=== PATIENT | male | born 1955 | race African-American/Black ===

== ENCOUNTER → 2016-11-02 | Outpatient (CLI) | payer OTHER ==
[~2016-11-02] MED LIST: CALCIUM/VITAMIN D PO; CALTTAB10 PO; CLAR5CHW; FIBERCON PO; FLON0.05; HYDR7.5T38 PO; MULTIVIT PO; PRIL20CA PO; ULTR200T OR; ULTR50TA PO; VICODINES TAB PO; VITA400C PO; ZANA4CAP OR; ZOCO40TA PO; ZYRT10TA6 OR
--- NOTE | 2016-11-20 01:09 | ECWPNPC ---
PATIENT NAME: FABIOLA MORENO : 1955 GENDER: MALE VISIT DATE: 11/02/2016 DISCHARGE DATE: 11/02/16 1014 VISIT LOCKED DATE TIME: PHYSICIAN: VAIBHAV YANEZ RESOURCE: VAIBHAV YANEZ REASON FOR APPOINTMENT 1. POST TPI BACK HISTORY OF PRESENT ILLNESS HISTORY OF PRESENT ILLNESS: HERE [facility] POST PROCEDURE F/U.HAD TPI ON 10-11-16.REPORTS ONLY 2 DAYS IMPROVEMENT THEN PAIN RETURNED TO [facility].CHIEF AREA OF PAIN IS RIGHT LOW BACK.PAIN IS AGGREVATED IN THIS REGION BY GETTING IN AND OUT OF VEHICLE.RATING PAIN VAS 6/10. PAIN THE PATIENT DESCRIBES THE PAIN... FALL RISK SCREENING: SCREENING :NO FALLS IN THE PAST YEAR CURRENT MEDICATIONS TAKING DRISDOL 89196 UNIT CAPSULE 1 CAPSULE ORALLY ONCE A WEEK WITH A MEAL TAKING ATORVASTATIN CALCIUM 10 MG TABLET 1 TABLET ORALLY ONCE A DAY TAKING PRILOSEC 40 MG CAPSULE DELAYED RELEASE 1 CAPSULE ORALLY DAILY BEFORE MEAL TAKING COLACE 100 MG CAPSULE 1 CAPSULE NEEDED ORALLY ONCE A DAY TAKING FIBERCON 625 MG TABLET 1 TABLET WITH WATER ORALLY DAILY TAKING VITAMIN E 400 UNIT CAPSULE 1 CAPSULE ORALLY ONCE A DAY TAKING CALCIUM + D 600-400 MG-UNIT TABLET 1 TABLET WITH FOOD ORALLY ONCE A DAY TAKING VITAMIN B-12 500 MCG TABLET 1 TABLET ORALLY ONCE A DAY TAKING HYDROCORTISONE VALERATE 0.2 % CREAM 1 APPLICATION TO AFFECTED AREA ON ARMS AND CHEST EXTERNALLY ONCE A DAY TAKING VENTOLIN HFA 108 (90 BASE) MCG/ACT AEROSOL SOLUTION INHALE TWO PUFFS BY MOUTH EVERY 4 TO 6 HOURS NEEDED FOR COUGH AND DYSPNEA INHALATION TAKING EPIPEN 2-ARMAAN 0.3 MG/0.3ML SOLUTION AUTO-INJECTOR INJECT 0.3ML BY INTRAMUSCULARLY ROUTE ONCE NEEDED FOR ANAPHYLAXIS INJECTION TAKING LIDOCAINE 4 % CREAM 1 APPLICATION TO AFFECTED AREA NEEDED EXTERNALLY THREE TIMES A DAY TO LOW BACK TAKING BENADRYL 25 MG CAPSULE 1 CAPSULE NEEDED FOR ITCHING ORALLY EVERY 8 HRS TAKING ZYRTEC ALLERGY 10 MG TABLET 1 TABLET ORALLY ONCE A DAY TAKING SALINE 0.65 % AEROSOL SOLUTION 1 APPLICATION IN EACH NOSTRIL TO TREAT DRY NASAL PASSAGES NASALLY 4 TIMES A DAY NEEDED, NOTES: 10/08 10AM TAKING FLONASE 50 MCG/ACT SUSPENSION 1 SPRAY IN EACH NOSTRIL NASALLY TWICE A DAY, NOTES: 10/08 10AM TAKING SUDAFED 30 MG TABLET 1 TABLET NEEDED ORALLY EVERY 6 HRS, NOTES: 2 WEEKS AGO TAKING AZELASTINE HCL 0.1 % SOLUTION SPRAY 2 SPRAYS IN EACH NOSTRIL ONCE DAILY IN THE MORNING NASAL , NOTES: 10/08 10AM TAKING TESSALON PERLES 100 MG CAPSULE 1 CAPSULE NEEDED ORALLY THREE TIMES A DAY, NOTES: 10/09 8AM TAKING GABAPENTIN 300 MG CAPSULE 1 CAPSULE ORALLY BEFORE BEDTIME, NOTES: 10/06 10PM TAKING OXYBUTYNIN CHLORIDE ER 10 MG TABLET EXTENDED RELEASE 24 HOUR 1 TABLET ORALLY ONCE A DAY, NOTES: 10/09 8AM TAKING FOLIC ACID 400 MCG TABLET 1 TABLET ORALLY ONCE A DAY MEDICATION LIST REVIEWED AND RECONCILED WITH THE PATIENT PAST MEDICAL HISTORY LOW BACK PAIN TENDINITIS SHOULDER ALLERGIES/ ECZEMA PEPTIC ULCER DISEASE HYPERLIPIDEMIA, MIXED UVEITIS ESOPHAGEAL REFLUX HIATAL HERNIA OSTEOARTHRITIS CARCINOID RECTAL TUMOR MIGRAINE HEADACHES PANCREATITIS 03/03 URINARY FREQUENCY ALLERGIES CELEBREX: HYPER: SIDE EFFECTS SULFA: HIVES: ALLERGY CYMBALTA: NAUSEA/VOMITING: SIDE EFFECTS TRAMADOL: GI UPSET: SIDE EFFECTS SHELL FISH: HIVES: ALLERGY PRAVASTATIN SODIUM: ELEVATED LFT: SIDE EFFECTS SOCIAL HISTORY GENERAL: TOBACCO USE ARE YOU A:NONSMOKER LEARNING BARRIERS / SPECIAL NEEDS ORIENTED TO PLAN OF CARE: PATIENT, PAIN MANAGEMENT PATIENT, ORIENTED TO PLAN OF CARE: PATIENT, PAIN MANAGEMENT PATIENT. NEW PATIENT PAIN DIARY TODAY'S VISITNOTES FROM 0-10, WHAT LEVEL IS YOUR PAIN TODAY?0 PAIN CLINIC PFS, CLERGY, PUBLIC HEALTH REFERRALS PFS REFERRAL NEEDED?NO CLERGY REFERRAL NEEDED?NO PUBLIC HEALTH REFERRAL NEEDED?NO WAS THE PROVIDER NOTIFIED OF ANY PERTINENT INFO?NO PFS REFERRAL NEEDED?NO CLERGY REFERRAL NEEDED?NO PUBLIC HEALTH REFERRAL NEEDED?NO WAS THE PROVIDER NOTIFIED OF ANY PERTINENT INFO?NO REVIEW OF SYSTEMS CONSTITUTIONAL: ANY CHANGE IN YOUR MEDICAL CONDITION? NO . RECENT ILLNESS DENIES . CHILLS NO . FEVER NO . WEIGHT LOSS DENIES . INFECTION: DO YOU HAVE NEW INFECTIONS? NO . DO YOU HAVE HISTORY OF MRSA? NO . MUSCULOSKELETAL: ANY NEW PATTERNS OF PAIN OR NUMBNESS? NO . GASTROENTEROLOGY: ANY NEW CHANGE IN BOWEL CONTROL? NO . GENITOURINARY: ANY NEW CHANGE IN BLADDER CONTROL? NO . IS THERE A CHANCE YOU COULD BE ? NO . HEMATOLOGY/LYMPH: DO YOU TAKE ANY BLOOD THINNERS? (FOR EXAMPLE- COUMADIN, PLAVIX, AGGRENOX, PLATEL, PRADAXA, OR XARELTO) NO . WHEN WAS YOUR LAST DOSE? DATE: TIME: . NEUROLOGY: HAVE YOU FALLEN IN THE PAST 6 MONTHS? NO . ANY NEW EXTREMITY NUMBNESS OR WEAKNESS? NO . CARDIOLOGY: DO YOU HAVE A PACEMAKER OR DEFIBRILLATOR? NO . CHEST PAIN DENIES . SHORTNESS OF BREATH DENIES . RESPIRATORY: HAVE YOU BEEN SICK IN THE PAST WEEK? NO . FEVER NO . FLU LIKE SYMPTOMS? NO . COUGH NO, DENIES . SHORTNESS OF BREATH DENIES . INTEGUMENTARY: DO YOU HAVE ANY RASHES OR OPEN SORES? NO . ALLERGIC/IMMUNO: ARE YOU ALLERGIC TO SHELLFISH OR IV DYE? NO . ANY NEW ALLERGIES? NO . PSYCHIATRIC: DO YOU HAVE THOUGHTS OF HURTING YOURSELF OR SOMEONE ELSE? NO . ARE YOU ABUSED, NEGLECTED, OR IN AN UNSAFE ENVIRONMENT? NO . ENDOCRINOLOGY: ARE YOU DIABETIC? NO . OTHER: DO YOU NEED ANY PRESCRIPTIONS? NO . IF YES, PLEASE LIST: ____ . ANY NEW PROBLEMS WITH YOUR MEDICATIONS? NO . WHEN DID YOU LAST EAT? ____ . WHEN DID YOU LAST DRINK? ____ . WHAT DID YOU LAST DRINK? ____ . NAME OF PERSON DRIVING YOU HOME? ____ . DO YOU HAVE ANY OTHER QUESTIONS OR CONCERNS NO . REVIEWED BY: PROVIDER: VAIBHAV CAMPOS . VITAL SIGNS WT 172 LBS, HT 70.75 IN, BMI 24.16 INDEX, BP 146/100 R ARM, REPEAT BP 149/98 L ARM, HR 88 /MIN, RR 16 /MIN, TEMP 97.4 F, OXYGEN SAT % 98, NA INITIALS TL 0935ELEVATED BP, PT STATES HE IS NORMALLY HIGH AT DRS OFFICES- TL. EXAMINATION GENERAL EXAMINATION: LUNGS:LUNG SOUNDS ARE CLEAR. HEART:HEART RATE REGULAR. MUSCULOSKELETAL:*, MUSCLE STRENGTH TESTING 5/5 BILATERAL LOWER EXTREMITIES. PALPATION: POSITIVE FOR PAIN OVER L/S SPINE.SPECIFIC POINT TENDERNESS OVER RSIJ.. DIAGNOSTIC: . 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 IT IS NOT A COPY OF THE [employer] PROGRESS NOTE. CELESTE
== END ==
LOC: M PAIN 09:40
PROVIDERS: ATTEND Nurse Practitioner Family
DX: Z09 Encounter for follow-up examination after completed treatment for conditions other than malignant neoplasm (principal); M53.3 Sacrococcygeal disorders, not elsewhere classified; M79.1 Myalgia; L30.8 Other specified dermatitis; E78.5 Hyperlipidemia, unspecified; K21.9 Gastro-esophageal reflux disease without esophagitis; K44.9 Diaphragmatic hernia without obstruction or gangrene; M19.90 Unspecified osteoarthritis, unspecified site; G43.909 Migraine, unspecified, not intractable, without status migrainosus; Z88.2 Allergy status to sulfonamides; Z88.5 Allergy status to narcotic agent; Z91.013 Allergy to seafood; Z88.8 Allergy status to other drugs, medicaments and biological substances; Z79.899 Other long term (current) drug therapy; Z85.048 Personal history of other malignant neoplasm of rectum, rectosigmoid junction, and anus; Z87.11 Personal history of peptic ulcer disease

== ENCOUNTER → 2016-11-08 | Outpatient (REF) | payer OTHER | LOC: M SFHCPLAZ 08:03 | PROVIDERS: ATTEND Nurse Practitioner Family | DX: M25.512 Pain in left shoulder (principal); R20.2 Paresthesia of skin; Z53.8 Procedure and treatment not carried out for other reasons ==

== ENCOUNTER → 2016-12-05 | Outpatient (REF) | payer OTHER ==
[2016-12-05 12:00] LABS: ALBUMIN 3.8 GM/DL (3.2-5.2); ALBUMIN/GLOBULIN RATIO 1.09 (1.00-1.93); ALKALINE PHOSPHATASE 110 U/L (45-117); ALT/SGPT 56 U/L (12-78); ANION GAP 7 MEQ/L (8-16); AST/SGOT 42 U/L (15-37); BILIRUBIN,TOTAL 0.4 MG/DL (0.2-1.0); BLOOD UREA NITROGEN 11 MG/DL (7-18); CALCIUM LEVEL 9.4 MG/DL (8.8-10.2); CARBON DIOXIDE LEVEL 28 MEQ/L (21-32); CHLORIDE LEVEL 106 MEQ/L (98-107); CHOLESTEROL LEVEL 199 MG/DL (<200); CREATININE FOR GFR 0.75 MG/DL (0.70-1.30); GLOMERULAR FILTRATION RATE > 60.0 (>49); GLUCOSE, FASTING 99 MG/DL (80-110); POTASSIUM SERUM 4.4 MEQ/L (3.5-5.1); SODIUM LEVEL 141 MEQ/L (136-145); TOTAL PROTEIN 7.3 GM/DL (6.4-8.2); TRIGLYCERIDES LEVEL 283 MG/DL (<150)
== END ==
LOC: M SFHCPLAZ 08:38
PROVIDERS: ATTEND Nurse Practitioner Family
DX: E78.2 Mixed hyperlipidemia (principal); R73.01 Impaired fasting glucose

== ENCOUNTER → 2017-01-17 | Outpatient (CLI) | payer OTHER ==
--- NOTE | 2017-01-18 00:29 | ECWPNPC ---
PATIENT NAME: FABIOLA MORENO : 1955 GENDER: MALE VISIT DATE: 01/17/2017 DISCHARGE DATE: 01/17/17 1130 VISIT LOCKED DATE TIME: PHYSICIAN: VAIBHAV YANEZ RESOURCE: VAIBHAV YANEZ REASON FOR APPOINTMENT 1. BACK HISTORY OF PRESENT ILLNESS HISTORY OF PRESENT ILLNESS: HERE FOR POST PROCEDURE F/U.HAD RIGHT SIJ ON 12-20-16.REPORTS NO IMPROVEMENT IN PAIN POST PROCEDURE.TRIGGER POINT INJECTIONS IN SEPTEMBER ALSO WERE INEFFECTIVE.RATING PAIN VAS 8/10.DESCRIBES PAIN CONSTANT AND BURNING CENTRAL /AXIAL LOW BACK.C/O BILAT. LEG PAIN THAT IS CONSTANT IN THIGHS WITH INTERMITTENT SHOOTING PAIN DOWN ENTIRE LEGS. PAIN THE PATIENT DESCRIBES THE PAIN... FALL RISK SCREENING: SCREENING :NO FALLS IN THE PAST YEAR CURRENT MEDICATIONS TAKING VITAMIN E 400 UNIT CAPSULE 1 CAPSULE ORALLY ONCE A DAY, NOTES: 12-19-16 TAKING HYDROCORTISONE VALERATE 0.2 % CREAM 1 APPLICATION TO AFFECTED AREA ON ARMS AND CHEST EXTERNALLY ONCE A DAY NEEDED, NOTES: 12-19-16 TAKING VENTOLIN HFA 108 (90 BASE) MCG/ACT AEROSOL SOLUTION INHALE TWO PUFFS BY MOUTH EVERY 4 TO 6 HOURS NEEDED FOR COUGH AND DYSPNEA INHALATION , NOTES: 2 WEEKS TAKING EPIPEN 2-ARMAAN 0.3 MG/0.3ML SOLUTION AUTO-INJECTOR INJECT 0.3ML BY INTRAMUSCULARLY ROUTE ONCE NEEDED FOR ANAPHYLAXIS INJECTION TAKING OXYBUTYNIN CHLORIDE ER 10 MG TABLET EXTENDED RELEASE 24 HOUR 1 TABLET ORALLY ONCE A DAY, NOTES: 12-19-16 0800 TAKING FOLIC ACID 400 MCG TABLET 1 TABLET ORALLY ONCE A DAY, NOTES: 12-19-16 0800 TAKING PRILOSEC 40 MG CAPSULE DELAYED RELEASE 1 CAPSULE ORALLY DAILY BEFORE MEAL, NOTES: 12-19-16 0800 TAKING BENADRYL 25 MG CAPSULE 1 CAPSULE NEEDED FOR ITCHING ORALLY EVERY 8 HRS, NOTES: 12-19-16 2100 TAKING ZYRTEC ALLERGY 10 MG TABLET 1 TABLET ORALLY ONCE A DAY, NOTES: 12-19-16 0800 TAKING SALINE 0.65 % AEROSOL SOLUTION 1 APPLICATION IN EACH NOSTRIL TO TREAT DRY NASAL PASSAGES NASALLY 4 TIMES A DAY NEEDED, NOTES: NONE TAKING FLONASE 50 MCG/ACT SUSPENSION 1 SPRAY IN EACH NOSTRIL NASALLY TWICE A DAY, NOTES: 12-19-16 TAKING SUDAFED 30 MG TABLET 1 TABLET NEEDED ORALLY EVERY 6 HRS, NOTES: WEEK TAKING AZELASTINE HCL 0.1 % SOLUTION SPRAY 2 SPRAYS IN EACH NOSTRIL ONCE DAILY IN THE MORNING NASAL DAILY, NOTES: 12-19-16 TAKING TESSALON PERLES 100 MG CAPSULE 1 CAPSULE NEEDED ORALLY THREE TIMES A DAY, NOTES: 12-19-16 TAKING COLACE 100 MG CAPSULE 1 CAPSULE NEEDED ORALLY ONCE A DAY, NOTES: MONTH TAKING FIBERCON 625 MG TABLET 1 TABLET WITH WATER ORALLY DAILY, NOTES: 12-19-16 TAKING DRISDOL 40996 UNIT CAPSULE 1 CAPSULE ORALLY ONCE A WEEK WITH A MEAL, NOTES: 12-17-16 TAKING VITAMIN B-12 500 MCG TABLET 1 TABLET ORALLY ONCE A DAY, NOTES: 12-19-16 TAKING CALCIUM + D 600-400 MG-UNIT TABLET 1 TABLET WITH FOOD ORALLY ONCE A DAY, NOTES: 12-19-16 TAKING LIDOCAINE 4 % CREAM 1 APPLICATION TO AFFECTED AREA NEEDED EXTERNALLY THREE TIMES A DAY TO LOW BACK, NOTES: 12-19-16 PM TAKING GABAPENTIN 300 MG CAPSULE 1 CAPSULE ORALLY BEFORE BEDTIME TAKING NICOTINE 21 MG/24HR PATCH 24 HOUR 1 PATCH TO SKIN TRANSDERMAL ONCE A DAY TAKING ATORVASTATIN CALCIUM 10 MG TABLET 1 TABLET ORALLY ONCE A DAY TAKING TIZANIDINE HCL 4 MG TABLET 1 TABLET NEEDED ORALLY THREE TIMES A DAY MEDICATION LIST REVIEWED AND RECONCILED WITH THE PATIENT PAST MEDICAL HISTORY LOW BACK PAIN TENDINITIS SHOULDER ALLERGIES/ ECZEMA PEPTIC ULCER DISEASE HYPERLIPIDEMIA, MIXED UVEITIS ESOPHAGEAL REFLUX HIATAL HERNIA OSTEOARTHRITIS CARCINOID RECTAL TUMOR MIGRAINE HEADACHES PANCREATITIS 03/03 URINARY FREQUENCY ALLERGIES CELEBREX: HYPER: SIDE EFFECTS SULFA: HIVES: ALLERGY CYMBALTA: NAUSEA/VOMITING: SIDE EFFECTS TRAMADOL: GI UPSET: SIDE EFFECTS SHELL FISH: HIVES: ALLERGY PRAVASTATIN SODIUM: ELEVATED LFT: SIDE EFFECTS IV DYE: UNSURE REVIEW OF SYSTEMS CONSTITUTIONAL: ANY CHANGE IN YOUR MEDICAL CONDITION? NO . CHILLS NO . FEVER NO . INFECTION: DO YOU HAVE NEW INFECTIONS? NO . DO YOU HAVE HISTORY OF MRSA? NO . MUSCULOSKELETAL: ANY NEW PATTERNS OF PAIN OR NUMBNESS? YES PT REPORTS THAT OVER THE PAST SEVERAL MONTHS, PAIN HAS EXTENDED TO BOTH LEGS . GASTROENTEROLOGY: ANY NEW CHANGE IN BOWEL CONTROL? NO . GENITOURINARY: ANY NEW CHANGE IN BLADDER CONTROL? NO . IS THERE A CHANCE YOU COULD BE ? NO . HEMATOLOGY/LYMPH: DO YOU TAKE ANY BLOOD THINNERS? (FOR EXAMPLE- COUMADIN, PLAVIX, AGGRENOX, PLATEL, PRADAXA, OR XARELTO) NO . WHEN WAS YOUR LAST DOSE? DATE: TIME: . NEUROLOGY: HAVE YOU FALLEN IN THE PAST 6 MONTHS? NO . ANY NEW EXTREMITY NUMBNESS OR WEAKNESS? NO . CARDIOLOGY: DO YOU HAVE A PACEMAKER OR DEFIBRILLATOR? NO . RESPIRATORY: HAVE YOU BEEN SICK IN THE PAST WEEK? NO . FEVER NO . FLU LIKE SYMPTOMS? NO . COUGH NO . INTEGUMENTARY: DO YOU HAVE ANY RASHES OR OPEN SORES? NO . ALLERGIC/IMMUNO: ARE YOU ALLERGIC TO SHELLFISH OR IV DYE? YES . ANY NEW ALLERGIES? NO . PSYCHIATRIC: DO YOU HAVE THOUGHTS OF HURTING YOURSELF OR SOMEONE ELSE? NO . ARE YOU ABUSED, NEGLECTED, OR IN AN UNSAFE ENVIRONMENT? NO . ENDOCRINOLOGY: ARE YOU DIABETIC? NO . OTHER: DO YOU NEED ANY PRESCRIPTIONS? NO . IF YES, PLEASE LIST: ____ . ANY NEW PROBLEMS WITH YOUR MEDICATIONS? NO . WHEN DID YOU LAST EAT? ____ . WHEN DID YOU LAST DRINK? ____ . WHAT DID YOU LAST DRINK? ____ . NAME OF PERSON DRIVING YOU HOME? ____ . DO YOU HAVE ANY OTHER QUESTIONS OR CONCERNS NO . REVIEWED BY: PROVIDER: VAIBHAV CAMPOS . VITAL SIGNS WT 177.0 LBS, HT 70.75 IN, BMI 24.86 INDEX, BP 145/91 MM HG, HR 90 /MIN, RR 16 /MIN, TEMP 98.6 F, OXYGEN SAT % 96%, NA INITIALS TL 1052. EXAMINATION GENERAL EXAMINATION: LUNGS:LUNG SOUNDS ARE CLEAR. HEART:HEART RATE REGULAR. MUSCULOSKELETAL:*, MUSCLE STRENGTH TESTING 5/5 BILATERAL LOWER EXTREMITIES. PALPATION: POSITIVE FOR PAIN OVER L/S SPINE.SPECIFIC POINT TENDERNESS OVER RSIJ.. 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 PROCEDURE CODES FA211 ESTABILISHED PATIENT [facility] CHARGE DISPOSITION & COMMUNICATION FOLLOW UP DISCHARGE TO PRIMARY CARE ELECTRONICALLY SIGNED BY ANDRES MAY ON 01/17/2017 AT 11:55 AM EDT DISCLAIMER : THIS IS A VISIT SUMMARY EXTRACTED FROM THE [employer] CHART. IT IS NOT A COPY OF THE [employer] PROGRESS NOTE. MTDD
== END ==
LOC: M PAIN 10:20
PROVIDERS: ATTEND Nurse Practitioner Family
DX: M53.3 Sacrococcygeal disorders, not elsewhere classified (principal); M79.1 Myalgia; G89.29 Other chronic pain; Z79.899 Other long term (current) drug therapy; E78.2 Mixed hyperlipidemia; Z88.6 Allergy status to analgesic agent; Z88.2 Allergy status to sulfonamides; Z88.8 Allergy status to other drugs, medicaments and biological substances; Z91.013 Allergy to seafood; Z91.041 Radiographic dye allergy status

== ENCOUNTER → 2017-03-13 | Outpatient (REF) | payer OTHER ==
[2017-03-13 11:38] LABS: MEAN CORPUSCULAR HEMOGLOBIN 34.5 pg (27.0-33.0); MEAN CORPUSCULAR HGB CONC 34.4 g/dl (32.0-36.5); MEAN CORPUSCULAR VOLUME 100.1 fl (80.0-96.0); RED CELL DISTRIBUTION WIDTH 12.7 % (11.5-14.5); WHITE BLOOD COUNT 11.8 K/mm3 (4.0-10.0)
[2017-03-13 12:05] LABS: VITAMIN B12 LEVEL 855 PG/ML
[2017-03-13 12:22] LABS: ALBUMIN 3.4 GM/DL (3.2-5.2); ALBUMIN/GLOBULIN RATIO 0.97 (1.00-1.93); ALKALINE PHOSPHATASE 112 U/L (45-117); ALT/SGPT 38 U/L (12-78); ANION GAP 9 MEQ/L (8-16); AST/SGOT 30 U/L (15-37); BILIRUBIN,TOTAL 0.4 MG/DL (0.2-1.0); BLOOD UREA NITROGEN 5 MG/DL (7-18); CARBON DIOXIDE LEVEL 26 MEQ/L (21-32); CHLORIDE LEVEL 106 MEQ/L (98-107); CREATININE FOR GFR 0.69 MG/DL (0.70-1.30); FREE T4 1.02 NG/DL (0.76-1.46); GLOMERULAR FILTRATION RATE > 60.0 (>49); GLUCOSE, FASTING 79 MG/DL (80-110); POTASSIUM SERUM 4.5 MEQ/L (3.5-5.1); SODIUM LEVEL 141 MEQ/L (136-145); TOTAL PROTEIN 6.9 GM/DL (6.4-8.2)
== END ==
LOC: M SFHCPLAZ 08:28
PROVIDERS: ATTEND Nurse Practitioner Family
DX: R20.2 Paresthesia of skin (principal); E78.2 Mixed hyperlipidemia; R73.01 Impaired fasting glucose; E55.9 Vitamin D deficiency, unspecified

== ENCOUNTER → 2017-04-18 | Outpatient (CLI) | payer OTHER | LOC: M SMT 10:48 | PROVIDERS: ATTEND Urology | DX: Z12.5 Encounter for screening for malignant neoplasm of prostate (principal) ==

== ENCOUNTER → 2017-05-13 | Outpatient (CLI) | payer OTHER ==
--- NOTE | 2017-05-13 19:09 | REP ---
REASON FOR EXAM: Back pain. COMPARISON: 07/18/2012. Once again, there is loss of disc space height posteriorly and disc hydration signal at ever level status quo. Vertebral height and alignment is again seen to be within normal limits. No abnormal signal has developed in the imaged portion of the spinal cord. The marrow signal is within normal limits and unchanged. At the L1-2 level there is no significant change. There is no disc herniation, foraminal narrowing or central canal stenosis. Mild degenerative facet joint changes are present bilaterally, status quo. At the L2-3 level there is a minimal broad based annular bulge. Degenerative facet joint changes were again seen bilaterally with thickening of the ligamentum flava status quo. There is no change from the prior exam. There was no disc herniation or foraminal narrowing, or mariaelena central canal stenosis. At the L3-4 level there is a broad based annular bulge. Degenerative facet joint changes are again seen bilaterally with thickening of the ligamentum flava. These factors in concert flatten and straighten the anterior thecal sac status quo. There is no acute disc extrusion or foraminal narrowing. At the L4-5 level there is a large broad based annular bulge seen in conjunction with degenerative facet joint changes bilaterally and thickening of the ligamentum flava. The facet joint degenerative change has increased from the prior exam and there is fluid in the facet joints stable on the left, new and prominent on the right. Discogenic change and degenerative facet joint change seen with thickening of the ligamentum flava causes moderate central canal stenosis which has increased since the prior exam. No acute disc extrusion is noted. There is no mariaelena foraminal narrowing. At the L5-S1 level there is broad based annular bulge which is again seen to flatten and straighten the anterior thecal sac. Degenerative facet joint changes are again seen bilaterally with mild thickening of the ligamentum flava. There was no acute disc herniation, foraminal narrowing, or mariaelena central canal stenosis. IMPRESSION: Multilevel discogenic change with degenerative facet joint changes as described above. Particular attention is drawn to the L4-5 level. Signed by Arnoldo Phillip DO 05/13/2017 07:11 P
== END ==
LOC: M RAD 16:43
PROVIDERS: ATTEND Physician Assistant
DX: M54.5 Low back pain (principal); M51.36 Other intervertebral disc degeneration, lumbar region; M12.88 Other specific arthropathies, not elsewhere classified, other specified site

== ENCOUNTER → 2017-06-28 | Outpatient (REF) | payer OTHER ==
[2017-06-28 17:29] LABS: ALBUMIN 3.8 GM/DL (3.2-5.2); ALBUMIN/GLOBULIN RATIO 1.03 (1.00-1.93); ALKALINE PHOSPHATASE 108 U/L (45-117); ALT/SGPT 63 U/L (12-78); ANION GAP 9 MEQ/L (8-16); AST/SGOT 55 U/L (15-37); BILIRUBIN,TOTAL 0.3 MG/DL (0.2-1.0); BLOOD UREA NITROGEN 11 MG/DL (7-18); CALCIUM LEVEL 9.3 MG/DL (8.8-10.2); CARBON DIOXIDE LEVEL 26 MEQ/L (21-32); CHLORIDE LEVEL 107 MEQ/L (98-107); CHOLESTEROL LEVEL 190 MG/DL (<200); CREATININE FOR GFR 0.83 MG/DL (0.70-1.30); GLOMERULAR FILTRATION RATE > 60.0 (>49); GLUCOSE, FASTING 78 MG/DL (80-110); POTASSIUM SERUM 4.6 MEQ/L (3.5-5.1); SODIUM LEVEL 142 MEQ/L (136-145); TOTAL PROTEIN 7.5 GM/DL (6.4-8.2); TRIGLYCERIDES LEVEL 310 MG/DL (<150)
== END ==
LOC: M SFHCPLAZ 10:26
PROVIDERS: ATTEND Nurse Practitioner Family
DX: E78.2 Mixed hyperlipidemia (principal); E55.9 Vitamin D deficiency, unspecified

== ENCOUNTER → 2017-08-28 | Outpatient (CLI) | payer OTHER ==
[2017-08-28 14:14] LABS: BASO # 0.1 10^3/uL (0.0-0.2); BASO % 0.4 % (0.0-1.0); EOS # 0.1 10^3/uL (0.0-0.50); EOS % 0.7 % (0.0-3.0); IMMATURE GRANULOCYTE % 0.4 % (0-0); LYMPH # 1.7 10^3/uL (1.5-4.5); LYMPH % 15.1 % (24.0-44.0); MEAN CORPUSCULAR HEMOGLOBIN 31.9 pg (27.0-33.0); MEAN CORPUSCULAR HGB CONC 33.7 g/dl (32.0-36.5); MEAN CORPUSCULAR VOLUME 94.7 fl (80.0-96.0); MONO % 9.2 % (0.0-5.0); NEUTROPHILS # 8.4 10^3/uL (1.8-7.7); NEUTROPHILS % 74.2 % (36.0-66.0); PLATELET COUNT, AUTOMATED 277 10^3/uL (150-450); RED CELL DISTRIBUTION WIDTH 14.1 % (11.5-14.5); WHITE BLOOD COUNT 11.3 10^3/uL (4.0-10.0)
[2017-08-28 14:33] LABS: VITAMIN B12 LEVEL 713 PG/ML
[2017-08-28 14:34] LABS: FOLATE 22.5 NG/ML
[2017-08-28 14:36] LABS: ALBUMIN 4.2 GM/DL (3.2-5.2); ALBUMIN/GLOBULIN RATIO 1.02 (1.00-1.93); ALKALINE PHOSPHATASE 125 U/L (45-117); ALT/SGPT 77 U/L (12-78); ANION GAP 9 MEQ/L (8-16); AST/SGOT 77 U/L (7-37); BILIRUBIN,TOTAL 0.5 MG/DL (0.2-1.0); BLOOD UREA NITROGEN 11 MG/DL (7-18); CALCIUM LEVEL 9.4 MG/DL (8.8-10.2); CARBON DIOXIDE LEVEL 26 MEQ/L (21-32); CHLORIDE LEVEL 103 MEQ/L (98-107); CREATININE FOR GFR 0.85 MG/DL (0.70-1.30); GLOMERULAR FILTRATION RATE > 60.0 (>49); GLUCOSE, FASTING 103 MG/DL (80-110); POTASSIUM SERUM 4.4 MEQ/L (3.5-5.1); SODIUM LEVEL 138 MEQ/L (136-145); TOTAL PROTEIN 8.3 GM/DL (6.4-8.2)
[2017-08-28 14:43] LABS: ERYTHROCYTE SEDIMENTATION RATE 10 mm/hr (0-20)
[2017-08-29 12:46] LABS: ALBUMIN 4.61 GM/DL (3.29-5.55); ALBUMIN % 55.6 % (55.8-66.1); GAMMA GLOBULIN % 17.1 % (11.1-18.8)
[2017-09-01 00:06] LABS: Lyme Disease IgG/IgM Antibodie <0.91 ISR (0.00-0.90); Lyme Disease IgM Ab Quantitati <0.80 index (0.00-0.79); SJOGREN'S ANTI SS-A <0.2 AI (0.0-0.9); SJOGREN'S ANTI SS-B <0.2 AI (0.0-0.9); VITAMIN E LEVEL 11.1 mg/L (5.3-17.5)
== END ==
LOC: M SMT 08:36
PROVIDERS: ATTEND Psychiatry & Neurology Neurology
DX: G62.9 Polyneuropathy, unspecified (principal)

== ENCOUNTER 2017-09-04 06:36 | Emergency (ER) | payer OTHER ==
[~2017-09-04] VITALS: Ht 177.8 cm; Wt 79.5 kg
[2017-09-04] MEDS ORDERED: GABA600T PO (06:49)
--- NOTE | 2017-09-04 07:42 | REP ---
Clinical: Trauma. Technique: AP, lateral, bilateral oblique views right foot . Findings: The osseous structures and joint spaces are intact and normal for age. Mild osteopenia and degenerative changes are appreciated. There is no evidence for acute fracture or dislocation. Surrounding soft tissues are unremarkable. No subcutaneous emphysema or radiodense foreign body. Impression: Age-related degenerative changes. . No acute fracture or dislocation. Signed by Stephon Kennedy MD 09/04/2017 07:33 A
[2017-09-04] MEDS ORDERED: NORCO, ANEXSIA 5/325MG TABLET (HYDROcodone/ACETAMINOPHEN) PO ONE (07:45)
[2017-09-04] MEDS ORDERED: NORC1TAB4 PO (07:47)
[2017-09-04] MEDS ORDERED: TYLE325T5 PO (07:47)
[2017-09-04 07:58] VITALS: BP 144/96
== END 2017-09-04 08:18 | disposition home or self-care (01) ==
LOC: M ED 06:36
DX: S90.31XA Contusion of right foot, initial encounter (principal); W22.8XXA Striking against or struck by other objects, initial encounter; Y92.018 Other place in single-family (private) house as the place of occurrence of the external cause; Y93.89 Activity, other specified; Y99.8 Other external cause status; J45.909 Unspecified asthma, uncomplicated; K21.9 Gastro-esophageal reflux disease without esophagitis; M19.90 Unspecified osteoarthritis, unspecified site; E78.00 Pure hypercholesterolemia, unspecified; Z79.899 Other long term (current) drug therapy; Z88.2 Allergy status to sulfonamides; Z88.8 Allergy status to other drugs, medicaments and biological substances; Z91.013 Allergy to seafood; F17.210 Nicotine dependence, cigarettes, uncomplicated

== ENCOUNTER → 2017-11-29 | Outpatient (CLI) | payer OTHER ==
[2017-11-29 09:39] LABS: BASO % 0.3 % (0.0-1.0); EOS # 0.1 10^3/uL (0.0-0.50); EOS % 0.4 % (0.0-3.0); HEMATOCRIT 42.6 % (42.0-52.0); HEMOGLOBIN 14.5 g/dl (14.0-18.0); IMMATURE GRANULOCYTE % 0.4 % (0-3.0); LYMPH # 1.8 10^3/uL (1.5-4.5); LYMPH % 12.8 % (24.0-44.0); MEAN CORPUSCULAR HEMOGLOBIN 31.5 pg (27.0-33.0); MEAN CORPUSCULAR VOLUME 92.6 fl (80.0-96.0); MONO # 1.3 10^3/uL (0.0-0.8); NEUTROPHILS # 10.8 10^3/uL (1.8-7.7); NEUTROPHILS % 77.1 % (36.0-66.0); PLATELET COUNT, AUTOMATED 270 10^3/uL (150-450); RED CELL DISTRIBUTION WIDTH 13.6 % (11.5-14.5)
[2017-11-29 09:56] LABS: INR 0.98; PROTHROMBIN TIME 13.1 SECONDS (12.4-14.5)
[2017-11-29 09:57] LABS: PARTIAL THROMBOPLASTIN TIME 28.7 SECONDS (26.8-37.9)
[2017-11-29 10:02] LABS: ALBUMIN 3.9 GM/DL (3.2-5.2); ALKALINE PHOSPHATASE 112 U/L (45-117); ALT/SGPT 85 U/L (12-78); ANION GAP 5 MEQ/L (8-16); AST/SGOT 78 U/L (7-37); BILIRUBIN,TOTAL 0.5 MG/DL (0.2-1.0); BLOOD UREA NITROGEN 11 MG/DL (7-18); CALCIUM LEVEL 8.9 MG/DL (8.8-10.2); CARBON DIOXIDE LEVEL 28 MEQ/L (21-32); CHLORIDE LEVEL 105 MEQ/L (98-107); GLOMERULAR FILTRATION RATE > 60.0 (>49); GLUCOSE, FASTING 101 MG/DL (70-100); SODIUM LEVEL 138 MEQ/L (136-145); TOTAL PROTEIN 7.8 GM/DL (6.4-8.2)
[2017-11-29 10:20] LABS: COLLAGEN EPINEPHRINE 146 SECONDS (74-162)
== END ==
LOC: M LAB 08:36
DX: Z01.818 Encounter for other preprocedural examination (principal); M47.892 Other spondylosis, cervical region
CPT/HCPCS: 71046

== ENCOUNTER → 2017-12-13 | Day surgery (SDC) | payer OTHER ==
[~2017-12-13] MED LIST changes: -CALCIUM/VITAMIN D PO; -CALTTAB10 PO; -CLAR5CHW; -FIBERCON PO; -FLON0.05; -HYDR7.5T38 PO; +KETOROLAC 60 MG/2 ML VIAL (J1885) As Ordered; +LIDOCAINE 1% MDV 20ML VIAL SQ; +LIDOCAINE 2% INJ 100 MG/5 ML SDV (FOR ANES.) As Ordered; +LR 1,000 ML IV; +MIDAZOLAM INJ 2 MG/2 ML VIAL (J2250) As Ordered; -MULTIVIT PO; +ONDANSETRON 4MG/2ML VIAL (J2405) As Ordered; -PRIL20CA PO; +PROPOFOL 200 MG/20 ML VIAL As Ordered; -ULTR200T OR; -ULTR50TA PO; -VICODINES TAB PO; -VITA400C PO; -ZANA4CAP OR; -ZOCO40TA PO; -ZYRT10TA6 OR; +ceFAZolin 2 GM/D5W 50 ML IV BAG (J0690 PER 500MG) As Ordered; +dexameTHASONE 4 MG/ML 1ML VIAL (J1100) As Ordered; +fentaNYL 100 MCG/2 ML INJECTION (J3010) As Ordered
== END | disposition home or self-care (01) ==
LOC: M SDC 08:30
DX: Z53.09 Procedure and treatment not carried out because of other contraindication (principal); R69 Illness, unspecified
CPT/HCPCS: J2250

== ENCOUNTER → 2017-12-26 | Outpatient (REF) | payer OTHER ==
[2017-12-26 13:07] LABS: TOTAL 25(OH) VITAMIN D 44.1 NG/ML (30.0-100.0)
[2017-12-26 13:39] LABS: ALKALINE PHOSPHATASE 117 U/L (45-117); ALT/SGPT 51 U/L (12-78); BILIRUBIN,TOTAL 0.4 MG/DL (0.2-1.0); CHLORIDE LEVEL 105 MEQ/L (98-107); HDL CHOLESTEROL 70 MG/DL (>40); POTASSIUM SERUM 4.5 MEQ/L (3.5-5.1); SODIUM LEVEL 141 MEQ/L (136-145); TOTAL PROTEIN 7.9 GM/DL (6.4-8.2)
[2017-12-26 14:08] LABS: ALBUMIN/GLOBULIN RATIO 1.03 (1.00-1.93); ANION GAP 9 MEQ/L (8-16); AST/SGOT 55 U/L (7-37); BLOOD UREA NITROGEN 10 MG/DL (7-18); CARBON DIOXIDE LEVEL 27 MEQ/L (21-32); CHOLESTEROL LEVEL 242 MG/DL (<200); CHOLESTEROL RISK RATIO 3.457 (<5); CREATININE FOR GFR 0.75 MG/DL (0.70-1.30); GLOMERULAR FILTRATION RATE > 60.0 (>49); GLUCOSE, FASTING 97 MG/DL (70-100); LDL CHOLESTEROL 135.6 MG/DL (<100); NON-HDL-C 172 MG/DL; TRIGLYCERIDES LEVEL 182 MG/DL (<150)
== END ==
LOC: M SFHCPLAZ 09:09
DX: E78.2 Mixed hyperlipidemia (principal); E55.9 Vitamin D deficiency, unspecified
CPT/HCPCS: 82306

== ENCOUNTER → 2018-01-25 | Outpatient (CLI) | payer OTHER ==
[2018-01-25 12:16] LABS: BASO % 0.4 % (0.0-1.0); EOS # 0.1 10^3/uL (0.0-0.50); EOS % 0.6 % (0.0-3.0); HEMATOCRIT 41.4 % (42.0-52.0); IMMATURE GRANULOCYTE % 0.5 % (0-3.0); LYMPH # 1.5 10^3/uL (1.5-4.5); LYMPH % 14.1 % (24.0-44.0); MEAN CORPUSCULAR HEMOGLOBIN 31.7 pg (27.0-33.0); MEAN CORPUSCULAR HGB CONC 33.8 g/dl (32.0-36.5); MEAN CORPUSCULAR VOLUME 93.9 fl (80.0-96.0); MONO # 1.1 10^3/uL (0.0-0.8); MONO % 9.9 % (0.0-5.0); NEUTROPHILS # 8.1 10^3/uL (1.8-7.7); NEUTROPHILS % 74.5 % (36.0-66.0); PLATELET COUNT, AUTOMATED 283 10^3/uL (150-450); RED BLOOD COUNT 4.41 10^6/uL (4.30-6.10); RED CELL DISTRIBUTION WIDTH 15.3 % (11.5-14.5); WHITE BLOOD COUNT 10.9 10^3/uL (4.0-10.0)
[2018-01-25 12:30] LABS: INR 1.02; PARTIAL THROMBOPLASTIN TIME 27.7 SECONDS (26.8-37.9); PROTHROMBIN TIME 13.5 SECONDS (12.4-14.5)
[2018-01-25 12:46] LABS: ALBUMIN 3.9 GM/DL (3.2-5.2); ALKALINE PHOSPHATASE 112 U/L (45-117); ALT/SGPT 86 U/L (12-78); ANION GAP 7 MEQ/L (8-16); AST/SGOT 105 U/L (7-37); BILIRUBIN,TOTAL 0.4 MG/DL (0.2-1.0); BLOOD UREA NITROGEN 10 MG/DL (7-18); CARBON DIOXIDE LEVEL 27 MEQ/L (21-32); CHLORIDE LEVEL 105 MEQ/L (98-107); CREATININE FOR GFR 0.73 MG/DL (0.70-1.30); GLOMERULAR FILTRATION RATE > 60.0 (>49); GLUCOSE, FASTING 95 MG/DL (70-100); POTASSIUM SERUM 4.6 MEQ/L (3.5-5.1); SODIUM LEVEL 139 MEQ/L (136-145); TOTAL PROTEIN 7.8 GM/DL (6.4-8.2)
[2018-01-25 13:07] LABS: COLLAGEN ADP 103 SECONDS (56-103); COLLAGEN EPINEPHRINE 168 SECONDS (74-162)
== END ==
LOC: M LAB 11:25
DX: Z01.818 Encounter for other preprocedural examination (principal)
CPT/HCPCS: 71046

== ENCOUNTER → 2018-04-02 | Outpatient (CLI) | payer OTHER | LOC: M PAIN 09:15 | DX: G89.29 Other chronic pain (principal); M47.27 Other spondylosis with radiculopathy, lumbosacral region; J30.9 Allergic rhinitis, unspecified; K25.9 Gastric ulcer, unspecified as acute or chronic, without hemorrhage or perforation; E78.5 Hyperlipidemia, unspecified; K21.9 Gastro-esophageal reflux disease without esophagitis; K44.9 Diaphragmatic hernia without obstruction or gangrene; R35.0 Frequency of micturition; M19.90 Unspecified osteoarthritis, unspecified site; M54.2 Cervicalgia; F17.210 Nicotine dependence, cigarettes, uncomplicated; G43.909 Migraine, unspecified, not intractable, without status migrainosus; L30.9 Dermatitis, unspecified; Z85.040 Personal history of malignant carcinoid tumor of rectum; Z79.899 Other long term (current) drug therapy; Z88.2 Allergy status to sulfonamides; Z88.5 Allergy status to narcotic agent; Z88.8 Allergy status to other drugs, medicaments and biological substances; Z91.013 Allergy to seafood; Z91.041 Radiographic dye allergy status | CPT/HCPCS: G0463 ==

== ENCOUNTER → 2018-04-11 | Outpatient (REF) | payer OTHER ==
[2018-04-11 12:54] LABS: BLOOD UREA NITROGEN 6 MG/DL (7-18)
[2018-04-11 12:54] LABS: CREATININE FOR GFR 0.74 MG/DL (0.70-1.30); GLOMERULAR FILTRATION RATE > 60.0 (>49)
== END ==
LOC: M LABDRAW1 11:49
DX: M19.012 Primary osteoarthritis, left shoulder (principal)
CPT/HCPCS: 82565

== ENCOUNTER → 2018-04-14 | Outpatient (CLI) | payer OTHER | LOC: M PAIN 08:30 | DX: Z53.29 Procedure and treatment not carried out because of patient's decision for other reasons (principal) ==

== ENCOUNTER → 2018-04-21 | Outpatient (CLI) | payer OTHER | LOC: M RAD 10:16 | DX: M79.605 Pain in left leg (principal); M79.604 Pain in right leg | CPT/HCPCS: 93925 ==

== ENCOUNTER → 2018-05-01 | Outpatient (CLI) | payer OTHER | LOC: M PAIN 08:45 | DX: M47.816 Spondylosis without myelopathy or radiculopathy, lumbar region (principal); M46.96 Unspecified inflammatory spondylopathy, lumbar region; L30.9 Dermatitis, unspecified; K25.9 Gastric ulcer, unspecified as acute or chronic, without hemorrhage or perforation; E78.2 Mixed hyperlipidemia; K21.9 Gastro-esophageal reflux disease without esophagitis; K44.9 Diaphragmatic hernia without obstruction or gangrene; G43.909 Migraine, unspecified, not intractable, without status migrainosus; R35.0 Frequency of micturition; Z85.040 Personal history of malignant carcinoid tumor of rectum; Z88.2 Allergy status to sulfonamides; Z88.8 Allergy status to other drugs, medicaments and biological substances; Z91.013 Allergy to seafood; Z91.041 Radiographic dye allergy status | CPT/HCPCS: G0463 ==

== ENCOUNTER → 2018-05-05 | Outpatient (CLI) | payer OTHER ==
[~2018-05-05] MED LIST changes: +CONRAY-43 43% 50ML VIAL (Q9960) As Ordered; -KETOROLAC 60 MG/2 ML VIAL (J1885) As Ordered; -LIDOCAINE 1% MDV 20ML VIAL SQ; -LIDOCAINE 2% INJ 100 MG/5 ML SDV (FOR ANES.) As Ordered; -LR 1,000 ML IV; -MIDAZOLAM INJ 2 MG/2 ML VIAL (J2250) As Ordered; -ONDANSETRON 4MG/2ML VIAL (J2405) As Ordered; +PROHANCE 279.3MG/ML 5ML VIAL (A9576) As Ordered; -PROPOFOL 200 MG/20 ML VIAL As Ordered; -ceFAZolin 2 GM/D5W 50 ML IV BAG (J0690 PER 500MG) As Ordered; -dexameTHASONE 4 MG/ML 1ML VIAL (J1100) As Ordered; -fentaNYL 100 MCG/2 ML INJECTION (J3010) As Ordered
== END ==
LOC: M RADPRO 06:33
DX: M19.012 Primary osteoarthritis, left shoulder (principal); R93.7 Abnormal findings on diagnostic imaging of other parts of musculoskeletal system; M65.812 Other synovitis and tenosynovitis, left shoulder
CPT/HCPCS: 23350

== ENCOUNTER → 2018-05-28 | Outpatient (CLI) | payer OTHER | LOC: M PAIN 11:00 | DX: M47.27 Other spondylosis with radiculopathy, lumbosacral region (principal); F17.210 Nicotine dependence, cigarettes, uncomplicated; E55.9 Vitamin D deficiency, unspecified; Z79.899 Other long term (current) drug therapy; Z88.2 Allergy status to sulfonamides; Z88.8 Allergy status to other drugs, medicaments and biological substances; Z91.013 Allergy to seafood; Z91.041 Radiographic dye allergy status; Z96.89 Presence of other specified functional implants; Z87.19 Personal history of other diseases of the digestive system; Z85.048 Personal history of other malignant neoplasm of rectum, rectosigmoid junction, and anus | CPT/HCPCS: G0463 ==

== ENCOUNTER → 2018-06-06 | Outpatient (REF) | LOC: M SMT 13:32 | DX: Z00.00 Encounter for general adult medical examination without abnormal findings (principal) ==

== ENCOUNTER 2018-06-24 11:15 | Emergency (ER) | payer OTHER | END 2018-06-24 12:31 | disposition home or self-care (01) | LOC: M ED 11:15 | DX: L02.214 Cutaneous abscess of groin (principal); K21.9 Gastro-esophageal reflux disease without esophagitis; N40.0 Benign prostatic hyperplasia without lower urinary tract symptoms; Z79.899 Other long term (current) drug therapy; Z91.013 Allergy to seafood; Z88.2 Allergy status to sulfonamides; Z88.8 Allergy status to other drugs, medicaments and biological substances; F17.210 Nicotine dependence, cigarettes, uncomplicated | CPT/HCPCS: 99284 ==

== ENCOUNTER → 2018-07-10 | Outpatient (CLI) | payer OTHER ==
[2018-07-10 11:01] LABS: BASO % 0.5 % (0.0-1.0); EOS # 0.1 10^3/uL (0.0-0.50); EOS % 1.2 % (0.0-3.0); HEMOGLOBIN 15.2 g/dl (13.5-17.5); IMMATURE GRANULOCYTE % 0.2 % (0-3.0); LYMPH # 1.3 10^3/uL (1.5-4.5); LYMPH % 14.8 % (24.0-44.0); MEAN CORPUSCULAR HEMOGLOBIN 31.6 pg (27.0-33.0); MEAN CORPUSCULAR VOLUME 95.6 fl (80.0-96.0); NEUTROPHILS # 6.3 10^3/uL (1.8-7.7); NEUTROPHILS % 72.3 % (36.0-66.0); RED BLOOD COUNT 4.81 10^6/uL (4.30-6.10); RED CELL DISTRIBUTION WIDTH 14.9 % (11.5-14.5); WHITE BLOOD COUNT 8.7 10^3/uL (4.0-10.0)
[2018-07-10 11:23] LABS: COLLAGEN EPINEPHRINE 103 SECONDS (74-162)
[2018-07-10 11:25] LABS: PARTIAL THROMBOPLASTIN TIME 27.4 SECONDS (25.4-37.6)
[2018-07-10 11:38] LABS: POS COUNT POS FLAG
[2018-07-10 11:54] LABS: PROTHROMBIN TIME 13.3 SECONDS (12.1-14.4)
[2018-07-10 13:15] LABS: ALBUMIN/GLOBULIN RATIO 0.98 (1.00-1.93); ALKALINE PHOSPHATASE 115 U/L (45-117); ALT/SGPT 61 U/L (12-78); ANION GAP 7 MEQ/L (8-16); AST/SGOT 49 U/L (7-37); BILIRUBIN,TOTAL 0.4 MG/DL (0.2-1.0); BLOOD UREA NITROGEN 7 MG/DL (7-18); CALCIUM LEVEL 9.3 MG/DL (8.8-10.2); CARBON DIOXIDE LEVEL 28 MEQ/L (21-32); CHLORIDE LEVEL 103 MEQ/L (98-107); CREATININE FOR GFR 0.76 MG/DL (0.70-1.30); GLOMERULAR FILTRATION RATE > 60.0 (>49); GLUCOSE, FASTING 97 MG/DL (70-100); POTASSIUM SERUM 4.3 MEQ/L (3.5-5.1); SODIUM LEVEL 138 MEQ/L (136-145); TOTAL PROTEIN 8.1 GM/DL (6.4-8.2)
== END ==
LOC: M LAB 08:46
DX: Z01.818 Encounter for other preprocedural examination (principal)
CPT/HCPCS: 71046

== ENCOUNTER → 2018-07-10 | Outpatient (CLI) | payer OTHER ==
[2018-07-10 10:02] LABS: HEMATOCRIT 45.5 % (42.0-52.0); HEMOGLOBIN 15.1 g/dl (13.5-17.5); MEAN CORPUSCULAR HEMOGLOBIN 31.6 pg (27.0-33.0); MEAN CORPUSCULAR HGB CONC 33.2 g/dl (32.0-36.5); MEAN CORPUSCULAR VOLUME 95.2 fl (80.0-96.0); PLATELET COUNT, AUTOMATED 259 10^3/uL (150-450); RED BLOOD COUNT 4.78 10^6/uL (4.30-6.10); RED CELL DISTRIBUTION WIDTH 14.7 % (11.5-14.5); WHITE BLOOD COUNT 8.5 10^3/uL (4.0-10.0)
[2018-07-10 14:41] LABS: ALBUMIN 3.9 GM/DL (3.2-5.2); ALBUMIN/GLOBULIN RATIO 1.03 (1.00-1.93); ALKALINE PHOSPHATASE 116 U/L (45-117); ALT/SGPT 59 U/L (12-78); ANION GAP 7 MEQ/L (8-16); AST/SGOT 47 U/L (7-37); BILIRUBIN,TOTAL 0.3 MG/DL (0.2-1.0); BLOOD UREA NITROGEN 7 MG/DL (7-18); CALCIUM LEVEL 9.2 MG/DL (8.8-10.2); CARBON DIOXIDE LEVEL 27 MEQ/L (21-32); CHLORIDE LEVEL 104 MEQ/L (98-107); CHOLESTEROL LEVEL 251 MG/DL (<200); CHOLESTEROL RISK RATIO 3.535 (<5); CREATININE FOR GFR 0.76 MG/DL (0.70-1.30); FERRITIN 54 NG/ML (26-388); FREE T4 0.86 NG/DL (0.76-1.46); GLOMERULAR FILTRATION RATE > 60.0 (>49); GLUCOSE, FASTING 98 MG/DL (70-100); HDL CHOLESTEROL 71 MG/DL (>40); LDL CHOLESTEROL 137 MG/DL (<100); NON-HDL-C 180 MG/DL; POTASSIUM SERUM 4.3 MEQ/L (3.5-5.1); SODIUM LEVEL 138 MEQ/L (136-145); THYROID STIMULATING HORMONE 0.471 uIU/ML (0.358-3.740); TOTAL 25(OH) VITAMIN D 20.4 NG/ML (30.0-100.0); TOTAL PROTEIN 7.7 GM/DL (6.4-8.2); TRIGLYCERIDES LEVEL 215 MG/DL (<150)
== END ==
LOC: M LAB 08:29
DX: D50.9 Iron deficiency anemia, unspecified (principal); R74.8 Abnormal levels of other serum enzymes; E78.2 Mixed hyperlipidemia; E55.9 Vitamin D deficiency, unspecified
CPT/HCPCS: 84443

== ENCOUNTER 2018-07-23 10:46 | Inpatient (IN) | payer OTHER ==
[2018-07-23] MEDS: LR 1,000 ML IV (12:11)
[2018-07-23] MEDS ORDERED: KETAMINE HCL 200 MG/20 ML VIAL As Ordered (13:50)
[2018-07-23] MEDS ORDERED: HYDROmorphone HCL 2 MG/ML 1ML VIAL (J1170) As Ordered (13:50)
[2018-07-23] MEDS ORDERED: fentaNYL 100 MCG/2 ML INJECTION (J3010) As Ordered ×2 (13:51→19:10)
[2018-07-23] MEDS ORDERED: MIDAZOLAM INJ 2 MG/2 ML VIAL (J2250) As Ordered (13:51)
[2018-07-23] MEDS ORDERED: BACITRACIN PWD 50,000 UNITS VIAL As Ordered (14:46)
[2018-07-23] MEDS ORDERED: ONDANSETRON 4MG/2ML VIAL (J2405) As Ordered (15:46)
[2018-07-23] MEDS ORDERED: ROCURONIUM BROMIDE 50 MG/5 ML VIAL As Ordered ×2 (15:46→18:14)
[2018-07-23] MEDS ORDERED: PROPOFOL 200 MG/20 ML VIAL As Ordered ×2 (15:46→15:50)
[2018-07-23] MEDS ORDERED: dexameTHASONE 4 MG/ML 1ML VIAL (J1100) As Ordered (15:46)
[2018-07-23] MEDS ORDERED: LIDOCAINE 2% INJ 100 MG/5 ML SDV (FOR ANES.) As Ordered (15:46)
[2018-07-23] MEDS: THROMBIN SOLN 20,000 UNITS KIT As Ordered (16:20)
[2018-07-23] MEDS ORDERED: ePHEDrine SULFATE 25 MG/5 ML(5MG/ML) SYRINGE As Ordered (16:21)
[2018-07-23] MEDS: BACITRACIN PWD 50,000 UNITS VIAL As Ordered (16:30)
[2018-07-23] MEDS ORDERED: PHENYLephrine HCL 500 MCG/5 ML (100MCG/ML) SYRINGE (J2370) As Ordered (16:48)
[2018-07-23] MEDS ORDERED: SUGAMMADEX SODIUM 500 MG/5 ML VIAL (BRIDION) As Ordered (18:15)
[2018-07-23] MEDS: methylPREDNISolone SUSP 40 MG/ML (DEPO-medrol) VIAL (J1030) As Ordered (18:30)
[2018-07-23] MEDS ORDERED: ESMOLOL INJ 100MG/10ML VIAL As Ordered (18:58)
[2018-07-23] MEDS: fentaNYL 100 MCG/2 ML INJECTION (J3010) IV ×4 (19:08→19:23)
[2018-07-23] MEDS ORDERED: HYDROMORPHONE HCL 0.5 MG/ 0.5 ML SYRINGE (J1170 PER 1) As Ordered (19:22)
[2018-07-23] MEDS: HYDROMORPHONE HCL 0.5 MG/ 0.5 ML SYRINGE (J1170 PER 1) IV ×5 (19:25→19:45)
[2018-07-23] MEDS ORDERED: ONDANSETRON 4MG/2ML VIAL (J2405) IV ×2 (19:30→20:45)
[2018-07-23] MEDS ORDERED: METOPROLOL 5 MG/5 ML VIAL As Ordered (19:41)
[2018-07-23] MEDS: METOPROLOL 5 MG/5 ML VIAL IV ×3 (19:43→19:53)
[2018-07-23] MEDS ORDERED: ALBUTEROL 90 MCG/ACT 8GM HFA INHALER INH (20:45)
[2018-07-23] MEDS ORDERED: DOCUSATE SODIUM 100 MG CAP PO (20:45)
[2018-07-23] MEDS ORDERED: ACETAMINOPHEN TAB 650MG DOSE (2X325MG) PO (20:45)
[2018-07-23] MEDS: GABAPENTIN 300 MG CAP PO (22:13)
[2018-07-23] MEDS: KCL 20MEQ IN D5/0.45NS 1000ML 1,000 ML IV (22:13)
[2018-07-24] MEDS: NORCO, ANEXSIA 5/325MG TABLET (HYDROcodone/ACETAMINOPHEN) PO ×2 (01:34→10:05)
[2018-07-24] MEDS: TOLTERODINE (DETROL) 2 MG TAB PO ×2 (01:44→10:05)
[2018-07-24] MEDS: MORPHINE 4 MG/ML 1ML VIAL/SYRINGE (J2270) IV (03:52)
[2018-07-24] MEDS: KCL 20MEQ IN D5/0.45NS 1000ML 1,000 ML IV (06:36)
[2018-07-24] MEDS: CYANOCOBALAMIN 500 MCG TAB PO (10:05)
[2018-07-24] MEDS: OMEPRAZOLE 20 MG CAP PO (10:05)
[2018-07-24] MEDS: GABAPENTIN 300 MG CAP PO (10:05)
[2018-07-24] MEDS: LR 1,000 ML IV (10:07)
[2018-07-24] MEDS: METOPROLOL 5 MG/5 ML VIAL IV (10:07)
[2018-07-24] MEDS ORDERED: SIMVASTATIN 40 MG TAB PO (21:00)
== END 2018-07-24 11:45 | disposition home or self-care (01) | DRG 304 ==
LOC: M OR 10:46 → M MS5PR 20:50
PROC: 0SG10J1 Fusion of 2 or more Lumbar Vertebral Joints with Synthetic Substitute, Posterior Approach, Posterior Column, Open Approach (ICD-10-PCS; principal; 2018-07-23 13:05)
PROC: 00NY0ZZ Release Lumbar Spinal Cord, Open Approach (ICD-10-PCS; 2018-07-23 13:05)
PROC: 0SG30J1 Fusion of Lumbosacral Joint with Synthetic Substitute, Posterior Approach, Posterior Column, Open Approach (ICD-10-PCS; 2018-07-23 13:05)
DX: M47.27 Other spondylosis with radiculopathy, lumbosacral region (principal); M47.16 Other spondylosis with myelopathy, lumbar region

== ENCOUNTER → 2018-07-23 | Outpatient (CLI) | payer OTHER | LOC: M RAD 10:23 | DX: Z12.2 Encounter for screening for malignant neoplasm of respiratory organs (principal); F17.210 Nicotine dependence, cigarettes, uncomplicated; R91.8 Other nonspecific abnormal finding of lung field; J43.9 Emphysema, unspecified | CPT/HCPCS: G0297 ==

== ENCOUNTER → 2018-11-12 | Outpatient (CLI) | payer OTHER ==
[~2018-11-12] MED LIST changes: +AZEL1SPR3; +BENZ-18 PO; +CALCIUM/VITAMIN D PO; +CALTTAB10 PO; +CLAR5CHW; -CONRAY-43 43% 50ML VIAL (Q9960) As Ordered; +DETR1TAB5 PO; +DOCU100T8 PO; +DOXY100C37 PO; +FIBERCON PO; +FLON0.05; +FOLI1TAB11 PO; +GABA600T4 PO; +HYDR7.5T38 PO; +MULTIVIT PO; +NORC1TAB4 PO; +OXYB15TA PO; +PRIL20CA PO; -PROHANCE 279.3MG/ML 5ML VIAL (A9576) As Ordered; +TYLE325T5 PO; +ULTR200T OR; +ULTR50TA PO; +VENTAER IN; +VICODINES TAB PO; +VITA400C PO; +VITA50005 PO; +VITA500C24 PO; +VITA500T53 PO; +ZANA4CAP OR; +ZOCO40TA PO; +ZYRT10TA6 OR
--- NOTE | 2018-11-25 01:49 | ECWPNPC ---
PATIENT NAME: FABIOLA MORENO : 1955 GENDER: MALE VISIT DATE: 11/12/2018 DISCHARGE DATE: 11/12/18 1240 VISIT LOCKED DATE TIME: PHYSICIAN: VAIBHAV YANEZ RESOURCE: VAIBHAV YANEZ REASON FOR APPOINTMENT 1. BACK PAIN HISTORY OF PRESENT ILLNESS HISTORY OF PRESENT ILLNESS: HERE FOR F/U OF CHRONIC LOW BACK PAIN AND BILATERAL LEG PAIN.HAD LUMBAR SURGERY IN JULY [address] MATHEW HERE AT [facility] IN [place], [place].STATES THAT HE DID NOT GET IMPROVEMENT AND NOW IS HAVING RIGHT LEG PAIN.RATING PAIN VAS 7-9/10.PAIN IS DESCRIBED CONSTANT ,SHARP AND ACHING. PAIN THE PATIENT DESCRIBES THE PAIN... FALL RISK SCREENING: SCREENING :NO FALLS IN THE PAST YEAR CURRENT MEDICATIONS TAKING BENADRYL 25 MG CAPSULE 1 CAPSULE NEEDED FOR ITCHING ORALLY EVERY 8 HRS TAKING EPIPEN 2-ARMAAN 0.3 MG/0.3ML SOLUTION AUTO-INJECTOR INJECT 0.3ML BY INTRAMUSCULARLY ROUTE ONCE NEEDED FOR ANAPHYLAXIS INJECTION TAKING VIAGRA 25 MG TABLET 1 TABLET NEEDED ORALLY ONCE A DAY, NOTES: UROLOGY TAKING SUDAFED 30 MG TABLET 1 TABLET NEEDED ORALLY EVERY 6 HRS TAKING MULTI MAX _ 1 TAB ORALLY DAILY TAKING GABAPENTIN 600 MG TABLET 1 CAPSULE ORALLY THREE TIMES DAILY TAKING HYDROCODONE-ACETAMINOPHEN 5-325 MG TABLET (SCHEDULE II DRUG) TAKE ONE TABLET BY MOUTH FOUR TIMES A DAY NEEDED MAXIMUM DAILY DOSE 4 ORAL TAKING FLONASE 50 MCG/ACT SUSPENSION 1 SPRAY IN EACH NOSTRIL NASALLY TWICE A DAY TAKING AZELASTINE HCL 0.1 % SOLUTION SPRAY 2 SPRAYS IN EACH NOSTRIL ONCE DAILY IN THE MORNING NASAL DAILY TAKING ATORVASTATIN CALCIUM 10 MG TABLET 1 TABLET ORALLY ONCE A DAY TAKING VITAMIN B-12 500 MCG TABLET 1 TABLET ORALLY ONCE A DAY TAKING FOLIC ACID 400 MCG TABLET 1 TABLET ORALLY ONCE A DAY TAKING FLUTICASONE PROPIONATE 50 MCG/DOSE SUSPENSION 1 SPRAY IN EACH NOSTRIL NASALLY ONCE A DAY NEEDED TAKING SONNY _ 1 CAP ORALLY NEEDED TAKING COLACE 100 MG CAPSULE 1 CAPSULE NEEDED ORALLY ONCE A DAY NEEDED TAKING FIBERCON 625 MG TABLET 1 TABLET WITH WATER ORALLY DAILY TAKING HYDROCORTISONE VALERATE 0.2 % CREAM 1 APPLICATION TO AFFECTED AREA ON ARMS AND CHEST EXTERNALLY ONCE OR TWICE A DAY NEEDED TAKING CALCIUM + D 600-400 MG-UNIT TABLET 1 TABLET WITH FOOD ORALLY TWICE A DAY TAKING ERGOCALCIFEROL 96513 UNIT CAPSULE 1 CAPSULE ORALLY ONCE A WEEK WITH MEAL TAKING OMEPRAZOLE 40 MG CAPSULE DELAYED RELEASE 1 CAPSULE ORALLY ONCE A DAY BEFORE MEAL TAKING NICOTINE 21 MG/24HR PATCH 24 HOUR 1 PATCH TO SKIN TRANSDERMAL ONCE A DAY IN AM, OFF AT HS TAKING VENTOLIN HFA 108 (90 BASE) MCG/ACT AEROSOL SOLUTION INHALE TWO PUFFS BY MOUTH EVERY 4 TO 6 HOURS NEEDED FOR COUGH AND DYSPNEA INHALATION TAKING BUDESONIDE 90 MCG/ACT AEROSOL POWDER BREATH ACTIVATED 2 PUFFS INHALATION TWICE A DAY NOT-TAKING DETROL LA 4 MG CAPSULE EXTENDED RELEASE 24 HOUR 1 CAPSULE ORALLY ONCE A DAY NOT-TAKING NICOTINE 14 MG/24HR PATCH 24 HOUR 1 PATCH TO SKIN STARTING 2ND MONTH TRANSDERMAL ONCE A DAY NOT-TAKING TIZANIDINE HCL 4 MG TABLET 1 TABLET NEEDED ORALLY TWO TIMES A DAY NOT-TAKING BENZONATATE 100 MG CAPSULE 1 CAPSULE NEEDED ORALLY THREE TIMES A DAY MEDICATION LIST REVIEWED AND RECONCILED WITH THE PATIENT PAST MEDICAL HISTORY LOW BACK PAIN TENDINITIS SHOULDER ALLERGIES/ ECZEMA PEPTIC ULCER DISEASE HYPERLIPIDEMIA, MIXED UVEITIS ESOPHAGEAL REFLUX HIATAL HERNIA OSTEOARTHRITIS CARCINOID RECTAL TUMOR MIGRAINE HEADACHES PANCREATITIS 03/03 URINARY FREQUENCY ALLERGIES CELEBREX: HYPER: SIDE EFFECTS SULFA: HIVES: ALLERGY CYMBALTA: NAUSEA/VOMITING: SIDE EFFECTS TRAMADOL: GI UPSET: SIDE EFFECTS SHELL FISH: HIVES: ALLERGY PRAVASTATIN SODIUM: ELEVATED LFT: SIDE EFFECTS IV DYE: UNSURE LYRICA: HEART PALPITATIONS: SIDE EFFECTS SURGICAL HISTORY ULCER 81 HAND SURGERY R 91,09 RECTAL CANCER 05 COLONOSCOPY WITH HX BENIGN POLYP, DIVERTICULOSIS, INTERNAL HEMORRHOIDS - HEATHER, F/UP 10YRS 2024 04,09, 10/31,10/04 EGD -HEATHER , 10/31 LEFT THUMB 09 TESTICLE REMOVAL 81,86 ERCP WITH STENT - [facility] GI DR KOHLER 04-05-14 CYSTOSCOPY 07-02-17 LEFT ELBOW SURGERY 02/04 LEFT ELBOW 12/2017 L4-L5, L5-S1 DECOMPRESSION FUSION-DR. MATHEW FAMILY HISTORY FATHER: UNKNOWN 2 BROTHER(S) - HEALTHY. NO KNOWN FAMILY HISTORY OF ANY UROLOGICALLY RELATED DISEASES/CANCERS. SOCIAL HISTORY GENERAL: TOBACCO USE ARE YOU A:CURRENT SMOKER HOW OFTEN DO YOU SMOKE CIGARETTES?EVERY DAY HOW SOON AFTER YOU WAKE UP DO YOU SMOKE YOUR FIRST CIGARETTE?6-30 MIN HOW MANY CIGARETTES A DAY DO YOU SMOKE?11-20 ARE YOU INTERESTED IN QUITTING?NOT READY TO QUIT PATIENT COUNSELED ON THE DANGERS OF TOBACCO USE AND URGED TO QUIT:11/04/2018 COUNSELED THE PATIENT ON SMOKING EFFECTS, EDUCATION [id number]/15/2019 SMOKING CESSATION INFORMATION GIVEN11/04/2018 LUNG CANCER SCREENING SMOKING STATUS:CURRENT SMOKER IS THE PATIENT BETWEEN THE AGE OF 55 AND 77?YES HAS THE PATIENT EVER BEEN DIAGNOSED WITH LUNG CANCER?NO PACK YEARS = NUMBER OF PACKS PER DAY SMOKED X NUMBER OF YEARS SMOKED:35 CREATE REFERRAL:GENERATE AND CREATE REFERRAL TO THE ONCOLOGY NURSE NAVIGATOR (SMP) LISTING USING THE LDCT SCAN PROCEDURE ALCOHOL SCREENING DID YOU HAVE A DRINK CONTAINING ALCOHOL IN THE PAST YEAR?YES HOW OFTEN DID YOU HAVE SIX OR MORE DRINKS ON ONE OCCASION IN THE PAST YEAR?NEVER (0 POINTS) HOW MANY DRINKS DID YOU HAVE ON A TYPICAL DAY WHEN YOU WERE DRINKING IN THE PAST YEAR?1 OR 2 (0 POINTS) HOW OFTEN DID YOU HAVE A DRINK CONTAINING ALCOHOL IN THE PAST YEAR?TWO TO THREE TIMES PER WEEK (3 POINTS) POINTS3 INTERPRETATIONNEGATIVE RECREATIONAL DRUG USE DRUG USE?NO CAFFEINE CAFFEINE USE?NO SEXUAL HX HAD SEX IN THE LAST 12 MONTHS (VAGINAL, ORAL, OR ANAL)?YES WITHWOMEN ONLY USE PROTECTION?YES HOW OFTEN?ALL OF THE TIME HAVE YOU EVER HAD AN STD?NO HIV / HEP-C SCREENING HIV TEST OFFERED TO PATIENT:YES DATE OFFERED:11/08/2016 TEST ACCEPTED:NO HEP-C TEST OFFERED TO PATIENT:YES DATE OFFERED:11/08/2016 REASON:PATIENT DECLINED TEST ACCEPTED:NO REASON:PATIENT DECLINED SIKHISM [id number] OTHER LANGUAGE LANGUAGES SPOKEN:[place] EDUCATION LEVEL OF EDUCATION:HIGH SCHOOL LEARNING BARRIERS / SPECIAL NEEDS CHANGE FROM LAST VISIT?NO BARRIERS TO LEARNING?NO HEARING IMPAIRED?NO VISION IMPAIRED?YES COGNITIVELY IMPAIRED?NO :CORRECTIVE LENSES READINESS TO LEARN?YES LEARNING PREFERENCES?YES :TAPES/VIDEOS, BOOKLETS, HANDOUTS LEARNING CAPABILITIES PRESENT?YES EMOTIONAL BARRIERS?NO SPECIAL DEVICES?NO BULK SAUSAGE CASING TIER OFF NEEDED?NO OCCUPATION: UNEMPLOYED. DIET: REGULAR. EXERCISE: WALKS. MARITAL STATUS: .. NEW PATIENT PAIN DIARY TODAY'S VISITNOTES FROM 0-10, WHAT LEVEL IS YOUR PAIN TODAY?8 PAIN CLINIC PFS, CLERGY, PUBLIC HEALTH REFERRALS HAS THE PATIENT BEEN EDUCATED REGARDING HIS/HER PLAN OF CARE?YES HAS THE PATIENT BEEN EDUCATED REGARDING PAIN, THE RISK FOR PAIN, THE IMPORTANCE OF EFFECTIVE PAIN MANAGEMENT, AND THE PAIN ASSESSMENT PROCESS?YES ADVANCE DIRECTIVE ADVANCE DIRECTIVE DISCUSSED WITH PATIENT:YES PT DOES NOT WANT INFO AT THIS TIME AND DECLINES ASSISTANCE WITH FORM. 11/12/18 REVIEWED WITH PT. 04/02/18 0922 BVREVIEWED WITH PT 11/12/18 1208 BV. HOSPITALIZATION/MAJOR DIAGNOSTIC PROCEDURE PANCREATITIS- TIMMY 03/05/14 REVIEW OF SYSTEMS REVIEWED BY: PROVIDER: VAIBHAV CAMPOS . CONSTITUTIONAL: ANY CHANGE IN YOUR MEDICAL CONDITION? NO . CHILLS NO . FEVER NO . INFECTION: DO YOU HAVE NEW INFECTIONS? NO . DO YOU HAVE HISTORY OF MRSA? NO . MUSCULOSKELETAL: ANY NEW PATTERNS OF PAIN OR NUMBNESS? NO . GASTROENTEROLOGY: ANY NEW CHANGE IN BOWEL CONTROL? NO . GENITOURINARY: ANY NEW CHANGE IN BLADDER CONTROL? NO . IS THERE A CHANCE YOU COULD BE ? NO . HEMATOLOGY/LYMPH: DO YOU TAKE ANY BLOOD THINNERS? (FOR EXAMPLE- COUMADIN, PLAVIX, AGGRENOX, PLATEL, PRADAXA, OR XARELTO) NO . WHEN WAS YOUR LAST DOSE? DATE: TIME: . NEUROLOGY: HAVE YOU FALLEN IN THE PAST 12 MONTHS? NO . ANY NEW EXTREMITY NUMBNESS OR WEAKNESS? YES, PT COMPLAINS OF CONSTANT NUMBNESS/TINGLING IN ENTIRE RIGHT LEG SINCE BACK SURGERY IN July,. DENIES ANY NUMBESS OR TINGLING IN FEET. . CARDIOLOGY: DO YOU HAVE A PACEMAKER OR DEFIBRILLATOR? NO . RESPIRATORY: HAVE YOU BEEN SICK IN THE PAST WEEK? NO . FEVER NO . FLU LIKE SYMPTOMS? NO . COUGH NO . INTEGUMENTARY: DO YOU HAVE ANY RASHES OR OPEN SORES? NO . ALLERGIC/IMMUNO: ARE YOU ALLERGIC TO IV DYE? YES . ANY NEW ALLERGIES? NO . PSYCHIATRIC: DO YOU HAVE THOUGHTS OF HURTING YOURSELF OR SOMEONE ELSE? NO . ARE YOU ABUSED, NEGLECTED, OR IN AN UNSAFE ENVIRONMENT? NO . ENDOCRINOLOGY: ARE YOU DIABETIC? NO . OTHER: DO YOU NEED ANY PRESCRIPTIONS? NO . IF YES, PLEASE LIST: ____ . ANY NEW PROBLEMS WITH YOUR MEDICATIONS? NO . WHEN DID YOU LAST EAT? ____ . WHEN DID YOU LAST DRINK? ____ . WHAT DID YOU LAST DRINK? ____ . NAME OF PERSON DRIVING YOU HOME? ____ . DO YOU HAVE ANY OTHER QUESTIONS OR CONCERNS NO . VITAL SIGNS WT 168.8 LBS, HT 70.75 IN, BMI 23.71 INDEX, BP 153/85 MM HG, HR 92 /MIN, RR 16 /MIN, TEMP 98.6 F, OXYGEN SAT % 97%, NA INITIALS SC 11:54, REVIEWED BY: BV. EXAMINATION GENERAL EXAMINATION: LUNGS:LUNG SOUNDS ARE CLEAR . HEART:HEART RATE REGULAR . MUSCULOSKELETAL:*, MUSCLE STRENGTH TESTING 5/5 BILATERAL LOWER EXTREMITIES. . LUMBAR SACRAL SPINESPECIFIC POINT TENDERNESS OVER BILAT. SIJ.POSITIVE PATRICKS/PEGGY TEST BILAT. LOWER EXT. ASSESSMENTS BILATERAL SACROILIITIS - M46.1 (PRIMARY) TREATMENT OTHERS NOTES: BILAT SIJ. CLINICAL NOTES: BILAT. SIJ. PREVENTIVE MEDICINE PAIN CLINIC TEACHING: PROCEDURE TEACHING PT DECLINED INFORMATION ON SACROILIAC JOINT BLOCK STATING HE HAS HAD THEM BEFORE AND IS FAMILIAR WITH THE PROCEDURE. PRE-PROCEDURE INSTRUCTIONS REVIEWED WITH PT AND HE VERBALIZED UNDERSTANDING. AD. PROCEDURE CODES FA211 ESTABILISHED PATIENT [facility] FACILITY CHARGE DISPOSITION & COMMUNICATION FOLLOW UP POST (REASON: BILAT. SIJ) ELECTRONICALLY SIGNED BY ANDRES GARCIA ON 11/24/2018 AT 08:44 AM EST DISCLAIMER : THIS IS A VISIT SUMMARY EXTRACTED FROM THE [employer] CHART. IT IS NOT A COPY OF THE [employer] PROGRESS NOTE. CELESTE
== END ==
LOC: M PAIN 11:45
PROVIDERS: ATTEND Nurse Practitioner Family
DX: M46.1 Sacroiliitis, not elsewhere classified (principal); G89.29 Other chronic pain; Z87.11 Personal history of peptic ulcer disease; E78.2 Mixed hyperlipidemia; K21.9 Gastro-esophageal reflux disease without esophagitis; M15.9 Polyosteoarthritis, unspecified; G43.909 Migraine, unspecified, not intractable, without status migrainosus; F17.210 Nicotine dependence, cigarettes, uncomplicated; Z85.048 Personal history of other malignant neoplasm of rectum, rectosigmoid junction, and anus; Z88.2 Allergy status to sulfonamides; Z88.5 Allergy status to narcotic agent; Z88.8 Allergy status to other drugs, medicaments and biological substances; Z91.013 Allergy to seafood; Z91.041 Radiographic dye allergy status; Z79.899 Other long term (current) drug therapy

== ENCOUNTER 2018-12-27 06:22 | Emergency (ER) | payer OTHER ==
[~2018-12-27] VITALS: Ht 177.8 cm; Wt 80.0 kg
[2018-12-27] MEDS ORDERED: diphenhydrAMINE INJ 50MG/ML VIAL (J1200) IV ONE (07:15)
[2018-12-27] MEDS ORDERED: methylPREDNISolone INJ 125 MG/2 ML VIAL (J2930) IV ONE (07:15)
[2018-12-27] MEDS ORDERED: FAMOTIDINE IV BAG 20 MG in APPROPRIATE DILUENT 1 EA IV ONE (07:45)
[2018-12-27] MEDS ORDERED: MONT10TA2 PO (08:48)
[2018-12-27] MEDS ORDERED: HYDR-643 PO (08:48)
[2018-12-27] MEDS ORDERED: MONTELUKAST 10 MG TAB PO SCH (09:00)
[2018-12-27] MEDS ORDERED: MONTELUKAST 10 MG TAB PO ONE (09:00)
[2018-12-27 09:05] VITALS: BP 168/87
== END 2018-12-27 09:08 | disposition home or self-care (01) ==
LOC: M ED 06:22
DX: L50.1 Idiopathic urticaria (principal); R03.0 Elevated blood-pressure reading, without diagnosis of hypertension; E78.5 Hyperlipidemia, unspecified; J45.909 Unspecified asthma, uncomplicated; K21.9 Gastro-esophageal reflux disease without esophagitis; F17.200 Nicotine dependence, unspecified, uncomplicated; Z87.2 Personal history of diseases of the skin and subcutaneous tissue; Z88.8 Allergy status to other drugs, medicaments and biological substances; Z91.013 Allergy to seafood; Z88.2 Allergy status to sulfonamides; Z79.899 Other long term (current) drug therapy
CPT/HCPCS: 96365; 96375; 99284; J1200; J2930

== ENCOUNTER → 2019-01-01 | Outpatient (CLI) | payer OTHER ==
[~2019-01-01] MED LIST changes: +HYDR-643 PO; +MONT10TA2 PO
--- NOTE | 2019-01-17 00:54 | ECWPNPC ---
PATIENT NAME: FABIOLA MORENO : 1955 GENDER: MALE VISIT DATE: 01/01/2019 DISCHARGE DATE: 01/01/19 1201 VISIT LOCKED DATE TIME: PHYSICIAN: VAIBHAV YANEZ RESOURCE: VAIBHAV YANEZ REASON FOR APPOINTMENT 1. MEDICATION HISTORY OF PRESENT ILLNESS HISTORY OF PRESENT ILLNESS: HERE FOR F/U OF CHRONIC LOW BACK PAIN AND RIGHT LEG PAIN.WILL BE STARTING PT IN THE NEXT WEEK.NOT FOLLOWING WITH DR MATHEW ANYMORE (SURGEON THAT DID BACK AND ELBOW SURGERY)RATING PAIN VAS 8/10.DISCUSSED MEDICATION AND TREATMENT OPTIONS. PAIN THE PATIENT DESCRIBES THE PAIN... FALL RISK SCREENING: SCREENING : NO FALLS IN THE PAST YEAR. CURRENT MEDICATIONS TAKING BENADRYL 25 MG CAPSULE 1 CAPSULE NEEDED FOR ITCHING ORALLY EVERY 8 HRS TAKING EPIPEN 2-ARMAAN 0.3 MG/0.3ML SOLUTION AUTO-INJECTOR INJECT 0.3ML BY INTRAMUSCULARLY ROUTE ONCE NEEDED FOR ANAPHYLAXIS INJECTION TAKING VIAGRA 25 MG TABLET 1 TABLET NEEDED ORALLY ONCE A DAY, NOTES: UROLOGY TAKING SUDAFED 30 MG TABLET 1 TABLET NEEDED ORALLY EVERY 6 HRS TAKING MULTI MAX _ 1 TAB ORALLY DAILY TAKING GABAPENTIN 600 MG TABLET 1 CAPSULE ORALLY THREE TIMES DAILY TAKING FLONASE 50 MCG/ACT SUSPENSION 1 SPRAY IN EACH NOSTRIL NASALLY TWICE A DAY TAKING AZELASTINE HCL 0.1 % SOLUTION SPRAY 2 SPRAYS IN EACH NOSTRIL ONCE DAILY IN THE MORNING NASAL DAILY TAKING ATORVASTATIN CALCIUM 10 MG TABLET 1 TABLET ORALLY ONCE A DAY TAKING VITAMIN B-12 500 MCG TABLET 1 TABLET ORALLY ONCE A DAY TAKING FOLIC ACID _ TABLET 400 MGS 1 TABLET ORALLY ONCE A DAY TAKING SONNY _ 1 CAP ORALLY NEEDED TAKING COLACE 100 MG CAPSULE 1 CAPSULE NEEDED ORALLY ONCE A DAY NEEDED TAKING FIBERCON 625 MG TABLET 1 TABLET WITH WATER ORALLY DAILY TAKING HYDROCORTISONE VALERATE 0.2 % CREAM 1 APPLICATION TO AFFECTED AREA ON ARMS AND CHEST EXTERNALLY ONCE OR TWICE A DAY NEEDED TAKING CALCIUM + D 600-400 MG-UNIT TABLET 1 TABLET WITH FOOD ORALLY TWICE A DAY TAKING ERGOCALCIFEROL 95487 UNIT CAPSULE 1 CAPSULE ORALLY ONCE A WEEK WITH MEAL TAKING OMEPRAZOLE 40 MG CAPSULE DELAYED RELEASE 1 CAPSULE ORALLY ONCE A DAY BEFORE MEAL TAKING VENTOLIN HFA 108 (90 BASE) MCG/ACT AEROSOL SOLUTION INHALE TWO PUFFS BY MOUTH EVERY 4 TO 6 HOURS NEEDED FOR COUGH AND DYSPNEA INHALATION TAKING BUDESONIDE 90 MCG/ACT AEROSOL POWDER BREATH ACTIVATED 2 PUFFS INHALATION TWICE A DAY TAKING NICOTINE 21 MG/24HR PATCH 24 HOUR 1 PATCH TO SKIN TRANSDERMAL ONCE A DAY IN AM, OFF AT HS NOT-TAKING HYDROCODONE-ACETAMINOPHEN 5-325 MG TABLET (SCHEDULE II DRUG) TAKE ONE TABLET BY MOUTH FOUR TIMES A DAY NEEDED MAXIMUM DAILY DOSE 4 ORAL NOT-TAKING NICOTINE 14 MG/24HR PATCH 24 HOUR 1 PATCH TO SKIN STARTING 2ND MONTH TRANSDERMAL ONCE A DAY DISCONTINUED FLUTICASONE PROPIONATE 50 MCG/DOSE SUSPENSION 1 SPRAY IN EACH NOSTRIL NASALLY ONCE A DAY NEEDED DISCONTINUED DETROL LA 4 MG CAPSULE EXTENDED RELEASE 24 HOUR 1 CAPSULE ORALLY ONCE A DAY DISCONTINUED TIZANIDINE HCL 4 MG TABLET 1 TABLET NEEDED ORALLY TWO TIMES A DAY DISCONTINUED BENZONATATE 100 MG CAPSULE 1 CAPSULE NEEDED ORALLY THREE TIMES A DAY MEDICATION LIST REVIEWED AND RECONCILED WITH THE PATIENT PAST MEDICAL HISTORY LOW BACK PAIN TENDINITIS SHOULDER ALLERGIES/ ECZEMA PEPTIC ULCER DISEASE HYPERLIPIDEMIA, MIXED UVEITIS ESOPHAGEAL REFLUX HIATAL HERNIA OSTEOARTHRITIS CARCINOID RECTAL TUMOR MIGRAINE HEADACHES PANCREATITIS 03/03 URINARY FREQUENCY RIGHT LEG PAIN ALLERGIES CELEBREX: HYPER - SIDE EFFECTS SULFA: HIVES - ALLERGY CYMBALTA: NAUSEA/VOMITING - SIDE EFFECTS TRAMADOL: GI UPSET - SIDE EFFECTS SHELL FISH: HIVES - ALLERGY PRAVASTATIN SODIUM: ELEVATED LFT - SIDE EFFECTS IV DYE: UNSURE LYRICA: HEART PALPITATIONS - SIDE EFFECTS SURGICAL HISTORY ULCER 81 HAND SURGERY R 91,09 RECTAL CANCER 05 COLONOSCOPY WITH HX BENIGN POLYP, DIVERTICULOSIS, INTERNAL HEMORRHOIDS - HEATHER, F/UP 10YRS 2024 04,09, 10/31,10/04 EGD -HEATHER , 10/31 LEFT THUMB 09 TESTICLE REMOVAL 81,86 ERCP WITH STENT - [facility] GI DR KOHLER 04-05-14 CYSTOSCOPY 07-02-17 LEFT ELBOW SURGERY 02/04 L4-L5, L5-S1 DECOMPRESSION FUSION-DR. MATHEW FAMILY HISTORY FATHER: UNKNOWN MOTHER: , DIAGNOSED WITH DIABETES, HYPERTENSION, HEART DISEASE 2 BROTHER(S) - HEALTHY. 1DAUGHTER(S) . NO KNOWN FAMILY HISTORY OF ANY UROLOGICALLY RELATED DISEASES/CANCERS. SOCIAL HISTORY GENERAL: TOBACCO USE ARE YOU A:CURRENT SMOKER ARE YOU INTERESTED IN QUITTING?THINKING ABOUT QUITTING ON NICOTINE PATCH PREVIOUS QUIT ATTEMPTS?YES, WITHIN THE LAST 6 MONTHS. COUNSELED THE PATIENT ON SMOKING CESSATION, EDUCATION [id number]/14/2019 HOW MANY CIGARETTES A DAY DO YOU SMOKE?6-10 HOW SOON AFTER YOU WAKE UP DO YOU SMOKE YOUR FIRST CIGARETTE?6-30 MIN HOW OFTEN DO YOU SMOKE CIGARETTES?EVERY DAY PATIENT COUNSELED ON THE DANGERS OF TOBACCO USE AND URGED TO QUIT:01/01/2019 SMOKING CESSATION INFORMATION GIVEN12/11/2018 LUNG CANCER SCREENING SMOKING STATUS:CURRENT SMOKER IS THE PATIENT BETWEEN THE AGE OF 55 AND 77?YES HAS THE PATIENT EVER BEEN DIAGNOSED WITH LUNG CANCER?NO PACK YEARS = NUMBER OF PACKS PER DAY SMOKED X NUMBER OF YEARS SMOKED:35 CREATE REFERRAL:GENERATE AND CREATE REFERRAL TO THE ONCOLOGY NURSE NAVIGATOR (SMP) LISTING USING THE LDCT SCAN PROCEDURE ALCOHOL SCREENING DID YOU HAVE A DRINK CONTAINING ALCOHOL IN THE PAST YEAR?YES HOW OFTEN DID YOU HAVE SIX OR MORE DRINKS ON ONE OCCASION IN THE PAST YEAR?NEVER (0 POINTS) HOW MANY DRINKS DID YOU HAVE ON A TYPICAL DAY WHEN YOU WERE DRINKING IN THE PAST YEAR?1 OR 2 (0 POINTS) HOW OFTEN DID YOU HAVE A DRINK CONTAINING ALCOHOL IN THE PAST YEAR?TWO TO THREE TIMES PER WEEK (3 POINTS) POINTS3 INTERPRETATIONNEGATIVE RECREATIONAL DRUG USE DRUG USE?NO CAFFEINE CAFFEINE USE?NO SEXUAL HX HAD SEX IN THE LAST 12 MONTHS (VAGINAL, ORAL, OR ANAL)?YES WITHWOMEN ONLY USE PROTECTION?YES HOW OFTEN?ALL OF THE TIME HAVE YOU EVER HAD AN STD?NO HIV / HEP-C SCREENING HIV TEST OFFERED TO PATIENT:YES DATE OFFERED:11/08/2016 TEST ACCEPTED:NO HEP-C TEST OFFERED TO PATIENT:YES DATE OFFERED:11/08/2016 REASON:PATIENT DECLINED TEST ACCEPTED:NO REASON:PATIENT DECLINED MANDAEN [id number] OTHER LANGUAGE LANGUAGES SPOKEN:[place]ELSH EDUCATION LEVEL OF EDUCATION:HIGH SCHOOL LEARNING BARRIERS / SPECIAL NEEDS CHANGE FROM LAST VISIT?NO BARRIERS TO LEARNING?NO HEARING IMPAIRED?NO VISION IMPAIRED?YES COGNITIVELY IMPAIRED?NO :CORRECTIVE LENSES READINESS TO LEARN?YES LEARNING PREFERENCES?YES :TAPES/VIDEOS, BOOKLETS, HANDOUTS LEARNING CAPABILITIES PRESENT?YES EMOTIONAL BARRIERS?NO SPECIAL DEVICES?NO JEWELRY INSPECTOR 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 DIET: REGULAR. EXERCISE: WALKS. MARITAL STATUS: .. NEW PATIENT PAIN DIARY TODAY'S VISITNOTES PAIN CLINIC PFS, CLERGY, PUBLIC HEALTH REFERRALS HAS THE PATIENT BEEN EDUCATED REGARDING HIS/HER PLAN OF CARE?YES HAS THE PATIENT BEEN EDUCATED REGARDING PAIN, THE RISK FOR PAIN, THE IMPORTANCE OF EFFECTIVE PAIN MANAGEMENT, AND THE PAIN ASSESSMENT PROCESS?YES ADVANCE DIRECTIVE ADVANCE DIRECTIVE DISCUSSED WITH PATIENT:YES 01/01/19 PT STATES HE HAS THE INFORMATION ON HCP BUT HASN'T FILLED IT OUT YET. HELP OFFERED IN COMPLETING IT IF NEEDED. HELP DECLINED AT THIS TIME. AD REVIEWED WITH PT. 04/02/18 0950 BVREVIEWED WITH PT 11/12/18 1208 BV01/01/19 REVIEWED WITH PT. AD. HOSPITALIZATION/MAJOR DIAGNOSTIC PROCEDURE PANCREATITIS- TIMMY 03/05/14 SURGERIES REVIEW OF SYSTEMS REVIEWED BY: PROVIDER: VAIBHAV CAMPOS . CONSTITUTIONAL: ANY CHANGE IN YOUR MEDICAL CONDITION? NO . CHILLS NO . FEVER NO . INFECTION: DO YOU HAVE NEW INFECTIONS? NO . DO YOU HAVE HISTORY OF MRSA? NO . MUSCULOSKELETAL: ANY NEW PATTERNS OF PAIN OR NUMBNESS? NO . GASTROENTEROLOGY: ANY NEW CHANGE IN BOWEL CONTROL? NO . GENITOURINARY: ANY NEW CHANGE IN BLADDER CONTROL? NO . IS THERE A CHANCE YOU COULD BE ? NO . HEMATOLOGY/LYMPH: DO YOU TAKE ANY BLOOD THINNERS? (FOR EXAMPLE- COUMADIN, PLAVIX, AGGRENOX, PLATEL, PRADAXA, OR XARELTO) NO . WHEN WAS YOUR LAST DOSE? DATE: TIME: . NEUROLOGY: HAVE YOU FALLEN IN THE PAST 12 MONTHS? NO . ANY NEW EXTREMITY NUMBNESS OR WEAKNESS? NO . CARDIOLOGY: DO YOU HAVE A PACEMAKER OR DEFIBRILLATOR? NO . RESPIRATORY: HAVE YOU BEEN SICK IN THE PAST WEEK? NO . FEVER NO . FLU LIKE SYMPTOMS? NO . COUGH NO . INTEGUMENTARY: DO YOU HAVE ANY RASHES OR OPEN SORES? NO . ALLERGIC/IMMUNO: ARE YOU ALLERGIC TO IV DYE? YES . ANY NEW ALLERGIES? NO . PSYCHIATRIC: DO YOU HAVE THOUGHTS OF HURTING YOURSELF OR SOMEONE ELSE? NO . ARE YOU ABUSED, NEGLECTED, OR IN AN UNSAFE ENVIRONMENT? NO . ENDOCRINOLOGY: ARE YOU DIABETIC? NO . OTHER: DO YOU NEED ANY PRESCRIPTIONS? YES . IF YES, PLEASE LIST: EVERYTHING--STATES DR. MATHEW ISN'T SEEING HIM ANYMORE . ANY NEW PROBLEMS WITH YOUR MEDICATIONS? NO . WHEN DID YOU LAST EAT? ____ . WHEN DID YOU LAST DRINK? ____ . WHAT DID YOU LAST DRINK? ____ . NAME OF PERSON DRIVING YOU HOME? ____ . DO YOU HAVE ANY OTHER QUESTIONS OR CONCERNS NO . VITAL SIGNS WT 170.4 LBS, HT 70.75 IN, BMI 23.93 INDEX, BP 165/90 MM HG, HR 90 /MIN, RR 18 /MIN, TEMP 97.6 F, OXYGEN SAT % 98%, SAFE IN ENV? (Y/N) Y, NA INITIALS AW 1101, REVIEWED BY: ARTHUR. EXAMINATION GENERAL EXAMINATION: LUNGS:LUNG SOUNDS ARE CLEAR . HEART:HEART RATE REGULAR . MUSCULOSKELETAL:*, MUSCLE STRENGTH TESTING 5/5 BILATERAL LOWER EXTREMITIES. . LUMBAR SACRAL SPINESPECIFIC POINT TENDERNESS OVER BILAT. SIJ.POSITIVE PATRICKS/PEGGY TEST BILAT. LOWER EXT. ASSESSMENTS BILATERAL SACROILIITIS - M46.1 (PRIMARY) TREATMENT BILATERAL SACROILIITIS REFILL HYDROCODONE-ACETAMINOPHEN TABLET, 5-325 MG, 1 TAB, ORAL, Q8H PRN MDD3 #45 TAB SHOULD LAST 30 DAYS, 30 DAY(S), 45, REFILLS 0 NOTES: START PT PLANNED, ISTOP REGISTRY REVIEWED AND DEMONSTRATES COMPLLIANCE. (REF #[id number] ) BRINGS IN MEDICATIONS WHICH IS APPROPRIATE FOR WHAT WAS DISPENSED. RECENT URINE TOXICOLOGY REVIEWED. NO UNAUTHORIZED MEDICATIONS. NO ILLICIT SUBSTANCES AND PRESCRIBED MEDICATIONS WERE PRESENT. , [facility] NARCOTIC AGREEMENT WAS REVIEWED AND SIGNED TODAY BY THE PATIENT. SEE ATTACHED DOCUMENT FOR FULL DETAILS; SPECIFIC ISSUES WERE REVIEWED: 1) KEEP PAIN MEDS IN THEIR ORIGINAL BOTTLES AND ANY WEEKLY PLANNERS ARE TO BE BROUGHT TO THE PAIN CENTER AT EVERY VISIT. 2) THE PATIENT IS NOT TO INCREASE DOSING OR TIMING OF THEIR PAIN MEDICATION WITHOUT SPECIFIC DIRECTION OF THEIR PAIN CENTERPROVIDER (NOT ER OR OTHER PROVIDERS). 3) ALL PAIN MEDS ARE TO BE KEPT SECURED, IN A LOCKED BOX. 4) NO PAIN MEDS ARE TO BE SHARED WITH ANY OTHER PERSON FOR ANY REASON. 5) NO PAIN MEDS MAY BE TAKEN FROM ANY FRIENDS OR RELATIVES FOR ANY REASON 6) NO MEDS OR SUBSTANCES WHICH ARE NOT LEGAL ARE TO BE USED- NO MARIJUANA, NO COCAINE, AMPHETAMINES, HEROIN, OR OTHERS ARE EVER TO BE USED. 7)URINE TESTING IS DONE TO ACCOUNT FOR MEDS AND SUBSTANCES BEING TAKEN AND WILL BE DONE RANDOMLY., RISKS AND BENEFITS OF NARCOTIC/OPIOD MEDICATIONS WERE REVIEWED WITH PATIENT - THIS INCLUDES BUT IS NOT LIMITED TO RISK OF DEPENDANCE/DEVELOPMENT OF ADDICTION, MOOD DISTURBANCE AND DEPRESSION, OSTEOPOROSIS, HORMONAL AND LABIDAL CHANGES, RESPIRATORY DEPRESSION AND . PATIENT IS ADVISED NOT TO DRIVE OR DRINK ALCOHOL WHILE ON THESE MEDICATIONS. PROCEDURE CODES FA211 ESTABILISHED PATIENT [facility] FACILITY CHARGE DISPOSITION & COMMUNICATION FOLLOW UP 2 MONTHS ELECTRONICALLY SIGNED BY ANDRES GARCIA ON 01/16/2019 AT 12:38 PM EDT DISCLAIMER : THIS IS A VISIT SUMMARY EXTRACTED FROM THE [employer] CHART. IT IS NOT A COPY OF THE [employer] PROGRESS NOTE. CELESTE
== END ==
LOC: M PAIN 11:00
PROVIDERS: ATTEND Nurse Practitioner Family
DX: M46.1 Sacroiliitis, not elsewhere classified (principal); G89.29 Other chronic pain; E78.5 Hyperlipidemia, unspecified; K21.9 Gastro-esophageal reflux disease without esophagitis; M19.90 Unspecified osteoarthritis, unspecified site; G43.909 Migraine, unspecified, not intractable, without status migrainosus; F17.210 Nicotine dependence, cigarettes, uncomplicated; Z79.899 Other long term (current) drug therapy; Z88.2 Allergy status to sulfonamides; Z88.5 Allergy status to narcotic agent; Z88.6 Allergy status to analgesic agent; Z88.8 Allergy status to other drugs, medicaments and biological substances; Z91.013 Allergy to seafood; Z91.041 Radiographic dye allergy status; Z87.11 Personal history of peptic ulcer disease; Z85.09 Personal history of malignant neoplasm of other digestive organs

== ENCOUNTER 2019-01-15 08:19 | Outpatient (RCR) | payer OTHER | END 2019-01-18 | LOC: M PT 08:19 | PROVIDERS: ATTEND Nurse Practitioner Family | DX: Z51.89 Encounter for other specified aftercare (principal); M46.1 Sacroiliitis, not elsewhere classified ==

== ENCOUNTER 2019-02-13 10:04 | Outpatient (RCR) | payer OTHER ==
[~2019-02-13 10:04] MED LIST changes: -NORC1TAB4 PO; +NORC1TAB7 PO; +VITA500T17 PO; -VITA500T53 PO
== END 2019-02-17 ==
LOC: M PT 10:04
PROVIDERS: ATTEND Nurse Practitioner Family
DX: M46.1 Sacroiliitis, not elsewhere classified (principal)

== ENCOUNTER → 2019-03-03 | Outpatient (CLI) | payer OTHER ==
--- NOTE | 2019-03-21 01:47 | ECWPNPC ---
PATIENT NAME: FABIOLA MORENO : 1955 GENDER: MALE VISIT DATE: 03/03/2019 DISCHARGE DATE: 03/03/19 0937 VISIT LOCKED DATE TIME: PHYSICIAN: VAIBHAV YANEZ RESOURCE: VAIBHAV YANEZ REASON FOR APPOINTMENT 1. MEDICATION HISTORY OF PRESENT ILLNESS HISTORY OF PRESENT ILLNESS: HERE FOR F/U OF CHRONIC LOW BACK PAIN AND BILAT. LEG PAIN AND WEAKNESS.HAS ALWAYS HAD LEFT LEG WEAKESS BUT HAS HAD NEW ONSET OF RIGHT LEG PAIN AND WEAKNESS SINCE SURGERY 2017.RATING PAIN VAS 8/10.USING HYDROCODONE 5/325 PRN #45 FOR 30 DAYS SUPPLY WITH SOME RELIEF.HE WOULD LIKE TO BE SEEN BY NEUROSURGERY BUT HIS SURGEON MOVED TO [place].WE WILL GIVE HIM PHONE NUMBER AND HAVE HIM CALL.STATES HE FINISHED PT AND THERE IS NOTHING MORE THEY CAN DO FOR HIM. PAIN THE PATIENT DESCRIBES THE PAIN... FALL RISK SCREENING: SCREENING :NO FALLS REPORTED IN THE LAST YEAR CURRENT MEDICATIONS TAKING BENADRYL 25 MG CAPSULE 1 CAPSULE NEEDED FOR ITCHING ORALLY EVERY 8 HRS TAKING EPIPEN 2-ARMAAN 0.3 MG/0.3ML SOLUTION AUTO-INJECTOR INJECT 0.3ML BY INTRAMUSCULARLY ROUTE ONCE NEEDED FOR ANAPHYLAXIS INJECTION TAKING VIAGRA 25 MG TABLET 1 TABLET NEEDED ORALLY ONCE A DAY, NOTES: UROLOGY TAKING SUDAFED 30 MG TABLET 1 TABLET NEEDED ORALLY EVERY 6 HRS TAKING MULTI MAX _ 1 TAB ORALLY DAILY TAKING GABAPENTIN 600 MG TABLET 1 CAPSULE ORALLY THREE TIMES DAILY TAKING FLONASE 50 MCG/ACT SUSPENSION 1 SPRAY IN EACH NOSTRIL NASALLY TWICE A DAY TAKING AZELASTINE HCL 0.1 % SOLUTION SPRAY 2 SPRAYS IN EACH NOSTRIL ONCE DAILY IN THE MORNING NASAL DAILY TAKING ATORVASTATIN CALCIUM 10 MG TABLET 1 TABLET ORALLY ONCE A DAY TAKING VITAMIN B-12 500 MCG TABLET 1 TABLET ORALLY ONCE A DAY TAKING FOLIC ACID _ TABLET 400 MGS 1 TABLET ORALLY ONCE A DAY TAKING SONNY _ 1 CAP ORALLY NEEDED TAKING COLACE 100 MG CAPSULE 1 CAPSULE NEEDED ORALLY ONCE A DAY NEEDED TAKING HYDROCORTISONE VALERATE 0.2 % CREAM 1 APPLICATION TO AFFECTED AREA ON ARMS AND CHEST EXTERNALLY ONCE OR TWICE A DAY NEEDED TAKING CALCIUM + D 600-400 MG-UNIT TABLET 1 TABLET WITH FOOD ORALLY TWICE A DAY TAKING BUDESONIDE 90 MCG/ACT AEROSOL POWDER BREATH ACTIVATED 2 PUFFS INHALATION TWICE A DAY TAKING NICOTINE 21 MG/24HR PATCH 24 HOUR 1 PATCH TO SKIN TRANSDERMAL ONCE A DAY IN AM, OFF AT HS TAKING PULMICORT FLEXHALER 90 MCG/ACT AEROSOL POWDER BREATH ACTIVATED INHALE TWO PUFFS BY MOUTH TWICE A DAY TAKING VENTOLIN HFA 108 (90 BASE) MCG/ACT AEROSOL SOLUTION INHALE TWO PUFFS BY MOUTH EVERY 4 TO 6 HOURS NEEDED FOR COUGH AND DYSPNEA INHALATION TAKING HYDROCODONE-ACETAMINOPHEN 5-325 MG TABLET 1 TAB ORAL Q8H PRN MDD3 #45 TAB SHOULD LAST 30 DAYS TAKING FIBERCON 625 MG TABLET 1 TABLET WITH WATER ORALLY DAILY TAKING OMEPRAZOLE 40 MG CAPSULE DELAYED RELEASE 1 CAPSULE ORALLY ONCE A DAY BEFORE MEAL TAKING NICOTINE 14 MG/24HR PATCH 24 HOUR 1 PATCH TO SKIN STARTING 2ND MONTH TRANSDERMAL ONCE A DAY TAKING ERGOCALCIFEROL 90831 UNIT CAPSULE 1 CAPSULE ORALLY ONCE A WEEK WITH MEAL MEDICATION LIST REVIEWED AND RECONCILED WITH THE PATIENT PAST MEDICAL HISTORY LOW BACK PAIN TENDINITIS SHOULDER ALLERGIES/ ECZEMA PEPTIC ULCER DISEASE HYPERLIPIDEMIA, MIXED UVEITIS ESOPHAGEAL REFLUX HIATAL HERNIA OSTEOARTHRITIS CARCINOID RECTAL TUMOR MIGRAINE HEADACHES PANCREATITIS 03/03 URINARY FREQUENCY RIGHT LEG PAIN ALLERGIES CELEBREX: HYPER - SIDE EFFECTS SULFA: HIVES - ALLERGY CYMBALTA: NAUSEA/VOMITING - SIDE EFFECTS TRAMADOL: GI UPSET - SIDE EFFECTS SHELL FISH: HIVES - ALLERGY PRAVASTATIN SODIUM: ELEVATED LFT - SIDE EFFECTS IV DYE: UNSURE LYRICA: HEART PALPITATIONS - SIDE EFFECTS SURGICAL HISTORY ULCER 81 HAND SURGERY R 91,09 RECTAL CANCER 05 COLONOSCOPY WITH HX BENIGN POLYP, DIVERTICULOSIS, INTERNAL HEMORRHOIDS - HEATHER, F/UP 10YRS 2024 04,09, 10/31,10/04 EGD -[facility] 09, 10/31 LEFT THUMB 09 TESTICLE REMOVAL 81,86 ERCP WITH STENT - [facility] KOHLER 04-05-14 CYSTOSCOPY 07-02-17 LEFT ELBOW SURGERY 02/04 L4-L5, L5-S1 DECOMPRESSION FUSION-DR. MATHEW FAMILY HISTORY FATHER: UNKNOWN MOTHER: , DIAGNOSED WITH DIABETES, HYPERTENSION, HEART DISEASE 2 BROTHER(S) - HEALTHY. 1DAUGHTER(S) . NO KNOWN FAMILY HISTORY OF ANY UROLOGICALLY RELATED DISEASES/CANCERS. SOCIAL HISTORY GENERAL: TOBACCO USE ARE YOU A:CURRENT SMOKER ARE YOU INTERESTED IN QUITTING?THINKING ABOUT QUITTING ON NICOTINE PATCH PREVIOUS QUIT ATTEMPTS?YES, WITHIN THE LAST 6 MONTHS. COUNSELED THE PATIENT ON SMOKING CESSATION, EDUCATION [id number]/14/2019 HOW MANY CIGARETTES A DAY DO YOU SMOKE?6-10 HOW SOON AFTER YOU WAKE UP DO YOU SMOKE YOUR FIRST CIGARETTE?6-30 MIN HOW OFTEN DO YOU SMOKE CIGARETTES?EVERY DAY PATIENT COUNSELED ON THE DANGERS OF TOBACCO USE AND URGED TO QUIT:01/01/2019 SMOKING CESSATION INFORMATION GIVEN12/11/2018 HIV / HEP-C SCREENING HIV TEST OFFERED TO PATIENT:YES DATE OFFERED:11/08/2016 TEST ACCEPTED:NO HEP-C TEST OFFERED TO PATIENT:YES DATE OFFERED:11/08/2016 REASON:PATIENT DECLINED TEST ACCEPTED:NO REASON:PATIENT DECLINED EDUCATION LEVEL OF EDUCATION:HIGH SCHOOL DIET: REGULAR. LANGUAGE LANGUAGES SPOKEN:TAMAZIGHT DOMESTIC VIOLENCE DO YOU FEEL SAFE IN YOUR ENVIRONMENT?YES NEW PATIENT PAIN DIARY TODAY'S VISITNOTES RECREATIONAL DRUG USE DRUG USE?NO EXERCISE: WALKS. LEARNING BARRIERS / SPECIAL NEEDS CHANGE FROM LAST VISIT?NO BARRIERS TO LEARNING?NO HEARING IMPAIRED?NO VISION IMPAIRED?YES COGNITIVELY IMPAIRED?NO :CORRECTIVE LENSES READINESS TO LEARN?YES LEARNING PREFERENCES?YES :TAPES/VIDEOS, BOOKLETS, HANDOUTS LEARNING CAPABILITIES PRESENT?YES EMOTIONAL BARRIERS?NO SPECIAL DEVICES?NO AUTOMATIC CAR WASH ATTENDANT NEEDED?NO LUNG CANCER SCREENING SMOKING STATUS:CURRENT SMOKER IS THE PATIENT BETWEEN THE AGE OF 55 AND 77?YES HAS THE PATIENT EVER BEEN DIAGNOSED WITH LUNG CANCER?NO PACK YEARS = NUMBER OF PACKS PER DAY SMOKED X NUMBER OF YEARS SMOKED:35 CREATE REFERRAL:GENERATE AND CREATE REFERRAL TO THE ONCOLOGY NURSE NAVIGATOR (SMP) LISTING USING THE LDCT SCAN PROCEDURE PAIN CLINIC PFS, CLERGY, PUBLIC HEALTH REFERRALS HAS THE PATIENT BEEN EDUCATED REGARDING HIS/HER PLAN OF CARE?YES HAS THE PATIENT BEEN EDUCATED REGARDING PAIN, THE RISK FOR PAIN, THE IMPORTANCE OF EFFECTIVE PAIN MANAGEMENT, AND THE PAIN ASSESSMENT PROCESS?YES CAFFEINE CAFFEINE USE?NO ADVANCE DIRECTIVE ADVANCE DIRECTIVE DISCUSSED WITH PATIENT:YES PT STATES HE HAS THE INFORMATION ON HCP BUT HASN'T FILLED IT OUT YET. HELP OFFERED IN COMPLETING IT IF NEEDED. HELP DECLINED AT THIS TIME. FAITH [id number] OTHER MARITAL STATUS: .. ALCOHOL SCREENING DID YOU HAVE A DRINK CONTAINING ALCOHOL IN THE PAST YEAR?YES HOW OFTEN DID YOU HAVE SIX OR MORE DRINKS ON ONE OCCASION IN THE PAST YEAR?NEVER (0 POINTS) HOW MANY DRINKS DID YOU HAVE ON A TYPICAL DAY WHEN YOU WERE DRINKING IN THE PAST YEAR?1 OR 2 (0 POINTS) HOW OFTEN DID YOU HAVE A DRINK CONTAINING ALCOHOL IN THE PAST YEAR?TWO TO THREE TIMES PER WEEK (3 POINTS) POINTS3 INTERPRETATIONNEGATIVE OCCUPATION: UNEMPLOYED. SEXUAL HX HAD SEX IN THE LAST 12 MONTHS (VAGINAL, ORAL, OR ANAL)?YES WITHWOMEN ONLY USE PROTECTION?YES HOW OFTEN?ALL OF THE TIME HAVE YOU EVER HAD AN STD?NO REVIEWED WITH PT. 04/02/18 0950 BVREVIEWED WITH PT 11/12/18 1208 BV01/01/19 REVIEWED WITH PT. AD. HOSPITALIZATION/MAJOR DIAGNOSTIC PROCEDURE PANCREATITIS- TIMMY 03/05/14 SURGERIES REVIEW OF SYSTEMS REVIEWED BY: PROVIDER: VAIBHAV CAMPOS . CONSTITUTIONAL: ANY CHANGE IN YOUR MEDICAL CONDITION? NO . CHILLS NO . FEVER NO . INFECTION: DO YOU HAVE NEW INFECTIONS? NO . DO YOU HAVE HISTORY OF MRSA? NO . MUSCULOSKELETAL: ANY NEW PATTERNS OF PAIN OR NUMBNESS? NO . GASTROENTEROLOGY: ANY NEW CHANGE IN BOWEL CONTROL? NO . GENITOURINARY: ANY NEW CHANGE IN BLADDER CONTROL? NO . IS THERE A CHANCE YOU COULD BE ? NO . HEMATOLOGY/LYMPH: DO YOU TAKE ANY BLOOD THINNERS? (FOR EXAMPLE- COUMADIN, PLAVIX, AGGRENOX, PLATEL, PRADAXA, OR XARELTO) NO . WHEN WAS YOUR LAST DOSE? DATE: TIME: . NEUROLOGY: HAVE YOU FALLEN IN THE PAST 12 MONTHS? NO . ANY NEW EXTREMITY NUMBNESS OR WEAKNESS? NO . CARDIOLOGY: DO YOU HAVE A PACEMAKER OR DEFIBRILLATOR? NO . RESPIRATORY: HAVE YOU BEEN SICK IN THE PAST WEEK? NO . FEVER NO . FLU LIKE SYMPTOMS? NO . COUGH NO . INTEGUMENTARY: DO YOU HAVE ANY RASHES OR OPEN SORES? NO . ALLERGIC/IMMUNO: ARE YOU ALLERGIC TO IV DYE? YES . ANY NEW ALLERGIES? NO . PSYCHIATRIC: DO YOU HAVE THOUGHTS OF HURTING YOURSELF OR SOMEONE ELSE? NO . ARE YOU ABUSED, NEGLECTED, OR IN AN UNSAFE ENVIRONMENT? NO . ENDOCRINOLOGY: ARE YOU DIABETIC? NO . OTHER: DO YOU NEED ANY PRESCRIPTIONS? YES, HYDROCODONE . IF YES, PLEASE LIST: ____ . ANY NEW PROBLEMS WITH YOUR MEDICATIONS? NO . WHEN DID YOU LAST EAT? ____ . WHEN DID YOU LAST DRINK? ____ . WHAT DID YOU LAST DRINK? ____ . NAME OF PERSON DRIVING YOU HOME? ____ . DO YOU HAVE ANY OTHER QUESTIONS OR CONCERNS NO . VITAL SIGNS WT 166.2 LBS, HT 70.75 IN, BMI 23.34 INDEX, BP 135/91 MM HG, HR 98 /MIN, RR 18 /MIN, TEMP 98.1 F, OXYGEN SAT % 95%, NA INITIALS SC 08:54, REVIEWED BY: EM. EXAMINATION GENERAL EXAMINATION: GENERAL APPEARANCE:AWAKE,ALERT ,PLEAASANT . PSYCHAFFECT NORMAL . LUNGS:LUNG ANGULO ARE CLEAR TO AUSCULTATION BILATERALLY. GOOD MOVEMENT OF AIR . HEART:S1, S2 IN A REGULAR RATE AND RHYTHM. NO SIGNIFICANT MURMURS, RUBS OR GALLOPS NOTED . ASSESSMENTS POST LAMINECTOMY SYNDROME - M96.1 (PRIMARY) TREATMENT POST LAMINECTOMY SYNDROME CONTINUE GABAPENTIN TABLET, 600 MG, 1 CAPSULE, ORALLY, THREE TIMES DAILY REFILL HYDROCODONE-ACETAMINOPHEN TABLET, 5-325 MG, 1 TAB, ORAL, Q8H PRN MDD3 #45 TAB SHOULD LAST 30 DAYS, 30 DAY(S), 45, REFILLS 0 NOTES: ISTOP REGISTRY REVIEWED AND DEMONSTRATES COMPLLIANCE. BRINGS IN MEDICATIONS WHICH IS APPROPRIATE FOR WHAT WAS DISPENSED. RECENT URINE TOXICOLOGY REVIEWED. NO UNAUTHORIZED MEDICATIONS. NO ILLICIT SUBSTANCES AND PRESCRIBED MEDICATIONS WERE PRESENT. URINE TOX TODAY, RISKS AND BENEFITS OF NARCOTIC/OPIOD MEDICATIONS WERE REVIEWED WITH PATIENT - THIS INCLUDES BUT IS NOT LIMITED TO RISK OF DEPENDANCE/DEVELOPMENT OF ADDICTION, MOOD DISTURBANCE AND DEPRESSION, OSTEOPOROSIS, HORMONAL AND LABIDAL CHANGES, RESPIRATORY DEPRESSION AND . PATIENT IS ADVISED NOT TO DRIVE OR DRINK ALCOHOL WHILE ON THESE MEDICATIONS. PROCEDURE CODES FA211 ESTABILISHED PATIENT [facility] CHARGE DISPOSITION & COMMUNICATION ELECTRONICALLY SIGNED BY ANDRES GARCIA ON 03/19/2019 AT 12:56 PM EDT DISCLAIMER : THIS IS A VISIT SUMMARY EXTRACTED FROM THE [email or web address] CHART. IT IS NOT A COPY OF THE [email or web address] PROGRESS NOTE. NATALIAD
== END ==
LOC: M PAIN 08:45
PROVIDERS: ATTEND Nurse Practitioner Family
DX: M96.1 Postlaminectomy syndrome, not elsewhere classified (principal); E78.5 Hyperlipidemia, unspecified; K21.9 Gastro-esophageal reflux disease without esophagitis; M19.90 Unspecified osteoarthritis, unspecified site; G43.909 Migraine, unspecified, not intractable, without status migrainosus; F17.210 Nicotine dependence, cigarettes, uncomplicated; Z88.2 Allergy status to sulfonamides; Z88.5 Allergy status to narcotic agent; Z88.8 Allergy status to other drugs, medicaments and biological substances; Z91.041 Radiographic dye allergy status; Z79.891 Long term (current) use of opiate analgesic; Z79.899 Other long term (current) drug therapy

== ENCOUNTER → 2019-03-26 | Outpatient (REF) | payer OTHER ==
[2019-03-26 10:10] LABS: ALBUMIN 3.7 GM/DL (3.2-5.2); ALT/SGPT 158 U/L (12-78); BILIRUBIN,TOTAL 0.8 MG/DL (0.2-1.0); BLOOD UREA NITROGEN 7 MG/DL (7-18); CALCIUM LEVEL 9.4 MG/DL (8.8-10.2); CARBON DIOXIDE LEVEL 26 MEQ/L (21-32); CHLORIDE LEVEL 106 MEQ/L (98-107); CREATININE FOR GFR 0.81 MG/DL (0.70-1.30); GLOMERULAR FILTRATION RATE > 60.0 (>49); GLUCOSE, FASTING 112 MG/DL (70-100); SODIUM LEVEL 139 MEQ/L (136-145); TOTAL PROTEIN 7.3 GM/DL (6.4-8.2)
[2019-03-26 10:19] LABS: FOLATE 18.2 NG/ML; TOTAL 25(OH) VITAMIN D 28.8 NG/ML (30.0-100.0); VITAMIN B12 LEVEL 668 PG/ML
== END ==
LOC: M SFHCPLAZ 07:49
PROVIDERS: ATTEND Nurse Practitioner Family
DX: E78.2 Mixed hyperlipidemia (principal); E55.9 Vitamin D deficiency, unspecified

== ENCOUNTER → 2019-03-27 | Outpatient (REF) | payer OTHER ==
[2019-03-27 11:27] LABS: ALBUMIN 3.7 GM/DL (3.2-5.2); ALT/SGPT 114 U/L (12-78); BILIRUBIN,DIRECT 0.4 MG/DL (0.0-0.2); GAMMA GLUTAMYLTRANSPEPTIDASE 510 U/L (15-85); TOTAL PROTEIN 7.4 GM/DL (6.4-8.2)
[2019-03-27 11:49] LABS: HEPATITIS B SURFACE ANTIGEN NEGATIVE (NEGATIVE)
[2019-03-27 12:16] LABS: HEPATITIS B CORE ANTIBODY IGM NEGATIVE (NEGATIVE); HEPATITIS C VIRUS ABY INDEX 0.2 INDEX (<0.8)
[2019-03-27 12:19] LABS: HEPATITIS A ANTIBODY IGM NEGATIVE (NEGATIVE)
== END ==
LOC: M SFHCPLAZ 08:38
PROVIDERS: ATTEND Nurse Practitioner Family
DX: R94.5 Abnormal results of liver function studies (principal)

== ENCOUNTER → 2019-04-13 | Outpatient (CLI) | payer OTHER ==
--- NOTE | 2019-04-13 08:39 | REP ---
Clinical: Abnormal liver function tests. Technique: Castellanos scale ultrasound using curved array transducer. Findings: The liver and pancreas are normal in contour, size, and echogenicity without significant focal hepatic or pancreatic lesions identified. Echogenic area in the left hepatic lobe measures 2.3 x 1.4 x 2.7 cm may represent focal fatty infiltration or hemangioma. The gallbladder is collapsed and mild wall thickening to 6 mm cannot be excluded along with small amount of gravel/sludge. No pericholecystic fluid or sonographic Gonzalez's sign noted. Common bile duct is mildly dilated to 9 mm but without obvious obstructing lesion. The right kidney is normal in reniform shape without hydronephrosis and measures 11.7 x 6.4 x 4.9 cm. No ascites. Visualized portions of the abdominal aorta normal. Impression: 1. Collapsed gallbladder cannot exclude mild wall thickening as well as small amount of sludge/gravel without further evidence for acute cholecystitis by ultrasound. 2. Mild CBD dilatation to 9 mm is nonspecific and without obvious obstructing cause. 3. Echogenic area within the left lobe of the liver may represent focal fatty infiltration or hemangioma. Electronically Signed by Stephon Kennedy MD 04/13/2019 08:31 A
== END ==
LOC: M RAD 07:41
PROVIDERS: ATTEND Nurse Practitioner Family
DX: R74.8 Abnormal levels of other serum enzymes (principal)

== ENCOUNTER → 2019-04-24 | Outpatient (CLI) | payer OTHER ==
--- NOTE | 2019-04-24 10:07 | REP ---
Clinical: Pain. Degenerative change. Technique: AP, lateral, flexion/extension, bilateral oblique, and open-mouth views of the cervical spine. Findings: Advanced multilevel degenerative disc osteophyte complexes are appreciated including osteophytosis, endplate heterogeneity, disc space narrowing and facet arthropathy. Alignment and lordosis is relatively well maintained. No acute fracture / compression injury or subluxation identified. Open mouth view demonstrates normal C1-C2 articulation and odontoid process. Impression: Advanced multilevel degenerative spondylosis. No acute fracture / compression injury or subluxation. Electronically Signed by Stephon Kennedy MD 04/24/2019 09:57 A
== END ==
LOC: M SMT 09:28
PROVIDERS: ATTEND Orthopaedic Surgery
DX: M19.012 Primary osteoarthritis, left shoulder (principal)

== ENCOUNTER → 2019-04-25 | Outpatient (CLI) | payer OTHER ==
--- NOTE | 2019-04-25 14:16 | REPVR ---
EXAM: MR Cervical Spine Without Contrast EXAM DATE/TIME: 04/25/2019 1:32 PM CLINICAL HISTORY: 64 years old, male; Neck pain; Patient HX: Prior xrays on pac patient has neck/shoulder pain R/O stenosis-sf; Additional info: Cervicalgia, R/O stenosis TECHNIQUE: Imaging protocol: Multiplanar magnetic resonance images of the cervical spine without contrast. COMPARISON: CR SPINE CERVICAL COMPLETE 04/24/2019 9:39 AM FINDINGS: Vertebrae: Unremarkable. Spinal cord: Normal signal. No cord compression. C2-C3: There is mild ventral ridging which flattens the ventral thecal sac. C3-C4: There is disc space narrowing and desiccation. There are moderate degenerative end plate changes at this level. There is a moderate disc/osteophyte complex that flattens the ventral thecal sac. There is moderate bilateral uncovertebral joint arthropathy. There is moderate bilateral neural foraminal narrowing. C4-C5: There is disc space narrowing and desiccation. There are moderate degenerative end plate changes at this level. There is a moderate disc/osteophyte complex that flattens the ventral thecal sac. There is moderate bilateral uncovertebral joint arthropathy. There is moderate bilateral neural foraminal narrowing. There is mild spinal canal stenosis. C5-C6: There is degenerative disc disease including disc space narrowing and dessication. There is mild ventral ridging which flattens the ventral thecal sac. There is moderate bilateral uncovertebral joint arthropathy. There is mild bilateral neuroforaminal narrowing. C6-C7: There is disc desiccation. There is mild ventral ridging which flattens the ventral thecal sac. There is mild bilateral neuroforaminal narrowing. C7-T1: No significant disc disease. No significant spinal stenosis. Soft tissues: Unremarkable. Other findings: Examination is limited due to patient motion artifact. IMPRESSION: 1. Examination is limited due to patient motion artifact. 2. Multilevel degenerative changes with variable degrees of spinal canal and neuroforaminal narrowing. Please see details above. Electronically signed by: Saroj Allred On 04/25/2019 14:15:50 PM
== END ==
LOC: M RAD 12:17
PROVIDERS: ATTEND Orthopaedic Surgery
DX: M54.2 Cervicalgia (principal)

== ENCOUNTER 2019-06-28 16:50 | Emergency (ER) | payer OTHER ==
[~2019-06-28] VITALS: Ht 177.8 cm; Wt 73.6 kg
[2019-06-28] MEDS ORDERED: ALLE60TA69 PO (17:29)
[2019-06-28] MEDS ORDERED: PSEU30TA85 PO (17:29)
[2019-06-28] MEDS ORDERED: NICO1DIS10 (17:29)
[2019-06-28] MEDS ORDERED: FEXO-5 (17:29)
[2019-06-28] MEDS ORDERED: ROBICAP2 PO (17:29)
[2019-06-28] MEDS ORDERED: VITA500045 PO (17:29)
[2019-06-28] MEDS ORDERED: dexameTHASONE 20 MG/5 ML VIAL (J1100) IV ONE (17:45)
[2019-06-28] MEDS: IPRATROPIUM 0.5MG/ALBUTEROL 2.5MG INH SOL UD 3ML (DUONEB)(J7620) NEB SCH (17:57)
[2019-06-28 18:45] VITALS: BP 143/81
[2019-06-28] MEDS ORDERED: PRED10TA2 PO (19:08)
[2019-06-28] MEDS ORDERED: AZIT500T2 PO (19:08)
== END 2019-06-28 19:25 | disposition home or self-care (01) ==
LOC: M ED 16:50
DX: J44.1 Chronic obstructive pulmonary disease with (acute) exacerbation (principal); J45.909 Unspecified asthma, uncomplicated; E78.5 Hyperlipidemia, unspecified; K21.9 Gastro-esophageal reflux disease without esophagitis; Z79.899 Other long term (current) drug therapy; Z88.1 Allergy status to other antibiotic agents; Z88.2 Allergy status to sulfonamides; Z88.8 Allergy status to other drugs, medicaments and biological substances; F17.210 Nicotine dependence, cigarettes, uncomplicated
CPT/HCPCS: 36415; 94640; 96374; 99284; J1100

== ENCOUNTER → 2019-07-23 | Outpatient (REF) | payer OTHER ==
[~2019-07-23] MED LIST changes: +ALLE60TA69 PO; +AZIT500T2 PO; +FEXO-5; +NICO1DIS10; +PRED10TA2 PO; +PSEU30TA85 PO; +ROBICAP2 PO; +VITA500045 PO
[2019-07-23 13:09] LABS: PLATELET COUNT, AUTOMATED 287 10^3/uL (150-450)
[2019-07-23 13:19] LABS: INR 1.09; PROTHROMBIN TIME 13.9 SECONDS (11.8-14.0)
[2019-07-23 13:20] LABS: PARTIAL THROMBOPLASTIN TIME 29.6 SECONDS (25.0-38.4)
== END ==
LOC: M LABDRAW1 12:55
PROVIDERS: ATTEND Physician Assistant
DX: Z01.812 Encounter for preprocedural laboratory examination (principal); M47.22 Other spondylosis with radiculopathy, cervical region

== ENCOUNTER → 2019-07-29 | Outpatient (CLI) | payer OTHER | LOC: M PAIN 11:30 | PROVIDERS: ATTEND Family Medicine | DX: M51.17 Intervertebral disc disorders with radiculopathy, lumbosacral region (principal); L30.9 Dermatitis, unspecified; E78.5 Hyperlipidemia, unspecified; K21.9 Gastro-esophageal reflux disease without esophagitis; K44.9 Diaphragmatic hernia without obstruction or gangrene; G43.909 Migraine, unspecified, not intractable, without status migrainosus; N39.41 Urge incontinence; R35.0 Frequency of micturition; M79.661 Pain in right lower leg; F17.210 Nicotine dependence, cigarettes, uncomplicated; Z79.891 Long term (current) use of opiate analgesic; Z79.899 Other long term (current) drug therapy; Z88.2 Allergy status to sulfonamides; Z88.5 Allergy status to narcotic agent; Z88.8 Allergy status to other drugs, medicaments and biological substances; Z91.013 Allergy to seafood; Z91.041 Radiographic dye allergy status ==

== ENCOUNTER → 2019-08-07 | Outpatient (REF) | payer OTHER ==
[~2019-08-07] MED LIST changes: -AZIT500T2 PO; +AZIT500T5 PO
[2019-08-07 11:25] LABS: ALBUMIN 3.7 GM/DL (3.2-5.2); ALT/SGPT 55 U/L (12-78); BILIRUBIN,TOTAL 0.6 MG/DL (0.2-1.0); BLOOD UREA NITROGEN 6 MG/DL (7-18); CALCIUM LEVEL 8.8 MG/DL (8.8-10.2); CARBON DIOXIDE LEVEL 29 MEQ/L (21-32); CHLORIDE LEVEL 101 MEQ/L (98-107); CHOLESTEROL LEVEL 231 MG/DL (<200); CHOLESTEROL RISK RATIO 2.119 (<5); CREATININE FOR GFR 0.77 MG/DL (0.70-1.30); GLOMERULAR FILTRATION RATE > 60.0 (>49); GLUCOSE, FASTING 92 MG/DL (70-100); HDL CHOLESTEROL 109 MG/DL (>40); LDL CHOLESTEROL 107 MG/DL (<100); NON-HDL-C 122 MG/DL; POTASSIUM SERUM 4.3 MEQ/L (3.5-5.1); SODIUM LEVEL 135 MEQ/L (136-145); TOTAL PROTEIN 7.4 GM/DL (6.4-8.2); TRIGLYCERIDES LEVEL 75 MG/DL (<150)
== END ==
LOC: M SFHCPLAZ 08:50
PROVIDERS: ATTEND Nurse Practitioner Family
DX: R74.8 Abnormal levels of other serum enzymes (principal); E78.2 Mixed hyperlipidemia

== ENCOUNTER → 2019-09-14 | Outpatient (CLI) | payer OTHER ==
--- NOTE | 2019-09-14 10:32 | REP ---
Clinical: Follow up abnormal lung findings. Technique: Axial noncontrast images from the thoracic inlet to the upper abdomen with coronal and sagittal re-formations. Comparison: 07/23/2018. Findings: Moderate/advanced COPD and emphysematous changes again noted. Mild bronchiectasis and scattered small areas of scarring remain essentially stable. Very small scattered nodular and non solid lesions measuring up to approximately 3 mm are noted. A 5 mm noncalcified nodule in the right lower lobe (image 44) remains stable. Atherosclerotic changes to the thoracic aorta and coronary arteries again noted without aortic aneurysm or cardiomegaly. No pericardial effusion. No obvious adenopathy based on noncontrast evaluation. Surrounding musculoskeletal structures without focal abnormality. Limited upper abdomen demonstrates suspected postsurgical changes in the left upper quadrant including prior nephrectomy and gastric bypass surgery. Cholelithiasis noted. Impression: 1. Chronic COPD/emphysematous changes with scattered mild bronchiectasis and small areas of scarring. 2. Subtle scattered small solid and non solid nodular densities up to 3 mm as well as focal 5 mm noncalcified nodule in the right lower lobe remain unchanged. 3. No new acute consolidation or mass lesion appreciated. Electronically Signed by Stephon Kennedy MD 09/14/2019 10:24 A
== END ==
LOC: M RAD 09:51
PROVIDERS: ATTEND Internal Medicine Pulmonary Disease
DX: J44.9 Chronic obstructive pulmonary disease, unspecified (principal); J47.9 Bronchiectasis, uncomplicated; R91.8 Other nonspecific abnormal finding of lung field

== ENCOUNTER → 2019-09-15 | Outpatient (CLI) | payer OTHER ==
--- NOTE | 2019-09-15 11:29 | REP ---
LEFT GREAT TOE SERIES: Four views. HISTORY: Pain in the left great toe. Comparison left foot radiographs are from November 06, 2012. FINDINGS: There is mild soft tissue swelling particularly over the dorsal and medial aspects of the IP and MTP joints of the great toe. Joint spaces are preserved. There is minimal spurring at the MTP joint. No erosive change is seen. No soft tissue gas or soft tissue calcification is observed. IMPRESSION: Soft-tissue swelling about the MTP and IP joints of the great toe. Minimal spurring at the MTP joint. Electronically Signed by Gary Acharya MD 09/15/2019 11:47 A
== END ==
LOC: M WUC 10:55
PROVIDERS: ATTEND Physician Assistant
DX: M25.775 Osteophyte, left foot (principal); M70.872 Other soft tissue disorders related to use, overuse and pressure, left ankle and foot

== ENCOUNTER → 2019-09-28 | Outpatient (CLI) | payer OTHER ==
[~2019-09-28] MED LIST changes: -OXYB15TA PO; +OXYB1TAB13 PO
--- NOTE | 2019-10-01 03:47 | ECWPNPC ---
PATIENT NAME: FABIOLA MORENO : 1955 GENDER: MALE VISIT DATE: 09/28/2019 DISCHARGE DATE: 09/28/19947 VISIT LOCKED DATE TIME: PHYSICIAN: ALONSO GILES RESOURCE: ALONSO GILES REASON FOR APPOINTMENT 1. MED MGMT HISTORY OF PRESENT ILLNESS HISTORY OF PRESENT ILLNESS: PAIN THE PATIENT DESCRIBES THE PAIN... 64-YEAR-OLD MALE IN FOR CHRONIC PAIN FOLLOW-UP. HE RATES PAIN CURRENTLY AT A 9 OUT OF 10 AND DESCRIBES IT ACHING, SHARP, BURNING, STABBING, SORE, AND SHOOTING. HE WOULD LIKE TO DISCUSS INCREASING THE NUMBER OF HYDROCODONE HE GETS PER MONTH HE STATES THE 45 HE IS GETTING CURRENTLY IS NOT COVERING HIM. FALL RISK SCREENING: SCREENING :NO FALLS REPORTED IN THE LAST YEAR CURRENT MEDICATIONS TAKING BENADRYL 25 MG CAPSULE 1 CAPSULE NEEDED FOR ITCHING ORALLY EVERY 8 HRS TAKING EPIPEN 2-ARMAAN 0.3 MG/0.3ML SOLUTION AUTO-INJECTOR INJECT 0.3ML BY INTRAMUSCULARLY ROUTE ONCE NEEDED FOR ANAPHYLAXIS INJECTION TAKING MULTI MAX _ 1 TAB ORALLY DAILY TAKING AZELASTINE HCL 0.1 % SOLUTION SPRAY 2 SPRAYS IN EACH NOSTRIL ONCE DAILY IN THE MORNING NASAL DAILY TAKING VITAMIN B-12 500 MCG TABLET 1 TABLET ORALLY ONCE A DAY TAKING FOLIC ACID _ TABLET 400 MGS 1 TABLET ORALLY ONCE A DAY TAKING HYDROCORTISONE VALERATE 0.2 % CREAM 1 APPLICATION TO AFFECTED AREA ON ARMS AND CHEST EXTERNALLY ONCE OR TWICE A DAY NEEDED TAKING BUDESONIDE 90 MCG/ACT AEROSOL POWDER BREATH ACTIVATED 2 PUFFS INHALATION TWICE A DAY TAKING COLACE 100 MG CAPSULE 1 CAPSULE NEEDED ORALLY ONCE A DAY NEEDED TAKING FIBERCON 625 MG TABLET 1 TABLET WITH WATER ORALLY DAILY TAKING OMEPRAZOLE 40 MG CAPSULE DELAYED RELEASE 1 CAPSULE ORALLY ONCE A DAY BEFORE MEAL TAKING SUDAFED 30 MG TABLET 1 TABLET NEEDED ORALLY EVERY 6 HRS TAKING FLONASE 50 MCG/ACT SUSPENSION 1 SPRAY IN EACH NOSTRIL NASALLY TWICE A DAY TAKING SONNY _ 1 CAP ORALLY NEEDED TAKING CALCIUM + D 600-400 MG-UNIT TABLET 1 TABLET WITH FOOD ORALLY TWICE A DAY TAKING ERGOCALCIFEROL 04278 UNIT CAPSULE 1 CAPSULE ORALLY ONCE A WEEK WITH MEAL TAKING NICOTINE 21 MG/24HR PATCH 24 HOUR 1 PATCH TO SKIN IN AM OFF AT HS TRANSDERMAL ONCE A DAY TAKING ALBUTEROL SULFATE (2.5 MG/3ML) 0.083% NEBULIZATION SOLUTION 3 ML NEEDED INHALATION EVERY 8 HRS TAKING NEBULIZER - DEVICE DIRECTED DX: J43.1 THREE TIMES DAILY TAKING NICOTINE POLACRILEX 2 MG GUM 1 PIECE FOR 30 MINUTE NEEDED MOUTH/THROAT 24 TIME(S) A DAY TAKING GABAPENTIN 300 MG CAPSULE 1 CAPSULE ORALLY ONCE A DAY X 1 , THEN TWICE A DAY X 1 THEN 3 TIMES A DAY TAKING HYDROCODONE-ACETAMINOPHEN 5-325 MG TABLET 1 TAB ORAL Q8H PRN MDD3 #45 TAB SHOULD LAST 30 DAYS TAKING VENTOLIN HFA 108 (90 BASE) MCG/ACT AEROSOL SOLUTION INHALE TWO PUFFS BY MOUTH EVERY 4 TO 6 HOURS NEEDED FOR COUGH AND DYSPNEA INHALATION TAKING PULMICORT FLEXHALER 90 MCG/ACT AEROSOL POWDER BREATH ACTIVATED INHALE TWO PUFFS BY MOUTH TWICE A DAY NOT-TAKING OMEPRAZOLE 40 MG CAPSULE DELAYED RELEASE 1 CAPSULE ORALLY ONCE A DAY BEFORE MEAL NOT-TAKING NICOTINE 14 MG/24HR PATCH 24 HOUR 1 PATCH TO SKIN IN AM OFF AT HS TRANSDERMAL ONCE A DAY NOT-TAKING NEBULIZER/TUBING/MOUTHPIECE - KIT DIRECTED DX: J43.1 THREE TIMES DAILY NEEDED NOT-TAKING GABAPENTIN 600 MG TABLET 1 CAPSULE ORALLY THREE TIMES DAILY, NOTES: NOT TAKING NOT-TAKING CYCLOBENZAPRINE HCL 10 MG TABLET 1 TABLET NEEDED ORALLY THREE TIMES A DAY, NOTES: NOT TAKNG NOT-TAKING VIAGRA 25 MG TABLET 1 TABLET NEEDED ORALLY ONCE A DAY, NOTES: UROLOGY NOT-TAKING NICOTINE 21 MG/24HR PATCH 24 HOUR 1 PATCH TO SKIN TRANSDERMAL ONCE A DAY IN AM, OFF AT HS MEDICATION LIST REVIEWED AND RECONCILED WITH THE PATIENT PAST MEDICAL HISTORY LOW BACK PAIN TENDINITIS SHOULDER ALLERGIES/ ECZEMA PEPTIC ULCER DISEASE HYPERLIPIDEMIA, MIXED UVEITIS ESOPHAGEAL REFLUX HIATAL HERNIA OSTEOARTHRITIS CARCINOID RECTAL TUMOR MIGRAINE HEADACHES PANCREATITIS 03/03 URINARY FREQUENCY RIGHT LEG PAIN ALLERGIES CELEBREX: HYPER - SIDE EFFECTS SULFA: HIVES - ALLERGY CYMBALTA: NAUSEA/VOMITING - SIDE EFFECTS TRAMADOL: GI UPSET - SIDE EFFECTS SHELL FISH: HIVES - ALLERGY PRAVASTATIN SODIUM: ELEVATED LFT - SIDE EFFECTS IV DYE: UNSURE LYRICA: HEART PALPITATIONS - SIDE EFFECTS SURGICAL HISTORY ULCER 81 HAND SURGERY R 91,09 RECTAL CANCER 05 COLONOSCOPY WITH HX BENIGN POLYP, DIVERTICULOSIS, INTERNAL HEMORRHOIDS - HEATHER, F/UP 10YRS 2025 01,09, 10/31,10/04 EGD -HEATHER 09, 10/31 LEFT THUMB 09 TESTICLE REMOVAL 81,86 ERCP WITH STENT - [facility] GI DR KOHLER 04-05-14 CYSTOSCOPY 07-02-17 LEFT ELBOW SURGERY 02/04 L4-L5, L5-S1 DECOMPRESSION FUSION-DR. MATHEW FAMILY HISTORY FATHER: UNKNOWN MOTHER: 66 YRS, DIAGNOSED WITH UNSPECIFIED HEART DISEASE, DIABETES, HYPERTENSION 2 BROTHER(S) - HEALTHY. 1DAUGHTER(S) . NO KNOWN FAMILY HISTORY OF ANY UROLOGICALLY RELATED DISEASES/CANCERS. SOCIAL HISTORY GENERAL: TOBACCO USE ARE YOU A:FORMER SMOKER HOW LONG HAS IT BEEN SINCE YOU LAST SMOKED?< 1 MONTH HIV / HEP-C SCREENING HIV TEST OFFERED TO PATIENT:YES DATE OFFERED:11/08/2016 TEST ACCEPTED:NO HEP-C TEST OFFERED TO PATIENT:YES DATE OFFERED:11/08/2016 REASON:PATIENT DECLINED TEST ACCEPTED:NO REASON:PATIENT DECLINED EDUCATION LEVEL OF EDUCATION:HIGH SCHOOL DIET: REGULAR. LANGUAGE LANGUAGES SPOKEN:FRENCH DOMESTIC VIOLENCE DO YOU FEEL SAFE IN YOUR ENVIRONMENT?YES NEW PATIENT PAIN DIARY TODAY'S VISITNOTES RECREATIONAL DRUG USE DRUG USE?NO EXERCISE: WALKS. LEARNING BARRIERS / SPECIAL NEEDS CHANGE FROM LAST VISIT?NO BARRIERS TO LEARNING?NO HEARING IMPAIRED?NO VISION IMPAIRED?YES COGNITIVELY IMPAIRED?NO :CORRECTIVE LENSES READINESS TO LEARN?YES LEARNING PREFERENCES?YES :TAPES/VIDEOS, BOOKLETS, HANDOUTS LEARNING CAPABILITIES PRESENT?YES EMOTIONAL BARRIERS?NO SPECIAL DEVICES?NO TANK ASSEMBLER NEEDED?NO LUNG CANCER SCREENING SMOKING STATUS:CURRENT SMOKER IS THE PATIENT BETWEEN THE AGE OF 55 AND 77?YES HAS THE PATIENT EVER BEEN DIAGNOSED WITH LUNG CANCER?NO PACK YEARS = NUMBER OF PACKS PER DAY SMOKED X NUMBER OF YEARS SMOKED:35 CREATE REFERRAL:GENERATE AND CREATE REFERRAL TO THE ONCOLOGY NURSE NAVIGATOR (SMP) LISTING USING THE LDCT SCAN PROCEDURE PAIN CLINIC PFS, CLERGY, PUBLIC HEALTH REFERRALS HAS THE PATIENT BEEN EDUCATED REGARDING HIS/HER PLAN OF CARE?YES HAS THE PATIENT BEEN EDUCATED REGARDING PAIN, THE RISK FOR PAIN, THE IMPORTANCE OF EFFECTIVE PAIN MANAGEMENT, AND THE PAIN ASSESSMENT PROCESS?YES LATEX QUESTIONNAIRE LATEX ALLERGY : HAVE YOU EVER DEVELOPED ANY TYPE OF REACTION AFTER HANDLING LATEX PRODUCTS SUCH RUBBER GLOVES, CONDOMS, DIAPHRAGMS, BALLOONS, SOCKS, OR UNDERWEAR?NO LATEX ALLERGY : HAVE YOU EVER DEVELOPED ANY TYPE OF REACTION DURING OR AFTER DENTAL APPOINTMENT, VAGINAL/RECTAL EXAMINATION, SURGICAL PROCEDURE, OR ANY OTHER EXPOSURE?NO DATE ASKED : 04/07/2019 LATEX RISK : HAVE YOU EVER HAD ANY DIFFICULTY BREATHING OR HIVES AFTER EATING OR HANDLING ANY FRUITS, OR VEGETABLES; SUCH KIWI, BANANAS, STONE FRUITS, OR CHESTNUTSNO LATEX RISK : DO YOU HAVE A PREVIOUS PERSONAL HISTORY OF MORE THAN NINE SURGERIES, SPINA BIFIDA, OR REPEATED CATHERIZATIONS? NO LATEX RISK : ARE YOU FREQUENTLY EXPOSED TO LATEX PRODUCTS IN YOUR OCCUPATION?NO CAFFEINE CAFFEINE USE?NO ADVANCE DIRECTIVE ADVANCE DIRECTIVE DISCUSSED WITH PATIENT:YES PT STATES HE HAS THE INFORMATION ON HCP BUT HASN'T FILLED IT OUT YET. HELP OFFERED IN COMPLETING IT IF NEEDED. HELP DECLINED AT THIS TIME. MOSQUE [id number] OTHER MARITAL STATUS: .. ALCOHOL SCREENING DID YOU HAVE A DRINK CONTAINING ALCOHOL IN THE PAST YEAR?YES HOW OFTEN DID YOU HAVE SIX OR MORE DRINKS ON ONE OCCASION IN THE PAST YEAR?NEVER (0 POINTS) HOW MANY DRINKS DID YOU HAVE ON A TYPICAL DAY WHEN YOU WERE DRINKING IN THE PAST YEAR?1 OR 2 (0 POINTS) HOW OFTEN DID YOU HAVE A DRINK CONTAINING ALCOHOL IN THE PAST YEAR?TWO TO THREE TIMES PER WEEK (3 POINTS) POINTS3 INTERPRETATIONNEGATIVE OCCUPATION: UNEMPLOYED. SEXUAL HX HAD SEX IN THE LAST 12 MONTHS (VAGINAL, ORAL, OR ANAL)?YES WITHWOMEN ONLY USE PROTECTION?YES HOW OFTEN?ALL OF THE TIME HAVE YOU EVER HAD AN STD?NO REVIEWED WITH PT. 04/02/18 0950 BVREVIEWED WITH PT 11/12/18 1208 BV01/01/19 REVIEWED WITH PT. [id number] REVIEWED WITH PATIENT LAS. HOSPITALIZATION/MAJOR DIAGNOSTIC PROCEDURE PANCREATITIS- TIMMY 03/05/14 SURGERIES REVIEW OF SYSTEMS REVIEWED BY: PROVIDER: PACO CHEATHAM . CONSTITUTIONAL: ANY CHANGE IN YOUR MEDICAL CONDITION? NO . CHILLS NO . FEVER NO . INFECTION: DO YOU HAVE NEW INFECTIONS? NO . DO YOU HAVE HISTORY OF MRSA? NO . MUSCULOSKELETAL: ANY NEW PATTERNS OF PAIN OR NUMBNESS? NO . GASTROENTEROLOGY: ANY NEW CHANGE IN BOWEL CONTROL? NO . GENITOURINARY: ANY NEW CHANGE IN BLADDER CONTROL? NO . IS THERE A CHANCE YOU COULD BE ? NO . HEMATOLOGY/LYMPH: DO YOU TAKE ANY BLOOD THINNERS? (FOR EXAMPLE- COUMADIN, PLAVIX, AGGRENOX, PLATEL, PRADAXA, OR XARELTO) NO . WHEN WAS YOUR LAST DOSE? DATE: TIME: . NEUROLOGY: HAVE YOU FALLEN IN THE PAST 12 MONTHS? NO . ANY NEW EXTREMITY NUMBNESS OR WEAKNESS? NO . CARDIOLOGY: DO YOU HAVE A PACEMAKER OR DEFIBRILLATOR? NO . RESPIRATORY: HAVE YOU BEEN SICK IN THE PAST WEEK? NO . FEVER NO . FLU LIKE SYMPTOMS? NO . COUGH NO . INTEGUMENTARY: DO YOU HAVE ANY RASHES OR OPEN SORES? NO . ALLERGIC/IMMUNO: ARE YOU ALLERGIC TO IV DYE? NO . ANY NEW ALLERGIES? NO . PSYCHIATRIC: DO YOU HAVE THOUGHTS OF HURTING YOURSELF OR SOMEONE ELSE? NO . ARE YOU ABUSED, NEGLECTED, OR IN AN UNSAFE ENVIRONMENT? NO . ENDOCRINOLOGY: ARE YOU DIABETIC? NO . OTHER: DO YOU NEED ANY PRESCRIPTIONS? NO . IF YES, PLEASE LIST: ____ . ANY NEW PROBLEMS WITH YOUR MEDICATIONS? NO . WHEN DID YOU LAST EAT? ____ . WHEN DID YOU LAST DRINK? ____ . WHAT DID YOU LAST DRINK? ____ . NAME OF PERSON DRIVING YOU HOME? ____ . DO YOU HAVE ANY OTHER QUESTIONS OR CONCERNS NO . VITAL SIGNS WT 173.0 LBS, HT 70.75 IN, BMI 24.30 INDEX, BP 176/91 MM HG, HR 103 /MIN, RR 18 /MIN, TEMP 98.6 F, OXYGEN SAT % 97%, SAFE IN ENV? (Y/N) YES, NA INITIALS AW 0917, REVIEWED BY: SHAR. EXAMINATION GENERAL EXAMINATION: GENERALNO ACUTE DISTRESS, WELL NOURISHED AND HYDRATED. PSYCHAPPROPRIATE MOOD AND AFFECT . LUNGS:CLEAR TO AUSCULTATION BILATERALLY, NO WHEEZES, RHONCHI, RALES. HEART:NO MURMURS, REGULAR RATE AND RHYTHM. ASSESSMENTS INTERVERTEBRAL DISC DISORDERS WITH RADICULOPATHY, LUMBAR REGION - M51.16 (PRIMARY) TREATMENT INTERVERTEBRAL DISC DISORDERS WITH RADICULOPATHY, LUMBAR REGION REFILL HYDROCODONE-ACETAMINOPHEN TABLET, 5-325 MG, 1 TAB, ORAL, Q8H PRN MDD3 #45 TAB SHOULD LAST 30 DAYS, 30 DAY(S), 60, REFILLS 0 CLINICAL NOTES: 64-YEAR-OLD MALE IN FOR CHRONIC PAIN FOLLOW-UP. AT LAST CLINIC VISIT HE WAS STARTED ON CYCLOBENZAPRINE AND DOES ADMIT THAT THAT WAS HELPFUL IN REDUCING HIS CRAMPS. GIVEN PRESENTING SYMPTOMS AND RESULTS OF PHYSICAL EXAMINATION RECOMMENDED INCREASING NUMBER OF HYDROCODONE GIVEN TO 60 PER MONTH MDD OF 3. 60 TABS IS TO LAST ONE MONTH. PATIENT HAS EXPRESSED UNDERSTANDING OF AND WAS IN AGREEMENT WITH TREATMENT PLAN. GIVEN TIME TO ASK QUESTIONS AND EXPRESS CONCERNS., ISTOP REGISTRY REVIEWED AND DEMONSTRATES COMPLLIANCE. (REF # [id number]) BRINGS IN MEDICATIONS WHICH IS APPROPRIATE FOR WHAT WAS DISPENSED. RECENT URINE TOXICOLOGY REVIEWED. NO UNAUTHORIZED MEDICATIONS. NO ILLICIT SUBSTANCES AND PRESCRIBED MEDICATIONS WERE PRESENT. PROCEDURE CODES FA211 ESTABILISHED PATIENT [facility] CHARGE DISPOSITION & COMMUNICATION FOLLOW UP 2 MONTHS (REASON: BACK PAIN) ELECTRONICALLY SIGNED BY ANDRES LEAVITT ON 09/30/2019 AT 08:47 AM EST DISCLAIMER : THIS IS A VISIT SUMMARY EXTRACTED FROM THE [employer] CHART. IT IS NOT A COPY OF THE [employer] PROGRESS NOTE. CELESTE
== END ==
LOC: M PAIN 09:30
PROVIDERS: ATTEND Family Medicine
DX: M51.16 Intervertebral disc disorders with radiculopathy, lumbar region (principal); G89.29 Other chronic pain; E78.2 Mixed hyperlipidemia; K21.9 Gastro-esophageal reflux disease without esophagitis; G43.909 Migraine, unspecified, not intractable, without status migrainosus; F17.210 Nicotine dependence, cigarettes, uncomplicated; Z88.2 Allergy status to sulfonamides; Z88.5 Allergy status to narcotic agent; Z88.8 Allergy status to other drugs, medicaments and biological substances; Z91.013 Allergy to seafood; Z91.041 Radiographic dye allergy status; Z79.891 Long term (current) use of opiate analgesic; Z79.899 Other long term (current) drug therapy

== ENCOUNTER 2019-11-08 07:49 | Emergency (ER) | payer OTHER ==
[~2019-11-08] VITALS: Ht 177.8 cm; Wt 77.7 kg
[~2019-11-08 07:49] MED LIST changes: +OXYB15TA14 PO; -OXYB1TAB13 PO
[2019-11-08] MEDS ORDERED: PULM90IN (07:58)
[2019-11-08] MEDS ORDERED: ALBU8.5H (07:58)
[2019-11-08] MEDS ORDERED: OMEP-221 (07:58)
[2019-11-08] MEDS ORDERED: HYDR-3713 (07:58)
[2019-11-08] MEDS ORDERED: NICO2GUM41 (07:58)
[2019-11-08] MEDS ORDERED: CYCL10TA (07:58)
[2019-11-08] MEDS ORDERED: VITA50005 (07:58)
[2019-11-08] MEDS ORDERED: diphenhydrAMINE INJ 50MG/ML VIAL (J1200) IV ONE (08:30)
[2019-11-08] MEDS ORDERED: methylPREDNISolone INJ 125 MG/2 ML VIAL (J2930) IV ONE (08:30)
[2019-11-08] MEDS ORDERED: NS 1,000 ML IV ONE (08:30)
[2019-11-08] MEDS ORDERED: FAMOTIDINE INJ 20MG/2ML VIAL (S0028) IVP ONE (08:30)
[2019-11-08 08:57] LABS: BASO # 0.1 10^3/uL (0.0-0.2); BASO % 0.5 % (0.0-1.0); EOS # 0.1 10^3/uL (0.0-0.5); EOS % 1.1 % (0.0-3.0); HEMATOCRIT 42.9 % (42.0-52.0); LYMPH # 1.2 10^3/uL (1.5-5.0); LYMPH % 12.9 % (24.0-44.0); MEAN CORPUSCULAR HGB CONC 32.6 g/dl (32.0-36.5); MEAN CORPUSCULAR VOLUME 97.9 fl (80.0-96.0); MONO % 10.9 % (0.0-5.0); NEUTROPHILS # 7.1 10^3/uL (1.5-8.5); NEUTROPHILS % 74.2 % (36.0-66.0); PLATELET COUNT, AUTOMATED 231 10^3/uL (150-450); RED BLOOD COUNT 4.38 10^6/uL (4.30-6.10); WHITE BLOOD COUNT 9.5 10^3/uL (4.0-10.0)
[2019-11-08 09:15] LABS: BLOOD UREA NITROGEN 9 MG/DL (7-18); C REACTIVE PROTEIN QUANTITATIV < 0.30 MG/DL (0.00-0.30); CALCIUM LEVEL 8.7 MG/DL (8.8-10.2); CARBON DIOXIDE LEVEL 28 MEQ/L (21-32); CHLORIDE LEVEL 109 MEQ/L (98-107); CREATININE FOR GFR 0.74 MG/DL (0.70-1.30); GLOMERULAR FILTRATION RATE > 60.0 (>49); GLUCOSE, FASTING 94 MG/DL (70-100); POTASSIUM SERUM 4.2 MEQ/L (3.5-5.1); SODIUM LEVEL 139 MEQ/L (136-145)
[2019-11-08 09:21] LABS: ERYTHROCYTE SEDIMENTATION RATE 10 mm/hr (0-20)
[2019-11-08] MEDS ORDERED: hydrOXYzine 25 MG TAB PO STA (10:05)
[2019-11-08] MEDS ORDERED: VIST25CA PO (10:35)
[2019-11-08 10:44] VITALS: BP 170/97
== END 2019-11-08 10:42 | disposition home or self-care (01) ==
LOC: M ED 07:49
DX: L29.9 Pruritus, unspecified (principal); E78.5 Hyperlipidemia, unspecified; K21.9 Gastro-esophageal reflux disease without esophagitis; Z79.899 Other long term (current) drug therapy; Z88.1 Allergy status to other antibiotic agents; Z88.2 Allergy status to sulfonamides; Z88.8 Allergy status to other drugs, medicaments and biological substances; F17.210 Nicotine dependence, cigarettes, uncomplicated
CPT/HCPCS: 80048; 85025; 85652; 86140; 96361; 96374; 96375; 99283; J1200; J2930

== ENCOUNTER → 2019-11-30 | Outpatient (CLI) | payer OTHER ==
[~2019-11-30] MED LIST changes: +ALBU8.5H; +CYCL10TA; +HYDR-3713; -MONT10TA2 PO; +MONT10TA4 PO; +NICO2GUM41; +OMEP-221; +PULM90IN; +VIST25CA PO; +VITA50005
[2019-11-30 12:08] LABS: ALBUMIN 3.8 GM/DL (3.2-5.2); ALT/SGPT 32 U/L (12-78); BILIRUBIN,TOTAL 0.4 MG/DL (0.2-1.0); BLOOD UREA NITROGEN 9 MG/DL (7-18); CALCIUM LEVEL 9.3 MG/DL (8.8-10.2); CARBON DIOXIDE LEVEL 28 MEQ/L (21-32); CHLORIDE LEVEL 100 MEQ/L (98-107); CHOLESTEROL LEVEL 254 MG/DL (<200); CHOLESTEROL RISK RATIO 3.432 (<5); CREATININE FOR GFR 0.81 MG/DL (0.70-1.30); GLOMERULAR FILTRATION RATE > 60.0 (>49); GLUCOSE, FASTING 100 MG/DL (70-100); HDL CHOLESTEROL 74 MG/DL (>40); LDL CHOLESTEROL 138 MG/DL (<100); NON-HDL-C 180 MG/DL; POTASSIUM SERUM 4.8 MEQ/L (3.5-5.1); SODIUM LEVEL 136 MEQ/L (136-145); TOTAL PROTEIN 7.6 GM/DL (6.4-8.2); TRIGLYCERIDES LEVEL 212 MG/DL (<150)
[2019-11-30 12:37] LABS: TOTAL 25(OH) VITAMIN D 41.8 NG/ML (30.0-100.0)
== END ==
LOC: M PLALAB 08:50
PROVIDERS: ATTEND Nurse Practitioner Family
DX: K76.0 Fatty (change of) liver, not elsewhere classified (principal); E55.9 Vitamin D deficiency, unspecified; E78.2 Mixed hyperlipidemia

== ENCOUNTER → 2019-12-14 | Outpatient (CLI) | payer OTHER ==
--- NOTE | 2019-12-17 02:19 | ECWPNPC ---
PATIENT NAME: FABIOLA MORENO : 1955 GENDER: MALE VISIT DATE: 12/14/2019 DISCHARGE DATE: 12/14/19 0953 VISIT LOCKED DATE TIME: PHYSICIAN: ALONSO GILES RESOURCE: ALONSO GILES REASON FOR APPOINTMENT 1. BACK HISTORY OF PRESENT ILLNESS HISTORY OF PRESENT ILLNESS: PAIN THE PATIENT DESCRIBES THE PAIN... 64-YEAR-OLD MALE IN FOR CHRONIC PAIN FOLLOW-UP. THE AMOUNT OF MEDICATIONS HE RECEIVED WAS INCREASED AT LAST CLINIC VISIT AND HE ADMITS TODAY THAT THIS WAS HELPFUL. HE RATES HIS PAIN CURRENTLY AT A 8 OUT OF 10 AND DESCRIBES IT ACHING, SHARP, BURNING, STABBING, SORE, SHOOTING, AND TENDER. PART OF HIS PAIN IS COMING FROM HIS LEFT SHOULDER WHICH SHE IS SEEING ORTHOPEDICS FOR. FALL RISK SCREENING: SCREENING :NO FALLS REPORTED IN THE LAST YEAR CURRENT MEDICATIONS TAKING OMEPRAZOLE 40 MG CAPSULE DELAYED RELEASE 1 CAPSULE ORALLY ONCE A DAY BEFORE MEAL TAKING NICOTINE 14 MG/24HR PATCH 24 HOUR 1 PATCH TO SKIN IN AM OFF AT HS TRANSDERMAL ONCE A DAY TAKING NICOTINE 7 MG/24HR PATCH 24 HOUR 1 PATCH TO SKIN TRANSDERMAL ONCE A DAY TAKING EPIPEN 2-ARMAAN 0.3 MG/0.3ML SOLUTION AUTO-INJECTOR INJECT 0.3ML BY INTRAMUSCULARLY ROUTE ONCE NEEDED FOR ANAPHYLAXIS INJECTION TAKING ALBUTEROL SULFATE (2.5 MG/3ML) 0.083% NEBULIZATION SOLUTION 3 ML NEEDED INHALATION EVERY 8 HRS TAKING NEBULIZER - DEVICE DIRECTED DX: J43.1 THREE TIMES DAILY TAKING NEBULIZER/TUBING/MOUTHPIECE - KIT DIRECTED DX: J43.1 THREE TIMES DAILY NEEDED TAKING PULMICORT FLEXHALER 90 MCG/ACT AEROSOL POWDER BREATH ACTIVATED INHALE TWO PUFFS BY MOUTH TWICE A DAY TAKING SUDAFED 30 MG TABLET 1 TABLET NEEDED ORALLY EVERY 6 HRS TAKING FLONASE 50 MCG/ACT SUSPENSION 1 SPRAY IN EACH NOSTRIL NASALLY TWICE A DAY TAKING VENTOLIN HFA 108 (90 BASE) MCG/ACT AEROSOL SOLUTION INHALE TWO PUFFS BY MOUTH EVERY 4 TO 6 HOURS NEEDED FOR COUGH AND DYSPNEA INHALATION TAKING SONNY _ 1 CAP ORALLY NEEDED TAKING AZELASTINE HCL 0.1 % SOLUTION SPRAY 2 SPRAYS IN EACH NOSTRIL ONCE DAILY IN THE MORNING NASAL DAILY TAKING ERGOCALCIFEROL 14829 UNIT CAPSULE 1 CAPSULE ORALLY ONCE A WEEK WITH MEAL TAKING BENADRYL 25 MG CAPSULE 1 CAPSULE NEEDED FOR ITCHING ORALLY EVERY 8 HRS TAKING VITAMIN B-12 500 MCG TABLET 1 TABLET ORALLY ONCE A DAY TAKING FOLIC ACID _ TABLET 400 MGS 1 TABLET ORALLY ONCE A DAY TAKING HYDROCORTISONE VALERATE 0.2 % CREAM 1 APPLICATION TO AFFECTED AREA ON ARMS AND CHEST EXTERNALLY ONCE OR TWICE A DAY NEEDED TAKING COLACE 100 MG CAPSULE 1 CAPSULE NEEDED ORALLY ONCE A DAY NEEDED TAKING FIBERCON 625 MG TABLET 1 TABLET WITH WATER ORALLY DAILY TAKING GABAPENTIN 300 MG CAPSULE 1 CAPSULE ORALLY ONCE A DAY X 1 , THEN TWICE A DAY X 1 THEN 3 TIMES A DAY TAKING CYCLOBENZAPRINE HCL 10 MG TABLET 1 TABLET NEEDED ORALLY THREE TIMES A DAY, NOTES: NOT TAKNG TAKING HYDROCODONE-ACETAMINOPHEN 5-325 MG TABLET 1 TAB ORAL Q8H PRN MDD3 #45 TAB SHOULD LAST 30 DAYS NOT-TAKING CALCIUM + D 600-400 MG-UNIT TABLET 1 TABLET WITH FOOD ORALLY TWICE A DAY NOT-TAKING NICOTINE POLACRILEX 2 MG GUM 1 PIECE FOR 30 MINUTE NEEDED MOUTH/THROAT 24 TIME(S) A DAY NOT-TAKING MULTI MAX _ 1 TAB ORALLY DAILY NOT-TAKING GABAPENTIN 600 MG TABLET 1 CAPSULE ORALLY THREE TIMES DAILY, NOTES: NOT TAKING NOT-TAKING VIAGRA 25 MG TABLET 1 TABLET NEEDED ORALLY ONCE A DAY, NOTES: UROLOGY NOT-TAKING NICOTINE 21 MG/24HR PATCH 24 HOUR 1 PATCH TO SKIN TRANSDERMAL ONCE A DAY IN AM, OFF AT HS DISCONTINUED OMEPRAZOLE 40 MG CAPSULE DELAYED RELEASE 1 CAPSULE ORALLY ONCE A DAY BEFORE MEAL DISCONTINUED VENTOLIN HFA 108 (90 BASE) MCG/ACT AEROSOL SOLUTION INHALE TWO PUFFS BY MOUTH EVERY 4 TO 6 HOURS NEEDED FOR COUGH AND DYSPNEA INHALATION MEDICATION LIST REVIEWED AND RECONCILED WITH THE PATIENT PAST MEDICAL HISTORY LOW BACK PAIN TENDINITIS SHOULDER ALLERGIES/ ECZEMA PEPTIC ULCER DISEASE HYPERLIPIDEMIA, MIXED UVEITIS ESOPHAGEAL REFLUX HIATAL HERNIA OSTEOARTHRITIS CARCINOID RECTAL TUMOR MIGRAINE HEADACHES PANCREATITIS 03/03 URINARY FREQUENCY RIGHT LEG PAIN ALLERGIES CELEBREX: HYPER - SIDE EFFECTS SULFA: HIVES - ALLERGY CYMBALTA: NAUSEA/VOMITING - SIDE EFFECTS TRAMADOL: GI UPSET - SIDE EFFECTS SHELL FISH: HIVES - ALLERGY PRAVASTATIN SODIUM: ELEVATED LFT - SIDE EFFECTS IV DYE: UNSURE LYRICA: HEART PALPITATIONS - SIDE EFFECTS SURGICAL HISTORY ULCER 81 HAND SURGERY R 91,09 RECTAL CANCER 05 COLONOSCOPY WITH HX BENIGN POLYP, DIVERTICULOSIS, INTERNAL HEMORRHOIDS - HEATHER, F/UP 10YRS 2024 04,09, 10/31,10/04 EGD -HEATHER , 10/31 LEFT THUMB 09 TESTICLE REMOVAL 81,86 ERCP WITH STENT - [facility] GI DR KOHLER 04-05-14 CYSTOSCOPY 07-02-17 LEFT ELBOW SURGERY 02/04 L4-L5, L5-S1 DECOMPRESSION FUSION-DR. MATHEW FAMILY HISTORY FATHER: UNKNOWN MOTHER: 66 YRS, DIAGNOSED WITH DIABETES, HYPERTENSION, UNSPECIFIED HEART DISEASE 2 BROTHER(S) - HEALTHY. 1DAUGHTER(S) . NO KNOWN FAMILY HISTORY OF ANY UROLOGICALLY RELATED DISEASES/CANCERS. SOCIAL HISTORY GENERAL: TOBACCO USE ARE YOU A:FORMER SMOKER HOW LONG HAS IT BEEN SINCE YOU LAST SMOKED?< 1 MONTH HIV / HEP-C SCREENING HIV TEST OFFERED TO PATIENT:YES DATE OFFERED:11/08/2016 TEST ACCEPTED:NO HEP-C TEST OFFERED TO PATIENT:YES DATE OFFERED:11/08/2016 REASON:PATIENT DECLINED TEST ACCEPTED:NO REASON:PATIENT DECLINED EDUCATION LEVEL OF EDUCATION:HIGH SCHOOL DIET: REGULAR. LANGUAGE LANGUAGES SPOKEN:WELSH DOMESTIC VIOLENCE DO YOU FEEL SAFE IN YOUR ENVIRONMENT?YES NEW PATIENT PAIN DIARY TODAY'S VISITNOTES RECREATIONAL DRUG USE DRUG USE?NO EXERCISE: WALKS. LEARNING BARRIERS / SPECIAL NEEDS CHANGE FROM LAST VISIT?NO BARRIERS TO LEARNING?NO HEARING IMPAIRED?NO VISION IMPAIRED?YES COGNITIVELY IMPAIRED?NO :CORRECTIVE LENSES READINESS TO LEARN?YES LEARNING PREFERENCES?YES :TAPES/VIDEOS, BOOKLETS, HANDOUTS LEARNING CAPABILITIES PRESENT?YES EMOTIONAL BARRIERS?NO SPECIAL DEVICES?NO PRINT PRESS OPERATOR NEEDED?NO LUNG CANCER SCREENING SMOKING STATUS:CURRENT SMOKER IS THE PATIENT BETWEEN THE AGE OF 55 AND 77?YES HAS THE PATIENT EVER BEEN DIAGNOSED WITH LUNG CANCER?NO PACK YEARS = NUMBER OF PACKS PER DAY SMOKED X NUMBER OF YEARS SMOKED:35 CREATE REFERRAL:GENERATE AND CREATE REFERRAL TO THE ONCOLOGY NURSE NAVIGATOR (SMP) LISTING USING THE LDCT SCAN PROCEDURE PAIN CLINIC PFS, CLERGY, PUBLIC HEALTH REFERRALS HAS THE PATIENT BEEN EDUCATED REGARDING HIS/HER PLAN OF CARE?YES HAS THE PATIENT BEEN EDUCATED REGARDING PAIN, THE RISK FOR PAIN, THE IMPORTANCE OF EFFECTIVE PAIN MANAGEMENT, AND THE PAIN ASSESSMENT PROCESS?YES LATEX QUESTIONNAIRE LATEX ALLERGY : HAVE YOU EVER DEVELOPED ANY TYPE OF REACTION AFTER HANDLING LATEX PRODUCTS SUCH RUBBER GLOVES, CONDOMS, DIAPHRAGMS, BALLOONS, SOCKS, OR UNDERWEAR?NO LATEX ALLERGY : HAVE YOU EVER DEVELOPED ANY TYPE OF REACTION DURING OR AFTER DENTAL APPOINTMENT, VAGINAL/RECTAL EXAMINATION, SURGICAL PROCEDURE, OR ANY OTHER EXPOSURE?NO DATE ASKED : 04/07/2019 LATEX RISK : HAVE YOU EVER HAD ANY DIFFICULTY BREATHING OR HIVES AFTER EATING OR HANDLING ANY FRUITS, OR VEGETABLES; SUCH KIWI, BANANAS, STONE FRUITS, OR CHESTNUTSNO LATEX RISK : DO YOU HAVE A PREVIOUS PERSONAL HISTORY OF MORE THAN NINE SURGERIES, SPINA BIFIDA, OR REPEATED CATHERIZATIONS? NO LATEX RISK : ARE YOU FREQUENTLY EXPOSED TO LATEX PRODUCTS IN YOUR OCCUPATION?NO CAFFEINE CAFFEINE USE?NO ADVANCE DIRECTIVE ADVANCE DIRECTIVE DISCUSSED WITH PATIENT:YES PT STATES HE HAS THE INFORMATION ON HCP BUT HASN'T FILLED IT OUT YET. HELP OFFERED IN COMPLETING IT IF NEEDED. HELP DECLINED AT THIS TIME. MOSQUE [id number] OTHER MARITAL STATUS: .. ALCOHOL SCREENING DID YOU HAVE A DRINK CONTAINING ALCOHOL IN THE PAST YEAR?YES HOW OFTEN DID YOU HAVE SIX OR MORE DRINKS ON ONE OCCASION IN THE PAST YEAR?NEVER (0 POINTS) HOW MANY DRINKS DID YOU HAVE ON A TYPICAL DAY WHEN YOU WERE DRINKING IN THE PAST YEAR?1 OR 2 (0 POINTS) HOW OFTEN DID YOU HAVE A DRINK CONTAINING ALCOHOL IN THE PAST YEAR?TWO TO THREE TIMES PER WEEK (3 POINTS) POINTS3 INTERPRETATIONNEGATIVE OCCUPATION: UNEMPLOYED. SEXUAL HX HAD SEX IN THE LAST 12 MONTHS (VAGINAL, ORAL, OR ANAL)?YES WITHWOMEN ONLY USE PROTECTION?YES HOW OFTEN?ALL OF THE TIME HAVE YOU EVER HAD AN STD?NO REVIEWED WITH PT. 04/02/18 0950 BVREVIEWED WITH PT 11/12/18 1208 BV01/01/19 REVIEWED WITH PT. [id number] REVIEWED WITH PATIENT LAS. HOSPITALIZATION/MAJOR DIAGNOSTIC PROCEDURE PANCREATITIS- TIMMY 03/05/14 SURGERIES REVIEW OF SYSTEMS REVIEWED BY: PROVIDER: PACO CHEATHAM . CONSTITUTIONAL: ANY CHANGE IN YOUR MEDICAL CONDITION? NO . CHILLS NO . FEVER NO . INFECTION: DO YOU HAVE NEW INFECTIONS? NO . DO YOU HAVE HISTORY OF MRSA? NO . MUSCULOSKELETAL: ANY NEW PATTERNS OF PAIN OR NUMBNESS? NO . GASTROENTEROLOGY: ANY NEW CHANGE IN BOWEL CONTROL? NO . GENITOURINARY: ANY NEW CHANGE IN BLADDER CONTROL? NO . IS THERE A CHANCE YOU COULD BE ? NO . HEMATOLOGY/LYMPH: DO YOU TAKE ANY BLOOD THINNERS? (FOR EXAMPLE- COUMADIN, PLAVIX, AGGRENOX, PLATEL, PRADAXA, OR XARELTO) NO . WHEN WAS YOUR LAST DOSE? DATE: TIME: . NEUROLOGY: HAVE YOU FALLEN IN THE PAST 12 MONTHS? NO . ANY NEW EXTREMITY NUMBNESS OR WEAKNESS? NO . CARDIOLOGY: DO YOU HAVE A PACEMAKER OR DEFIBRILLATOR? NO . RESPIRATORY: HAVE YOU BEEN SICK IN THE PAST WEEK? NO . FEVER NO . FLU LIKE SYMPTOMS? NO . COUGH NO . INTEGUMENTARY: DO YOU HAVE ANY RASHES OR OPEN SORES? NO . ALLERGIC/IMMUNO: ARE YOU ALLERGIC TO IV DYE? YES . ANY NEW ALLERGIES? NO . PSYCHIATRIC: DO YOU HAVE THOUGHTS OF HURTING YOURSELF OR SOMEONE ELSE? NO . ARE YOU ABUSED, NEGLECTED, OR IN AN UNSAFE ENVIRONMENT? NO . ENDOCRINOLOGY: ARE YOU DIABETIC? NO . OTHER: DO YOU NEED ANY PRESCRIPTIONS? NO . IF YES, PLEASE LIST: ____ . ANY NEW PROBLEMS WITH YOUR MEDICATIONS? NO . WHEN DID YOU LAST EAT? ____ . WHEN DID YOU LAST DRINK? ____ . WHAT DID YOU LAST DRINK? ____ . NAME OF PERSON DRIVING YOU HOME? ____ . DO YOU HAVE ANY OTHER QUESTIONS OR CONCERNS NO . VITAL SIGNS WT 175 LBS, HT 70.75 IN, BMI 24.58 INDEX, BP 169/86 MM HG, HR 100 /MIN, RR 16 /MIN, TEMP 98.1 F, OXYGEN SAT % 93, SAFE IN ENV? (Y/N) Y, REVIEWED BY: HENRY. EXAMINATION GENERAL EXAMINATION: GENERALNO ACUTE DISTRESS, WELL NOURISHED AND HYDRATED. PSYCHAPPROPRIATE MOOD AND AFFECT . LUNGS:CLEAR TO AUSCULTATION BILATERALLY, NO WHEEZES, RHONCHI, RALES. HEART:NO MURMURS, REGULAR RATE AND RHYTHM. ASSESSMENTS INTERVERTEBRAL DISC DISORDERS WITH RADICULOPATHY, LUMBAR REGION - M51.16 (PRIMARY) TREATMENT INTERVERTEBRAL DISC DISORDERS WITH RADICULOPATHY, LUMBAR REGION CLINICAL NOTES: 64-YEAR-OLD MALE IN FOR CHRONIC PAIN FOLLOW-UP. GIVEN PRESENTING SYMPTOMS AND RESULTS OF PHYSICAL EXAMINATION RECOMMENDED CONTINUATION OF CURRENT MEDICATION REGIMEN WITH FOLLOW-UP IN 3 MONTHS. PATIENT HAS EXPRESSED UNDERSTANDING OF AND WAS IN AGREEMENT WITH TREATMENT PLAN. GIVEN TIME TO ASK QUESTIONS AND EXPRESS CONCERNS., ISTOP REGISTRY REVIEWED AND DEMONSTRATES COMPLLIANCE. (REF # [id number] ) BRINGS IN MEDICATIONS WHICH IS APPROPRIATE FOR WHAT WAS DISPENSED. RECENT URINE TOXICOLOGY REVIEWED. NO UNAUTHORIZED MEDICATIONS. NO ILLICIT SUBSTANCES AND PRESCRIBED MEDICATIONS WERE PRESENT. PROCEDURE CODES [id number] ESTABILISHED PATIENT [facility] CHARGE DISPOSITION & COMMUNICATION FOLLOW UP 3 MONTHS (REASON: LOW BACK PAIN ) ELECTRONICALLY SIGNED BY ANDRES LEAVITT ON 12/16/2019 AT 03:35 PM EST DISCLAIMER : THIS IS A VISIT SUMMARY EXTRACTED FROM THE [email or web address] CHART. IT IS NOT A COPY OF THE [employer] PROGRESS NOTE. MTDD
== END ==
LOC: M PAIN 09:15
PROVIDERS: ATTEND Family Medicine
DX: M51.16 Intervertebral disc disorders with radiculopathy, lumbar region (principal)

== ENCOUNTER → 2020-03-10 | Outpatient (CLI) | payer OTHER ==
[~2020-03-10] MED LIST changes: +CYCL-707; -CYCL10TA
--- NOTE | 2020-03-19 05:03 | ECWPNPC ---
PATIENT NAME: FABIOLA MORENO : 1955 GENDER: MALE VISIT DATE: 03/10/2020 DISCHARGE DATE: 03/10/20 1002 VISIT LOCKED DATE TIME: PHYSICIAN: ALONSO GILES RESOURCE: ALONSO GILES REASON FOR APPOINTMENT 1. LOW BACK [phone] PAT DONE HISTORY OF PRESENT ILLNESS HISTORY OF PRESENT ILLNESS: PAIN THE PATIENT DESCRIBES THE PAINDURING THE LAST MONTH SEVERITY - PAIN SCORE OF8/10 LOCATIONSLOWER BACK QUALITYACHING , BURNING, SHARP, STABBING, THROBBING, SHOOTING DURATIONCONTINUOUS, CONSTANT, ALL DAY, AWAKENS FROM SLEEEP PAIN IS INCREASED BY:ACTIVITIES, PROLONGED STANDING SITTING PAIN IS DECREASED BY:USE OF PAIN MEDICATIONS PERMISSION REQUESTED AND RECEIVED FROM PATIENT TO PERFORM TELEHEALTH VISIT. 65-YEAR-OLD MALE IN FOR CHRONIC PAIN FOLLOW-UP. HE RATES HIS PAIN CURRENTLY AT AN 8 OUT OF 10. PATIENT IS SUPPOSED TO HAVE AN UPCOMING MRI ORDERED BY NEUROLOGY BUT HE HAD TO CANCEL PATIENT HAD AN ASTHMA EXACERBATION. FALL RISK SCREENING: SCREENING :NO FALLS REPORTED IN THE LAST YEAR CURRENT MEDICATIONS TAKING NICOTINE 14 MG/24HR PATCH 24 HOUR 1 PATCH TO SKIN IN AM OFF AT HS TRANSDERMAL ONCE A DAY TAKING NICOTINE 7 MG/24HR PATCH 24 HOUR 1 PATCH TO SKIN TRANSDERMAL ONCE A DAY TAKING EPIPEN 2-ARMAAN 0.3 MG/0.3ML SOLUTION AUTO-INJECTOR INJECT 0.3ML BY INTRAMUSCULARLY ROUTE ONCE NEEDED FOR ANAPHYLAXIS INJECTION TAKING NEBULIZER - DEVICE DIRECTED DX: J43.1 THREE TIMES DAILY TAKING NEBULIZER/TUBING/MOUTHPIECE - KIT DIRECTED DX: J43.1 THREE TIMES DAILY NEEDED TAKING PULMICORT FLEXHALER 90 MCG/ACT AEROSOL POWDER BREATH ACTIVATED INHALE TWO PUFFS BY MOUTH TWICE A DAY TAKING SUDAFED 30 MG TABLET 1 TABLET NEEDED ORALLY EVERY 6 HRS TAKING FLONASE 50 MCG/ACT SUSPENSION 1 SPRAY IN EACH NOSTRIL NASALLY TWICE A DAY TAKING VENTOLIN HFA 108 (90 BASE) MCG/ACT AEROSOL SOLUTION INHALE TWO PUFFS BY MOUTH EVERY 4 TO 6 HOURS NEEDED FOR COUGH AND DYSPNEA INHALATION TAKING SONNY _ 1 CAP ORALLY NEEDED TAKING AZELASTINE HCL 0.1 % SOLUTION SPRAY 2 SPRAYS IN EACH NOSTRIL ONCE DAILY IN THE MORNING NASAL DAILY TAKING BENADRYL 25 MG CAPSULE 1 CAPSULE NEEDED FOR ITCHING ORALLY EVERY 8 HRS TAKING VITAMIN B-12 500 MCG TABLET 1 TABLET ORALLY ONCE A DAY TAKING FOLIC ACID _ TABLET 400 MGS 1 TABLET ORALLY ONCE A DAY TAKING HYDROCORTISONE VALERATE 0.2 % CREAM 1 APPLICATION TO AFFECTED AREA ON ARMS AND CHEST EXTERNALLY ONCE OR TWICE A DAY NEEDED TAKING COLACE 100 MG CAPSULE 1 CAPSULE NEEDED ORALLY ONCE A DAY NEEDED TAKING FIBERCON 625 MG TABLET 1 TABLET WITH WATER ORALLY DAILY TAKING GABAPENTIN 300 MG CAPSULE 1 CAPSULE ORALLY ONCE A DAY X 1 , THEN TWICE A DAY X 1 THEN 3 TIMES A DAY TAKING ERGOCALCIFEROL 23896 UNIT CAPSULE 1 CAPSULE ORALLY ONCE A WEEK WITH MEAL TAKING ALBUTEROL SULFATE (2.5 MG/3ML) 0.083% NEBULIZATION SOLUTION 3 ML NEEDED INHALATION EVERY 8 HRS TAKING NICOTINE POLACRILEX 2 MG GUM 1 PIECE FOR 30 MINUTE NEEDED MOUTH/THROAT 24 TIME(S) A DAY TAKING OMEPRAZOLE 40 MG CAPSULE DELAYED RELEASE 1 CAPSULE ORALLY ONCE A DAY BEFORE MEAL TAKING HYDROCODONE-ACETAMINOPHEN 5-325 MG TABLET 1 TAB ORAL Q8H PRN MDD3 #45 TAB SHOULD LAST 30 DAYS TAKING CYCLOBENZAPRINE HCL 10 MG TABLET 1 TABLET NEEDED ORALLY THREE TIMES A DAY, NOTES: NOT TAKNG NOT-TAKING CALCIUM + D 600-400 MG-UNIT TABLET 1 TABLET WITH FOOD ORALLY TWICE A DAY NOT-TAKING MULTI MAX _ 1 TAB ORALLY DAILY NOT-TAKING GABAPENTIN 600 MG TABLET 1 CAPSULE ORALLY THREE TIMES DAILY, NOTES: NOT TAKING NOT-TAKING VIAGRA 25 MG TABLET 1 TABLET NEEDED ORALLY ONCE A DAY, NOTES: UROLOGY NOT-TAKING NICOTINE 21 MG/24HR PATCH 24 HOUR 1 PATCH TO SKIN TRANSDERMAL ONCE A DAY IN AM, OFF AT HS MEDICATION LIST REVIEWED AND RECONCILED WITH THE PATIENT PAST MEDICAL HISTORY LOW BACK PAIN TENDINITIS SHOULDER ALLERGIES/ ECZEMA PEPTIC ULCER DISEASE HYPERLIPIDEMIA, MIXED UVEITIS ESOPHAGEAL REFLUX HIATAL HERNIA OSTEOARTHRITIS CARCINOID RECTAL TUMOR MIGRAINE HEADACHES PANCREATITIS 03/03 URINARY FREQUENCY RIGHT LEG PAIN ALLERGIES CELEBREX: HYPER - SIDE EFFECTS SULFA: HIVES - ALLERGY CYMBALTA: NAUSEA/VOMITING - SIDE EFFECTS TRAMADOL: GI UPSET - SIDE EFFECTS SHELL FISH: HIVES - ALLERGY PRAVASTATIN SODIUM: ELEVATED LFT - SIDE EFFECTS IV DYE: UNSURE LYRICA: HEART PALPITATIONS - SIDE EFFECTS SURGICAL HISTORY ULCER 81 HAND SURGERY R 91,09 RECTAL CANCER 05 COLONOSCOPY WITH HX BENIGN POLYP, DIVERTICULOSIS, INTERNAL HEMORRHOIDS - HEATHER, F/UP 10YRS 2024 04,09, 10/31,10/04 EGD -HEATHER , 10/31 LEFT THUMB 09 TESTICLE REMOVAL 81,86 ERCP WITH STENT - [facility] GI DR KOHLER 04-05-14 CYSTOSCOPY 07-02-17 LEFT ELBOW SURGERY 02/04 L4-L5, L5-S1 DECOMPRESSION FUSION-DR. MATHEW FAMILY HISTORY FATHER: UNKNOWN MOTHER: 66 YRS, DIAGNOSED WITH HYPERTENSION, UNSPECIFIED HEART DISEASE, DIABETES 2 BROTHER(S) - HEALTHY. 1DAUGHTER(S) . NO KNOWN FAMILY HISTORY OF ANY UROLOGICALLY RELATED DISEASES/CANCERS. SOCIAL HISTORY GENERAL: TOBACCO USE ARE YOU A:FORMER SMOKER HOW LONG HAS IT BEEN SINCE YOU LAST SMOKED?< 1 MONTH LATEX QUESTIONNAIRE LATEX ALLERGY : HAVE YOU EVER DEVELOPED ANY TYPE OF REACTION AFTER HANDLING LATEX PRODUCTS SUCH RUBBER GLOVES, CONDOMS, DIAPHRAGMS, BALLOONS, SOCKS, OR UNDERWEAR?NO LATEX ALLERGY : HAVE YOU EVER DEVELOPED ANY TYPE OF REACTION DURING OR AFTER DENTAL APPOINTMENT, VAGINAL/RECTAL EXAMINATION, SURGICAL PROCEDURE, OR ANY OTHER EXPOSURE?NO DATE ASKED : 04/07/2019 LATEX RISK : HAVE YOU EVER HAD ANY DIFFICULTY BREATHING OR HIVES AFTER EATING OR HANDLING ANY FRUITS, OR VEGETABLES; SUCH KIWI, BANANAS, STONE FRUITS, OR CHESTNUTSNO LATEX RISK : DO YOU HAVE A PREVIOUS PERSONAL HISTORY OF MORE THAN NINE SURGERIES, SPINA BIFIDA, OR REPEATED CATHERIZATIONS? NO LATEX RISK : ARE YOU FREQUENTLY EXPOSED TO LATEX PRODUCTS IN YOUR OCCUPATION?NO LUNG CANCER SCREENING SMOKING STATUS:CURRENT SMOKER IS THE PATIENT BETWEEN THE AGE OF 55 AND 77?YES HAS THE PATIENT EVER BEEN DIAGNOSED WITH LUNG CANCER?NO PACK YEARS = NUMBER OF PACKS PER DAY SMOKED X NUMBER OF YEARS SMOKED:35 CREATE REFERRAL:GENERATE AND CREATE REFERRAL TO THE ONCOLOGY NURSE NAVIGATOR (SMP) LISTING USING THE LDCT SCAN PROCEDURE ALCOHOL SCREENING DID YOU HAVE A DRINK CONTAINING ALCOHOL IN THE PAST YEAR?YES HOW OFTEN DID YOU HAVE SIX OR MORE DRINKS ON ONE OCCASION IN THE PAST YEAR?NEVER (0 POINTS) HOW MANY DRINKS DID YOU HAVE ON A TYPICAL DAY WHEN YOU WERE DRINKING IN THE PAST YEAR?1 OR 2 (0 POINTS) HOW OFTEN DID YOU HAVE A DRINK CONTAINING ALCOHOL IN THE PAST YEAR?TWO TO THREE TIMES PER WEEK (3 POINTS) POINTS3 INTERPRETATIONNEGATIVE RECREATIONAL DRUG USE DRUG USE?NO CAFFEINE CAFFEINE USE?NO SEXUAL HX HAD SEX IN THE LAST 12 MONTHS (VAGINAL, ORAL, OR ANAL)?YES WITHWOMEN ONLY USE PROTECTION?YES HOW OFTEN?ALL OF THE TIME HAVE YOU EVER HAD AN STD?NO HIV / HEP-C SCREENING HIV TEST OFFERED TO PATIENT:YES DATE OFFERED:11/08/2016 TEST ACCEPTED:NO HEP-C TEST OFFERED TO PATIENT:YES DATE OFFERED:11/08/2016 REASON:PATIENT DECLINED TEST ACCEPTED:NO REASON:PATIENT DECLINED CHRISTIAN [id number] OTHER LANGUAGE LANGUAGES SPOKEN:MALTESE EDUCATION LEVEL OF EDUCATION:HIGH SCHOOL LEARNING BARRIERS / SPECIAL NEEDS CHANGE FROM LAST VISIT?NO BARRIERS TO LEARNING?NO HEARING IMPAIRED?NO VISION IMPAIRED?YES COGNITIVELY IMPAIRED?NO :CORRECTIVE LENSES READINESS TO LEARN?YES LEARNING PREFERENCES?YES :TAPES/VIDEOS, BOOKLETS, HANDOUTS LEARNING CAPABILITIES PRESENT?YES EMOTIONAL BARRIERS?NO SPECIAL DEVICES?NO FAMILY LITERACY COORDINATOR 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 DIET: REGULAR. EXERCISE: WALKS. MARITAL STATUS: .. NEW PATIENT PAIN DIARY TODAY'S VISITNOTES PAIN CLINIC PFS, CLERGY, PUBLIC HEALTH REFERRALS HAS THE PATIENT BEEN EDUCATED REGARDING HIS/HER PLAN OF CARE?YES HAS THE PATIENT BEEN EDUCATED REGARDING PAIN, THE RISK FOR PAIN, THE IMPORTANCE OF EFFECTIVE PAIN MANAGEMENT, AND THE PAIN ASSESSMENT PROCESS?YES ADVANCE DIRECTIVE ADVANCE DIRECTIVE DISCUSSED WITH PATIENT:YES PT STATES HE HAS THE INFORMATION ON HCP BUT HASN'T FILLED IT OUT YET. HELP OFFERED IN COMPLETING IT IF NEEDED. HELP DECLINED AT THIS TIME. HOSPITALIZATION/MAJOR DIAGNOSTIC PROCEDURE PANCREATITIS- TIMMY 03/05/14 SURGERIES REVIEW OF SYSTEMS REVIEWED BY: PROVIDER: PACO CHEATHAM . CONSTITUTIONAL: ANY CHANGE IN YOUR MEDICAL CONDITION? NO . CHILLS NO . FEVER NO . INFECTION: DO YOU HAVE NEW INFECTIONS? NO . DO YOU HAVE HISTORY OF MRSA? NO . MUSCULOSKELETAL: ANY NEW PATTERNS OF PAIN OR NUMBNESS? NO . GASTROENTEROLOGY: ANY NEW CHANGE IN BOWEL CONTROL? NO . GENITOURINARY: ANY NEW CHANGE IN BLADDER CONTROL? NO . IS THERE A CHANCE YOU COULD BE ? NO . HEMATOLOGY/LYMPH: DO YOU TAKE ANY BLOOD THINNERS? (FOR EXAMPLE- COUMADIN, PLAVIX, AGGRENOX, PLATEL, PRADAXA, OR XARELTO) NO . WHEN WAS YOUR LAST DOSE? DATE: TIME: . NEUROLOGY: HAVE YOU FALLEN IN THE PAST 12 MONTHS? NO . ANY NEW EXTREMITY NUMBNESS OR WEAKNESS? NO . CARDIOLOGY: DO YOU HAVE A PACEMAKER OR DEFIBRILLATOR? NO . RESPIRATORY: HAVE YOU BEEN SICK IN THE PAST WEEK? NO . FEVER NO . FLU LIKE SYMPTOMS? NO . COUGH NO . INTEGUMENTARY: DO YOU HAVE ANY RASHES OR OPEN SORES? NO . ALLERGIC/IMMUNO: ARE YOU ALLERGIC TO IV DYE? NO . ANY NEW ALLERGIES? NO . PSYCHIATRIC: DO YOU HAVE THOUGHTS OF HURTING YOURSELF OR SOMEONE ELSE? NO . ARE YOU ABUSED, NEGLECTED, OR IN AN UNSAFE ENVIRONMENT? NO . ENDOCRINOLOGY: ARE YOU DIABETIC? NO . OTHER: DO YOU NEED ANY PRESCRIPTIONS? NO . IF YES, PLEASE LIST: ____ . ANY NEW PROBLEMS WITH YOUR MEDICATIONS? NO . WHEN DID YOU LAST EAT? ____ . WHEN DID YOU LAST DRINK? ____ . WHAT DID YOU LAST DRINK? ____ . NAME OF PERSON DRIVING YOU HOME? ____ . DO YOU HAVE ANY OTHER QUESTIONS OR CONCERNS NO . EXAMINATION GENERAL EXAMINATION: GENERALNO ACUTE DISTRESS, WELL NOURISHED AND HYDRATED. PSYCHAPPROPRIATE MOOD AND AFFECT , ORIENTED X 3. ASSESSMENTS INTERVERTEBRAL DISC DISORDERS WITH RADICULOPATHY, LUMBOSACRAL REGION - M51.17 (PRIMARY) TREATMENT INTERVERTEBRAL DISC DISORDERS WITH RADICULOPATHY, LUMBOSACRAL REGION CLINICAL NOTES: 65-YEAR-OLD MALE IN FOR CHRONIC PAIN FOLLOW-UP. GIVEN PRESENTING SYMPTOMS INFORMED PATIENT THIS CURATOR HERBARIUM WOULD DISCUSS INCREASING GABAPENTIN WITH HIS PCP AND THIS CURATOR HERBARIUM WOULD ALSO DISCUSS PATIENT'S UPCOMING MRI WITH HIS NEUROLOGIST. PATIENT HAS EXPRESSED UNDERSTANDING OF AND WAS IN AGREEMENT WITH TREATMENT PLAN. GIVEN TIME TO ASK QUESTIONS AND EXPRESS CONCERNS. , ISTOP REGISTRY REVIEWED AND DEMONSTRATES COMPLLIANCE. (REF # [id number] ) BRINGS IN MEDICATIONS WHICH IS APPROPRIATE FOR WHAT WAS DISPENSED. RECENT URINE TOXICOLOGY REVIEWED. NO UNAUTHORIZED MEDICATIONS. NO ILLICIT SUBSTANCES AND PRESCRIBED MEDICATIONS WERE PRESENT. TELEHEALTH VISIT PERFORMED VIA ZOOM. TIME SPENT WITH PATIENT 11 MINUTES. OTHERS NOTES: VITALS NOT OBTAINED DUE TO VIRTUAL VISIT, PRE SCREENING COMPLETED 03/09/20, NA. DISPOSITION & COMMUNICATION FOLLOW UP 4 WEEKS (REASON: BACK PAIN ) ELECTRONICALLY SIGNED BY ANDRES LEAVITT ON 03/18/2020 AT 07:41 AM EDT DISCLAIMER : THIS IS A VISIT SUMMARY EXTRACTED FROM THE [employer] CHART. IT IS NOT A COPY OF THE [employer] PROGRESS NOTE. NATALIAD
== END ==
LOC: M PAIN 09:15 → M TMPAIN 09:15
PROVIDERS: ATTEND Family Medicine
DX: M51.17 Intervertebral disc disorders with radiculopathy, lumbosacral region (principal); Z79.891 Long term (current) use of opiate analgesic; Z79.899 Other long term (current) drug therapy; Z87.891 Personal history of nicotine dependence; Z88.2 Allergy status to sulfonamides; Z88.5 Allergy status to narcotic agent; Z88.8 Allergy status to other drugs, medicaments and biological substances; Z91.013 Allergy to seafood; Z91.041 Radiographic dye allergy status

== ENCOUNTER → 2020-04-21 | Outpatient (CLI) | payer OTHER ==
--- NOTE | 2020-04-26 05:28 | ECWPNPC ---
PATIENT NAME: FABIOLA MORENO : 1955 GENDER: MALE VISIT DATE: 04/21/2020 DISCHARGE DATE: 04/21/20 1021 VISIT LOCKED DATE TIME: PHYSICIAN: ALONSO GILES RESOURCE: ALONSO GILES REASON FOR APPOINTMENT 1. BACK PAIN [phone] PAT COMPLETED HISTORY OF PRESENT ILLNESS GENERAL: - 65-YEAR-OLD MALE IN FOR CHRONIC PAIN FOLLOW-UP. AT LAST CLINIC VISIT PATIENT'S GABAPENTIN WAS INCREASED AND HE ADMITS TODAY THAT THIS HAS BEEN HELPFUL. HE RATES HIS PAIN CURRENTLY AT A 7.5 OUT OF 10 AND DESCRIBES IT A BURNING, ACHING, STABBING, AND NUMB. HE FEELS MEDICATIONS ARE HELPFUL AND DENIES MED SIDE EFFECTS AT THIS TIME. FALL RISK SCREENING: SCREENING :NO FALLS REPORTED IN THE LAST YEAR PAIN SCREENING: PATIENT HAS A COMPLAINT OF ACUTE OR CHRONIC PAIN :YES LOCATION OF PAIN:LOW BACK, LEG(S) INTENSITY OF PAIN (SCALE OF 1 TO 10):8 WHAT DOES YOUR PAIN FEEL LIKE:ACHING, BURNING, CONTINOUS, SHARP, STABBING DURATION:CONTINOUS PAIN IS INCREASED BY:ACTIVITIES, OTHERS STAIRS, WALKING PAIN IS DECREASED BY:USE OF PAIN MEDICATIONS, OTHERS HEAT NURSING NOTE: -. PAIN CENTER INTAKE QUESTIONS: DO YOU HAVE A HISTORY OF MRSA? :NO DO YOU TAKE A BLOOD THINNERS? :NO DO YOU HAVE ANY BLEEDING DISORDERS? :NO ANY NEW NUMBNESS OR WEAKNESS IN YOUR LEGS OR ARMS? :NO ANY PACEMAKER,DEFIBRILLATOR, OR DORSAL COLUMN STIMULATOR? :NO DO YOU HAVE ANY RASHES OR OPEN SORES? :NO ARE YOU ALLERGIC TO IV DYE? :YES ARE YOU DIABETIC? :NO ANY NEW PROBLEMS WITH YOUR MEDICATIONS? :NO HAVE YOU RECEIVED A VACCINE IN THE PAST 30 DAYS? :NO DO YOU PLAN TO RECEIVE A VACCINE IN THE NEXT 21 DAYS? :NO DO YOU NEED ANY PRESCRIPTION? :YES HYDROCODONE DO YOU TAKE ANY IMMUNOSUPPRESSIVE MEDICATIONS? :NO ANY HISTORY OF SEIZURES? :NO ANY HISTORY OF CARDIAC ISSUES OR EVENTS? :NO DO YOU HAVE SLEEP APNEA? :NO ANY RECENT HEAD INJURY? :NO DO YOU HAVE ANY NEW INFECTIONS? :NO IS THERE A CHANCE YOU COULD BE ? :NO ARE YOU BREAST FEEDING? :NO CURRENT MEDICATIONS TAKING NICOTINE 14 MG/24HR PATCH 24 HOUR 1 PATCH TO SKIN IN AM OFF AT HS TRANSDERMAL ONCE A DAY TAKING NICOTINE 7 MG/24HR PATCH 24 HOUR 1 PATCH TO SKIN TRANSDERMAL ONCE A DAY TAKING EPIPEN 2-ARMAAN 0.3 MG/0.3ML SOLUTION AUTO-INJECTOR INJECT 0.3ML BY INTRAMUSCULARLY ROUTE ONCE NEEDED FOR ANAPHYLAXIS INJECTION TAKING NEBULIZER - DEVICE DIRECTED DX: J43.1 THREE TIMES DAILY TAKING NEBULIZER/TUBING/MOUTHPIECE - KIT DIRECTED DX: J43.1 THREE TIMES DAILY NEEDED TAKING PULMICORT FLEXHALER 90 MCG/ACT AEROSOL POWDER BREATH ACTIVATED INHALE TWO PUFFS BY MOUTH TWICE A DAY TAKING SUDAFED 30 MG TABLET 1 TABLET NEEDED ORALLY EVERY 6 HRS TAKING FLONASE 50 MCG/ACT SUSPENSION 1 SPRAY IN EACH NOSTRIL NASALLY TWICE A DAY TAKING VENTOLIN HFA 108 (90 BASE) MCG/ACT AEROSOL SOLUTION INHALE TWO PUFFS BY MOUTH EVERY 4 TO 6 HOURS NEEDED FOR COUGH AND DYSPNEA INHALATION TAKING SONNY _ 1 CAP ORALLY NEEDED TAKING AZELASTINE HCL 0.1 % SOLUTION SPRAY 2 SPRAYS IN EACH NOSTRIL ONCE DAILY IN THE MORNING NASAL DAILY TAKING BENADRYL 25 MG CAPSULE 1 CAPSULE NEEDED FOR ITCHING ORALLY EVERY 8 HRS TAKING VITAMIN B-12 500 MCG TABLET 1 TABLET ORALLY ONCE A DAY TAKING FOLIC ACID _ TABLET 400 MGS 1 TABLET ORALLY ONCE A DAY TAKING HYDROCORTISONE VALERATE 0.2 % CREAM 1 APPLICATION TO AFFECTED AREA ON ARMS AND CHEST EXTERNALLY ONCE OR TWICE A DAY NEEDED TAKING COLACE 100 MG CAPSULE 1 CAPSULE NEEDED ORALLY ONCE A DAY NEEDED TAKING FIBERCON 625 MG TABLET 1 TABLET WITH WATER ORALLY DAILY TAKING ERGOCALCIFEROL 53102 UNIT CAPSULE 1 CAPSULE ORALLY ONCE A WEEK WITH MEAL TAKING ALBUTEROL SULFATE (2.5 MG/3ML) 0.083% NEBULIZATION SOLUTION 3 ML NEEDED INHALATION EVERY 8 HRS TAKING NICOTINE POLACRILEX 2 MG GUM 1 PIECE FOR 30 MINUTE NEEDED MOUTH/THROAT 24 TIME(S) A DAY TAKING OMEPRAZOLE 40 MG CAPSULE DELAYED RELEASE 1 CAPSULE ORALLY ONCE A DAY BEFORE MEAL TAKING CYCLOBENZAPRINE HCL 10 MG TABLET 1 TABLET NEEDED ORALLY THREE TIMES A DAY, NOTES: NOT TAKNG TAKING GABAPENTIN 400 MG CAPSULE 1 CAPSULE ORALLY THREE TIMES DAILY TAKING HYDROCODONE-ACETAMINOPHEN 5-325 MG TABLET 1 TAB ORAL Q8H PRN MDD3 #45 TAB SHOULD LAST 30 DAYS NOT-TAKING CALCIUM + D 600-400 MG-UNIT TABLET 1 TABLET WITH FOOD ORALLY TWICE A DAY NOT-TAKING MULTI MAX _ 1 TAB ORALLY DAILY NOT-TAKING GABAPENTIN 600 MG TABLET 1 CAPSULE ORALLY THREE TIMES DAILY, NOTES: NOT TAKING NOT-TAKING VIAGRA 25 MG TABLET 1 TABLET NEEDED ORALLY ONCE A DAY, NOTES: UROLOGY NOT-TAKING NICOTINE 21 MG/24HR PATCH 24 HOUR 1 PATCH TO SKIN TRANSDERMAL ONCE A DAY IN AM, OFF AT HS MEDICATION LIST REVIEWED AND RECONCILED WITH THE PATIENT PAST MEDICAL HISTORY LOW BACK PAIN TENDINITIS SHOULDER ALLERGIES/ ECZEMA PEPTIC ULCER DISEASE HYPERLIPIDEMIA, MIXED UVEITIS ESOPHAGEAL REFLUX HIATAL HERNIA OSTEOARTHRITIS CARCINOID RECTAL TUMOR MIGRAINE HEADACHES PANCREATITIS 03/03 URINARY FREQUENCY RIGHT LEG PAIN ALLERGIES CELEBREX: HYPER - SIDE EFFECTS SULFA: HIVES - ALLERGY CYMBALTA: NAUSEA/VOMITING - SIDE EFFECTS TRAMADOL: GI UPSET - SIDE EFFECTS SHELL FISH: HIVES - ALLERGY PRAVASTATIN SODIUM: ELEVATED LFT - SIDE EFFECTS IV DYE: UNSURE LYRICA: HEART PALPITATIONS - SIDE EFFECTS SURGICAL HISTORY ULCER 81 HAND SURGERY R 91,09 RECTAL CANCER 05 COLONOSCOPY WITH HX BENIGN POLYP, DIVERTICULOSIS, INTERNAL HEMORRHOIDS - HEATHER, F/UP 10YRS 2024 04,09, 10/31,10/04 EGD -HEATHER , 10/31 LEFT THUMB 09 TESTICLE REMOVAL 81,86 ERCP WITH STENT - [facility] GI DR KOHLER 04-05-14 CYSTOSCOPY 07-02-17 LEFT ELBOW SURGERY 02/04 L4-L5, L5-S1 DECOMPRESSION FUSION-DR. MATHEW FAMILY HISTORY FATHER: UNKNOWN MOTHER: 66 YRS, DIAGNOSED WITH HYPERTENSION, UNSPECIFIED HEART DISEASE, DIABETES 2 BROTHER(S) - HEALTHY. 1DAUGHTER(S) . NO KNOWN FAMILY HISTORY OF ANY UROLOGICALLY RELATED DISEASES/CANCERS. SOCIAL HISTORY GENERAL: TOBACCO USE ARE YOU A:FORMER SMOKER HOW LONG HAS IT BEEN SINCE YOU LAST SMOKED?< 1 MONTH LATEX QUESTIONNAIRE LATEX ALLERGY : HAVE YOU EVER DEVELOPED ANY TYPE OF REACTION AFTER HANDLING LATEX PRODUCTS SUCH RUBBER GLOVES, CONDOMS, DIAPHRAGMS, BALLOONS, SOCKS, OR UNDERWEAR?NO LATEX ALLERGY : HAVE YOU EVER DEVELOPED ANY TYPE OF REACTION DURING OR AFTER DENTAL APPOINTMENT, VAGINAL/RECTAL EXAMINATION, SURGICAL PROCEDURE, OR ANY OTHER EXPOSURE?NO LATEX RISK : HAVE YOU EVER HAD ANY DIFFICULTY BREATHING OR HIVES AFTER EATING OR HANDLING ANY FRUITS, OR VEGETABLES; SUCH KIWI, BANANAS, STONE FRUITS, OR CHESTNUTSNO LATEX RISK : DO YOU HAVE A PREVIOUS PERSONAL HISTORY OF MORE THAN NINE SURGERIES, SPINA BIFIDA, OR REPEATED CATHERIZATIONS? NO LATEX RISK : ARE YOU FREQUENTLY EXPOSED TO LATEX PRODUCTS IN YOUR OCCUPATION?NO DATE ASKED : 04/20/2020 LUNG CANCER SCREENING SMOKING STATUS:CURRENT SMOKER IS THE PATIENT BETWEEN THE AGE OF 55 AND 77?YES HAS THE PATIENT EVER BEEN DIAGNOSED WITH LUNG CANCER?NO PACK YEARS = NUMBER OF PACKS PER DAY SMOKED X NUMBER OF YEARS SMOKED:35 CREATE REFERRAL:GENERATE AND CREATE REFERRAL TO THE ONCOLOGY NURSE NAVIGATOR (SMP) LISTING USING THE LDCT SCAN PROCEDURE ALCOHOL SCREENING DID YOU HAVE A DRINK CONTAINING ALCOHOL IN THE PAST YEAR?YES HOW OFTEN DID YOU HAVE SIX OR MORE DRINKS ON ONE OCCASION IN THE PAST YEAR?NEVER (0 POINTS) HOW MANY DRINKS DID YOU HAVE ON A TYPICAL DAY WHEN YOU WERE DRINKING IN THE PAST YEAR?1 OR 2 (0 POINTS) HOW OFTEN DID YOU HAVE A DRINK CONTAINING ALCOHOL IN THE PAST YEAR?TWO TO THREE TIMES PER WEEK (3 POINTS) POINTS3 INTERPRETATIONNEGATIVE RECREATIONAL DRUG USE DRUG USE?NO CAFFEINE CAFFEINE USE?NO SEXUAL HX HAD SEX IN THE LAST 12 MONTHS (VAGINAL, ORAL, OR ANAL)?YES WITHWOMEN ONLY USE PROTECTION?YES HOW OFTEN?ALL OF THE TIME HAVE YOU EVER HAD AN STD?NO HIV / HEP-C SCREENING HIV TEST OFFERED TO PATIENT:YES DATE OFFERED:11/08/2016 TEST ACCEPTED:NO HEP-C TEST OFFERED TO PATIENT:YES DATE OFFERED:11/08/2016 REASON:PATIENT DECLINED TEST ACCEPTED:NO REASON:PATIENT DECLINED [place] [id number] OTHER LANGUAGE LANGUAGES SPOKEN:SAMI EDUCATION LEVEL OF EDUCATION:HIGH SCHOOL LEARNING BARRIERS / SPECIAL NEEDS CHANGE FROM LAST VISIT?NO BARRIERS TO LEARNING?NO HEARING IMPAIRED?NO VISION IMPAIRED?YES COGNITIVELY IMPAIRED?NO :CORRECTIVE LENSES READINESS TO LEARN?YES LEARNING PREFERENCES?YES :TAPES/VIDEOS, BOOKLETS, HANDOUTS LEARNING CAPABILITIES PRESENT?YES EMOTIONAL BARRIERS?NO SPECIAL DEVICES?NO GAS WELDING EQUIPMENT MECHANIC 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 DIET: REGULAR. EXERCISE: WALKS. MARITAL STATUS: .. PAIN CLINIC PFS, CLERGY, PUBLIC HEALTH REFERRALS HAS THE PATIENT BEEN EDUCATED REGARDING HIS/HER PLAN OF CARE?YES HAS THE PATIENT BEEN EDUCATED REGARDING PAIN, THE RISK FOR PAIN, THE IMPORTANCE OF EFFECTIVE PAIN MANAGEMENT, AND THE PAIN ASSESSMENT PROCESS?YES ADVANCE DIRECTIVE ADVANCE DIRECTIVE DISCUSSED WITH PATIENT:YES PT STATES HE HAS THE INFORMATION ON HCP BUT HASN'T FILLED IT OUT YET. HELP OFFERED IN COMPLETING IT IF NEEDED. HELP DECLINED AT THIS TIME. HOSPITALIZATION/MAJOR DIAGNOSTIC PROCEDURE PANCREATITIS- TIMMY 03/05/14 SURGERIES REVIEW OF SYSTEMS CONSTITUTIONAL: ANY RECENT FEVER NO . CHILLS NO . WEIGHT CHANGE OF UNKNOWN REASONS NO . GASTROENTEROLOGY: NEW UNEXPLAINABLE CHANGES IN BOWEL CONTROL NO . CONSTIPATION NO . GENITOURINARY: ANY NEW CHANGE IN BLADDER CONTROL? NO . NEUROLOGY: NEW ONSET DIZZINESS OR NEUROLOGICAL CHANGES NOT MENTIONED NO . NEW NUMBNESS OR PAIN PATTERNS NOT MENTIONED AND PERTINENT TO TODAY'S VISIT NO . CARDIOLOGY: NEW CHEST PRESSURE NO . NEW CHEST PAIN NO . RESPIRATORY: UNEXPLAINABLE COUGH NO . NEW SHORTNESS OF BREATH NO . EXAMINATION GENERAL EXAMINATION: PSYCHAPPROPRIATE MOOD AND AFFECT , ORIENTED X 3. ASSESSMENTS POST LAMINECTOMY SYNDROME - M96.1 (PRIMARY) TREATMENT POST LAMINECTOMY SYNDROME CLINICAL NOTES: 65-YEAR-OLD MALE IN FOR CHRONIC PAIN FOLLOW-UP. GIVEN PRESENTING SYMPTOMS RECOMMENDED CONTINUATION OF CURRENT MEDICATION REGIMEN WITH FOLLOW-UP IN 2 MONTHS. PATIENT HAS EXPRESSED UNDERSTANDING OF AND WAS IN AGREEMENT WITH TREATMENT PLAN. GIVEN TIME TO ASK QUESTIONS AND EXPRESS CONCERNS. , ISTOP REGISTRY REVIEWED AND DEMONSTRATES COMPLLIANCE. (REF # [id number] ) BRINGS IN MEDICATIONS WHICH IS APPROPRIATE FOR WHAT WAS DISPENSED. RECENT URINE TOXICOLOGY REVIEWED. NO UNAUTHORIZED MEDICATIONS. NO ILLICIT SUBSTANCES AND PRESCRIBED MEDICATIONS WERE PRESENT. VISIT TO BE BILLED BASED ON TIME SPENT WITH PATIENT. TIME SPENT WITH PATIENT 11 MINUTES. OTHERS NOTES: VITAL SIGNS NOT OBTAINED DUE TO VIRTUAL VISIT. 04/20/2020 1325 NLJ. DISPOSITION & COMMUNICATION FOLLOW UP 2 MONTHS (REASON: BACK PAIN ) ELECTRONICALLY SIGNED BY ANDRES LEAVITT ON 04/25/2020 AT 08:39 AM EDT DISCLAIMER : THIS IS A VISIT SUMMARY EXTRACTED FROM THE [employer] CHART. IT IS NOT A COPY OF THE [employer] PROGRESS NOTE. NATALIAD
== END ==
LOC: M PAIN 09:45
PROVIDERS: ATTEND Family Medicine
DX: M96.1 Postlaminectomy syndrome, not elsewhere classified (principal)

== ENCOUNTER → 2020-07-12 | Outpatient (CLI) | payer OTHER ==
[~2020-07-12] MED LIST changes: +PERC5TAB12 PO; +PSEU30TA21 PO
== END ==
LOC: M PAIN 08:50
PROVIDERS: ATTEND Family Medicine
DX: M96.1 Postlaminectomy syndrome, not elsewhere classified (principal)

== ENCOUNTER 2020-08-23 23:30 | Emergency (ER) | payer OTHER ==
[~2020-08-23] VITALS: Ht 177.8 cm; Wt 81.0 kg
[~2020-08-23 23:30] MED LIST changes: -PERC5TAB12 PO; -PSEU30TA21 PO
[2020-08-23] MEDS ORDERED: PSEU30TA21 PO (23:39)
[2020-08-24] MEDS ORDERED: NS 500 ML IV ONE (00:45)
[2020-08-24 00:58] LABS: BASO % 0.4 % (0.0-1.0); EOS % 0.3 % (0.0-3.0); HEMATOCRIT 36.3 % (42.0-52.0); HEMOGLOBIN 12.7 g/dl (13.5-17.5); LYMPH # 0.9 10^3/uL (1.5-5.0); LYMPH % 9.7 % (24.0-44.0); MEAN CORPUSCULAR HEMOGLOBIN 33.1 pg (27.0-33.0); MEAN CORPUSCULAR VOLUME 94.5 fl (80.0-96.0); MONO # 0.9 10^3/uL (0.0-0.8); MONO % 9.6 % (0.0-5.0); NEUTROPHILS # 7.5 10^3/uL (1.5-8.5); NEUTROPHILS % 79.3 % (36.0-66.0); PLATELET COUNT, AUTOMATED 175 10^3/uL (150-450); RED BLOOD COUNT 3.84 10^6/uL (4.30-6.10); WHITE BLOOD COUNT 9.5 10^3/uL (4.0-10.0)
[2020-08-24 01:29] LABS: ALBUMIN 3.4 GM/DL (3.2-5.2); ALT/SGPT 92 U/L (12-78); BILIRUBIN,DIRECT 0.5 MG/DL (0.0-0.2); BILIRUBIN,TOTAL 0.7 MG/DL (0.2-1.0); CK-MB VALUE MASS 3.8 NG/ML (<3.6); CPK CREATINE PHOSPHOKINASE 160 U/L (39-308); LIPASE 99 U/L (73-393); MB/CK RELATIVE INDEX 2.38 (< OR =4); TOTAL PROTEIN 7.4 GM/DL (6.4-8.2); TROPONIN I < 0.02 NG/ML (< 0.10)
[2020-08-24] MEDS ORDERED: ISOVUE-370 76% 100ML VIAL As Ordered ONE (01:38)
[2020-08-24 02:00] VITALS: BP 148/84
--- NOTE | 2020-08-24 02:15 | REPVR ---
PROCEDURE INFORMATION: Exam: CT Chest With Contrast Exam date and time: 08/24/2020 1:13 AM Age: 65 years old Clinical indication: Injury or trauma; Fall; Blunt trauma (contusions or hematomas); Additional info: Fall, right sided rib/flank pain, hematuria TECHNIQUE: Imaging protocol: Computed tomography of the chest with intravenous contrast. Radiation optimization: All CT scans at this facility use at least one of these dose optimization techniques: automated exposure control; mA and/or kV adjustment per patient size (includes targeted exams where dose is matched to clinical indication); or iterative reconstruction. Contrast material: ISO; Contrast volume: 100 ml; Contrast route: INTRAVENOUS (IV); COMPARISON: CT Chest without contrast 09/14/2019 10:04 AM FINDINGS: Lungs: Advanced centrilobular emphysematous changes in the lungs. Mild basilar atelectasis or scarring. No airspace consolidation or masses. Pleural space: Unremarkable. No pneumothorax. No pleural effusion. Heart: Normal heart size. Advanced coronary artery atherosclerotic disease. No pericardial effusion. Aorta: Unremarkable. No aortic aneurysm. Lymph nodes: Unremarkable. No enlarged lymph nodes. Bones/joints: Nondisplaced right 5th-9th lateral rib fractures. Skeletal degenerative changes are noted. Soft tissues: Unremarkable. IMPRESSION: 1. Emphysema. 2. Right 5th-9th lateral rib fractures. 3. Coronary artery disease. Electronically signed by: Socrates Cerda On 08/24/2020 02:14:33 AM
--- NOTE | 2020-08-24 02:21 | REPVR ---
PROCEDURE INFORMATION: Exam: CT Abdomen And Pelvis With Contrast Exam date and time: 08/24/2020 1:13 AM Age: 65 years old Clinical indication: Abdominal pain; Localized; Right; Additional info: Fall, right sided rib/flank pain, hematuria TECHNIQUE: Imaging protocol: Computed tomography of the abdomen and pelvis with intravenous contrast. Radiation optimization: All CT scans at this facility use at least one of these dose optimization techniques: automated exposure control; mA and/or kV adjustment per patient size (includes targeted exams where dose is matched to clinical indication); or iterative reconstruction. Contrast material: ISO; Contrast volume: 100 ml; Contrast route: INTRAVENOUS (IV); COMPARISON: CT ABD PELVIS W/O CONTRAST 03/04/2014 11:17 PM FINDINGS: Liver: The liver is low attenuation indicating hepatic steatosis. Gallbladder and bile ducts: Gallbladder is distended. Layering stones or sludge are noted in the gallbladder. No gallbladder wall thickening or pericholecystic fluid. No biliary duct dilation. Pancreas: The pancreas is atrophic. Main pancreatic duct is borderline dilated at 3.5 cm. No obstructing calculus or mass. Spleen: Normal. No splenomegaly. Adrenal glands: Normal. No mass. 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 Kidneys are otherwise unremarkable. No hydronephrosis. Stomach and bowel: Changes of prior bariatric surgery are noted. No bowel obstruction or inflammatory changes. Appendix: No evidence of appendicitis. Intraperitoneal space: Unremarkable. No free air. No significant fluid collection. Vasculature: Unremarkable. No abdominal aortic aneurysm. Lymph nodes: Unremarkable. No enlarged lymph nodes. Urinary bladder: Urinary bladder is very distended. No bladder wall thickening or calculi. Reproductive: Unremarkable as visualized. Bones/joints: Small sclerotic foci in the right ischial and spine are new since the prior exam but are of uncertain significance. No destructive bone lesions are seen. There are degenerative changes in the spine and pelvis. Postoperative changes from prior posterior fusion at L4-L5. Soft tissues: Unremarkable. IMPRESSION: 1. Hepatic steatosis. 2. Cholelithiasis. Distended gallbladder without secondary signs of cholecystitis. 3. Atrophic pancreas. 4. Nonspecific sclerotic foci in the spine and right ischial are new since the prior exam. No fracture or destructive bone lesions. 5. No acute findings. Electronically signed by: Socrates Cerda On 08/24/2020 02:21:36 AM
[2020-08-24] MEDS ORDERED: PERC5TAB12 PO (02:57)
[2020-08-24] MEDS ORDERED: OXYCODONE/APAP 5MG/325MG(BULK FOR ED) 1 TABLET PO ONE (03:00)
--- NOTE | 2020-08-24 11:38 | ECGEPIP ---
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
--- NOTE | 2020-08-24 13:49 | ED PDOC ---
Post-Departure Follow-Up ct abd/p faxed to [facility] for follow up. Chiquis Jones MD Aug 24, 2020 13:49
== END 2020-08-24 03:29 | disposition home or self-care (01) ==
LOC: M ED 23:30
DX: S22.41XA Multiple fractures of ribs, right side, initial encounter for closed fracture (principal); W18.39XA Other fall on same level, initial encounter; Y92.018 Other place in single-family (private) house as the place of occurrence of the external cause; E78.5 Hyperlipidemia, unspecified; G43.909 Migraine, unspecified, not intractable, without status migrainosus; Z79.899 Other long term (current) drug therapy; Z88.1 Allergy status to other antibiotic agents; Z88.2 Allergy status to sulfonamides; Z88.8 Allergy status to other drugs, medicaments and biological substances
CPT/HCPCS: 71260; 74177; 80047; 80076; 81001; 82550; 82553; 83690; 85025; 93005; 93041; 96360; 96361; 99284; Q9967

== ENCOUNTER → 2020-09-07 | Outpatient (CLI) | payer MEDICARE, OTHER ==
[~2020-09-07] MED LIST changes: -MONT10TA4 PO; +MONT5TAB2 PO; +PERC5TAB12 PO; +PSEU30TA21 PO
[2020-09-07 10:46] LABS: ALBUMIN 3.2 GM/DL (3.2-5.2); ALT/SGPT 73 U/L (12-78); BILIRUBIN,TOTAL 0.4 MG/DL (0.2-1.0); BLOOD UREA NITROGEN 3 MG/DL (7-18); CALCIUM LEVEL 8.3 MG/DL (8.8-10.2); CARBON DIOXIDE LEVEL 28 MEQ/L (21-32); CHLORIDE LEVEL 101 MEQ/L (98-107); CHOLESTEROL LEVEL 219 MG/DL (<200); CHOLESTEROL RISK RATIO 2.305 (<5); CREATININE FOR GFR 0.61 MG/DL (0.70-1.30); GLOMERULAR FILTRATION RATE > 60.0 (>49); GLUCOSE, FASTING 82 MG/DL (70-100); HDL CHOLESTEROL 95 MG/DL (>40); LDL CHOLESTEROL 108 MG/DL (<100); NON-HDL-C 124 MG/DL; POTASSIUM SERUM 4.2 MEQ/L (3.5-5.1); SODIUM LEVEL 135 MEQ/L (136-145); TRIGLYCERIDES LEVEL 78 MG/DL (<150)
[2020-09-07 10:53] LABS: TOTAL 25(OH) VITAMIN D 19.7 NG/ML (30.0-100.0)
--- NOTE | 2020-09-07 16:06 | REP ---
INDICATION: NICOTINE DEPENDENCE W/O COMPLICATIONS/LABS AFTER CT COMPARISON: 09/14/2019 TECHNIQUE: Axial noncontrast images from the thoracic inlet to the upper abdomen using low-dose lung screening technique (LDCT). FINDINGS: Moderate/advanced COPD/emphysematous changes are noted. There is a 2 mm nodule in the anterior right upper lobe (image 50) along with stable 3 mm nodule in the posterior right lower lobe (image 46). 2 mm nodule in the anterior left upper lobe (image 39) remains stable as well. No further consolidation, suspicious nodule or mass lesion appreciated. No pleural effusion. Tracheobronchial tree is patent. Atherosclerotic changes to the thoracic aorta and coronary arteries noted. Evidence for prior gastric bypass surgery. IMPRESSION: Lung-RADS category 2. Moderate/advanced emphysematous changes noted. Management recommendations include annual low-dose CT surveillance. <Electronically signed by Stephon Kennedy > 09/07/20 0860
== END ==
LOC: M LAB 09:27
PROVIDERS: ATTEND Nurse Practitioner Family
DX: K76.0 Fatty (change of) liver, not elsewhere classified (principal); F17.210 Nicotine dependence, cigarettes, uncomplicated; E55.9 Vitamin D deficiency, unspecified; E78.2 Mixed hyperlipidemia; Z79.899 Other long term (current) drug therapy

== ENCOUNTER 2020-09-13 18:23 | Emergency (ER) | payer MEDICARE, OTHER ==
[~2020-09-13] VITALS: Ht 177.8 cm; Wt 76.5 kg
--- NOTE | 2020-09-13 20:34 | REPVR ---
PROCEDURE INFORMATION: Exam: US Duplex Right Lower Extremity Veins, Limited Exam date and time: 09/13/2020 8:21 PM Age: 65 years old Clinical indication: Edema, localized; Lower extremity, right; Additional info: Swelling/pain TECHNIQUE: Imaging protocol: Real-time Duplex ultrasound of the Right Lower Extremity with 2-D yang scale, color Doppler flow and spectral waveform analysis with image documentation. Limited exam was focused on the right lower extremity veins. COMPARISON: No relevant prior studies available. FINDINGS: Right deep veins: Unremarkable. The common femoral, femoral, proximal profunda femoral and popliteal veins are patent without thrombus. Normal Doppler waveforms. Normal compressibility and/or augmentation response. Right superficial veins: Unremarkable. Saphenofemoral junction is patent without thrombus. Soft tissues: Lower leg edema. IMPRESSION: Lower leg edema. No DVT. Electronically signed by: Jeremiah Adams On 09/13/2020 20:34:52 PM
[2020-09-13 21:20] LABS: BASO # 0.1 10^3/uL (0.0-0.2); BASO % 0.4 % (0.0-1.0); EOS % 0.2 % (0.0-3.0); HEMATOCRIT 40.2 % (42.0-52.0); HEMOGLOBIN 13.8 g/dl (13.5-17.5); LYMPH # 1.6 10^3/uL (1.5-5.0); LYMPH % 13.9 % (24.0-44.0); MEAN CORPUSCULAR HEMOGLOBIN 33.1 pg (27.0-33.0); MEAN CORPUSCULAR HGB CONC 34.3 g/dl (32.0-36.5); MEAN CORPUSCULAR VOLUME 96.4 fl (80.0-96.0); MONO # 1.4 10^3/uL (0.0-0.8); MONO % 12.1 % (0.0-5.0); NEUTROPHILS # 8.4 10^3/uL (1.5-8.5); NEUTROPHILS % 73.1 % (36.0-66.0); PLATELET COUNT, AUTOMATED 298 10^3/uL (150-450); RED BLOOD COUNT 4.17 10^6/uL (4.30-6.10); WHITE BLOOD COUNT 11.6 10^3/uL (4.0-10.0)
[2020-09-13 21:53] LABS: ALBUMIN 3.5 GM/DL (3.2-5.2); ALT/SGPT 62 U/L (12-78); BILIRUBIN,TOTAL 0.6 MG/DL (0.2-1.0); BLOOD UREA NITROGEN 8 MG/DL (7-18); CALCIUM LEVEL 9.3 MG/DL (8.8-10.2); CARBON DIOXIDE LEVEL 27 MEQ/L (21-32); CHLORIDE LEVEL 99 MEQ/L (98-107); CK-MB VALUE MASS 3.6 NG/ML (<3.6); CPK CREATINE PHOSPHOKINASE 188 U/L (39-308); CREATININE FOR GFR 0.75 MG/DL (0.70-1.30); GLOMERULAR FILTRATION RATE > 60.0 (>49); GLUCOSE, FASTING 82 MG/DL (70-100); MB/CK RELATIVE INDEX 1.91 (< OR =4); NT-PRO BNP 31 PG/ML (<125); POTASSIUM SERUM 4.3 MEQ/L (3.5-5.1); SODIUM LEVEL 135 MEQ/L (136-145); TOTAL PROTEIN 7.9 GM/DL (6.4-8.2); TROPONIN I < 0.02 NG/ML (< 0.10)
[2020-09-13] MEDS ORDERED: ISOVUE-370 76% 100ML VIAL As Ordered ONE (22:23)
--- NOTE | 2020-09-13 22:56 | REPVR ---
PROCEDURE INFORMATION: Exam: CT Angiography Chest With Contrast Exam date and time: 09/13/2020 10:38 PM Age: 65 years old Clinical indication: Abnormal findings; Other: Elevated d-dimer; Additional info: Leg edema/inc d-dimer TECHNIQUE: Imaging protocol: Computed tomographic angiography of the chest with intravenous contrast. 3D rendering (Not supervised by radiologist): MIP and/or 3D reconstructed images were created by the technologist. Radiation optimization: All CT scans at this facility use at least one of these dose optimization techniques: automated exposure control; mA and/or kV adjustment per patient size (includes targeted exams where dose is matched to clinical indication); or iterative reconstruction. Contrast material: ISOVUE 370; Contrast volume: 75 ml; Contrast route: INTRAVENOUS (IV); COMPARISON: CT Chest with contrast 08/24/2020 1:42 AM FINDINGS: Pulmonary arteries: There are no pulmonary emboli. Aorta: There is no aortic dissection or aneurysm. Lungs: Bilateral apical pleuroparenchymal scarring. Moderate paraseptal and centrilobular emphysematous changes most pronounced in the mid and upper lung zones. Pleural space: Unremarkable. No pneumothorax. No pleural effusion. Heart: There is moderate atherosclerotic calcification of the coronary arteries. Lymph nodes: Unremarkable. No enlarged lymph nodes. Kidneys and ureters: Left kidney not visualized consistent with an ectopic left pelvic kidney as noted previously. Stomach and bowel: Status post gastric bypass. Bones/joints: Rib fractures right 5th and 6th ribs demonstrating callus suggesting a subacute etiology. Fractures also demonstrated in the right 7th, 8th, and 9th ribs which appear acute. The spine demonstrates mild degenerative changes. Soft tissues: Unremarkable. IMPRESSION: 1. Moderate paraseptal and centrilobular emphysematous changes most pronounced in the mid and upper lung zones. 2. Rib fractures right 5th and 6th ribs demonstrating callus suggesting a subacute etiology. Fractures also demonstrated in the right 7th, 8th, and 9th ribs which appear acute. 3. There is no aortic dissection or aneurysm. 4. There are no pulmonary emboli. 5. No acute pulmonary infiltrates. Electronically signed by: Jeremiah Adams On 09/13/2020 22:56:38 PM
[2020-09-13 23:26] VITALS: BP 171/106
== END 2020-09-13 23:29 | disposition home or self-care (01) ==
LOC: M ED 18:23
DX: R60.0 Localized edema (principal); J45.909 Unspecified asthma, uncomplicated; J44.9 Chronic obstructive pulmonary disease, unspecified; E78.5 Hyperlipidemia, unspecified; K21.9 Gastro-esophageal reflux disease without esophagitis; Z79.899 Other long term (current) drug therapy; Z88.2 Allergy status to sulfonamides; Z88.8 Allergy status to other drugs, medicaments and biological substances; F17.210 Nicotine dependence, cigarettes, uncomplicated
CPT/HCPCS: 36415; 71275; 80053; 82550; 82553; 83880; 84484; 85025; 93971; 99284; Q9967

== ENCOUNTER → 2020-09-13 | Outpatient (REF) | payer MEDICARE, OTHER | LOC: M SFHCPLAZ 10:11 | PROVIDERS: ATTEND Nurse Practitioner Family | DX: R60.0 Localized edema (principal); R06.02 Shortness of breath | CPT/HCPCS: 36415; 85379; G0463 ==

== ENCOUNTER → 2020-10-26 | Outpatient (CLI) | payer MEDICARE, OTHER ==
--- NOTE | 2020-10-28 00:25 | ECWPNPC ---
PATIENT NAME: FABIOLA MORENO : 1955 GENDER: MALE VISIT DATE: 10/26/2020 DISCHARGE DATE: 10/26/20 1105 VISIT LOCKED DATE TIME: PHYSICIAN: ALONSO GILES PHYSICIAN PAGER NO: ACTIVE RESOURCE: ALONSO GILES REASON FOR APPOINTMENT 1. BACK [phone] HISTORY OF PRESENT ILLNESS GENERAL: - 65-YEAR-OLD MALE IN FOR CHRONIC PAIN FOLLOW-UP. HE RATES HIS PAIN CURRENTLY AT AN 8 OUT OF 10 AND DESCRIBES IT ACHING, BURNING, SHARP, STABBING, THROBBING, AND SHOOTING. HE FEELS MEDICATIONS ARE HELPFUL AND DENIES MED SIDE EFFECTS AT THIS TIME. HE DOES ADMIT TO SOME NEW ONSET SWELLING OF HIS LOWER EXTREMITY. FALL RISK SCREENING: SCREENING :ONE FALL WITH INJURY IN THE PAST YEAR RIGHT RIB INJURY PAIN SCREENING: PATIENT HAS A COMPLAINT OF ACUTE OR CHRONIC PAIN :YES LOCATION OF PAIN:CHEST, LOW BACK, LEG(S) RIGHT SIDED CHEST PAIN INTENSITY OF PAIN (SCALE OF 1 TO 10):8 WHAT DOES YOUR PAIN FEEL LIKE:ACHING, BURNING, SHARP, STABBING, THROBBING, SHOOTING DURATION:CONTINOUS, CONSTANT PAIN IS INCREASED BY:ACTIVITIES PAIN IS DECREASED BY:USE OF PAIN MEDICATIONS TREATMENT/MEDICATIONS USED TO MANAGE PAIN:OPIOIDS LEVEL OF RELIEF FROM PAIN TREATMENTS IN THE PAST:75% PAIN HAS INTERFERED WITH THE FOLLOWING:BATHING/DRESSING, WALKING ABILITY, HOUSEWORK, SLEEP, TRANSPORTATION, TOILETING NURSING NOTE: -. PAIN CENTER INTAKE QUESTIONS: DO YOU HAVE A HISTORY OF MRSA? :NO DO YOU TAKE A BLOOD THINNERS? :NO DO YOU HAVE ANY BLEEDING DISORDERS? :NO ANY NEW NUMBNESS OR WEAKNESS IN YOUR LEGS OR ARMS? :YES LEGS NOT NEW ANY PACEMAKER,DEFIBRILLATOR, OR DORSAL COLUMN STIMULATOR? :NO DO YOU HAVE ANY RASHES OR OPEN SORES? :NO ARE YOU ALLERGIC TO IV DYE? :YES ARE YOU DIABETIC? :NO ANY NEW PROBLEMS WITH YOUR MEDICATIONS? :NO HAVE YOU RECEIVED A VACCINE IN THE PAST 30 DAYS? :NO DO YOU PLAN TO RECEIVE A VACCINE IN THE NEXT 21 DAYS? :NO DO YOU NEED ANY PRESCRIPTION? :NO DO YOU TAKE ANY IMMUNOSUPPRESSIVE MEDICATIONS? :NO IS THERE A CHANCE YOU COULD BE ? :NO ARE YOU BREAST FEEDING? :NO CURRENT MEDICATIONS TAKING EPIPEN 2-ARMAAN 0.3 MG/0.3ML SOLUTION AUTO-INJECTOR INJECT 0.3ML BY INTRAMUSCULARLY ROUTE ONCE NEEDED FOR ANAPHYLAXIS INJECTION TAKING NEBULIZER - DEVICE DIRECTED DX: J43.1 THREE TIMES DAILY TAKING NEBULIZER/TUBING/MOUTHPIECE - KIT DIRECTED DX: J43.1 THREE TIMES DAILY NEEDED TAKING VITAMIN B-12 500 MCG TABLET 1 TABLET ORALLY ONCE A DAY TAKING FOLIC ACID _ TABLET 400 MGS 1 TABLET ORALLY ONCE A DAY TAKING HYDROCORTISONE VALERATE 0.2 % CREAM 1 APPLICATION TO AFFECTED AREA ON ARMS AND CHEST EXTERNALLY ONCE OR TWICE A DAY NEEDED TAKING COLACE 100 MG CAPSULE 1 CAPSULE NEEDED ORALLY ONCE A DAY NEEDED TAKING FIBERCON 625 MG TABLET 1 TABLET WITH WATER ORALLY DAILY TAKING ALBUTEROL SULFATE (2.5 MG/3ML) 0.083% NEBULIZATION SOLUTION 3 ML NEEDED INHALATION EVERY 8 HRS TAKING GABAPENTIN 400 MG CAPSULE 1 CAPSULE ORALLY THREE TIMES DAILY TAKING AZELASTINE HCL 0.1 % SOLUTION SPRAY 2 SPRAYS IN EACH NOSTRIL NASAL TWICE DAILY TAKING FLONASE 50 MCG/ACT SUSPENSION 1 SPRAY IN EACH NOSTRIL NASALLY TWICE A DAY TAKING CETIRIZINE HCL 10 MG TABLET 1 TABLET ORALLY ONCE A DAY TAKING BENADRYL 25 MG CAPSULE 1 CAPSULE NEEDED FOR ITCHING ORALLY EVERY 8 HRS TAKING MUCINEX 600 MG TABLET EXTENDED RELEASE 1 TABLET NEEDED ORALLY EVERY 12 HRS TAKING OMEPRAZOLE 40 MG CAPSULE DELAYED RELEASE 1 CAPSULE ORALLY ONCE A DAY BEFORE MEAL TAKING NICOTINE 14 MG/24HR PATCH 24 HOUR 1 PATCH TO SKIN IN AM OFF AT HS TRANSDERMAL ONCE A DAY TAKING CALCIUM + D 600-400 MG-UNIT TABLET 1 TABLET WITH FOOD ORALLY DAILY TAKING ERGOCALCIFEROL 15535 UNIT CAPSULE 1 CAPSULE ORALLY ONCE A WEEK WITH MEAL TAKING PULMICORT FLEXHALER 90 MCG/ACT AEROSOL POWDER BREATH ACTIVATED INHALE TWO PUFFS BY MOUTH TWICE A DAY TAKING VENTOLIN HFA 108 (90 BASE) MCG/ACT AEROSOL SOLUTION INHALE TWO PUFFS BY MOUTH EVERY 4 TO 6 HOURS NEEDED FOR COUGH AND DYSPNEA INHALATION TAKING CYCLOBENZAPRINE HCL 10 MG TABLET 1 TABLET NEEDED ORALLY THREE TIMES A DAY TAKING HYDROCODONE-ACETAMINOPHEN 5-325 MG TABLET 1 TAB ORAL Q8H PRN MDD3 #45 TAB SHOULD LAST 30 DAYS TAKING SUDAFED 30 MG TABLET 1 TABLET NEEDED FOR CONGESTION ORALLY EVERY 6 HRS NOT-TAKING NICOTINE 7 MG/24HR PATCH 24 HOUR 1 PATCH TO SKIN TRANSDERMAL ONCE A DAY NOT-TAKING MULTI MAX _ 1 TAB ORALLY DAILY MEDICATION LIST REVIEWED AND RECONCILED WITH THE PATIENT PAST MEDICAL HISTORY LOW BACK PAIN TENDINITIS SHOULDER ALLERGIES/ ECZEMA PEPTIC ULCER DISEASE HYPERLIPIDEMIA, MIXED UVEITIS ESOPHAGEAL REFLUX HIATAL HERNIA OSTEOARTHRITIS CARCINOID RECTAL TUMOR MIGRAINE HEADACHES PANCREATITIS 03/03 URINARY FREQUENCY RIGHT LEG PAIN ALLERGIES CELEBREX: HYPER - SIDE EFFECTS SULFA: HIVES - ALLERGY CYMBALTA: NAUSEA/VOMITING - SIDE EFFECTS TRAMADOL: GI UPSET - SIDE EFFECTS SHELL FISH: HIVES - ALLERGY PRAVASTATIN SODIUM: ELEVATED LFT - SIDE EFFECTS IV DYE: UNSURE LYRICA: HEART PALPITATIONS - SIDE EFFECTS SURGICAL HISTORY ULCER 81 HAND SURGERY R 91,09 RECTAL CANCER 05 COLONOSCOPY WITH HX BENIGN POLYP, DIVERTICULOSIS, INTERNAL HEMORRHOIDS - HEATHER, F/UP 10YRS 2024 04,09, 10/31,10/04 EGD -HEATHER , 10/31 LEFT THUMB 09 TESTICLE REMOVAL 81,86 ERCP WITH STENT - [facility] GI DR KOHLER 04-05-14 CYSTOSCOPY 07-02-17 LEFT ELBOW SURGERY 02/04 L4-L5, L5-S1 DECOMPRESSION FUSION-DR. MATHEW FAMILY HISTORY FATHER: UNKNOWN MOTHER: 66 YRS, DIAGNOSED WITH HYPERTENSION, DIABETES, UNSPECIFIED HEART DISEASE 2 BROTHER(S) - HEALTHY. 1DAUGHTER(S) . NO KNOWN FAMILY HISTORY OF ANY UROLOGICALLY RELATED DISEASES/CANCERS. SOCIAL HISTORY GENERAL: TOBACCO USE ARE YOU A:CURRENT SMOKER PT GOES BETWEEN PATCH AND SMOKING, TRYING TO QUIT ARE YOU INTERESTED IN QUITTING?THINKING ABOUT QUITTING COUNSELED THE PATIENT ON SMOKING CESSATION, EDUCATION [id number]/06/2021 LATEX QUESTIONNAIRE LATEX ALLERGY : HAVE YOU EVER DEVELOPED ANY TYPE OF REACTION AFTER HANDLING LATEX PRODUCTS SUCH RUBBER GLOVES, CONDOMS, DIAPHRAGMS, BALLOONS, SOCKS, OR UNDERWEAR?NO LATEX ALLERGY : HAVE YOU EVER DEVELOPED ANY TYPE OF REACTION DURING OR AFTER DENTAL APPOINTMENT, VAGINAL/RECTAL EXAMINATION, SURGICAL PROCEDURE, OR ANY OTHER EXPOSURE?NO LATEX RISK : HAVE YOU EVER HAD ANY DIFFICULTY BREATHING OR HIVES AFTER EATING OR HANDLING ANY FRUITS, OR VEGETABLES; SUCH KIWI, BANANAS, STONE FRUITS, OR CHESTNUTSNO LATEX RISK : DO YOU HAVE A PREVIOUS PERSONAL HISTORY OF MORE THAN NINE SURGERIES, SPINA BIFIDA, OR REPEATED CATHERIZATIONS? NO LATEX RISK : ARE YOU FREQUENTLY EXPOSED TO LATEX PRODUCTS IN YOUR OCCUPATION?NO DATE ASKED : 10/26/2020 LUNG CANCER SCREENING SMOKING STATUS:CURRENT SMOKER IS THE PATIENT BETWEEN THE AGE OF 55 AND 77?YES HAS THE PATIENT EVER BEEN DIAGNOSED WITH LUNG CANCER?NO PACK YEARS = NUMBER OF PACKS PER DAY SMOKED X NUMBER OF YEARS SMOKED:35 CREATE REFERRAL:GENERATE AND CREATE REFERRAL TO THE ONCOLOGY NURSE NAVIGATOR (SMP) LISTING USING THE LDCT SCAN PROCEDURE ALCOHOL SCREENING DID YOU HAVE A DRINK CONTAINING ALCOHOL IN THE PAST YEAR?YES HOW OFTEN DID YOU HAVE SIX OR MORE DRINKS ON ONE OCCASION IN THE PAST YEAR?NEVER (0 POINTS) HOW MANY DRINKS DID YOU HAVE ON A TYPICAL DAY WHEN YOU WERE DRINKING IN THE PAST YEAR?1 OR 2 (0 POINTS) HOW OFTEN DID YOU HAVE A DRINK CONTAINING ALCOHOL IN THE PAST YEAR?TWO TO THREE TIMES PER WEEK (3 POINTS) POINTS3 INTERPRETATIONNEGATIVE RECREATIONAL DRUG USE DRUG USE?NO CAFFEINE CAFFEINE USE?NO SEXUAL HX HAD SEX IN THE LAST 12 MONTHS (VAGINAL, ORAL, OR ANAL)?YES WITHWOMEN ONLY USE PROTECTION?YES HOW OFTEN?ALL OF THE TIME HAVE YOU EVER HAD AN STD?NO HIV / HEP-C SCREENING HIV TEST OFFERED TO PATIENT:YES DATE OFFERED:11/08/2016 TEST ACCEPTED:NO HEP-C TEST OFFERED TO PATIENT:YES DATE OFFERED:11/08/2016 REASON:PATIENT DECLINED TEST ACCEPTED:NO REASON:PATIENT DECLINED RELIGIOUS [id number] OTHER LANGUAGE LANGUAGES SPOKEN:MALDIVIAN EDUCATION LEVEL OF EDUCATION:HIGH SCHOOL LEARNING BARRIERS / SPECIAL NEEDS CHANGE FROM LAST VISIT?NO BARRIERS TO LEARNING?NO HEARING IMPAIRED?NO VISION IMPAIRED?YES COGNITIVELY IMPAIRED?NO :CORRECTIVE LENSES READINESS TO LEARN?YES LEARNING PREFERENCES?YES :TAPES/VIDEOS, BOOKLETS, HANDOUTS LEARNING CAPABILITIES PRESENT?YES EMOTIONAL BARRIERS?NO SPECIAL DEVICES?NO ENDORSEMENT CLERK 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 DIET: REGULAR. EXERCISE: WALKS. MARITAL STATUS: .. PAIN CLINIC PFS, CLERGY, PUBLIC HEALTH REFERRALS HAS THE PATIENT BEEN EDUCATED REGARDING HIS/HER PLAN OF CARE?YES HAS THE PATIENT BEEN EDUCATED REGARDING PAIN, THE RISK FOR PAIN, THE IMPORTANCE OF EFFECTIVE PAIN MANAGEMENT, AND THE PAIN ASSESSMENT PROCESS?YES ADVANCE DIRECTIVE ADVANCE DIRECTIVE DISCUSSED WITH PATIENT:YES PT STATES HE HAS THE INFORMATION ON HCP BUT HASN'T FILLED IT OUT YET. HELP OFFERED IN COMPLETING IT IF NEEDED. HELP DECLINED AT THIS TIME. HOSPITALIZATION/MAJOR DIAGNOSTIC PROCEDURE PANCREATITIS- TIMMY 03/05/14 SURGERIES REVIEW OF SYSTEMS CONSTITUTIONAL: ANY RECENT FEVER NO . CHILLS NO . WEIGHT CHANGE OF UNKNOWN REASONS NO . GASTROENTEROLOGY: NEW UNEXPLAINABLE CHANGES IN BOWEL CONTROL NO . CONSTIPATION NO . GENITOURINARY: ANY NEW CHANGE IN BLADDER CONTROL? NO . NEUROLOGY: NEW ONSET DIZZINESS OR NEUROLOGICAL CHANGES NOT MENTIONED NO . NEW NUMBNESS OR PAIN PATTERNS NOT MENTIONED AND PERTINENT TO TODAY'S VISIT NO . CARDIOLOGY: NEW CHEST PRESSURE NO . NEW CHEST PAIN NO . RESPIRATORY: UNEXPLAINABLE COUGH NO . NEW SHORTNESS OF BREATH NO . EXAMINATION GENERAL EXAMINATION: PSYCHAPPROPRIATE MOOD AND AFFECT , ORIENTED X 3. ASSESSMENTS SPONDYLOSIS WITHOUT MYELOPATHY OR RADICULOPATHY, LUMBOSACRAL REGION - M47.817 (PRIMARY) TREATMENT SPONDYLOSIS WITHOUT MYELOPATHY OR RADICULOPATHY, LUMBOSACRAL REGION NOTES: 65-YEAR-OLD MALE IN FOR CHRONIC PAIN FOLLOW-UP GIVEN PRESENTING SYMPTOMS RECOMMEND CONTINUATION OF CURRENT MEDICATION REGIMEN WITH FOLLOW-UP IN 3 MONTHS. PATIENT WAS ENCOURAGED TO DISCUSS HIS LOWER LEG EDEMA WITH HIS PRIMARY CARE PROVIDER HE DOES STATE HE WILL DISCUSS IT ALSO WITH ORTHOPEDICS THIS AFTERNOON. PATIENT HAS EXPRESSED UNDERSTANDING OF AND WAS IN AGREEMENT WITH TREATMENT PLAN. GIVEN TIME TO ASK QUESTIONS AND EXPRESS CONCERNS. , ISTOP REGISTRY REVIEWED AND DEMONSTRATES COMPLLIANCE. (REF # [id number] ) BRINGS IN MEDICATIONS WHICH IS APPROPRIATE FOR WHAT WAS DISPENSED. RECENT URINE TOXICOLOGY REVIEWED. NO UNAUTHORIZED MEDICATIONS. NO ILLICIT SUBSTANCES AND PRESCRIBED MEDICATIONS WERE PRESENT. VISIT CONDUCTED VIA TELEPHONE. TIME SPENT WITH PATIENT 11 MINUTES. OTHERS NOTES: VS NOT TAKEN FOR VIRTUAL VISIT. EM. DISPOSITION & COMMUNICATION FOLLOW UP 3 MONTHS (REASON: BACK PAIN) ELECTRONICALLY SIGNED BY ANDRES LEAVITT ON 10/27/2020 AT 08:57 AM EST DISCLAIMER : THIS IS A VISIT SUMMARY EXTRACTED FROM THE [email or web address] CHART. IT IS NOT A COPY OF THE [email or web address] PROGRESS NOTE. CELESTE
== END ==
LOC: M PAIN 10:15
PROVIDERS: ATTEND Family Medicine
DX: M47.817 Spondylosis without myelopathy or radiculopathy, lumbosacral region (principal); G89.29 Other chronic pain; K21.9 Gastro-esophageal reflux disease without esophagitis; G43.909 Migraine, unspecified, not intractable, without status migrainosus; F17.210 Nicotine dependence, cigarettes, uncomplicated; Z88.2 Allergy status to sulfonamides; Z88.5 Allergy status to narcotic agent; Z88.8 Allergy status to other drugs, medicaments and biological substances; Z91.013 Allergy to seafood; Z91.041 Radiographic dye allergy status; Z79.891 Long term (current) use of opiate analgesic; Z79.899 Other long term (current) drug therapy

== ENCOUNTER → 2020-11-11 | Outpatient (REF) | payer MEDICARE, OTHER ==
[~2020-11-11] MED LIST changes: +MONT10TA10 PO; -MONT5TAB2 PO
[2020-11-11 11:24] LABS: HEMATOCRIT 38.1 % (42.0-52.0); HEMOGLOBIN 12.9 g/dl (13.5-17.5); MEAN CORPUSCULAR HEMOGLOBIN 33.3 pg (27.0-33.0); MEAN CORPUSCULAR HGB CONC 33.9 g/dl (32.0-36.5); MEAN CORPUSCULAR VOLUME 98.4 fl (80.0-96.0); PLATELET COUNT, AUTOMATED 393 10^3/uL (150-450); RED BLOOD COUNT 3.87 10^6/uL (4.30-6.10); WHITE BLOOD COUNT 8.1 10^3/uL (4.0-10.0)
[2020-11-11 11:55] LABS: ATYPICAL LYMPH 1 % (0-5); LYMPHOCYTES 25 % (16-44); MONOCYTES 17 % (0-5); NEUTROPHILS 57 % (28-66)
[2020-11-11 11:57] LABS: PLATELET ESTIMATE NORMAL (NORMAL)
[2020-11-11 12:10] LABS: ALBUMIN 3.1 GM/DL (3.2-5.2); ALT/SGPT 74 U/L (12-78); BILIRUBIN,DIRECT 0.3 MG/DL (0.0-0.2); BILIRUBIN,TOTAL 0.4 MG/DL (0.2-1.0); BLOOD UREA NITROGEN 4 MG/DL (7-18); CALCIUM LEVEL 9.1 MG/DL (8.8-10.2); CARBON DIOXIDE LEVEL 29 MEQ/L (21-32); CHLORIDE LEVEL 103 MEQ/L (98-107); CREATININE FOR GFR 0.69 MG/DL (0.70-1.30); GLOMERULAR FILTRATION RATE > 60.0 (>49); GLUCOSE, FASTING 98 MG/DL (70-100); POTASSIUM SERUM 4.5 MEQ/L (3.5-5.1); SODIUM LEVEL 139 MEQ/L (136-145); THYROID STIMULATING HORMONE 0.433 uIU/ML (0.358-3.740); TOTAL 25(OH) VITAMIN D 39.2 NG/ML (30.0-100.0); TOTAL PROTEIN 7.3 GM/DL (6.4-8.2)
== END ==
LOC: M SFHCPLAZ 09:09
PROVIDERS: ATTEND Nurse Practitioner Family
DX: R60.0 Localized edema (principal); R74.8 Abnormal levels of other serum enzymes; Z79.899 Other long term (current) drug therapy
CPT/HCPCS: 36415; 80048; 80076; 82306; 84439; 84443; 85025; G0463

== ENCOUNTER → 2020-12-27 | Outpatient (REF) | payer MEDICARE, OTHER ==
[2020-12-27 14:09] LABS: BASO # 0.1 10^3/uL (0.0-0.2); EOS % 0.6 % (0.0-3.0); HEMATOCRIT 40.9 % (42.0-52.0); HEMOGLOBIN 13.6 g/dl (13.5-17.5); LYMPH # 1.8 10^3/uL (1.5-5.0); LYMPH % 25.4 % (24.0-44.0); MEAN CORPUSCULAR HEMOGLOBIN 32.9 pg (27.0-33.0); MEAN CORPUSCULAR HGB CONC 33.3 g/dl (32.0-36.5); MONO % 13.8 % (2.0-8.0); NEUTROPHILS # 4.1 10^3/uL (1.5-8.5); NEUTROPHILS % 58.8 % (36.0-66.0); PLATELET COUNT, AUTOMATED 245 10^3/uL (150-450); RED BLOOD COUNT 4.13 10^6/uL (4.30-6.10)
[2020-12-27 14:46] LABS: FOLATE 18.1 NG/ML
== END ==
LOC: M SFHCPLAZ 09:20
PROVIDERS: ATTEND Nurse Practitioner Family
DX: R20.2 Paresthesia of skin (principal); Z12.5 Encounter for screening for malignant neoplasm of prostate
CPT/HCPCS: 36415; 82607; 82728; 82746; 85025; G0103

== ENCOUNTER → 2021-01-10 | Outpatient (CLI) | payer OTHER ==
--- NOTE | 2021-01-10 15:13 | REPPI ---
INDICATION: ELEVATED PSA. COMPARISON: None. TECHNIQUE: Transrectal prostate sonography. FINDINGS: Trans rectal prostate sonography demonstrates unremarkable seminal vesicles. Prostate gland is heterogeneous, with calcifications and cystic changes noted. Glandular dimensions are measured at 4.4 x 2.8 x 4.0 cm with a calculated glandular volume of 25.4 ml. Transrectal sonographic guidance is provided to Dr. Robledo who performed trans rectal ultrasound guided needle biopsy procedure. IMPRESSION: Transrectal prostate sonographic findings as above. <Electronically signed by Wm Acharya > 01/10/21 9431
== END ==
LOC: M SMT PRO 10:58
PROVIDERS: ATTEND Urology
DX: C61 Malignant neoplasm of prostate (principal); K21.9 Gastro-esophageal reflux disease without esophagitis; J45.909 Unspecified asthma, uncomplicated; E78.00 Pure hypercholesterolemia, unspecified; F17.218 Nicotine dependence, cigarettes, with other nicotine-induced disorders; Z79.899 Other long term (current) drug therapy
CPT/HCPCS: 55700; 76872; 76942; G0416

== ENCOUNTER 2021-01-24 11:44 | Emergency (ER) | payer MEDICARE, OTHER ==
[~2021-01-24] VITALS: Ht 177.8 cm; Wt 73.7 kg
[2021-01-24] MEDS ORDERED: ACETAMINOPHEN 325 MG TAB PO ONE (13:15)
[2021-01-24 13:20] VITALS: BP 167/88
== END 2021-01-24 13:39 | disposition home or self-care (01) ==
LOC: M ED 11:44
DX: R22.2 Localized swelling, mass and lump, trunk (principal); T80.89XA Other complications following infusion, transfusion and therapeutic injection, initial encounter; X58.XXXA Exposure to other specified factors, initial encounter; Y92.89 Other specified places as the place of occurrence of the external cause; J45.909 Unspecified asthma, uncomplicated; M51.17 Intervertebral disc disorders with radiculopathy, lumbosacral region; L30.9 Dermatitis, unspecified; E78.2 Mixed hyperlipidemia; K21.9 Gastro-esophageal reflux disease without esophagitis; G43.909 Migraine, unspecified, not intractable, without status migrainosus; C61 Malignant neoplasm of prostate; K28.9 Gastrojejunal ulcer, unspecified as acute or chronic, without hemorrhage or perforation; F17.210 Nicotine dependence, cigarettes, uncomplicated; Z79.891 Long term (current) use of opiate analgesic; Z79.899 Other long term (current) drug therapy; Z88.2 Allergy status to sulfonamides; Z88.8 Allergy status to other drugs, medicaments and biological substances; Z88.5 Allergy status to narcotic agent; Z91.041 Radiographic dye allergy status; Z91.013 Allergy to seafood
CPT/HCPCS: 36415; 80048; 99283; G0463

== ENCOUNTER → 2021-01-24 | Outpatient (CLI) | payer MEDICARE, OTHER ==
--- NOTE | 2021-01-26 03:26 | ECWPNPC ---
PATIENT NAME: FABIOLA MORENO : 1955 GENDER: MALE VISIT DATE: 01/24/2021 DISCHARGE DATE: 01/24/21 0000 VISIT LOCKED DATE TIME: PHYSICIAN: ALONSO GILES PHYSICIAN PAGER NO: ACTIVE RESOURCE: ALONSO GILES REASON FOR APPOINTMENT 1. BACK PAIN HISTORY OF PRESENT ILLNESS DEPRESSION SCREENING: PHQ-2 (2015 EDITION) LITTLE INTEREST OR PLEASURE IN DOING THINGS?NOT AT ALL FEELING DOWN, DEPRESSED, OR HOPELESS?NOT AT ALL TOTAL SCORE0 65-YEAR-OLD MALE IN FOR CHRONIC PAIN FOLLOW-UP. HE RATES HIS PAIN CURRENTLY AT AN 8 OUT OF 10 AND DESCRIBES IT ACHING, BURNING, CONTINUOUS, SHARP, AND STABBING. PATIENT DOES ADMIT TO INCREASED PAIN AT TIMES. HE FEELS MEDICATIONS ARE HELPFUL. GENERAL: -. FALL RISK SCREENING: SCREENING ONE FALL REPORTED IN THE LAST YEAR WITH INJURY. PATIENT DID NOT SEEK MEDICAL TREATMENT.. PAIN SCREENING: PATIENT HAS A COMPLAINT OF ACUTE OR CHRONIC PAIN :YES LOCATION OF PAIN:LOW BACK INTENSITY OF PAIN (SCALE OF 1 TO 10):8 WHAT DOES YOUR PAIN FEEL LIKE:ACHING, BURNING, CONTINOUS, SHARP, STABBING DURATION:CONTINOUS, AWAKENS FROM SLEEP PAIN IS INCREASED BY:ACTIVITIES, PROLONGED STANDING PAIN IS DECREASED BY:USE OF PAIN MEDICATIONS, SITTING ELEVATES LEGS THREE TIMES A DAY NURSING NOTE: -. PAIN CENTER INTAKE QUESTIONS: DO YOU HAVE A HISTORY OF MRSA? :NO DO YOU TAKE A BLOOD THINNERS? :NO DO YOU HAVE ANY BLEEDING DISORDERS? :NO ANY NEW NUMBNESS OR WEAKNESS IN YOUR LEGS OR ARMS? :NO ANY PACEMAKER,DEFIBRILLATOR, OR DORSAL COLUMN STIMULATOR? :NO DO YOU HAVE ANY RASHES OR OPEN SORES? :NO ARE YOU ALLERGIC TO IV DYE? :YES ARE YOU DIABETIC? :NO ANY NEW PROBLEMS WITH YOUR MEDICATIONS? :NO HAVE YOU RECEIVED A VACCINE IN THE PAST 30 DAYS? :YES IF SO WHAT VACCINE AND WHEN? LAST COVID VACCINATION 01/02/2021 DO YOU PLAN TO RECEIVE A VACCINE IN THE NEXT 21 DAYS? :NO DO YOU NEED ANY PRESCRIPTION? :NO DO YOU TAKE ANY IMMUNOSUPPRESSIVE MEDICATIONS? :NO DO YOU HAVE ANY KIDNEY OR LIVER DISEASE? :NO IS THERE A CHANCE YOU COULD BE ? :NO ARE YOU BREAST FEEDING? :NO CURRENT MEDICATIONS TAKING EPIPEN 2-ARMAAN 0.3 MG/0.3ML SOLUTION AUTO-INJECTOR INJECT 0.3ML BY INTRAMUSCULARLY ROUTE ONCE NEEDED FOR ANAPHYLAXIS INJECTION TAKING NEBULIZER - DEVICE DIRECTED DX: J43.1 THREE TIMES DAILY TAKING NEBULIZER/TUBING/MOUTHPIECE - KIT DIRECTED DX: J43.1 THREE TIMES DAILY NEEDED TAKING VITAMIN B-12 500 MCG TABLET 1 TABLET ORALLY ONCE A DAY TAKING FOLIC ACID _ TABLET 400 MGS 1 TABLET ORALLY ONCE A DAY TAKING HYDROCORTISONE VALERATE 0.2 % CREAM 1 APPLICATION TO AFFECTED AREA ON ARMS AND CHEST EXTERNALLY ONCE OR TWICE A DAY NEEDED TAKING COLACE 100 MG CAPSULE 1 CAPSULE NEEDED ORALLY ONCE A DAY NEEDED TAKING FIBERCON 625 MG TABLET 1 TABLET WITH WATER ORALLY DAILY TAKING ALBUTEROL SULFATE (2.5 MG/3ML) 0.083% NEBULIZATION SOLUTION 3 ML NEEDED INHALATION EVERY 8 HRS TAKING GABAPENTIN 400 MG CAPSULE 1 CAPSULE ORALLY THREE TIMES DAILY, NOTES: TAKING ONLY ONCE A WEEK TAKING MUCINEX 600 MG TABLET EXTENDED RELEASE 1 TABLET NEEDED ORALLY EVERY 12 HRS TAKING OMEPRAZOLE 40 MG CAPSULE DELAYED RELEASE 1 CAPSULE ORALLY ONCE A DAY BEFORE MEAL TAKING CYCLOBENZAPRINE HCL 10 MG TABLET 1 TABLET NEEDED ORALLY THREE TIMES A DAY TAKING SUDAFED 30 MG TABLET 1 TABLET NEEDED FOR CONGESTION ORALLY EVERY 6 HRS TAKING BENADRYL 25 MG CAPSULE 1 CAPSULE NEEDED FOR ITCHING ORALLY EVERY 8 HRS TAKING VENTOLIN HFA 108 (90 BASE) MCG/ACT AEROSOL SOLUTION INHALE TWO PUFFS BY MOUTH EVERY 4 TO 6 HOURS NEEDED FOR COUGH AND DYSPNEA INHALATION TAKING CALCIUM + D 600-400 MG-UNIT TABLET 1 TABLET WITH FOOD ORALLY DAILY TAKING ERGOCALCIFEROL 56769 UNIT CAPSULE 1 CAPSULE ORALLY ONCE A WEEK WITH MEAL TAKING AZELASTINE HCL 0.1 % SOLUTION SPRAY 2 SPRAYS IN EACH NOSTRIL NASAL TWICE DAILY TAKING FLONASE 50 MCG/ACT SUSPENSION 1 SPRAY IN EACH NOSTRIL NASALLY TWICE A DAY TAKING CETIRIZINE HCL 10 MG TABLET 1 TABLET ORALLY ONCE A DAY TAKING FLOVENT DISKUS 100 MCG/BLIST AEROSOL POWDER BREATH ACTIVATED 1 PUFF INHALATION TWICE A DAY TAKING HYDROCODONE-ACETAMINOPHEN 5-325 MG TABLET 1 TAB ORAL Q8H PRN MDD3 #45 TAB SHOULD LAST 30 DAYS TAKING MULTI MAX _ 1 TAB ORALLY DAILY NOT-TAKING COMPRESSION STOCKINGS 20-30 MMHG DIRECTED TOPICALLY KNEE HIGH DX: R60.0 DAILY ON IN AM, OFF AT HS NOT-TAKING CIPRO 500 MG TABLET 1 TABLET ORALLY EVERY 12 HRS NOT-TAKING FLEET ENEMA 7-19 GM/118ML ENEMA DIRECTED RECTAL ONCE DIRECTED NOT-TAKING CIPRO 500 MG TABLET 1 TABLET ORALLY ONCE DONE THE DAY OF OFFICE PROCEDURE NOT-TAKING FLEET ENEMA 7-19 GM/118ML ENEMA DIRECTED RECTAL ONCE THE MORNING OF PROCEDURE NOT-TAKING NICOTINE 14 MG/24HR PATCH 24 HOUR 1 PATCH TO SKIN IN AM OFF AT HS TRANSDERMAL ONCE A DAY NOT-TAKING NICOTINE 7 MG/24HR PATCH 24 HOUR 1 PATCH TO SKIN TRANSDERMAL ONCE A DAY MEDICATION LIST REVIEWED AND RECONCILED WITH THE PATIENT PAST MEDICAL HISTORY LOW BACK PAIN TENDINITIS SHOULDER ALLERGIES/ ECZEMA PEPTIC ULCER DISEASE HYPERLIPIDEMIA, MIXED UVEITIS ESOPHAGEAL REFLUX HIATAL HERNIA OSTEOARTHRITIS CARCINOID RECTAL TUMOR MIGRAINE HEADACHES PANCREATITIS 03/03 URINARY FREQUENCY RIGHT LEG PAIN PROSTATE CANCER EDEMA IN LEGS AND FEET ALLERGIES CELEBREX: HYPER - SIDE EFFECTS SULFA: HIVES - ALLERGY CYMBALTA: NAUSEA/VOMITING - SIDE EFFECTS TRAMADOL: GI UPSET - SIDE EFFECTS SHELL FISH: HIVES - ALLERGY PRAVASTATIN SODIUM: ELEVATED LFT - SIDE EFFECTS IV DYE: UNSURE LYRICA: HEART PALPITATIONS - SIDE EFFECTS SOCIAL HISTORY GENERAL: TOBACCO USE ARE YOU A:CURRENT SMOKER PT GOES BETWEEN PATCH AND SMOKING, TRYING TO QUIT ARE YOU INTERESTED IN QUITTING?THINKING ABOUT QUITTING COUNSELED THE PATIENT ON SMOKING CESSATION, EDUCATION [id number]/06/2021 LATEX QUESTIONNAIRE LATEX ALLERGY : HAVE YOU EVER DEVELOPED ANY TYPE OF REACTION AFTER HANDLING LATEX PRODUCTS SUCH RUBBER GLOVES, CONDOMS, DIAPHRAGMS, BALLOONS, SOCKS, OR UNDERWEAR?NO LATEX ALLERGY : HAVE YOU EVER DEVELOPED ANY TYPE OF REACTION DURING OR AFTER DENTAL APPOINTMENT, VAGINAL/RECTAL EXAMINATION, SURGICAL PROCEDURE, OR ANY OTHER EXPOSURE?NO LATEX RISK : HAVE YOU EVER HAD ANY DIFFICULTY BREATHING OR HIVES AFTER EATING OR HANDLING ANY FRUITS, OR VEGETABLES; SUCH KIWI, BANANAS, STONE FRUITS, OR CHESTNUTSNO LATEX RISK : DO YOU HAVE A PREVIOUS PERSONAL HISTORY OF MORE THAN NINE SURGERIES, SPINA BIFIDA, OR REPEATED CATHERIZATIONS? NO LATEX RISK : ARE YOU FREQUENTLY EXPOSED TO LATEX PRODUCTS IN YOUR OCCUPATION?NO DATE ASKED : 01/24/2021 ALCOHOL USE: MODERATE. MORE THAN A 12 PACK A WEEK. LUNG CANCER SCREENING SMOKING STATUS:CURRENT SMOKER IS THE PATIENT BETWEEN THE AGE OF 55 AND 77?YES HAS THE PATIENT EVER BEEN DIAGNOSED WITH LUNG CANCER?NO PACK YEARS = NUMBER OF PACKS PER DAY SMOKED X NUMBER OF YEARS SMOKED:35 CREATE REFERRAL:GENERATE AND CREATE REFERRAL TO THE ONCOLOGY NURSE NAVIGATOR (SMP) LISTING USING THE LDCT SCAN PROCEDURE ALCOHOL SCREENING DID YOU HAVE A DRINK CONTAINING ALCOHOL IN THE PAST YEAR?YES HOW OFTEN DID YOU HAVE SIX OR MORE DRINKS ON ONE OCCASION IN THE PAST YEAR?NEVER (0 POINTS) HOW MANY DRINKS DID YOU HAVE ON A TYPICAL DAY WHEN YOU WERE DRINKING IN THE PAST YEAR?1 OR 2 (0 POINTS) HOW OFTEN DID YOU HAVE A DRINK CONTAINING ALCOHOL IN THE PAST YEAR?TWO TO THREE TIMES PER WEEK (3 POINTS) POINTS3 INTERPRETATIONNEGATIVE RECREATIONAL DRUG USE DRUG USE?NO CAFFEINE CAFFEINE USE?NO SEXUAL HX HAD SEX IN THE LAST 12 MONTHS (VAGINAL, ORAL, OR ANAL)?YES WITHWOMEN ONLY USE PROTECTION?YES HOW OFTEN?ALL OF THE TIME HAVE YOU EVER HAD AN STD?NO HIV / HEP-C SCREENING HIV TEST OFFERED TO PATIENT:YES DATE OFFERED:11/08/2016 TEST ACCEPTED:NO HEP-C TEST OFFERED TO PATIENT:YES DATE OFFERED:11/08/2016 REASON:PATIENT DECLINED TEST ACCEPTED:NO REASON:PATIENT DECLINED SCIENTOLOGY [id number] OTHER LANGUAGE LANGUAGES SPOKEN:[place] EDUCATION LEVEL OF EDUCATION:HIGH SCHOOL LEARNING BARRIERS / SPECIAL NEEDS CHANGE FROM LAST VISIT?NO BARRIERS TO LEARNING?NO HEARING IMPAIRED?NO VISION IMPAIRED?YES :CORRECTIVE LENSES COGNITIVELY IMPAIRED?NO READINESS TO LEARN?YES LEARNING PREFERENCES?YES :TAPES/VIDEOS, BOOKLETS, HANDOUTS LEARNING CAPABILITIES PRESENT?YES EMOTIONAL BARRIERS?NO SPECIAL DEVICES?NO SUGAR GRINDER 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 DIET: REGULAR. EXERCISE: WALKS. MARITAL STATUS: .. - HAS THE PATIENT BEEN EDUCATED REGARDING HIS/HER PLAN OF CARE?YES HAS THE PATIENT BEEN EDUCATED REGARDING PAIN, THE RISK FOR PAIN, THE IMPORTANCE OF EFFECTIVE PAIN MANAGEMENT, AND THE PAIN ASSESSMENT PROCESS?YES ADVANCE DIRECTIVE ADVANCE DIRECTIVE DISCUSSED WITH PATIENT:YES PT STATES HE HAS THE INFORMATION ON HCP BUT HASN'T FILLED IT OUT YET. HELP OFFERED IN COMPLETING IT IF NEEDED. HELP DECLINED AT THIS TIME. REVIEW OF SYSTEMS CONSTITUTIONAL: ANY RECENT FEVER NO . CHILLS NO . WEIGHT CHANGE OF UNKNOWN REASONS NO . GASTROENTEROLOGY: NEW UNEXPLAINABLE CHANGES IN BOWEL CONTROL NO . CONSTIPATION NO . GENITOURINARY: ANY NEW CHANGE IN BLADDER CONTROL? NO . NEUROLOGY: NEW ONSET DIZZINESS OR NEUROLOGICAL CHANGES NOT MENTIONED NO . NEW NUMBNESS OR PAIN PATTERNS NOT MENTIONED AND PERTINENT TO TODAY'S VISIT NO . CARDIOLOGY: NEW CHEST PRESSURE NO . PATIENT DENIES NO . RESPIRATORY: UNEXPLAINABLE COUGH NO . NEW SHORTNESS OF BREATH NO . VITAL SIGNS WT 165.8 LBS, HT 70.75 IN, BMI 23.29 INDEX, BP 167/91 MM HG, HR 109 /MIN, RR 18 /MIN, TEMP 98.3 F, OXYGEN SAT % 97%, SAFE IN ENV? (Y/N) YES, REVIEWED BY: MAGO MONTES DE OCA MA. EXAMINATION GENERAL EXAMINATION: GENERALNO ACUTE DISTRESS, WELL NOURISHED AND HYDRATED. PSYCHAPPROPRIATE MOOD AND AFFECT . LUNGS:CLEAR TO AUSCULTATION BILATERALLY, NO WHEEZES, RHONCHI, RALES. HEART:NO MURMURS, REGULAR RATE AND RHYTHM. 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 GIVEN PRESENTING SYMPTOMS RECOMMEND INCREASING HYDROCODONE TO 3 TIMES A DAY DOSING WITH FOLLOW-UP IN 3 MONTHS. PATIENT HAS EXPRESSED UNDERSTANDING OF AND WAS IN AGREEMENT WITH TREATMENT PLAN. GIVEN TIME TO ASK QUESTIONS AND EXPRESS CONCERNS. , ISTOP REGISTRY REVIEWED AND DEMONSTRATES COMPLLIANCE. (REF # [id number] ) BRINGS IN MEDICATIONS WHICH IS APPROPRIATE FOR WHAT WAS DISPENSED. RECENT URINE TOXICOLOGY REVIEWED. NO UNAUTHORIZED MEDICATIONS. NO ILLICIT SUBSTANCES AND PRESCRIBED MEDICATIONS WERE PRESENT. [facility] (CURRENT) USE OF [facility] ANALG[facility] LAB: URINE TEST GROUP DAVID MONTES DE OCA 01/24/2021 10:14:10 AM > LAST DOSE: CYCLOBENZAPRINE 01/23/2021; HYDROCODONE-ACETAMINOPHEN 01/18/2021 PROCEDURE CODES FA211 ESTABILISHED PATIENT [facility] CHARGE DISPOSITION & COMMUNICATION FOLLOW UP 3 MONTHS (REASON: BACK PAIN ) ELECTRONICALLY SIGNED BY ANDRES LEAVITT ON 01/25/2021 AT 10:33 AM EDT DISCLAIMER : THIS IS A VISIT SUMMARY EXTRACTED FROM THE [employer] CHART. IT IS NOT A COPY OF THE [employer] PROGRESS NOTE. MTDD
== END ==
LOC: M PAIN 09:30
PROVIDERS: ATTEND Family Medicine
DX: M51.17 Intervertebral disc disorders with radiculopathy, lumbosacral region (principal); L30.9 Dermatitis, unspecified; E78.2 Mixed hyperlipidemia; K21.9 Gastro-esophageal reflux disease without esophagitis; G43.909 Migraine, unspecified, not intractable, without status migrainosus; Z85.46 Personal history of malignant neoplasm of prostate; K28.9 Gastrojejunal ulcer, unspecified as acute or chronic, without hemorrhage or perforation; F17.210 Nicotine dependence, cigarettes, uncomplicated; Z79.891 Long term (current) use of opiate analgesic; Z79.899 Other long term (current) drug therapy; Z88.2 Allergy status to sulfonamides; Z88.8 Allergy status to other drugs, medicaments and biological substances; Z88.5 Allergy status to narcotic agent; Z91.041 Radiographic dye allergy status; Z91.013 Allergy to seafood

== ENCOUNTER → 2021-01-24 | Outpatient (CLI) | payer MEDICARE, OTHER ==
[2021-01-24 12:36] LABS: BLOOD UREA NITROGEN 5 MG/DL (7-18); CALCIUM LEVEL 8.5 MG/DL (8.8-10.2); CARBON DIOXIDE LEVEL 28 MEQ/L (21-32); CHLORIDE LEVEL 102 MEQ/L (98-107); CREATININE FOR GFR 0.58 MG/DL (0.70-1.30); GLOMERULAR FILTRATION RATE > 60.0 (>49); GLUCOSE, FASTING 74 MG/DL (70-100); POTASSIUM SERUM 4.1 MEQ/L (3.5-5.1); SODIUM LEVEL 137 MEQ/L (136-145)
== END ==
LOC: M LAB 11:08
PROVIDERS: ATTEND Urology
DX: C61 Malignant neoplasm of prostate (principal)

== ENCOUNTER → 2021-01-27 | Outpatient (CLI) | payer OTHER ==
--- NOTE | 2021-01-27 14:37 | REP ---
INDICATION: ATHSCL CANTWELL ARTERIES W/INTRMT CLAUDICATIONS VICTOR M COMPARISON: 04/21/2018. TECHNIQUE: Real time castellanos scale and Duplex Doppler evaluation of the bilateral lower extremity arterial vasculature using linear high frequency transducer. FINDINGS: Castellanos scale and duplex doppler images demonstrate moderate diffuse plaquing bilaterally. JAMES right 0.9 and left 1.0. There are diffuse biphasic and triphasic waveforms bilaterally. There is possible mild 2-1 stenosis of the right common femoral artery with elevated peak systolic velocity at that location. No other focal stenosis is seen bilaterally. There is no arterial stenosis. Peak systolic velocities (cm/sec) Common femoral artery: Right 316; Left 138 Profunda femoris: Right 181; Left 142 SFA (proximal): Right 167; Left 182 SFA (mid): Right 86; Left 92 SFA (distal): Right 94; Left 90 Popliteal artery: Right 120; Left 173 PA (prox.): Right 89; Left 74 Tibioperoneal trunk: Right 55; Left 102 DATA GOVERNANCE CONSULTANT (prox.): Right 57; Left 54 DATA GOVERNANCE CONSULTANT (distal): Right 59; Left 64 PA (distal): Right 106; Left 73 IMPRESSION: Moderate diffuse plaquing bilaterally with possible mild stenosis of the right common femoral artery. Otherwise no focal stenosis. No arterial occlusion bilaterally. <Electronically signed by Harrison Castellanos > 01/27/21 2816
== END ==
LOC: M RAD 12:46
PROVIDERS: ATTEND Physician Assistant
DX: I70.213 Atherosclerosis of native arteries of extremities with intermittent claudication, bilateral legs (principal)

== ENCOUNTER → 2021-01-30 | Outpatient (CLI) | payer OTHER ==
[~2021-01-30] MED LIST changes: +ISOVUE-370 76% 100ML VIAL As Ordered ONE
--- NOTE | 2021-01-30 09:53 | REP ---
INDICATION: PROSTATE CA. COMPARISON: 08/24/2020 TECHNIQUE: Axial contrast-enhanced images from the lung bases to the pubic symphysis using 100 cc Isovue 370 intravenous contrast material. Delayed images of the abdomen obtained along with coronal and sagittal reformations.. This CT examination was performed using the following dose reduction techniques: Automated exposure control, adjustment of mA and/or kv according to the patient's size, and the use of iterative reconstruction technique. FINDINGS: Lung bases demonstrate chronic appearing interstitial changes and few small scattered nodules measuring no greater than 3 mm and of uncertain clinical significance. Liver demonstrates hepatomegaly and diffuse hepatosteatosis without focal hepatic lesion. Spleen, bilateral adrenal glands and right kidney are normal. Gallbladder demonstrates cholelithiasis without acute cholecystitis. Pancreas is grossly unremarkable. Evidence for left pelvic kidney with benign stable 2 cm lower pole cyst and 1 cm upper pole cyst. The enteric system is without obstruction or acute inflammatory process. Moderate fecal stasis noted along with colonic diverticulosis. Normal terminal ileum and appendix identified in the right lower quadrant. Pelvis demonstrates small amount of layering gravel in the dependent portion of the bladder suggesting small renal stones. Prostate gland is mildly prominent. No periprosthetic inflammatory stranding or pelvic adenopathy. No ascites. No free air. No significant intraperitoneal or retroperitoneal adenopathy identified. Atherosclerotic changes to the aorta and vasculature noted without aneurysm or dissection. 2.3 cm ovoid cystic structure in the skin surface/subcutaneous tissue adjacent to the umbilicus similar to prior examination which may represent chronic benign sebaceous cyst. The musculoskeletal structures demonstrate generalized age-related degenerative changes. There is a new 14 mm sclerotic focus in the T11 vertebral body along with faint subtle sclerotic changes within the pelvis/bilateral iliac bones. Old healed right rib fractures are also identified IMPRESSION: 1. Hepatomegaly and hepatosteatosis without focal hepatic lesion. 2. Cholelithiasis. 3. Renal cysts. 4. Sclerotic scleral tool lesions new from prior examination and suspicious for metastatic disease given the patient's history of prostate cancer. Further investigation is required. <Electronically signed by Stephon Kennedy > 01/30/21 0949
== END ==
LOC: M RAD 08:21
PROVIDERS: ATTEND Urology
DX: C61 Malignant neoplasm of prostate (principal); N28.1 Cyst of kidney, acquired; K80.20 Calculus of gallbladder without cholecystitis without obstruction; R16.0 Hepatomegaly, not elsewhere classified
CPT/HCPCS: 74177; Q9967

== ENCOUNTER → 2021-02-02 | Outpatient (CLI) | payer OTHER ==
[~2021-02-02] MED LIST changes: -ISOVUE-370 76% 100ML VIAL As Ordered ONE
--- NOTE | 2021-02-02 15:39 | REP ---
INDICATION: PROSTATE CA. COMPARISON: No comparison bone scan. Comparison is made with CT study abdomen and pelvis January 30, 2021.. TECHNIQUE/RADIOTRACER AND DOSE: 22.0 mCi of Technetium-99m MDP was injected and standard whole-body bone scanning is acquired. FINDINGS: Uptake is not observed in the left renal fossa. CT study demonstrates a left pelvic kidney and renal uptake is felt to overlie bladder uptake on scintigraphy. There is a moderate pattern of multifocal increased uptake in the axial skeleton consistent with skeletal metastatic disease. This corresponds with the CT findings of sclerotic bony lesions. There are multiple bilateral rib lesions some of which are linearly opposed and could reflect fractures, pathologic versus traumatic. There are lesions bilaterally in the pelvis including the right ischium and bilateral iliac bones. There is a small lesion in the inter trochanteric femur on the right. There is a small lesion in the humeral diaphysis on the right. There are small foci in the sacrum. 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 Ectopic, pelvic left kidney.. <Electronically signed by Wm Acharya > 02/02/21 1160
== END ==
LOC: M RAD 10:07
PROVIDERS: ATTEND Urology
DX: C61 Malignant neoplasm of prostate (principal); C79.51 Secondary malignant neoplasm of bone
CPT/HCPCS: 78306; A9503

== ENCOUNTER → 2021-03-03 | Outpatient (CLI) | payer OTHER | LOC: M LAB 13:20 | PROVIDERS: ATTEND Urology | DX: C61 Malignant neoplasm of prostate (principal) ==

== ENCOUNTER → 2021-03-30 | Outpatient (CLI) | payer OTHER ==
[~2021-03-30] MED LIST changes: -ALBU8.5H; +ALBU8.5H INH; +AMOX875T2 PO; +AZEL1SPR3 NARES; +CALC-356 PO; +CETI-24 PO; -CYCL-707; +CYCL-707 PO; +DIPH-319 PO; -DOXY100C37 PO; +DOXY100T PO; +DOXY1CAP62 PO; +ERGO500029 PO; +FLUTISP NARES; -HYDR-3713; +HYDR-3713 PO; +ISOVUE-370 76% 100ML VIAL As Ordered ONE; -OMEP-221; +OMEP-221 PO; +OXYB5TAB10 PO; +SILD100T PO; +VENL37.598 PO; -VITA50005
--- NOTE | 2021-03-31 05:47 | REP ---
INDICATION: PROSTATE CANCER COMPARISON: 09/13/2020 TECHNIQUE: Axial contrast enhanced images from the thoracic inlet to the upper abdomen with coronal and sagittal reformations using 75 ml Isovue 370 intravenous contrast material. This CT examination was performed using the following dose reduction techniques: Automated exposure control, adjustment of mA and/or kv according to the patient's size, and use of iterative reconstruction technique. FINDINGS: Advanced COPD/emphysematous changes and few small stable noncalcified granulomata are again identified. No acute consolidation, significant nodule or mass appreciated. No effusion. No pneumothorax. Tracheobronchial tree is patent. Mediastinum demonstrates relatively stable thoracic aorta, pulmonary vasculature, and heart/pericardium. Atherosclerotic changes are identified. No cardiomegaly or pericardial effusion. No adenopathy. Limited upper abdomen demonstrates hepatosteatosis along with normal bilateral adrenal glands. Sclerotic lesions in the vertebral bodies consistent with prostate metastatic disease. IMPRESSION: 1. COPD/emphysematous changes without acute mediastinal or pleuroparenchymal process. No lung metastases identified. No adenopathy. No effusion. 2. Skeletal metastases in multiple vertebral bodies noted. <Electronically signed by Stephon Kennedy > 03/31/21 1366
== END ==
LOC: M RAD 16:54
PROVIDERS: ATTEND Internal Medicine Hematology & Oncology
DX: C61 Malignant neoplasm of prostate (principal); J44.9 Chronic obstructive pulmonary disease, unspecified
CPT/HCPCS: 71260; 99497; Q9967

== ENCOUNTER 2021-04-18 13:24 | Inpatient (IN) | payer OTHER ==
[~2021-04-18] VITALS: Ht 177.8 cm; Wt 71.5 kg
[~2021-04-18 13:24] MED LIST changes: -AMOX875T2 PO; -AZEL1SPR3 NARES; -CALC-356 PO; -CETI-24 PO; -DIPH-319 PO; -DOXY100T PO; -FLUTISP NARES; -ISOVUE-370 76% 100ML VIAL As Ordered ONE; -OXYB5TAB10 PO; -SILD100T PO; -VENL37.598 PO
[2021-04-18] MEDS ORDERED: NS 1,000 ML IV ONE ×2 (14:10→16:25)
[2021-04-18] MEDS ORDERED: LIDOCAINE 2% 5ML JELLY UROJET TOP ONE (14:15)
[2021-04-18 14:56] LABS: BASO % 0.6 % (0.0-1.0); EOS % 0.5 % (0.0-3.0); HEMATOCRIT 32.4 % (42.0-52.0); HEMOGLOBIN 11.6 g/dl (13.5-17.5); LYMPH # 0.9 10^3/uL (1.5-5.0); LYMPH % 13.4 % (24.0-44.0); MEAN CORPUSCULAR HEMOGLOBIN 33.4 pg (27.0-33.0); MEAN CORPUSCULAR HGB CONC 35.8 g/dl (32.0-36.5); MEAN CORPUSCULAR VOLUME 93.4 fl (80.0-96.0); MONO # 0.7 10^3/uL (0.0-0.8); MONO % 10.7 % (2.0-8.0); NEUTROPHILS # 4.7 10^3/uL (1.5-8.5); NEUTROPHILS % 74.2 % (36.0-66.0); PLATELET COUNT, AUTOMATED 133 10^3/uL (150-450); RED BLOOD COUNT 3.47 10^6/uL (4.30-6.10); WHITE BLOOD COUNT 6.3 10^3/uL (4.0-10.0)
--- NOTE | 2021-04-18 15:12 | REP ---
INDICATION: lump/abscess left testicle COMPARISON: None. TECHNIQUE: Castellanos scale and color Doppler evaluation using linear and curved array transducer with color Doppler evaluation. FINDINGS: Diffuse scrotal wall thickening is appreciated and there appears to be an 11 x 6 x 11 mm hypoechoic avascular nodule in the anterior left scrotal wall which may represent granuloma and is otherwise nonspecific in appearance. No obvious abscess or abnormal fluid collection is identified. The bilateral testicles are relatively normal in appearance and symmetric in vascularity. No intra testicular mass lesion, infectious/inflammatory process or torsion identified. A small right hydrocele is noted. 6 mm septated left epididymal head cyst is also identified. No further abnormalities are appreciated. Right testicle measures 3.5 x 2.0 x 1.8 cm. Left testicle measures 4.3 x 1.5 x 1.7 cm. IMPRESSION: 1. Nonspecific scrotal wall thickening and possible small 11 mm granuloma corresponding to "lump". 2. Further nonspecific and likely incidental findings as noted above. Testicles themselves appear relatively symmetric and within normal limits. <Electronically signed by Stephon Kennedy > 04/18/21 2181
[2021-04-18 15:17] LABS: INR 1.11; PROTHROMBIN TIME 14.5 SECONDS (12.5-14.3)
[2021-04-18 15:18] LABS: PARTIAL THROMBOPLASTIN TIME 31.5 SECONDS (24.2-38.5)
[2021-04-18 15:41] LABS: ALBUMIN 2.9 GM/DL (3.2-5.2); ALT/SGPT 288 U/L (12-78); BILIRUBIN,DIRECT 2.2 MG/DL (0.0-0.2); BILIRUBIN,TOTAL 2.8 MG/DL (0.2-1.0); BLOOD UREA NITROGEN 18 MG/DL (7-18); CALCIUM LEVEL 7.9 MG/DL (8.8-10.2); CARBON DIOXIDE LEVEL 23 MEQ/L (21-32); CHLORIDE LEVEL 92 MEQ/L (98-107); CREATININE FOR GFR 0.71 MG/DL (0.70-1.30); GLOMERULAR FILTRATION RATE > 60.0 (>49); GLUCOSE, FASTING 97 MG/DL (70-100); LIPASE 70 U/L (73-393); POTASSIUM SERUM 4.2 MEQ/L (3.5-5.1); SODIUM LEVEL 125 MEQ/L (136-145); TOTAL PROTEIN 6.9 GM/DL (6.4-8.2)
[2021-04-18] MEDS ORDERED: ISOVUE-370 76% 100ML VIAL As Ordered ONE (15:52)
[2021-04-18 16:45] LABS: BILIRUBIN, URINE MANUAL 1+ (NEGATIVE); GLUCOSE, URINE (UA) MANUAL NEGATIVE (NEGATIVE); KETONE, URINE MANUAL NEGATIVE (NEGATIVE); UROBILINOGEN, URINE MANUAL NORMAL (NORMAL)
--- NOTE | 2021-04-18 16:45 | REP ---
INDICATION: hematuria/urinary retention hx prostate ca. COMPARISON: Multiple the latest 01/30/2021 TECHNIQUE: Standard helical technique after the intravenous administration of 100 cc Isovue 370. FINDINGS: There is no change in the lung bases. Reticulonodular densities are again seen diffusely bilaterally status quo. There are no pleural or pericardial effusions. The gallbladder is full sized possibly mildly hydropic. There is cholelithiasis status quo. There is no abnormal gallbladder wall thickening or enhancement. There is no pericholecystic fatty infiltration or fluid. The liver and spleen are unchanged. There is hepatomegaly status quo. The pancreas, adrenal glands, and right kidney are unchanged and again seen to be within normal limits. The left kidney is pelvic in location status quo. Two small simple cysts are again seen the left kidney. The bowel loops are essentially unchanged and again seen to be within normal limits. There are left upper quadrant postoperative changes status quo. There is no evidence of free fluid or free air. There is no mass or adenopathy. The abdominal aorta and para-aortic regions are again seen to be within normal limits and unchanged. The urinary bladder marvin are diffusely thickened. A Blackburn balloon is seen within the urinary bladder. This represents a change from the prior exam. Just to the left of the umbilicus in the subcutaneous adipose there is an unchanged 2.5 cm sized low-density structure which is smoothly marginated and having near water density Hounsfield unit readings. Bone window technique throughout the exam again shows numerous blastic lesions in the axial and appendicular skeleton along with multiple right rib fractures the ages of which cannot be determined by this exam but appear to be healing/healed. Once again, there is evidence of posterior fixation at L4-5. IMPRESSION: 1. Abnormal thickening and enhancement of the urinary bladder marvin up to nearly 2 cm in thickness. Cystitis is suspected but needs to be correlated clinically with appropriate follow-up to resolution. 2. Enlarged gallbladder with cholelithiasis as described above. There is no CT evidence of acute cholecystitis. 3. Small subcutaneous cyst in the anterior abdomen as described above. 4. Evidence of widespread diffuse skeletal blastic metastasis. 5. Other findings and chronic changes as described above. <Electronically signed by Arnoldo Phillip > 04/18/21 2197
[2021-04-18 16:48] LABS: BACTERIA, URINE NONE SEEN; HYALINE CAST, URINE NONE SEEN /lpf (0-1); RBC, URINE TNTC /hpf (0-3); SQUAMOUS EPITHELIAL CELL URINE NONE SEEN /hpf (SMALL AMT)
[2021-04-18] MEDS ORDERED: VENL37.598 PO (17:19)
[2021-04-18] MEDS ORDERED: SILD100T PO (17:19)
[2021-04-18] MEDS ORDERED: AZEL1SPR3 NARES (17:19)
[2021-04-18] MEDS ORDERED: CALC-356 PO (17:19)
[2021-04-18] MEDS ORDERED: CETI-24 PO (17:19)
[2021-04-18] MEDS ORDERED: DIPH-319 PO (17:19)
[2021-04-18] MEDS ORDERED: FLUTISP NARES (17:19)
[2021-04-18 17:40] LABS: RSV AMPLIFICATION NEGATIVE (NEGATIVE)
[2021-04-18] MEDS ORDERED: CIPROFLOXACIN 400 MG in IV 1 EA IV ONE (18:10)
--- NOTE | 2021-04-18 18:24 | HPEPDOC ---
General Date of Admission Apr 18, 2021 at 17:47 Chief Complaint The patient is a 66-year-old male admitted with a reason for visit of Hematuria. History of Present Illness Pt known to urology. Metastatic prostate cancer, receiving hormonal therapy, specifically Eligard. Recent psa about 65. Presented to er because of hematuria. Catheter placed. Ct and scrotal us done. Thickened bladder wall with clot in bladder, pelvic left kidney, bone mets, thickened scrotal wall, no evidence of abscess. I was called and agreed to admit the pt. Labs noted - low sodium and chloride, elevated lfts, normal wbc and creatinine, elevated lactate. Home Medications Scheduled Azelastine HCl (Azelastine HCl) 0.1% [place].pump, 2 SPRAYS NARES BID, (Reported) Calcium Carbonate/Vitamin D3 (Calcium 600 mg-Vit D3 10Mcg Tb) 600 Mg-400 Tablet, 1 TAB PO DAILY, (Reported) Cetirizine HCl (Cetirizine HCl) 10 Mg Tablet, 10 MG PO DAILY, (Reported) Ergocalciferol (Vitamin D2) (Vitamin D2) 50,000 Units Cap, 50,000 UNITS PO QWEEK, (Reported) SUNDAYS Fluticasone Propionate (Fluticasone Propionate) 16 Gm [place].susp, 1 SPRAY NARES BID, (Reported) Omeprazole (Omeprazole) 40 Mg Capsule.dr, 40 MG PO DAILY, (Reported) Venlafaxine HCl (Venlafaxine HCl ER) 37.5 Mg Cap.er.24h, 37.5 MG PO DAILY, (Reported) Scheduled PRN Albuterol Sulfate (Albuterol Sulfate Hfa) 8.5 Gm Hfa.aer.ad, 2 PUFFS INH QID PRN for SOB/WHEEZING, (Reported) Cyclobenzaprine HCl (Cyclobenzaprine HCl) 10 Mg Tablet, 10 MG PO Q8H PRN for MUSCLE SPASMS, (Reported) Diphenhydramine HCl (Banophen) 25 Mg Capsule, 25 MG PO Q8H PRN for ITCHING, (Reported) Hydrocodone/Acetaminophen (Hydrocodone-Acetamin 5-325 mg) 1 Each Tablet, 1 TAB PO Q8H PRN for P, (Reported) Sildenafil Citrate (Sildenafil Citrate) 100 Mg Tablet, 100 MG PO ASDIRECTED PRN for ERECTILE DYSFUNCTION, (Reported) Allergies Coded Allergies: shellfish derived (Verified Allergy, Intermediate, itching, 01/24/21) Sulfa (Sulfonamide Antibiotics) (Verified Allergy, Mild, HIVES, 01/24/21) celecoxib (Verified Adverse Reaction, Mild, HEART RACES, 01/24/21) Vital Signs Vital Signs Date Time Temp Pulse Resp B/P (MAP) Pulse Ox O2 Delivery O2 Flow Rate FiO2 04/18/21 17:27 98.4 105 18 126/85 (99) 95 Room Air Laboratory Data Labs 24H Laboratory Tests 2 04/18/21 14:43: Immature Granulocyte % (Auto) 0.6, Neutrophils (%) (Auto) 74.2H, Lymphocytes (%) (Auto) 13.4L, Monocytes (%) (Auto) 10.7H, Eosinophils (%) (Auto) 0.5, Basophils (%) (Auto) 0.6, Neutrophils # (Auto) 4.7, Lymphocytes # (Auto) 0.9L, Monocytes # (Auto) 0.7, Eosinophils # (Auto) 0.0, Basophils # (Auto) 0.0, Nucleated Red Blood Cells % (auto) 0.0, Prothrombin Time 14.5H, Prothromb Time International Ratio 1.11, Activated Partial Thromboplast Time 31.5, Anion Gap 10, Glomerular Filtration Rate > 60.0, Lactic Acid Level 3.3*H, Calcium Level 7.9L, Total Bilirubin 2.8H, Direct Bilirubin 2.2H, Aspartate Amino Transf (AST/SGOT) 653H, Alanine Aminotransferase (ALT/SGPT) 288H, Alkaline Phosphatase 467H, Total Protein 6.9, Albumin 2.9L, Albumin/Globulin Ratio 0.7, Lipase 70L 04/18/21 16:01: Urine Color (DARNELL) REDH, Urine Appearance (DARNELL) TURBIDH, Urine pH (DARNELL) 8.0, Urine Specific [place] (DARNELL) 1.025, Urine Protein 3+H, Bedside Urine Glucose (UA) NEGATIVE, Bedside Urine Ketones (LAB) NEGATIVE, Bedside Urine Blood POSITIVEH, Bedside Urine Nitrite (LAB) NEGATIVE, Bedside Urine Bilirubin (LAB) 1+H, Bedside Urine Urobilinogen (LAB) NORMAL, Bedside Urine Leukocyte Esterase (L POSITIVEH, Urine Sediment Examination PERFORMED, Urine RBC TNTCH, Urine WBC 7 -10H, Urine Squamous Epithelial Cells NONE SEEN, Urine Bacteria NONE SEEN, Urine Hyaline Casts NONE SEEN 04/18/21 16:47: Coronavirus (COVID-19)(PCR) NEGATIVE, Influenza Type A (RT-PCR) NEGATIVE, Influenza Type B (RT-PCR) NEGATIVE, Respiratory Syncytial Virus (PCR) NEGATIVE CBC/BMP Laboratory Tests 04/18/21 14:43 Microbiology Microbiology 04/18/21 Urine Culture, Received Pending 04/18/21 Gram Stain - Final, Resulted 04/18/21 Wound Culture, Resulted Pending Assessment/Plan Ct suggests cystitis. Bladder wall thickened. Urine cx sent. Cipro started. Hematuria secondary to cystitis. Catheter placed. Irrigate as needed. Might need to go to OR for cysto with clot evacuation. Npo post midnight. Cxr and ekg if not already done. Hydrate with d5wns. Follow sodium and chloride. Chronic elevation of lfts. Plan / VTE VTE Prophylaxis Ordered?: Yes FARIHA LONGORIA MD Apr 18, 2021 18:24
--- NOTE | 2021-04-18 20:24 | REP ---
INDICATION: preop COMPARISON: 07/10/2018 TECHNIQUE: PA and lateral. FINDINGS: The mediastinum and cardiac silhouette are normal. The lung klein are clear and without acute consolidation, effusion, or pneumothorax. The skeletal structures are intact and normal. IMPRESSION: No acute cardiopulmonary process. <Electronically signed by Stephon Kennedy > 04/18/21 2020
[2021-04-18 21:15] VITALS: BP 135/92
[2021-04-18] MEDS: D5W/0.9% SODIUM CHLORIDE 1,000 ML IV SCH (22:39)
[2021-04-18] MEDS: oxyBUTYnin 5 MG TAB PO SCH (22:40)
[2021-04-18] MEDS: CIPROFLOXACIN 400 MG in IV 1 EA IV SCH (22:45)
[2021-04-18] MEDS ORDERED: NORCO, ANEXSIA 5/325MG TABLET (HYDROcodone/ACETAMINOPHEN) PO PRN (23:15)
[2021-04-19] VITALS (25 sets, daily range): BP systolic 124–166; BP diastolic 78–98
[2021-04-19] MEDS: NORCO, ANEXSIA 5/325MG TABLET (HYDROcodone/ACETAMINOPHEN) PO PRN ×3 (01:07→20:05)
[2021-04-19 05:42] LABS: HEMATOCRIT 22.3 % (42.0-52.0); HEMOGLOBIN 7.9 g/dl (13.5-17.5); MEAN CORPUSCULAR HEMOGLOBIN 34.6 pg (27.0-33.0); MEAN CORPUSCULAR HGB CONC 35.4 g/dl (32.0-36.5); MEAN CORPUSCULAR VOLUME 97.8 fl (80.0-96.0); PLATELET COUNT, AUTOMATED 106 10^3/uL (150-450); RED BLOOD COUNT 2.28 10^6/uL (4.30-6.10); WHITE BLOOD COUNT 7.7 10^3/uL (4.0-10.0)
[2021-04-19 06:09] LABS: ALBUMIN 2.5 GM/DL (3.2-5.2); ALT/SGPT 228 U/L (12-78); BILIRUBIN,TOTAL 3.8 MG/DL (0.2-1.0); BLOOD UREA NITROGEN 11 MG/DL (7-18); CALCIUM LEVEL 7.3 MG/DL (8.8-10.2); CARBON DIOXIDE LEVEL 24 MEQ/L (21-32); CHLORIDE LEVEL 100 MEQ/L (98-107); CREATININE FOR GFR 0.65 MG/DL (0.70-1.30); GLOMERULAR FILTRATION RATE > 60.0 (>49); GLUCOSE, FASTING 156 MG/DL (70-100); POTASSIUM SERUM 3.6 MEQ/L (3.5-5.1); SODIUM LEVEL 131 MEQ/L (136-145); TOTAL PROTEIN 5.8 GM/DL (6.4-8.2)
[2021-04-19] MEDS ORDERED: MORPHINE 4 MG/ML 1ML VIAL/SYRINGE (J2270) IV PRN (07:15)
--- NOTE | 2021-04-19 07:27 | IPNPDOC ---
Date Seen The patient was seen on 04/19/21. Progress Note pt seen and examined uncomfortable gross hematuria cbi not doing the job hgb about 7 needs transfusion needs cysto with clot evacuation tachycardic VS, I&O, 24H, Fishbone Vital Signs/I&O Vital Signs Date Time Temp Pulse Resp B/P (MAP) Pulse Ox O2 Delivery O2 Flow Rate FiO2 04/19/21 06:00 97.0 117 19 124/88 (100) 96 Room Air I&O- Last 24 Hours up to 6 AM 04/19/21 06:00 Intake Total 2000 ml Output Total 950 ml Balance 1050 ml Laboratory Data 24H LABS Laboratory Tests 2 04/18/21 14:43: Immature Granulocyte % (Auto) 0.6, Neutrophils (%) (Auto) 74.2H, Lymphocytes (%) (Auto) 13.4L, Monocytes (%) (Auto) 10.7H, Eosinophils (%) (Auto) 0.5, Basophils (%) (Auto) 0.6, Neutrophils # (Auto) 4.7, Lymphocytes # (Auto) 0.9L, Monocytes # (Auto) 0.7, Eosinophils # (Auto) 0.0, Basophils # (Auto) 0.0, Nucleated Red Blood Cells % (auto) 0.0, Prothrombin Time 14.5H, Prothromb Time International Ratio 1.11, Activated Partial Thromboplast Time 31.5, Anion Gap 10, Glomerular Filtration Rate > 60.0, Lactic Acid Level 3.3*H, Calcium Level 7.9L, Total Bilirubin 2.8H, Direct Bilirubin 2.2H, Aspartate Amino Transf (AST/SGOT) 653H, Alanine Aminotransferase (ALT/SGPT) 288H, Alkaline Phosphatase 467H, Total Protein 6.9, Albumin 2.9L, Albumin/Globulin Ratio 0.7, Lipase 70L 04/18/21 16:01: Urine Color (DARNELL) REDH, Urine Appearance (DARNELL) TURBIDH, Urine pH (DARNELL) 8.0, Urine Specific [place] (DARNELL) 1.025, Urine Protein 3+H, Bedside Urine Glucose (UA) NEGATIVE, Bedside Urine Ketones (LAB) NEGATIVE, Bedside Urine Blood POSITIVEH, Bedside Urine Nitrite (LAB) NEGATIVE, Bedside Urine Bilirubin (LAB) 1+H, Bedside Urine Urobilinogen (LAB) NORMAL, Bedside Urine Leukocyte Esterase (L POSITIVEH, Urine Sediment Examination PERFORMED, Urine RBC TNTCH, Urine WBC 7-10H, Urine Squamous Epithelial Cells NONE SEEN, Urine Bacteria NONE SEEN, U rine Hyaline Casts NONE SEEN 04/18/21 16:47: Coronavirus (COVID-19)(PCR) NEGATIVE, Influenza Type A (RT-PCR) NEGATIVE, Influenza Type B (RT-PCR) NEGATIVE, Respiratory Syncytial Virus (PCR) NEGATIVE 04/18/21 18:55: Lactic Acid Followup at 4 Hours 2.7*H 04/19/21 05:22: Nucleated Red Blood Cells % (auto) 0.0, Anion Gap 7L, Glomerular Filtration Rate > 60.0, Lactic Acid Level 1.8, Calcium Level 7.3L, Total Bilirubin 3.8H, Aspartate Amino Transf (AST/SGOT) 433H, Alanine Aminotransferase (ALT/SGPT) 228H, Alkaline Phosphatase 362H, Total Protein 5.8L, Albumin 2.5L, Albumin/Globulin Ratio 0.8 CBC/BMP Laboratory Tests 04/18/21 14:43 04/19/21 05:22 Microbiology Microbiology 04/18/21 Urine Culture, Received Pending 04/18/21 Gram Stain - Final, Resulted 04/18/21 Wound Culture, Resulted Pending FARIHA LONGORIA MD Apr 19, 2021 07:27
[2021-04-19] MEDS: D5W/0.9% SODIUM CHLORIDE 1,000 ML IV SCH ×2 (07:30→13:50)
[2021-04-19] MEDS ORDERED: fentaNYL 100 MCG/2 ML INJECTION (J3010) As Ordered ONE ×2 (08:20→08:59)
[2021-04-19] MEDS ORDERED: MIDAZOLAM INJ 2MG/2ML VIAL (J2250 PER 1MG) As Ordered ONE (08:20)
[2021-04-19] MEDS ORDERED: LIDOCAINE 2% 100MG/5ML SDV (FOR ANES.) As Ordered ONE (08:20)
[2021-04-19] MEDS ORDERED: ceFAZolin SOD 2 GM in IV 1 EA IV ONE (08:20)
[2021-04-19] MEDS ORDERED: ceFAZolin 2 GM/D5W 50 ML IV BAG (J0690 PER 500MG) As Ordered ONE (08:20)
[2021-04-19] MEDS ORDERED: propofoL 200 MG/20 ML VIAL As Ordered ONE ×2 (08:20→09:06)
[2021-04-19] MEDS ORDERED: ONDANSETRON 4MG/2ML VIAL As Ordered ONE (08:40)
[2021-04-19] MEDS ORDERED: dexameTHASONE 4 MG/ML 1ML VIAL (J1100 PER 1MG) As Ordered ONE (08:40)
[2021-04-19] MEDS ORDERED: PHENYLephrine 500MCG 5ML (100MCG/ML) SYRINGE As Ordered ONE (08:52)
--- NOTE | 2021-04-19 09:42 | RO ---
OPERATIVE NOTE DATE OF OPERATION: 04/19/2021 PREOPERATIVE DIAGNOSES: 1. Gross hematuria. 2. Urinary retention. POSTOPERATIVE DIAGNOSES: 1. Gross hematuria. 2. Urinary retention. 3. Scrotal abscess. PROCEDURES: Cystoscopy, clot evacuation, fulguration, incision and drainage of scrotal abscess. SURGEON: Jimmy Robledo MD. INGREDIENT SCALER: None. ANESTHESIA: General. OPERATIVE INDICATIONS: This is a 66-year-old male with metastatic prostate cancer who presented to the emergency room last night with gross hematuria and clot urinary retention. Since his hemoglobin dropped 4 points today and because of difficulties with urinary retention, it was recommended that he be brought to the operating room today for treatment. DESCRIPTION OF PROCEDURE: The patient was brought to the operating room and general anesthesia was inducted. Prophylactic antibiotics were infused. He was then prepped and draped in the usual sterile fashion. While the patient was being prepped and draped, it was noted that he had what appeared to be a small scrotal abscess on the left side of the scrotum. At this point, a resectoscope was inserted into the urethral meatus and advised to the bladder. There was a large amount of clot inside the bladder. This was evacuated out using a Urovac evacuator. Once all the clot was removed, the bladder was thoroughly examined, and no lesions were seen inside the bladder. Bilateral ureteral orifices were orthotopic and effluxed clear urine. There did appear to be a small amount of bleeding from his prostate. His prostate was very vascular. Given the suspicion that his bleeding started from his prosthetic urethra, I utilized a Plasma-Button to fulgurate all the enlarged blood vessels within the prostate. Once this was done, the resectoscope was removed and an 18-[place] Blackburn catheter was inserted into the bladder. The balloon was filled with 10 mL of sterile water and then the catheter was connected to gravity drainage. Once that was done, I turned my attention to the scrotal abscess. I then incised the abscess longitudinally and of note, there was not a large amount of fluid that drained out. I did obtain cultures from the base of the cavity. I then thoroughly irrigated the cavity with warm saline. Once that was done, this marked the conclusion of the procedure. The patient was then awakened from anesthesia and transported to the recovery room in stable condition. ESTIMATED BLOOD LOSS: 15 mL. COMPLICATIONS: None. SPECIMENS: Cultures of scrotal abscess. PLAN: The patient will be watched for the next few days and be transfused two units of packed red blood cells for the drop in his hemoglobin. He will be kept on antibiotics for scrotal abscess. We will ultimately take the catheter out once the hematuria has resolved. CELESTE
[2021-04-19] MEDS ORDERED: fentaNYL 100 MCG/2 ML INJECTION (J3010) IV PRN (09:45)
[2021-04-19] MEDS ORDERED: ONDANSETRON 4MG/2ML VIAL IV PRN (09:45)
[2021-04-19] MEDS ORDERED: LR 1,000 ML IV SCH (09:45)
[2021-04-19] MEDS ORDERED: METOCLOPRAMIDE INJ 10MG/2ML VIAL (J2765 PER 1) IV PRN (09:45)
[2021-04-19] MEDS ORDERED: oxyCODONE 5MG TAB PO PRN (09:45)
[2021-04-19] MEDS ORDERED: MEPERIDINE INJ 25 MG/ML VIAL (J2175) IV PRN (09:45)
[2021-04-19] MEDS ORDERED: LORazepam 2 MG TAB PO PRN (10:35)
[2021-04-19] MEDS ORDERED: ALBUTEROL 90 MCG/ACT 8GM HFA INHALER INH PRN (10:45)
[2021-04-19] MEDS ORDERED: CYCLOBENZAPRINE 10MG TABLET PO PRN (10:45)
--- NOTE | 2021-04-19 10:48 | HPEPDOC ---
[facility] Medical History & Physical Date of Admission Apr 18, 2021 Date of Service: Apr 19, 2021 History and Physical Chief complaint: Who presented to the emergency room with blood in his urine History of present illness: Patient is a 66-year-old male who presented to the emergency room with complaints of blood in his urine. Patient reported that hes been experiencing this problem over the last 2-3 weeks. Patient had also reported some lightheadedness and some suprapubic discomfort. Patient was initially admitted to the urology service on 04/18. Hospitalist service was contacted on 04/19 for transition to the service post cystoscopy. Patient was seen and examined in the recovery room. Currently he denies any chest pain or palpitations. Does report some shortness of breath with a mild cough. Denies any nausea or vomiting. Reports some loose stools. Denies any constipation. He denies any recent fevers or chills. Blackburn catheter is in place without any significant evidence of blood. Patient does report some lower back pain. Denies any upper abdominal pain. Past Medical History: DLP Eczema Arthritis Uveitis Hx of Pancreatitis (2013) Hx of Carcinoid rectal tumor GERD / Peptic ulcer disease (s/p Surgery 1980) Past Surgical History: Surgery for peptic ulcer 1980 Rectal surgery Colonoscopy (removal of benign polyps) ERCP w/ stent at [facility] Cystoscopy Left elbow surgery Allergies: See below Medications: See below Family History: - Family history was reviewed and noncontributory Social History: - Denies the use of illicit drugs; she reports that he is an active smoker, patient also reports that he drinks 4-5 beers daily seldom uses liquor - Denies recent travel or sick contacts - Lives alone - Occupation; [employer] Review of Systems: 10 point review of systems complete, all negative otherwise stated in HPI Physical exam: - Vitals: BP [150/82], HR [96], RR [16], Sat [99%RA], Temp [98.0F] - General: Lying in bed, Speaking in full sentences, AAOx3 - HEENT: NC, AT, PERRLA - CVS: Mildly tachycardic, +S1S2 - Lungs: Fair air entry bilaterally, No appreciable wheezing / rales / rhonchi - Abdomen: Soft, Non-distended, Non-tender - Extremities: No lower extremity edema, No calf tenderness - Neuro: No focal motor or sensory deficit - Skin: No visible rashes Labs: See below Imaging: Scrotal US 04/18: 1. Nonspecific scrotal wall thickening and possible small 11 mm granuloma corresponding to "lump". 2. Further nonspecific and likely incidental findings as noted above. Testicles themselves appear relatively symmetric and within normal limits. CT Abdomen / Pelvis 04/18: 1. Abnormal thickening and enhancement of the urinary bladder marvin up to nearly 2 cm in thickness. Cystitis is suspected but needs to be correlated clinically with appropriate follow-up to resolution. 2. Enlarged gallbladder with cholelithiasis as described above. There is no CT evidence of acute cholecystitis. 3. Small subcutaneous cyst in the anterior abdomen as described above. 4. Evidence of widespread diffuse skeletal blastic metastasis. 5. Other findings and chronic changes as described above. CXR 04/18: No acute cardiopulmonary process. EKG: See below Assessment and Plan: Hematuria - likely 2/2 metastatic prostate CA - Patient was recently diagnosed with metastatic prostate cancer - Hemoglobin has trended down since arrival - UA gross hematuria; Urine culture 04/18: Pending - s/p continuous bladder irrigation and cystoscopy with cauterization of the prostate on 04/19 - Blackburn catheter remains in place and is draining urine without any significant blood - c/w Ciprofloxacin (Day #2) Acute blood loss anemia - likely 2/2 above - Patients hemoglobin has trended down since arrival - Will be transfused 2 units of PRBC - Will continue to trend hemoglobin every 6 hours - May require additional transfusions; patient has been consented for additional blood Metastatic Prostate CA - Imaging consistent with metastatic spread - Patient follows with Dr. Robledo (Urology) and Dr. Meadows (Oncology) - Patient is currently on hormonal therapy - Will resume Cyclobenzaprine Transaminitis - Patient has had significantly elevated liver function on arrival with elevated bilirubin - Bilirubin noted to be elevated - Physical dose not reveal any tenderness in RUQ - Will get Liver US - Will get Hepatitis profile - Will continue to trend Thrombocytopenia - Possibly 2/2 acute blood loss / clotting - Hepatitis profile / HIV screen pending - Will continue to trend - Bleeding has stopped Hyponatremia - likely 2/2 hypotonic hypovolemic etiology 2/2 volume loss - Patients sodium has been slowly improving with IV fluid hydration - Will continue to follow s/p Lactic acidosis - likely 2/2 hypovolemia Reported alcohol abuse - Will start CIWA protocol - Will start Thiamine / Folate / MVI DLP - currently not on any medications Arthritis - c/w Tylenol PRN 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 Depression - c/w Venlafaxine GERD / Peptic ulcer disease - s/p Surgery 1980 - Will resume PPI DVT prophylaxis - Will c/w TEDs / Sequentials Vital Signs Vital Signs Date Time Temp Pulse Resp B/P (MAP) Pulse Ox O2 Delivery O2 Flow Rate FiO2 04/19/21 09:50 98.0 96 16 150/82 Room Air 04/19/21 09:45 99 Laboratory Data Labs 24H Laboratory Tests 2 04/18/21 14:43: Immature Granulocyte % (Auto) 0.6, Neutrophils (%) (Auto) 74.2H, Lymphocytes (%) (Auto) 13.4L, Monocytes (%) (Auto) 10.7H, Eosinophils (%) (Auto) 0.5, Basophils (%) (Auto) 0.6, Neutrophils # (Auto) 4.7, Lymphocytes # (Auto) 0.9L, Monocytes # (Auto) 0.7, Eosinophils # (Auto) 0.0, Basophils # (Auto) 0.0, Nucleated Red Blood Cells % (auto) 0.0, Prothrombin Time 14.5H, Prothromb Time International Ratio 1.11, Activated Partial Thromboplast Time 31.5, Anion Gap 10, Glomerular Filtration Rate > 60.0, Lactic Acid Level 3.3*H, Calcium Level 7.9L, Total Bilirubin 2.8H, Direct Bilirubin 2.2H, Aspartate Amino Transf (AST/SGOT) 653H, Alanine Aminotransferase (ALT/SGPT) 288H, Alkaline Phosphatase 467H, Total Protein 6.9, Albumin 2.9L, Albumin/Globulin Ratio 0.7, Lipase 70L 04/18/21 16:01: Urine Color (DARNELL) REDH, Urine Appearance (DARNELL) TURBIDH, Urine pH (DARNELL) 8.0, Urine Specific [place] (DARNELL) 1.025, Urine Protein 3+H, Bedside Urine Glucose (UA) NEGATIVE, Bedside Urine Ketones (LAB) NEGATIVE, Bedside Urine Blood POSITIVEH, Bedside Urine Nitrite (LAB) NEGATIVE, Bedside Urine Bilirubin (LAB) 1+H, Bedside Urine Urobilinogen (LAB) NORMAL, Bedside Urine Leukocyte Esterase (L POSITIVEH, Urine Sediment Examination PERFORMED, Urine RBC TNTCH, Urine WBC 7-10H, Urine Squamous Epithelial Cells NONE SEEN, Urine Bacteria NONE SEEN, Urine Hyaline Casts NONE SEEN 04/18/21 16:47: Coronavirus (COVID-19)(PCR) NEGATIVE, Influenza Type A (RT-PCR) NEGATIVE, Influenza Type B (RT-PCR) NEGATIVE, Respiratory Syncytial Virus (PCR) NEGATIVE 04/18/21 18:55: Lactic Acid Followup at 4 Hours 2.7*H 04/19/21 05:22: Nucleated Red Blood Cells % (auto) 0.0, Anion Gap 7L, Glomerular Filtration Rate > 60.0, Lactic Acid Level 1.8, Calcium Level 7.3L, Total Bilirubin 3.8H, Aspartate Amino Transf (AST/SGOT) 433H, Alanine Aminotransferase (ALT/SGPT) 228H, Alkaline Phosphatase 362H, Total Protein 5.8L, Albumin 2.5L, Albumin/Globulin Ratio 0.8 CBC/BMP Laboratory Tests 04/18/21 14:43 04/19/21 05:22 Microbiology Microbiology 04/19/21 Wound Culture, Received Pending 04/19/21 Anaerobic Culture, Received Pending 04/19/21 Gram Stain, Received Pending 04/19/21 Wound Culture, Received Pending 04/18/21 Urine Culture, Received Pending 04/18/21 Gram Stain - Final, Resulted 04/18/21 Wound Culture, Resulted Pending Home Medications Scheduled Azelastine HCl (Azelastine HCl) 0.1% [place].pump, 2 SPRAYS NARES BID Calcium Carbonate/Vitamin D3 (Calcium 600 mg-Vit D3 10Mcg Tb) 600 Mg-400 Tablet, 1 TAB PO DAILY Cetirizine HCl (Cetirizine HCl) 10 Mg Tablet, 10 MG PO DAILY Ergocalciferol (Vitamin D2) (Vitamin D2) 50,000 Units Cap, 50,000 UNITS PO QWEEK SUNDAYS Fluticasone Propionate (Fluticasone Propionate) 16 Gm [place].susp, 1 SPRAY NARES BID Omeprazole (Omeprazole) 40 Mg Capsule.dr, 40 MG PO DAILY Venlafaxine HCl (Venlafaxine HCl ER) 37.5 Mg Cap.er.24h, 37.5 MG PO DAILY Scheduled PRN Albuterol Sulfate (Albuterol Sulfate Hfa) 8.5 Gm Hfa.aer.ad, 2 PUFFS INH QID PRN for SOB/WHEEZING Cyclobenzaprine HCl (Cyclobenzaprine HCl) 10 Mg Tablet, 10 MG PO Q8H PRN for MUSCLE SPASMS Diphenhydramine HCl (Banophen) 25 Mg Capsule, 25 MG PO Q8H PRN for ITCHING Hydrocodone/Acetaminophen (Hydrocodone-Acetamin 5-325 mg) 1 Each Tablet, 1 TAB PO Q8H PRN for P Sildenafil Citrate (Sildenafil Citrate) 100 Mg Tablet, 100 MG PO ASDIRECTED PRN for ERECTILE DYSFUNCTION Allergies Coded Allergies: shellfish derived (Verified Allergy, Intermediate, itching, 01/24/21) Sulfa (Sulfonamide Antibiotics) (Verified Allergy, Mild, HIVES, 01/24/21) celecoxib (Verified Adverse Reaction, Mild, HEART RACES, 01/24/21) ALEX REDDING MD Apr 19, 2021 10:48
[2021-04-19 11:23] LABS: HEPATITIS B SURFACE ANTIGEN NEGATIVE (NEGATIVE)
[2021-04-19 11:50] LABS: HEPATITIS B CORE ANTIBODY IGM NEGATIVE (NEGATIVE); HEPATITIS C VIRUS ABY INDEX 0.2 INDEX (<0.8)
[2021-04-19 11:53] LABS: HEPATITIS A ANTIBODY IGM NEGATIVE (NEGATIVE)
[2021-04-19] MEDS: CIPROFLOXACIN 400 MG in IV 1 EA IV SCH ×2 (12:04→20:00)
--- NOTE | 2021-04-19 12:55 | REP ---
INDICATION: Transaminitis / Elevated bilirubin COMPARISON: 04/13/2019 TECHNIQUE: Real time yang scale ultrasound examination using curved array transducer. FINDINGS: Liver is hyperechoic with poor through transmission suggesting fatty infiltration and measures approximately 19 cm in craniocaudal length. No focal hepatic lesions are identified. Pancreas is incompletely evaluated due to interposed bowel gas. The gallbladder is markedly distended/hydropic measuring roughly 12 cm in length and 6 cm in diameter without gallstones, wall thickening, or pericholecystic fluid. The common bile duct is dilated to 9 mm without obvious obstructing cause. Right kidney is normal in reniform shape without hydronephrosis and measures 11.0 x 6.7 x 6.4 cm. No ascites in the visualized right upper quadrant. IMPRESSION: 1. Hepatomegaly and hepatosteatosis. 2. Distended hydropic appearance of the gallbladder and mild common bile duct dilatation without obvious further findings to suggest cholecystitis. <Electronically signed by Stephon Kennedy > 04/19/21 [id number]
[2021-04-19] MEDS: THIAMINE 100 MG TAB PO SCH ×2 (13:10→20:00)
[2021-04-19] MEDS: MULTIVITAMINS/MINERALS THERAP 1 TAB PO SCH (13:10)
[2021-04-19] MEDS: OMEPRAZOLE 20 MG CAP PO SCH (13:11)
[2021-04-19] MEDS: VENLAFAXINE **XR** 37.5 MG CAPSULE PO SCH (13:11)
[2021-04-19] MEDS: FOLIC ACID 1 MG TAB PO SCH (13:11)
[2021-04-19] MEDS: oxyBUTYnin 5 MG TAB PO SCH ×2 (13:15→20:00)
[2021-04-19 13:20] LABS: HIV 1&2 SCREEN CENTAUR NEGATIVE (NEGATIVE)
[2021-04-19] MEDS: metroNIDAZOLE 500 MG in IV 1 EA IV SCH ×2 (14:54→21:54)
[2021-04-19] MEDS ORDERED: CALCIUM CARBONATE 500 MG CHEW U/D PO PRN (17:55)
[2021-04-19] MEDS: AZELASTINE 137MCG NASAL SPY 30 ML (ASTELIN) SCH (20:00)
[2021-04-19] MEDS: FLUTICASONE PROP 0.05% NASAL SPRAY 16 GM (FLONASE) NARES SCH (20:00)
[2021-04-19 20:10] LABS: BASO % 0.1 % (0.0-1.0); HEMATOCRIT 30.2 % (42.0-52.0); LYMPH # 0.6 10^3/uL (1.5-5.0); LYMPH % 8.5 % (24.0-44.0); MEAN CORPUSCULAR HEMOGLOBIN 33.5 pg (27.0-33.0); MEAN CORPUSCULAR HGB CONC 34.4 g/dl (32.0-36.5); MEAN CORPUSCULAR VOLUME 97.4 fl (80.0-96.0); MONO # 1.1 10^3/uL (0.0-0.8); MONO % 16.2 % (2.0-8.0); NEUTROPHILS # 5.2 10^3/uL (1.5-8.5); NEUTROPHILS % 74.6 % (36.0-66.0)
[2021-04-19 20:12] LABS: HEMOGLOBIN 10.4 g/dl (13.5-17.5); PLATELET COUNT, AUTOMATED 93 10^3/uL (150-450)
[2021-04-19 20:47] LABS: ALT/SGPT 197 U/L (12-78); BLOOD UREA NITROGEN 8 MG/DL (7-18); CALCIUM LEVEL 7.7 MG/DL (8.8-10.2); CARBON DIOXIDE LEVEL 21 MEQ/L (21-32); CHLORIDE LEVEL 104 MEQ/L (98-107); GLOMERULAR FILTRATION RATE > 60.0 (>49); GLUCOSE, FASTING 191 MG/DL (70-100); POTASSIUM SERUM 3.8 MEQ/L (3.5-5.1); SODIUM LEVEL 135 MEQ/L (136-145)
[2021-04-19 20:48] LABS: ALBUMIN 2.4 GM/DL (3.2-5.2); BILIRUBIN,TOTAL 3.8 MG/DL (0.2-1.0); MAGNESIUM LEVEL 2.1 MG/DL (1.8-2.4); TOTAL PROTEIN 6.1 GM/DL (6.4-8.2)
[2021-04-20] MEDS: NORCO, ANEXSIA 5/325MG TABLET (HYDROcodone/ACETAMINOPHEN) PO PRN ×3 (00:42→18:43)
[2021-04-20 02:00] VITALS: BP 128/85
[2021-04-20] MEDS: D5W/0.9% SODIUM CHLORIDE 1,000 ML IV SCH ×3 (03:04→17:15)
[2021-04-20] MEDS: metroNIDAZOLE 500 MG in IV 1 EA IV SCH (05:11)
[2021-04-20 06:00] VITALS: BP_SYST 140; BP_SYST 149; BP_DIAS 79; BP_DIAS 89
[2021-04-20 06:02] LABS: BASO % 0.4 % (0.0-1.0); EOS % 0.2 % (0.0-3.0); HEMATOCRIT 27.7 % (42.0-52.0); HEMOGLOBIN 9.8 g/dl (13.5-17.5); LYMPH # 1.3 10^3/uL (1.5-5.0); LYMPH % 12.4 % (24.0-44.0); MEAN CORPUSCULAR HEMOGLOBIN 34.1 pg (27.0-33.0); MEAN CORPUSCULAR HGB CONC 35.4 g/dl (32.0-36.5); MEAN CORPUSCULAR VOLUME 96.5 fl (80.0-96.0); MONO # 1.6 10^3/uL (0.0-0.8); MONO % 14.9 % (2.0-8.0); NEUTROPHILS # 7.6 10^3/uL (1.5-8.5); NEUTROPHILS % 71.7 % (36.0-66.0); RED BLOOD COUNT 2.87 10^6/uL (4.30-6.10)
[2021-04-20 06:27] LABS: PLATELET COUNT, AUTOMATED 96 10^3/uL (150-450); WHITE BLOOD COUNT 10.6 10^3/uL (4.0-10.0)
[2021-04-20 06:33] LABS: ALBUMIN 2.6 GM/DL (3.2-5.2); ALT/SGPT 186 U/L (12-78); BILIRUBIN,TOTAL 3.7 MG/DL (0.2-1.0); BLOOD UREA NITROGEN 6 MG/DL (7-18); CALCIUM LEVEL 7.6 MG/DL (8.8-10.2); CARBON DIOXIDE LEVEL 22 MEQ/L (21-32); CHLORIDE LEVEL 106 MEQ/L (98-107); CREATININE FOR GFR 0.65 MG/DL (0.70-1.30); GLOMERULAR FILTRATION RATE > 60.0 (>49); GLUCOSE, FASTING 131 MG/DL (70-100); MAGNESIUM LEVEL 2.1 MG/DL (1.8-2.4); POTASSIUM SERUM 3.5 MEQ/L (3.5-5.1); SODIUM LEVEL 134 MEQ/L (136-145); TOTAL PROTEIN 5.8 GM/DL (6.4-8.2)
[2021-04-20] MEDS: THIAMINE 100 MG TAB PO SCH ×2 (08:24→21:10)
[2021-04-20] MEDS: oxyBUTYnin 5 MG TAB PO SCH ×2 (08:24→21:10)
[2021-04-20] MEDS: OMEPRAZOLE 20 MG CAP PO SCH (08:24)
[2021-04-20] MEDS: MULTIVITAMINS/MINERALS THERAP 1 TAB PO SCH (08:24)
[2021-04-20] MEDS: FOLIC ACID 1 MG TAB PO SCH (08:24)
[2021-04-20] MEDS: VENLAFAXINE **XR** 37.5 MG CAPSULE PO SCH (08:24)
[2021-04-20] MEDS: CIPROFLOXACIN 400 MG in IV 1 EA IV SCH (08:25)
[2021-04-20] MEDS: FLUTICASONE PROP 0.05% NASAL SPRAY 16 GM (FLONASE) NARES SCH ×2 (08:27→21:10)
[2021-04-20] MEDS: AZELASTINE 137MCG NASAL SPY 30 ML (ASTELIN) SCH ×2 (08:27→21:10)
--- NOTE | 2021-04-20 11:27 | IPNPDOC ---
Text Note Date of Service The patient was seen on 04/20/21. NOTE Subjective: Patient is a 66-year-old male who presented to the emergency room with complaints of blood in his urine. Patient reported that hes been experiencing this problem over the last 2-3 weeks. Patient had also reported some lightheadedness and some suprapubic discomfort. Patient was initially admitted to the urology service on 04/18. Hospitalist service was contacted on 04/19 for transition to the service post cystoscopy. Patient was seen and examined in the recovery room. Currently he denies any chest pain or palpitations. Does report some shortness of breath with a mild cough. Denies any nausea or vomiting. Reports some loose stools. Denies any co nstipation. He denies any recent fevers or chills. Blackburn catheter is in place without any significant evidence of blood. Patient does report some lower back pain. Denies any upper abdominal pain. Patient was seen and examined at the bedside. Patient reports that he is not experiencing any nausea, vomiting. Has not recently chest pain, shortness breath, palpitations. Reports some suprapubic abdominal tenderness has a Blackburn catheter in place. Denies any diarrhea. Objective: Vitals (See below) General: Patient is laying in bed, appears comfortable and without any acute distress, is awake, alert, oriented 3 HEENT: NC, AT CVS: +S1S2 Lungs: Fair air entry b/l, no evidence of wheezing, rales or rhonchi Abdomen: Soft, nondistended, tenderness of suprapubic area is noted Extremities: Lower extremities are without any edema, - Calf tenderness Imaging: Scrotal US 04/18: 1. Nonspecific scrotal wall thickening and possible small 11 mm granuloma corresponding to "lump". 2. Further nonspecific and likely incidental findings as noted above. Testicles themselves appear relatively symmetric and within normal limits. CT Abdomen / Pelvis 04/18: 1. Abnormal thickening and enhancement of the urinary bladder marvin up to nearly 2 cm in thickness. Cystitis is suspected but needs to be correlated clinically with appropriate follow-up to resolution. 2. Enlarged gallbladder with cholelithiasis as described above. There is no CT evidence of acute cholecystitis. 3. Small subcutaneous cyst in the anterior abdomen as described above. 4. Evidence of widespread diffuse skeletal blastic metastasis. 5. Other findings and chronic changes as described above. CXR 04/18: No acute cardiopulmonary process. Liver US 04/19: 1. Hepatomegaly and hepatosteatosis. 2. Distended hydropic appearance of the gallbladder and mild common bile duct dilatation without obvious further findings to suggest cholecystitis. Assessment and plan: Hematuria - likely 2/2 metastatic prostate CA - Patient was recently diagnosed with metastatic prostate cancer - H&H improved since transfusion - UA gross hematuria; Urine culture 04/18: Pending - rhythm with evidence of 2 different strep bacteria possible enterococcus - s/p continuous bladder irrigation and cystoscopy with cauterization of the prostate on 04/19 - Blackburn catheter remains in place; continue to put out urine - Will DC Ciprofloxacin (Day #2); Will start Augmentin (Day #1) Scrotal abscess - s/p I&D with Dr. Robledo on 04/19 - Scrotal cultures 04/18: Staphylococcus species, Corynebacterium species - Antibiotics adjusted (see above) Acute blood loss anemia - likely 2/2 above - Patients hemoglobin has trended down since arrival - s/p 2 units of PRBC - Will continue to trend H&H q6h Metastatic Prostate CA - Imaging consistent with metastatic spread - Patient follows with Dr. Robledo (Urology) and Dr. Meadows (Oncology) - Patient is currently on hormonal therapy - c/w Cyclobenzaprine Transaminitis - Patient has had significantly elevated liver function on arrival with elevated bilirubin - Bilirubin noted to be elevated - Physical dose not reveal any tenderness in RUQ - Liver US noted above - Hepatitis profile negative - Will get MRCP today Thrombocytopenia - Possibly 2/2 acute blood loss / clotting - Hepatitis profile / HIV screen negative - Will continue to trend - Bleeding has stopped Hyponatremia - likely 2/2 hypotonic hypovolemic etiology 2/2 volume loss - Has improved and essentially normalized s/p Lactic acidosis - likely 2/2 hypovolemia Reported alcohol abuse - c/w CIWA protocol - c/w Thiamine / Folate / MVI DLP - Currently not on any medications Arthritis - c/w Tylenol PRN 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
--- NOTE | 2021-04-20 12:05 | REP ---
INDICATION: Elevated bilirubin. COMPARISON: Comparison is made with CT study and ultrasound exam from April 18 and April 19, 2021 respectively.. TECHNIQUE: Axial and coronal T2 weighted scans are acquired. MRCP acquisition is acquired and maximum intensity projection images are generated. FINDINGS: No focal liver mass lesion is seen. The spleen is unremarkable. No pancreatic mass or cyst is observed. There is a tiny cortical cyst in the lower pole the right kidney. The left kidney was noted to be ectopic in the pelvis on recent CT study. This is not in the field of view the MRCP exam. Tail of the pancreas is seen to extend through a defect in the posteromedial aspect of the left diaphragm as on CT study. No pancreatic mass or cyst is seen. The main pancreatic duct is mildly prominent, 4 mm. The common bile duct is normal in caliber measuring 5 mm in greatest diameter. There is no evidence of choledocholithiasis. The gallbladder is quite distended. There is a solitary 6 mm rounded filling defect in the dependent portion of the gallbladder consistent with gallstones. There is also some layering material in the dependent portion the gallbladder consistent with sludge. Gallbladder wall does not appear to be thickened and no pericholecystic fluid or ascites is seen. No adrenal abnormality is observed. IMPRESSION: 1. Dilated gallbladder as seen on CT and ultrasound images. 2. Cholelithiasis with sludge. 3. Normal CBD caliber. No evidence of choledocholithiasis. 4. Mildly prominent main pancreatic duct, 4 mm. No pancreatic mass or cyst is seen. 5. Bochdalek's hernia in the left diaphragm transmit ink the pancreatic tail. 6. Pelvic ectopic left kidney. <Electronically signed by Wm Acharya > 04/20/21 [id number]
[2021-04-20] MEDS: AUGMENTIN 875 MG TAB PO SCH ×2 (12:07→21:10)
[2021-04-20 13:18] LABS: HEMATOCRIT 27.5 % (42.0-52.0); HEMOGLOBIN 9.3 g/dl (13.5-17.5)
[2021-04-20 14:00] VITALS: BP 147/90
[2021-04-20 14:42] VITALS: BP 147/90
--- NOTE | 2021-04-20 14:51 | IPNPDOC ---
Subjective Review oF Systems Chief Complaint The patient is a 66-year-old male admitted with a reason for visit of Hematuria. Events since Last Encounter No acute events o/n. Patient notes his pain is much better. No n/v. His ca theter did not require any additional irrigation since his surgery. No f/c/ns. Objective Physical Examination General Exam: Alert, Cooperative, No Acute Distress ABDOMEN EXAM: Soft; No: Tenderness Skin Exam: Nl turgor and temperature Neuro Exam: Normal Speech Psych Exam: Mental status NL, Mood NL Other physical findings catheter draining tea colored urine; scrotal wound w/ improving edema and no drainage - mildly tender Vital Signs/I&O Vital Signs Date Time Temp Pulse Resp B/P (MAP) Pulse Ox O2 Delivery O2 Flow Rate FiO2 04/20/21 06:00 80 149/79 04/20/21 06:00 97.8 20 96 Room Air 04/19/21 09:55 10.0 I&O- Last 24 Hours up to 6 AM 04/20/21 06:00 Intake Total 5565 ml Output Total 2800 ml Balance 2765 ml Laboratory Data Labs 24H Laboratory Tests 2 04/19/21 19:59: Immature Granulocyte % (Auto) 0.6, Neutrophils (%) (Auto) 74.6H, Lymphocytes (%) (Auto) 8.5L, Monocytes (%) (Auto) 16.2H, Eosinophils (%) (Auto) 0.0, Basophils (%) (Auto) 0.1, Neutrophils # (Auto) 5.2, Lymphocytes # (Auto) 0.6L, Monocytes # (Auto) 1.1H, Eosinophils # (Auto) 0.0, Basophils # (Auto) 0.0, Nucleated Red Blood Cells % (auto) 0.3H, Immature Platelet Fraction 8.2, Anion Gap 10, Glomerular Filtration Rate > 60.0, Calcium Level 7.7L, Magnesium Level 2.1, Total Bilirubin 3.8H, Aspartate Amino Transf (AST/SGOT) 328H, Alanine Aminotransferase (ALT/SGPT) 197H, Alkaline Phosphatase 337H, Total Protein 6.1L, Albumin 2.4L, Albumin/Globulin Ratio 0.6 04/20/21 05:32: Immature Granulocyte % (Auto) 0.4, Neutrophils (%) (Auto) 71.7H, Lymphocytes (%) (Auto) 12.4L, Monocytes (%) (Auto) 14.9H, Eosinophils (%) (Auto) 0.2, Basophils (%) (Auto) 0.4, Neutrophils # (Auto) 7.6, Lymphocytes # (Auto) 1.3L, Monocytes # (Auto) 1.6H, Eosinophils # (Auto) 0.0, Basophils # (Auto) 0.0, Nucleated Red Blood Cells % (auto) 0.0, Anion Gap 6L, Glomerular Filtration Rate > 60.0, Calcium Level 7.6L, Magnesium Level 2.1, Total Bilirubin 3.7H, Aspartate Amino Transf (AST/SGOT) 305H, Alanine Aminotransferase (ALT/SGPT) 186H, Alkaline Phosphatase 327H, Total Protein 5.8L, Albumin 2.6L, Albumin/Globulin Ratio 0.8 04/20/21 07:19: CBC/BMP Laboratory Tests 04/19/21 19:59 04/20/21 05:32 Microbiology Microbiology 04/19/21 Gram Stain - Final, Resulted 04/19/21 Wound Culture, Resulted Pending 04/19/21 Anaerobic Culture, Resulted Pending 04/18/21 Urine Culture, Worksheet Pending 04/18/21 Gram Stain - Final, Resulted 04/18/21 Wound Culture, Resulted Pending Assessment/Plan Date Seen The patient was seen on 04/20/21. Patient Summary This is a 66 y/o M w/ metastatic prostate cancer admitted w/ gross hematuria and clot urinary retention, POD2 s/p cysto, clot evacuation, and I&D of scrotal abscess. Hb 9.8. Urine has old blood in draining in the catheter. He is doing well. Plan/VTE VTE Prophylaxis Ordered?: Yes Plan - d/c catheter - daily dressing changes for scrotal wound - augmentin for scrotal abscess - patient has a f/u appt in my office on 05/22 - patient should continue f/u w/ medical oncology FRED HAQ MD Apr 20, 2021 08:56
[2021-04-20 18:26] LABS: HEMOGLOBIN 9.4 g/dl (13.5-17.5)
[2021-04-20 22:00] VITALS: BP 147/93
[2021-04-21 00:18] LABS: HEMATOCRIT 24.7 % (42.0-52.0); HEMOGLOBIN 8.5 g/dl (13.5-17.5)
[2021-04-21] MEDS: D5W/0.9% SODIUM CHLORIDE 1,000 ML IV SCH (01:52)
[2021-04-21 06:00] VITALS: BP 132/87
[2021-04-21 06:11] LABS: BASO % 0.4 % (0.0-1.0); EOS # 0.1 10^3/uL (0.0-0.5); EOS % 0.6 % (0.0-3.0); HEMATOCRIT 25.1 % (42.0-52.0); HEMOGLOBIN 8.5 g/dl (13.5-17.5); LYMPH % 13.5 % (24.0-44.0); MEAN CORPUSCULAR HEMOGLOBIN 33.1 pg (27.0-33.0); MEAN CORPUSCULAR HGB CONC 33.9 g/dl (32.0-36.5); MEAN CORPUSCULAR VOLUME 97.7 fl (80.0-96.0); MONO # 0.9 10^3/uL (0.0-0.8); MONO % 12.2 % (2.0-8.0); NEUTROPHILS # 5.6 10^3/uL (1.5-8.5); NEUTROPHILS % 72.5 % (36.0-66.0); PLATELET COUNT, AUTOMATED 117 10^3/uL (150-450); RED BLOOD COUNT 2.57 10^6/uL (4.30-6.10); WHITE BLOOD COUNT 7.7 10^3/uL (4.0-10.0)
[2021-04-21 06:32] LABS: ALBUMIN 2.4 GM/DL (3.2-5.2); ALT/SGPT 152 U/L (12-78); BILIRUBIN,TOTAL 2.9 MG/DL (0.2-1.0); BLOOD UREA NITROGEN 4 MG/DL (7-18); CALCIUM LEVEL 7.3 MG/DL (8.8-10.2); CARBON DIOXIDE LEVEL 25 MEQ/L (21-32); CHLORIDE LEVEL 103 MEQ/L (98-107); CREATININE FOR GFR 0.43 MG/DL (0.70-1.30); GLOMERULAR FILTRATION RATE > 60.0 (>49); GLUCOSE, FASTING 116 MG/DL (70-100); SODIUM LEVEL 134 MEQ/L (136-145); TOTAL PROTEIN 5.5 GM/DL (6.4-8.2)
[2021-04-21] MEDS ORDERED: POTASSIUM CHLORIDE 10 MEQ SR TABLET PO ONE ×2 (07:05→10:00)
[2021-04-21] MEDS: FOLIC ACID 1 MG TAB PO SCH (07:54)
[2021-04-21] MEDS: MULTIVITAMINS/MINERALS THERAP 1 TAB PO SCH (07:54)
[2021-04-21] MEDS: VENLAFAXINE **XR** 37.5 MG CAPSULE PO SCH (07:54)
[2021-04-21] MEDS: OMEPRAZOLE 20 MG CAP PO SCH (07:54)
[2021-04-21] MEDS: oxyBUTYnin 5 MG TAB PO SCH (07:54)
[2021-04-21] MEDS: THIAMINE 100 MG TAB PO SCH (07:54)
[2021-04-21] MEDS: AUGMENTIN 875 MG TAB PO SCH (07:54)
[2021-04-21] MEDS: FLUTICASONE PROP 0.05% NASAL SPRAY 16 GM (FLONASE) NARES SCH (08:28)
[2021-04-21] MEDS: AZELASTINE 137MCG NASAL SPY 30 ML (ASTELIN) SCH (08:28)
[2021-04-21] MEDS ORDERED: DOXYCYCLINE HYCLATE 100MG TABLET PO SCH (09:00)
[2021-04-21 12:21] LABS: HEMATOCRIT 24.9 % (42.0-52.0); HEMOGLOBIN 8.4 g/dl (13.5-17.5)
[2021-04-21] MEDS: NORCO, ANEXSIA 5/325MG TABLET (HYDROcodone/ACETAMINOPHEN) PO PRN (13:10)
[2021-04-21] MEDS ORDERED: AMOX875T2 PO (14:43)
[2021-04-21] MEDS ORDERED: DOXY100T PO (14:43)
[2021-04-21] MEDS ORDERED: OXYB5TAB10 PO (14:43)
--- NOTE | 2021-04-21 15:00 | DS.PDOC ---
Discharge Summary General Date of Admission Apr 18, 2021 at 17:47 Date of Discharge 04/21/2021 Discharge Summary PROCEDURES PERFORMED DURING STAY: [None]. ADMITTING DIAGNOSES / DISCHARGE DIAGNOSES: Hematuria - likely 2/2 metastatic prostate CA Scrotal abscess Acute blood loss anemia - likely 2/2 above Metastatic Prostate CA Transaminitis - possibly 2/2 alcohol, less likely 2/2 stone, infectious etiology Thrombocytopenia - Possibly 2/2 acute blood loss / clotting Hyponatremia - likely 2/2 hypotonic hypovolemic etiology 2/2 volume loss s/p Lactic acidosis - likely 2/2 hypovolemia Reported alcohol abuse DLP Arthritis Hx of Carcinoid rectal tumor Depression GERD / Peptic ulcer disease DVT prophylaxis COMPLICATIONS/CHIEF COMPLAINT: Hematuria. HISTORY OF PRESENT ILLNESS: Patient is a 66-year-old male who presented to the emergency room with complaints of blood in his urine. Patient reported that hes been experiencing this problem over the last 2-3 weeks. Patient had also reported some li ghtheadedness and some suprapubic discomfort. Patient was initially admitted to the urology service on 04/18. Hospitalist service was contacted on 04/19 for transition to the service post cystoscopy. Patient was seen and examined in the recovery room. Currently he denies any chest pain or palpitations. Does report some shortness of breath with a mild cough. Denies any nausea or vomiting. Reports some loose stools. Denies any constipation. He denies any recent fevers or chills. Blackburn catheter is in place without any significant evidence of blood. Patient does report some lower back pain. Denies any upper abdominal pain. Patient was seen and examined at the bedside. Currently patient reports that he feels relatively fine, was eating breakfast is anxious to get home. Denies any chest pain, shortness breath, palpitations, nausea, vomiting or abdominal pain. Patient has a Blackburn catheter in and is draining yellow urine. Patient has worked with physical therapy again this afternoon and they have recommended that he: Home with a 4 wheeled rolling walker and has 24/7 supervision while at home. I have discussed with his girlfriend, Charli Kraus - reports she can provide the majority of the 24/7 care while she is there, and when she goes to work, she can have a family member be there with him for assistance. HOSPITAL COURSE: Hematuria - likely 2/2 metastatic prostate CA - Patient was recently diagnosed with metastatic prostate cancer - No further hematuria noted - UA gross hematuria; Urine culture 04/18: Pending - rhythm with evidence of 2 different strep bacteria possible enterococcus - s/p continuous bladder irrigation and cystoscopy with cauterization of the prostate on 04/19 - Patient will be discharged home with Blackburn catheter in place - Will c/w Augmentin and Doxycycline on discharge; s/p Ciprofloxacin (Day #2); Scrotal abscess - s/p I&D with Dr. Robledo on 04/19 - Scrotal cultures 04/18: Staphylococcus species, Corynebacterium species - Antibiotics adjusted (see above) Acute blood loss anemia - likely 2/2 above - Patients hemoglobin has trended down since arrival; has improved after transfusions - No evidence of further bleeding noted - s/p 2 units of PRBC Metastatic Prostate CA - Imaging consistent with metastatic spread - Patient follows with Dr. Robledo (Urology) and Dr. Meadows (Oncology) - Patient is currently on hormonal therapy - c/w Cyclobenzaprine Transaminitis - possibly 2/2 alcohol, less likely 2/2 stone, infectious etiology - Liver function has trended down since hospitalization - Bilirubin noted to be elevated - Physical without any tenderness in RUQ - Hepatitis profile negative - Imaging noted above - Patient has been advised to abstain from the use of alcohol - Will have outpatient follow up with PCP for referral to GI Thrombocytopenia - Possibly 2/2 acute blood loss / clotting - Hepatitis profile / HIV screen negative - Has remained stable Hyponatremia - likely 2/2 hypotonic hypovolemic etiology 2/2 volume loss - Has improved and essentially normalized s/p Lactic acidosis - likely 2/2 hypovolemia Reported alcohol abuse - c/w CIWA protocol - c/w Thiamine / Folate / MVI DLP - Currently not on any medications Arthritis - c/w Tylenol PRN 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 ALLERGIES: Please see below. PHYSICAL EXAMINATION ON DISCHARGE: Vitals (See below) General: Lying in bed, appears comfortable, AAOx3 HEENT: NC, AT CVS: +S1S2 Lungs: Fair air entry b/l, no wheezing, rales or rhonchi Abdomen: Soft, ND, NT Extremities: No evidence of edema, - Calf tenderness LABORATORY DATA: Please see below. IMAGING: Scrotal US 04/18: 1. Nonspecific scrotal wall thickening and possible small 11 mm granuloma corresponding to "lump". 2. Further nonspecific and likely incidental findings as noted above. Testicles themselves appear relatively symmetric and within normal limits. CT Abdomen / Pelvis 04/18: 1. Abnormal thickening and enhancement of the urinary bladder marvin up to nearly 2 cm in thickness. Cystitis is suspected but needs to be correlated clinically with appropriate follow-up to resolution. 2. Enlarged gallbladder with cholelithiasis as described above. There is no CT evidence of acute cholecystitis. 3. Small subcutaneous cyst in the anterior abdomen as described above. 4. Evidence of widespread diffuse skeletal blastic metastasis. 5. Other findings and chronic changes as described above. CXR 04/18: No acute cardiopulmonary process. Liver US 04/19: 1. Hepatomegaly and hepatosteatosis. 2. Distended hydropic appearance of the gallbladder and mild common bile duct dilatation without obvious further findings to suggest cholecystitis. ACTIVITY: [As tolerated]. DISCHARGE PLAN: Follow-up with primary care provider within the next 7 days Follow-up with urology and oncology within the next 7 days Remain compliant with treatment plan and medications Abstain from use of alcohol Return to the ER if you experiencing problems DISPOSITION: Home with 13/05 Care DISCHARGE CONDITION: [Stable]. TIME SPENT ON DISCHARGE: 35 minutes. Vital Signs/I&Os Vital Signs Date Time Temp Pulse Resp B/P (MAP) Pulse Ox O2 Delivery O2 Flow Rate FiO2 04/21/21 13:10 17 04/21/21 06:00 98.3 101 132/87 (102) 98 Room Air 04/19/21 09:55 10.0 I&O- Last 24 Hours up to 6 AM 04/21/21 06:00 Intake Total 2420 ml Output Total 1490 ml Balance 930 ml Laboratory Data Labs 24H Laboratory Tests 2 04/21/21 05:20: Immature Granulocyte % (Auto) 0.8, Neutrophils (%) (Auto) 72.5H, Lymphocytes (%) (Auto) 13.5L, Monocytes (%) (Auto) 12.2H, Eosinophils (%) (Auto) 0.6, Basophils (%) (Auto) 0.4, Neutrophils # (Auto) 5.6, Lymphocytes # (Auto) 1.0L, Monocytes # (Auto) 0.9H, Eosinophils # (Auto) 0.1, Basophils # (Auto) 0.0, Nucleated Red Blood Cells % (auto) 0.3H, Anion Gap 6L, Glomerular Filtration Rate > 60.0, Calcium Level 7.3L, Magnesium Level 2.0, Total Bilirubin 2.9H, Aspartate Amino Transf (AST/SGOT) 222H, Alanine Aminotransferase (ALT/SGPT) 152H, Alkaline Phosphatase 291H, Total Protein 5.5L, Albumin 2.4L, Albumin/Globulin Ratio 0.8 CBC/BMP Laboratory Tests 04/20/21 18:10 04/20/21 23:56 04/21/21 05:20 04/21/21 12:04 Microbiology Microbiology 04/19/21 Gram Stain - Final, Resulted 04/19/21 Wound Culture, Resulted Pending 04/19/21 Anaerobic Culture, Resulted Pending 04/18/21 Urine Culture - Preliminary, Resulted Aerococcus Urinae 04/18/21 Gram Stain - Final, Resulted 04/18/21 Wound Culture - Preliminary, Resulted Staphylococcus Sp Coag Neg Corynebacterium Species Discharge Medications Scheduled Amoxicillin/Potassium Clav (Amox-Clav 875-125 mg Tablet) 1 Each Tablet, 875 MG PO BID Azelastine HCl (Azelastine HCl) 0.1% Springer.pump, 2 SPRAYS NARES BID, (Reported) Calcium Carbonate/Vitamin D3 (Calcium 600 mg-Vit D3 10Mcg Tb) 600 Mg-400 Tablet, 1 TAB PO DAILY, (Reported) Cetirizine HCl (Cetirizine HCl) 10 Mg Tablet, 10 MG PO DAILY, (Reported) Doxycycline Hyclate (Doxycycline Hyclate) 100 Mg Tablet, 100 MG PO BID Ergocalciferol (Vitamin D2) (Vitamin D2) 50,000 Units Cap, 50,000 UNITS PO QWEEK, (Reported) SUNDAYS Fluticasone Propionate (Fluticasone Propionate) 16 Gm Springer.susp, 1 SPRAY NARES BID, (Reported) Omeprazole (Omeprazole) 40 Mg Capsule.dr, 40 MG PO DAILY, (Reported) Oxybutynin Chloride (Oxybutynin Chloride) 5 Mg Tablet, 5 MG PO BID Venlafaxine HCl (Venlafaxine HCl ER) 37.5 Mg Cap.er.24h, 37.5 MG PO DAILY, (Reported) Scheduled PRN Albuterol Sulfate (Albuterol Sulfate Hfa) 8.5 Gm Hfa.aer.ad, 2 PUFFS INH QID PRN for SOB/WHEEZING, (Reported) Cyclobenzaprine HCl (Cyclobenzaprine HCl) 10 Mg Tablet, 10 MG PO Q8H PRN for MUSCLE SPASMS, (Reported) Diphenhydramine HCl (Banophen) 25 Mg Capsule, 25 MG PO Q8H PRN for ITCHING, (Reported) Hydrocodone/Acetaminophen (Hydrocodone-Acetamin 5-325 mg) 1 Each Tablet, 1 TAB PO Q8H PRN for P, (Reported) Allergies Coded Allergies: shellfish derived (Verified Allergy, Intermediate, itching, 01/24/21) Sulfa (Sulfonamide Antibiotics) (Verified Allergy, Mild, HIVES, 01/24/21) celecoxib (Verified Adverse Reaction, Mild, HEART RACES, 01/24/21) ALEX REDDING MD Apr 21, 2021 14:59
[2021-04-21 20:08] LABS: ANA (HEP2) Positive (.); ANTI-MITOCHONDRIAL ANTIBODY <20.0 Units (0.0-20.0); ANTI-SMOOTH MUSCLE ANTIBODY 7 Units (0-19); ANTINUCLEAR ANTIBODIES DIRECT Negative (Negative)
== END 2021-04-21 19:53 | disposition home health service (06) | DRG 666 ==
LOC: M ED 13:24 → M ED INP 17:47 → ENRESERV 19:36 → M MSPAV 21:16
PROVIDERS: ADMIT Urology; ATTEND Internal Medicine
PROC: 0V95XZZ Drainage of Scrotum, External Approach (ICD-10-PCS; 2021-04-19)
PROC: 0TCB8ZZ Extirpation of Matter from Bladder, Via Natural or Artificial Opening Endoscopic (ICD-10-PCS; 2021-04-19)
PROC: 0V508ZZ Destruction of Prostate, Via Natural or Artificial Opening Endoscopic (ICD-10-PCS; principal; 2021-04-19 08:30)
DX: N30.01 Acute cystitis with hematuria (principal); D62 Acute posthemorrhagic anemia; E87.1 Hypo-osmolality and hyponatremia; E87.2 Acidosis; C61 Malignant neoplasm of prostate; Z79.899 Other long term (current) drug therapy; R74.01 Elevation of levels of liver transaminase levels; M19.90 Unspecified osteoarthritis, unspecified site; N49.2 Inflammatory disorders of scrotum; L30.9 Dermatitis, unspecified; E78.5 Hyperlipidemia, unspecified; F10.10 Alcohol abuse, uncomplicated; K21.9 Gastro-esophageal reflux disease without esophagitis; D69.6 Thrombocytopenia, unspecified; Z88.8 Allergy status to other drugs, medicaments and biological substances; Z91.013 Allergy to seafood; Z20.822 Contact with and (suspected) exposure to COVID-19; Z85.040 Personal history of malignant carcinoid tumor of rectum; Z88.2 Allergy status to sulfonamides

== ENCOUNTER → 2021-04-25 | Outpatient (CLI) | payer OTHER ==
[~2021-04-25] MED LIST changes: +AMOX875T2 PO; +AZEL1SPR3 NARES; +CALC-356 PO; +CETI-24 PO; +DIPH-319 PO; +DOXY100T PO; +FLUTISP NARES; +OXYB5TAB10 PO; +SILD100T PO; +VENL37.598 PO
--- NOTE | 2021-04-27 03:57 | ECWPNPC ---
PATIENT NAME: FABIOLA MORENO : 1955 GENDER: MALE VISIT DATE: 04/25/2021 DISCHARGE DATE: 04/25/21 1002 VISIT LOCKED DATE TIME: PHYSICIAN: ALONSO GILES PHYSICIAN PAGER NO: ACTIVE RESOURCE: ALONSO GILES REASON FOR APPOINTMENT 1. 3 MONTH BACK PAIN HISTORY OF PRESENT ILLNESS GENERAL: HPI 66-YEAR-OLD MALE IN FOR CHRONIC PAIN FOLLOW-UP. HE RATES HIS PAIN CURRENTLY AT A 10 OUT OF 10 AND DESCRIBES IT ACHING, BURNING, AND CONTINUOUS. PATIENT FEELS THE INCREASED PAIN IS DUE TO RECENT BLADDER SURGERY. HE FEELS HIS MEDICATIONS ARE HELPFUL AND DENIES MED SIDE EFFECTS AT THIS TIME.. -. FALL RISK SCREENING: SCREENING 4 FALL THIS YEAR ,DID NOT GO TO THE ER FOR ANY OF THEM, NO MAJOR INJUIRES. PAIN SCREENING: PATIENT HAS A COMPLAINT OF ACUTE OR CHRONIC PAIN :YES LOCATION OF PAIN:LOW BACK INTENSITY OF PAIN (SCALE OF 1 TO 10):10 WHAT DOES YOUR PAIN FEEL LIKE:ACHING, BURNING, CONTINOUS, TENDER, THROBBING, SORE, SHOOTING DURATION:CONTINOUS, CONSTANT, ALL DAY PAIN IS INCREASED BY:ACTIVITIES, PROLONGED STANDING PAIN IS DECREASED BY:USE OF PAIN MEDICATIONS NURSING NOTE: -. PAIN CENTER INTAKE QUESTIONS: DO YOU HAVE A HISTORY OF MRSA? :NO DO YOU TAKE A BLOOD THINNERS? :NO DO YOU HAVE ANY BLEEDING DISORDERS? :NO ANY NEW NUMBNESS OR WEAKNESS IN YOUR LEGS OR ARMS? :YES IN BOTH ARMS AND LEGS, MORE PAIN ON THE RIGHT SIDE OF THE BODY ANY PACEMAKER,DEFIBRILLATOR, OR DORSAL COLUMN STIMULATOR? :NO DO YOU HAVE ANY RASHES OR OPEN SORES? :NO ARE YOU ALLERGIC TO IV DYE? :YES ARE YOU DIABETIC? :NO ANY NEW PROBLEMS WITH YOUR MEDICATIONS? :NO HAVE YOU RECEIVED A VACCINE IN THE PAST 30 DAYS? :NO DO YOU PLAN TO RECEIVE A VACCINE IN THE NEXT 21 DAYS? :NO DO YOU NEED ANY PRESCRIPTION? :NO DO YOU TAKE ANY IMMUNOSUPPRESSIVE MEDICATIONS? :NO DO YOU HAVE ANY KIDNEY OR LIVER DISEASE? :NO IS THERE A CHANCE YOU COULD BE ? :NO ARE YOU BREAST FEEDING? :NO CURRENT MEDICATIONS TAKING EPIPEN 2-ARMAAN 0.3 MG/0.3ML SOLUTION AUTO-INJECTOR INJECT 0.3ML BY INTRAMUSCULARLY ROUTE ONCE NEEDED FOR ANAPHYLAXIS INJECTION TAKING NEBULIZER - DEVICE DIRECTED DX: J43.1 THREE TIMES DAILY TAKING NEBULIZER/TUBING/MOUTHPIECE - KIT DIRECTED DX: J43.1 THREE TIMES DAILY NEEDED TAKING VITAMIN B-12 500 MCG TABLET 1 TABLET ORALLY ONCE A DAY TAKING FOLIC ACID _ TABLET 400 MGS 1 TABLET ORALLY ONCE A DAY TAKING HYDROCORTISONE VALERATE 0.2 % CREAM 1 APPLICATION TO AFFECTED AREA ON ARMS AND CHEST EXTERNALLY ONCE OR TWICE A DAY NEEDED TAKING COLACE 100 MG CAPSULE 1 CAPSULE NEEDED ORALLY ONCE A DAY NEEDED TAKING FIBERCON 625 MG TABLET 1 TABLET WITH WATER ORALLY DAILY TAKING ALBUTEROL SULFATE (2.5 MG/3ML) 0.083% NEBULIZATION SOLUTION 3 ML NEEDED INHALATION EVERY 8 HRS TAKING GABAPENTIN 400 MG CAPSULE 1 CAPSULE ORALLY THREE TIMES DAILY, NOTES: TAKING ONLY ONCE A WEEK TAKING MUCINEX 600 MG TABLET EXTENDED RELEASE 1 TABLET NEEDED ORALLY EVERY 12 HRS TAKING SUDAFED 30 MG TABLET 1 TABLET NEEDED FOR CONGESTION ORALLY EVERY 6 HRS TAKING VENTOLIN HFA 108 (90 BASE) MCG/ACT AEROSOL SOLUTION INHALE TWO PUFFS BY MOUTH EVERY 4 TO 6 HOURS NEEDED FOR COUGH AND DYSPNEA INHALATION TAKING FLONASE 50 MCG/ACT SUSPENSION 1 SPRAY IN EACH NOSTRIL NASALLY TWICE A DAY TAKING FLOVENT DISKUS 100 MCG/BLIST AEROSOL POWDER BREATH ACTIVATED 1 PUFF INHALATION TWICE A DAY TAKING MULTI MAX _ 1 TAB ORALLY DAILY TAKING PHYSICAL THERAPY EVALUATE AND TREAT PHYSICAL THERAPY DIRECTED M47.81, CHRONIC PAIN EVAL FOR MOBILITY DEVICE TAKING AZELASTINE HCL 0.1 % SOLUTION SPRAY 2 SPRAYS IN EACH NOSTRIL NASAL TWICE DAILY TAKING FLUTICASONE PROPIONATE 50 MCG/ACT SUSPENSION SPRAY 1 SPRAY IN EACH NOSTRIL TWICE A DAY TAKING CETIRIZINE HCL 10 MG TABLET 1 TABLET ORALLY ONCE A DAY TAKING VIAGRA 100 MG TABLET 1 TABLET NEEDED ORALLY ONCE A DAY TAKING OMEPRAZOLE 40 MG CAPSULE DELAYED RELEASE 1 CAPSULE ORALLY ONCE A DAY BEFORE MEAL TAKING ERGOCALCIFEROL 44963 UNIT CAPSULE 1 CAPSULE ORALLY ONCE A WEEK WITH MEAL TAKING EFFEXOR XR 37.5 MG CAPSULE EXTENDED RELEASE 24 HOUR 1 CAPSULE WITH FOOD ORALLY ONCE A DAY TAKING HYDROCODONE-ACETAMINOPHEN 5-325 MG TABLET 1 TAB ORAL Q8H PRN MDD3 TAKING CYCLOBENZAPRINE HCL 10 MG TABLET 1 TABLET NEEDED ORALLY THREE TIMES A DAY TAKING BENADRYL 25 MG CAPSULE 1 CAPSULE NEEDED FOR ITCHING ORALLY EVERY 8 HRS TAKING SHOWER CHAIR WITHOUT WHEELS DIRECTED DX: DAILY USE TAKING CALCIUM + D 600-400 MG-UNIT TABLET 1 TABLET WITH FOOD ORALLY DAILY TAKING CALCIUM CARB-CHOLECALCIFEROL 600-400 MG-UNIT TABLET TAKE ONE TABLET BY MOUTH EVERY DAY WITH FOOD NOT-TAKING VIAGRA 100 MG TABLET 1 TABLET NEEDED ORALLY ONCE A DAY NOT-TAKING COMPRESSION STOCKINGS 20-30 MMHG DIRECTED TOPICALLY KNEE HIGH DX: R60.0 DAILY ON IN AM, OFF AT HS NOT-TAKING CIPRO 500 MG TABLET 1 TABLET ORALLY EVERY 12 HRS NOT-TAKING FLEET ENEMA 7-19 GM/118ML ENEMA DIRECTED RECTAL ONCE DIRECTED NOT-TAKING CIPRO 500 MG TABLET 1 TABLET ORALLY ONCE DONE THE DAY OF OFFICE PROCEDURE NOT-TAKING FLEET ENEMA 7-19 GM/118ML ENEMA DIRECTED RECTAL ONCE THE MORNING OF PROCEDURE NOT-TAKING NICOTINE 14 MG/24HR PATCH 24 HOUR 1 PATCH TO SKIN IN AM OFF AT HS TRANSDERMAL ONCE A DAY NOT-TAKING NICOTINE 7 MG/24HR PATCH 24 HOUR 1 PATCH TO SKIN TRANSDERMAL ONCE A DAY MEDICATION LIST REVIEWED AND RECONCILED WITH THE PATIENT PAST MEDICAL HISTORY LOW BACK PAIN TENDINITIS SHOULDER ALLERGIES/ ECZEMA PEPTIC ULCER DISEASE HYPERLIPIDEMIA, MIXED UVEITIS ESOPHAGEAL REFLUX HIATAL HERNIA OSTEOARTHRITIS CARCINOID RECTAL TUMOR MIGRAINE HEADACHES PANCREATITIS 03/03 URINARY FREQUENCY RIGHT LEG PAIN PROSTATE CANCER EDEMA IN LEGS AND FEET 4 FALL THIS YEAR ,DID NOT GO TO THE ER FOR ANY OF THEM, NO MAJOR INJUIRES ALLERGIES CELEBREX: HYPER - SIDE EFFECTS SULFA: HIVES - ALLERGY CYMBALTA: NAUSEA/VOMITING - SIDE EFFECTS TRAMADOL: GI UPSET - SIDE EFFECTS SHELL FISH: HIVES - ALLERGY PRAVASTATIN SODIUM: ELEVATED LFT - SIDE EFFECTS IV DYE: UNSURE LYRICA: HEART PALPITATIONS - SIDE EFFECTS SURGICAL HISTORY ULCER 81 HAND SURGERY R 91,09 RECTAL CANCER 05 COLONOSCOPY WITH HX BENIGN POLYP, DIVERTICULOSIS, INTERNAL HEMORRHOIDS - HEATHER, F/UP 10YRS 2024 04,09, 10/31,10/04 EGD -HEATHER , 10/31 LEFT THUMB 09 TESTICLE REMOVAL 81,86 ERCP WITH STENT - [facility] KOHLER 04-05-14 CYSTOSCOPY 07-02-17 LEFT ELBOW SURGERY 02/04 L4-L5, L5-S1 DECOMPRESSION FUSION-DR. MATHEW CYSTOSCOPY SURG 03/2021 FAMILY HISTORY FATHER: UNKNOWN MOTHER: 66 YRS, DIAGNOSED WITH HYPERTENSION, UNSPECIFIED HEART DISEASE, DIABETES 2 BROTHER(S) - HEALTHY. 1DAUGHTER(S) . NO KNOWN FAMILY HISTORY OF ANY UROLOGICALLY RELATED DISEASES/CANCERS. SOCIAL HISTORY GENERAL: TOBACCO USE ARE YOU A:CURRENT SMOKER PT GOES BETWEEN PATCH AND SMOKING, TRYING TO QUIT ARE YOU INTERESTED IN QUITTING?THINKING ABOUT QUITTING COUNSELED THE PATIENT ON SMOKING CESSATION, EDUCATION [id number]/06/2021 LATEX QUESTIONNAIRE LATEX ALLERGY : HAVE YOU EVER DEVELOPED ANY TYPE OF REACTION AFTER HANDLING LATEX PRODUCTS SUCH RUBBER GLOVES, CONDOMS, DIAPHRAGMS, BALLOONS, SOCKS, OR UNDERWEAR?NO LATEX ALLERGY : HAVE YOU EVER DEVELOPED ANY TYPE OF REACTION DURING OR AFTER DENTAL APPOINTMENT, VAGINAL/RECTAL EXAMINATION, SURGICAL PROCEDURE, OR ANY OTHER EXPOSURE?NO LATEX RISK : HAVE YOU EVER HAD ANY DIFFICULTY BREATHING OR HIVES AFTER EATING OR HANDLING ANY FRUITS, OR VEGETABLES; SUCH KIWI, BANANAS, STONE FRUITS, OR CHESTNUTSNO LATEX RISK : DO YOU HAVE A PREVIOUS PERSONAL HISTORY OF MORE THAN NINE SURGERIES, SPINA BIFIDA, OR REPEATED CATHERIZATIONS? NO LATEX RISK : ARE YOU FREQUENTLY EXPOSED TO LATEX PRODUCTS IN YOUR OCCUPATION?NO DATE ASKED : 04/25/2021 ALCOHOL USE: MODERATE. MORE THAN A 12 PACK A WEEK. LUNG CANCER SCREENING SMOKING STATUS:CURRENT SMOKER IS THE PATIENT BETWEEN THE AGE OF 55 AND 77?YES HAS THE PATIENT EVER BEEN DIAGNOSED WITH LUNG CANCER?NO PACK YEARS = NUMBER OF PACKS PER DAY SMOKED X NUMBER OF YEARS SMOKED:35 CREATE REFERRAL:GENERATE AND CREATE REFERRAL TO THE ONCOLOGY NURSE NAVIGATOR (SMP) LISTING USING THE LDCT SCAN PROCEDURE ALCOHOL SCREENING DID YOU HAVE A DRINK CONTAINING ALCOHOL IN THE PAST YEAR?YES HOW OFTEN DID YOU HAVE SIX OR MORE DRINKS ON ONE OCCASION IN THE PAST YEAR?NEVER (0 POINTS) HOW MANY DRINKS DID YOU HAVE ON A TYPICAL DAY WHEN YOU WERE DRINKING IN THE PAST YEAR?1 OR 2 (0 POINTS) HOW OFTEN DID YOU HAVE A DRINK CONTAINING ALCOHOL IN THE PAST YEAR?TWO TO THREE TIMES PER WEEK (3 POINTS) POINTS3 INTERPRETATIONNEGATIVE RECREATIONAL DRUG USE DRUG USE?NO CAFFEINE CAFFEINE USE?NO SEXUAL HX HAD SEX IN THE LAST 12 MONTHS (VAGINAL, ORAL, OR ANAL)?YES WITHWOMEN ONLY USE PROTECTION?YES HOW OFTEN?ALL OF THE TIME HAVE YOU EVER HAD AN STD?NO HIV / HEP-C SCREENING HIV TEST OFFERED TO PATIENT:YES DATE OFFERED:11/08/2016 TEST ACCEPTED:NO HEP-C TEST OFFERED TO PATIENT:YES DATE OFFERED:11/08/2016 REASON:PATIENT DECLINED TEST ACCEPTED:NO REASON:PATIENT DECLINED WORSHIP [id number] OTHER LANGUAGE LANGUAGES SPOKEN:YORUBA EDUCATION LEVEL OF EDUCATION:HIGH SCHOOL LEARNING BARRIERS / SPECIAL NEEDS CHANGE FROM LAST VISIT?NO BARRIERS TO LEARNING?NO HEARING IMPAIRED?YES : SOMETIMES VISION IMPAIRED?YES :CORRECTIVE LENSES COGNITIVELY IMPAIRED?NO READINESS TO LEARN?YES LEARNING PREFERENCES?YES :TAPES/VIDEOS, BOOKLETS, HANDOUTS LEARNING CAPABILITIES PRESENT?YES EMOTIONAL BARRIERS?NO SPECIAL DEVICES?YES :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 DIET: REGULAR. EXERCISE: WALKS. MARITAL STATUS: .. - HAS THE PATIENT BEEN EDUCATED REGARDING HIS/HER PLAN OF CARE?YES HAS THE PATIENT BEEN EDUCATED REGARDING PAIN, THE RISK FOR PAIN, THE IMPORTANCE OF EFFECTIVE PAIN MANAGEMENT, AND THE PAIN ASSESSMENT PROCESS?YES ADVANCE DIRECTIVE ADVANCE DIRECTIVE DISCUSSED WITH PATIENT:YES PT STATES HE HAS THE INFORMATION ON HCP BUT HASN'T FILLED IT OUT YET. HELP OFFERED IN COMPLETING IT IF NEEDED. HELP DECLINED AT THIS TIME. HOSPITALIZATION/MAJOR DIAGNOSTIC PROCEDURE PANCREATITIS- TIMMY 03/05/14 SURGERIES CYSTOSCOPY 03/2021 REVIEW OF SYSTEMS CONSTITUTIONAL: ANY RECENT FEVER NO . CHILLS NO . WEIGHT CHANGE OF UNKNOWN REASONS NO . GASTROENTEROLOGY: NEW UNEXPLAINABLE CHANGES IN BOWEL CONTROL NO . CONSTIPATION NO . GENITOURINARY: ANY NEW CHANGE IN BLADDER CONTROL? NO . NEUROLOGY: NEW ONSET DIZZINESS OR NEUROLOGICAL CHANGES NOT MENTIONED NO . NEW NUMBNESS OR PAIN PATTERNS NOT MENTIONED AND PERTINENT TO TODAY'S VISIT NO . CARDIOLOGY: NEW CHEST PRESSURE NO . PATIENT DENIES NO . RESPIRATORY: UNEXPLAINABLE COUGH NO . NEW SHORTNESS OF BREATH NO . VITAL SIGNS WT 171 LBS, HT 70.75 IN, BMI 24.02 INDEX, BP 133/71 MM HG, HR 88 /MIN, RR 19 /MIN, TEMP 97 F, OXYGEN SAT % 98%, SAFE IN ENV? (Y/N) YEST.AMBER MENDEZ. EXAMINATION GENERAL EXAMINATION: GENERALNO ACUTE DISTRESS, WELL NOURISHED AND HYDRATED. PSYCHAPPROPRIATE MOOD AND AFFECT . LUNGS:CLEAR TO AUSCULTATION BILATERALLY, NO WHEEZES, RHONCHI, RALES. HEART:NO MURMURS, REGULAR RATE AND RHYTHM. ASSESSMENTS INTERVERTEBRAL DISC DISORDERS WITH RADICULOPATHY, LUMBAR REGION - M51.16 (PRIMARY), RISK: (NULL) TREATMENT INTERVERTEBRAL DISC DISORDERS WITH RADICULOPATHY, LUMBAR REGION REFILL HYDROCODONE-ACETAMINOPHEN TABLET, 5-325 MG, 1 TAB, ORAL, Q8H PRN MDD3, 30 DAY(S), 90, REFILLS 0 REFILL CYCLOBENZAPRINE HCL TABLET, 10 MG, 1 TABLET NEEDED, ORALLY, THREE TIMES A DAY, 90 DAY(S), 270 TABLET(S), REFILLS 1 NOTES: 66-YEAR-OLD MALE IN FOR CHRONIC PAIN FOLLOW-UP. GIVEN PRESENTING SYMPTOMS RECOMMEND CONTINUATION OF CURRENT MEDICATION REGIMEN WITH FOLLOW-UP IN 3 MONTHS. PATIENT HAS EXPRESSED UNDERSTANDING OF AND WAS IN AGREEMENT WITH TREATMENT PLAN. GIVEN TIME TO ASK QUESTIONS AND EXPRESS CONCERNS. ISTOP REGISTRY REVIEWED AND DEMONSTRATES COMPLLIANCE. (REF # [id number] ) BRINGS IN MEDICATIONS WHICH IS APPROPRIATE FOR WHAT WAS DISPENSED. RECENT URINE TOXICOLOGY REVIEWED. NO UNAUTHORIZED MEDICATIONS. NO ILLICIT SUBSTANCES AND PRESCRIBED MEDICATIONS WERE PRESENT. PROCEDURE CODES [id number] ESTABILISHED PATIENT [facility] CHARGE DISPOSITION & COMMUNICATION FOLLOW UP 3 MONTHS (REASON: BACK PAIN ) ELECTRONICALLY SIGNED BY ANDRES LEAVITT ON 04/26/2021 AT 08:17 AM EDT DISCLAIMER : THIS IS A VISIT SUMMARY EXTRACTED FROM THE [employer] CHART. IT IS NOT A COPY OF THE TOK.[employer] PROGRESS NOTE. CELESTE
== END ==
LOC: M PAIN 09:45
PROVIDERS: ATTEND Family Medicine
DX: M51.16 Intervertebral disc disorders with radiculopathy, lumbar region (principal); E78.5 Hyperlipidemia, unspecified; K21.9 Gastro-esophageal reflux disease without esophagitis; M19.90 Unspecified osteoarthritis, unspecified site; G43.909 Migraine, unspecified, not intractable, without status migrainosus; Z85.46 Personal history of malignant neoplasm of prostate; J30.9 Allergic rhinitis, unspecified; L30.9 Dermatitis, unspecified; R60.0 Localized edema; F17.210 Nicotine dependence, cigarettes, uncomplicated; Z85.040 Personal history of malignant carcinoid tumor of rectum; Z79.891 Long term (current) use of opiate analgesic; Z79.899 Other long term (current) drug therapy; Z88.2 Allergy status to sulfonamides; Z88.5 Allergy status to narcotic agent; Z88.8 Allergy status to other drugs, medicaments and biological substances; Z91.013 Allergy to seafood; Z91.041 Radiographic dye allergy status

== ENCOUNTER → 2021-05-17 | Outpatient (CLI) | payer OTHER ==
[~2021-05-17] MED LIST changes: -PSEU30TA85 PO; +PSEU30TA86 PO
== END ==
LOC: M PLALAB 10:52
PROVIDERS: ATTEND Nurse Practitioner Family
DX: C61 Malignant neoplasm of prostate (principal)
CPT/HCPCS: 36415; 84153; 99406; G0463

== ENCOUNTER → 2021-07-19 | Outpatient (CLI) | payer OTHER ==
[~2021-07-19] MED LIST changes: +DOXE10CA PO; +DOXY-443 PO; -DOXY1CAP62 PO
== END ==
LOC: M PLALAB 10:04
PROVIDERS: ATTEND Nurse Practitioner Family
DX: E55.9 Vitamin D deficiency, unspecified (principal); Z79.899 Other long term (current) drug therapy; F17.218 Nicotine dependence, cigarettes, with other nicotine-induced disorders; K21.9 Gastro-esophageal reflux disease without esophagitis; J43.9 Emphysema, unspecified; J30.89 Other allergic rhinitis
CPT/HCPCS: 36415; 82306; 99406; G0463

== ENCOUNTER 2021-07-21 07:40 | Emergency (ER) | payer OTHER ==
[~2021-07-21] VITALS: Ht 177.8 cm; Wt 72.8 kg
[~2021-07-21 07:40] MED LIST changes: -DOXE10CA PO; -DOXY-443 PO; +DOXY1CAP62 PO
[2021-07-21] MEDS ORDERED: DOXEPIN 25 MG CAP PO ONE (08:35)
[2021-07-21] MEDS ORDERED: DOXE10CA PO (09:03)
[2021-07-21 10:39] VITALS: BP 144/89
== END 2021-07-21 10:42 | disposition home or self-care (01) ==
LOC: M ED 07:40
DX: L29.8 Other pruritus (principal); R21 Rash and other nonspecific skin eruption; F17.200 Nicotine dependence, unspecified, uncomplicated; Z79.899 Other long term (current) drug therapy; Z79.51 Long term (current) use of inhaled steroids; Z88.2 Allergy status to sulfonamides; Z88.1 Allergy status to other antibiotic agents; Z88.8 Allergy status to other drugs, medicaments and biological substances; Z91.013 Allergy to seafood; Z85.46 Personal history of malignant neoplasm of prostate; Z85.040 Personal history of malignant carcinoid tumor of rectum

== ENCOUNTER → 2021-09-19 | Outpatient (CLI) | payer OTHER ==
[~2021-09-19] MED LIST changes: +CALC-190 PO; +DOXE10CA PO; +DOXY-443 PO; -DOXY1CAP62 PO; +LOSA25TA13 PO; -MONT10TA10 PO; +MONT10TA97 PO; -OMEP-221 PO; +OMEP40CA5 PO; +RA M200C4 PO; +XTAN40CA PO
== END ==
LOC: M PAIN 09:30
PROVIDERS: ATTEND Anesthesiology
DX: M51.16 Intervertebral disc disorders with radiculopathy, lumbar region (principal); E78.5 Hyperlipidemia, unspecified; K21.9 Gastro-esophageal reflux disease without esophagitis; K44.9 Diaphragmatic hernia without obstruction or gangrene; G43.909 Migraine, unspecified, not intractable, without status migrainosus; C61 Malignant neoplasm of prostate; J43.9 Emphysema, unspecified; Z85.038 Personal history of other malignant neoplasm of large intestine; F17.200 Nicotine dependence, unspecified, uncomplicated; Z79.891 Long term (current) use of opiate analgesic; Z79.899 Other long term (current) drug therapy; Z88.2 Allergy status to sulfonamides; Z88.5 Allergy status to narcotic agent; Z88.8 Allergy status to other drugs, medicaments and biological substances; Z91.013 Allergy to seafood; Z91.041 Radiographic dye allergy status

== ENCOUNTER → 2021-10-06 | Outpatient (CLI) | payer OTHER | LOC: M RAD 17:11 | PROVIDERS: ATTEND Internal Medicine Hematology & Oncology | DX: Z53.9 Procedure and treatment not carried out, unspecified reason (principal) ==

== ENCOUNTER → 2022-01-17 | Outpatient (CLI) | payer MEDICARE, OTHER ==
[~2022-01-17] MED LIST changes: +SENN-80 PO
== END ==
LOC: M PAIN 10:00
PROVIDERS: ATTEND Nurse Practitioner Family
DX: M51.16 Intervertebral disc disorders with radiculopathy, lumbar region (principal); C61 Malignant neoplasm of prostate; C79.51 Secondary malignant neoplasm of bone; E78.2 Mixed hyperlipidemia; K21.9 Gastro-esophageal reflux disease without esophagitis; G43.909 Migraine, unspecified, not intractable, without status migrainosus; J43.1 Panlobular emphysema; K76.0 Fatty (change of) liver, not elsewhere classified; R91.8 Other nonspecific abnormal finding of lung field; F17.210 Nicotine dependence, cigarettes, uncomplicated; F17.200 Nicotine dependence, unspecified, uncomplicated; Z79.891 Long term (current) use of opiate analgesic; Z79.899 Other long term (current) drug therapy; Z88.2 Allergy status to sulfonamides; Z88.8 Allergy status to other drugs, medicaments and biological substances; Z91.041 Radiographic dye allergy status; Z91.013 Allergy to seafood; Z88.5 Allergy status to narcotic agent

== ENCOUNTER 2022-02-06 10:00 | Outpatient (RCR) | payer MEDICARE, OTHER | END 2022-02-17 | LOC: M PT 10:00 | PROVIDERS: ATTEND Internal Medicine Hematology & Oncology | DX: M79.641 Pain in right hand (principal); M79.642 Pain in left hand ==

== ENCOUNTER → 2022-03-01 | Outpatient (CLI) | payer MEDICARE, OTHER | LOC: M RAD 15:25 | PROVIDERS: ATTEND Physician Assistant | DX: K40.90 Unilateral inguinal hernia, without obstruction or gangrene, not specified as recurrent (principal); R19.09 Other intra-abdominal and pelvic swelling, mass and lump ==

== ENCOUNTER → 2022-05-08 | Outpatient (CLI) | payer MEDICARE, OTHER ==
[~2022-05-08] VITALS: Ht 177.8 cm; Wt 80.6 kg
[~2022-05-08] MED LIST changes: +EPIP0.3I2 IM; +GABA-1171 PO; +NEUR100C PO
[2022-05-08 10:16] VITALS: BP 146/89
== END ==
LOC: M PAL 09:35
PROVIDERS: ATTEND Nurse Practitioner Adult Health
DX: C61 Malignant neoplasm of prostate (principal); C79.51 Secondary malignant neoplasm of bone; G89.29 Other chronic pain; M79.10 Myalgia, unspecified site; G89.3 Neoplasm related pain (acute) (chronic); M51.16 Intervertebral disc disorders with radiculopathy, lumbar region; G62.9 Polyneuropathy, unspecified; J44.9 Chronic obstructive pulmonary disease, unspecified; Z85.040 Personal history of malignant carcinoid tumor of rectum; F17.210 Nicotine dependence, cigarettes, uncomplicated; Z90.79 Acquired absence of other genital organ(s); Z79.51 Long term (current) use of inhaled steroids; R06.02 Shortness of breath; Z88.1 Allergy status to other antibiotic agents; Z88.2 Allergy status to sulfonamides; Z88.8 Allergy status to other drugs, medicaments and biological substances; Z91.013 Allergy to seafood; Z92.29 Personal history of other drug therapy; Z79.891 Long term (current) use of opiate analgesic; Z79.899 Other long term (current) drug therapy; Z66 Do not resuscitate; R29.6 Repeated falls

== ENCOUNTER → 2022-05-14 | Outpatient (CLI) | payer MEDICARE, OTHER | LOC: M PAIN 11:15 | PROVIDERS: ATTEND Nurse Practitioner Family | DX: M51.16 Intervertebral disc disorders with radiculopathy, lumbar region (principal); E78.2 Mixed hyperlipidemia; K21.9 Gastro-esophageal reflux disease without esophagitis; K27.9 Peptic ulcer, site unspecified, unspecified as acute or chronic, without hemorrhage or perforation; K44.9 Diaphragmatic hernia without obstruction or gangrene; M19.90 Unspecified osteoarthritis, unspecified site; G43.909 Migraine, unspecified, not intractable, without status migrainosus; J43.1 Panlobular emphysema; K76.0 Fatty (change of) liver, not elsewhere classified; R91.8 Other nonspecific abnormal finding of lung field; F17.210 Nicotine dependence, cigarettes, uncomplicated; J30.9 Allergic rhinitis, unspecified; L30.9 Dermatitis, unspecified; C79.51 Secondary malignant neoplasm of bone; Z85.46 Personal history of malignant neoplasm of prostate; Z79.899 Other long term (current) drug therapy; Z79.891 Long term (current) use of opiate analgesic; Z88.2 Allergy status to sulfonamides; Z88.5 Allergy status to narcotic agent; Z88.8 Allergy status to other drugs, medicaments and biological substances; Z91.041 Radiographic dye allergy status ==

== ENCOUNTER → 2022-07-05 | Outpatient (CLI) | payer MEDICARE, OTHER ==
[~2022-07-05] MED LIST changes: +3 SEMIS2 XX; +PROHANCE 279.3MG/ML 15ML VIAL ONE
== END ==
LOC: M PLAIMG 12:09
PROVIDERS: ATTEND Nurse Practitioner
DX: C61 Malignant neoplasm of prostate (principal); C79.51 Secondary malignant neoplasm of bone; M43.06 Spondylolysis, lumbar region
CPT/HCPCS: 72157; 72158; A9576

== ENCOUNTER → 2022-07-17 | Outpatient (CLI) | payer MEDICARE, OTHER ==
[~2022-07-17] MED LIST changes: -PROHANCE 279.3MG/ML 15ML VIAL ONE
== END ==
LOC: M PAIN 10:00
PROVIDERS: ATTEND Nurse Practitioner Family
DX: M51.16 Intervertebral disc disorders with radiculopathy, lumbar region (principal); G89.29 Other chronic pain; K21.9 Gastro-esophageal reflux disease without esophagitis; G43.909 Migraine, unspecified, not intractable, without status migrainosus; F17.200 Nicotine dependence, unspecified, uncomplicated; Z88.2 Allergy status to sulfonamides; Z88.5 Allergy status to narcotic agent; Z88.8 Allergy status to other drugs, medicaments and biological substances; Z91.013 Allergy to seafood; Z91.041 Radiographic dye allergy status; Z79.899 Other long term (current) drug therapy

== ENCOUNTER 2022-08-09 16:07 | Emergency (ER) | payer MEDICARE, OTHER ==
[~2022-08-09] VITALS: Ht 177.8 cm; Wt 72.6 kg
[2022-08-09] MEDS ORDERED: NS 1,000 ML IV ONE (17:55)
[2022-08-09] MEDS ORDERED: HYDROMORPHONE HCL 0.5 MG/ 0.5 ML SYRINGE (J1170 PER 1) IV ONE (17:55)
[2022-08-09 19:07] LABS: BASO # 0.1 10^3/uL (0.0-0.2); BASO % 0.3 % (0.0-1.0); EOS % 0.1 % (0.0-3.0); HEMATOCRIT 31.6 % (42.0-52.0); HEMOGLOBIN 10.7 g/dl (13.5-17.5); LYMPH # 1.9 10^3/uL (1.5-5.0); LYMPH % 11.8 % (24.0-44.0); MEAN CORPUSCULAR HEMOGLOBIN 30.7 pg (27.0-33.0); MEAN CORPUSCULAR HGB CONC 33.9 g/dl (32.0-36.5); MEAN CORPUSCULAR VOLUME 90.5 fl (80.0-96.0); MONO % 16.9 % (2.0-8.0); NEUTROPHILS # 11.2 10^3/uL (1.5-8.5); NEUTROPHILS % 70.3 % (36.0-66.0); PLATELET COUNT, AUTOMATED 186 10^3/uL (150-450); RED BLOOD COUNT 3.49 10^6/uL (4.30-6.10); WHITE BLOOD COUNT 15.9 10^3/uL (4.0-10.0)
[2022-08-09] MEDS ORDERED: ISOVUE-370 76% 100ML VIAL As Ordered ONE (19:14)
[2022-08-09 19:20] LABS: INR 1.18; PROTHROMBIN TIME 15.2 SECONDS (12.5-14.5)
[2022-08-09 19:21] LABS: PARTIAL THROMBOPLASTIN TIME 31.1 SECONDS (24.8-34.2)
[2022-08-09 19:27] LABS: ALBUMIN 2.6 GM/DL (3.2-5.2); BILIRUBIN,DIRECT 0.4 MG/DL (0.0-0.2); BILIRUBIN,TOTAL 0.5 MG/DL (0.2-1.0); TOTAL PROTEIN 6.5 GM/DL (6.4-8.2)
[2022-08-09 19:30] LABS: MONO # 2.7 10^3/uL (0.0-0.8)
[2022-08-09] MEDS ORDERED: FLEET ENEMA PR ONE (21:00)
[2022-08-09] MEDS ORDERED: LIDOCAINE 2% 5ML JELLY UROJET TOP ONE (22:00)
[2022-08-09 22:23] LABS: APPEARANCE, URINE MANUAL HAZY (CLEAR); BILIRUBIN, URINE MANUAL NEGATIVE (NEGATIVE); BLOOD URINE MANUAL POSITIVE (NEGATIVE); COLOR, URINE MANUAL YELLOW (YELLOW); GLUCOSE, URINE (UA) MANUAL NEGATIVE (NEGATIVE); KETONE, URINE MANUAL NEGATIVE (NEGATIVE); LEUKOCYTE ESTERASE, URINE MAN NEGATIVE (NEGATIVE); NITRITE, URINE MANUAL POSITIVE (NEGATIVE); PROTEIN, URINE MANUAL NEGATIVE (NEGATIVE); UROBILINOGEN, URINE MANUAL NORMAL (NORMAL)
[2022-08-09 22:25] LABS: BACTERIA, URINE LARGE AMOUNT; HYALINE CAST, URINE NONE SEEN /lpf (0-1); RBC, URINE NONE SEEN /hpf (0-3); SQUAMOUS EPITHELIAL CELL URINE SMALL AMOUNT /hpf (SMALL AMT)
[2022-08-09] MEDS ORDERED: METHYLNALTREXONE BROMIDE 12MG/0.6ML VIAL (RELISTOR) SC ONE (23:15)
[2022-08-10] MEDS ORDERED: MORPHINE 4 MG/ML 1ML VIAL/SYRINGE IV ONE (00:30)
[2022-08-10] MEDS ORDERED: MIRA3350 PO (00:56)
[2022-08-10] MEDS ORDERED: CIPR-249 PO (00:56)
[2022-08-10 01:20] VITALS: BP 150/80
[2022-08-10] MEDS ORDERED: CIPROFLOXACIN 500MG TABLET PO ONE (02:00)
[2022-08-15] MEDS ORDERED: NEUR100C PO (16:32)
== END 2022-08-10 01:22 | disposition home or self-care (01) ==
LOC: M ED 16:07
DX: K59.00 Constipation, unspecified (principal); N39.0 Urinary tract infection, site not specified; R33.9 Retention of urine, unspecified; M89.8X8 Other specified disorders of bone, other site; K80.20 Calculus of gallbladder without cholecystitis without obstruction; Q63.2 Ectopic kidney; K76.89 Other specified diseases of liver; N28.1 Cyst of kidney, acquired; M51.37 Other intervertebral disc degeneration, lumbosacral region; M51.36 Other intervertebral disc degeneration, lumbar region; Z98.84 Bariatric surgery status; F17.200 Nicotine dependence, unspecified, uncomplicated; Z79.899 Other long term (current) drug therapy; Z88.2 Allergy status to sulfonamides; Z88.1 Allergy status to other antibiotic agents; Z91.013 Allergy to seafood
CPT/HCPCS: 51702; 72128; 72131; 74177; 80047; 80076; 81000; 83690; 85025; 85610; 85730; 86850; 86900; 86901; 93005; 96361; 96374; 96375; 99284; J1170; J2212; J2270; Q9967

== ENCOUNTER → 2022-08-31 | Outpatient (CLI) | payer MEDICARE, OTHER ==
[~2022-08-31] MED LIST changes: +CIPR-249 PO; +MIRA3350 PO
== END ==
LOC: M ONCR 10:25
PROVIDERS: ATTEND General Practice
DX: C61 Malignant neoplasm of prostate (principal); C79.51 Secondary malignant neoplasm of bone; F17.210 Nicotine dependence, cigarettes, uncomplicated; Z79.51 Long term (current) use of inhaled steroids; Z79.818 Long term (current) use of other agents affecting estrogen receptors and estrogen levels; Z79.899 Other long term (current) drug therapy; Z86.010 Personal history of colon polyps; Z88.1 Allergy status to other antibiotic agents; Z88.2 Allergy status to sulfonamides; Z88.8 Allergy status to other drugs, medicaments and biological substances; Z91.013 Allergy to seafood

== ENCOUNTER 2022-09-27 23:04 | Emergency (ER) | payer MEDICARE, OTHER ==
[~2022-09-27] VITALS: Ht 177.8 cm; Wt 75.9 kg
[2022-09-27 23:11] VITALS: BP 98/53
[2022-09-28] MEDS ORDERED: diazePAM 10MG/2ML SYRINGE (J3360 PER 5MG) IM ONE (00:10)
[2022-09-28 01:05] LABS: BASO % 0.4 % (0.0-1.0); EOS % 0.4 % (0.0-3.0); HEMATOCRIT 30.7 % (42.0-52.0); HEMOGLOBIN 10.3 g/dl (13.5-17.5); LYMPH % 18.4 % (24.0-44.0); MEAN CORPUSCULAR HEMOGLOBIN 29.1 pg (27.0-33.0); MEAN CORPUSCULAR HGB CONC 33.6 g/dl (32.0-36.5); MEAN CORPUSCULAR VOLUME 86.7 fl (80.0-96.0); MONO # 1.5 10^3/uL (0.0-0.8); MONO % 13.6 % (2.0-8.0); NEUTROPHILS # 6.7 10^3/uL (1.5-8.5); NEUTROPHILS % 62.6 % (36.0-66.0); RED BLOOD COUNT 3.54 10^6/uL (4.30-6.10); WHITE BLOOD COUNT 10.6 10^3/uL (4.0-10.0)
[2022-09-28 01:25] LABS: PLATELET COUNT, AUTOMATED 99 10^3/uL (150-450)
[2022-09-28 01:32] LABS: ERYTHROCYTE SEDIMENTATION RATE 26 mm/hr (0-20)
[2022-09-28] MEDS ORDERED: OXYC10TA12 PO (13:18)
== END 2022-09-28 03:13 | disposition home or self-care (01) ==
LOC: M ED 23:04 → EDBD 23:04 → M ED 09-28 03:13
DX: D69.6 Thrombocytopenia, unspecified (principal); C61 Malignant neoplasm of prostate; R93.7 Abnormal findings on diagnostic imaging of other parts of musculoskeletal system; Z98.1 Arthrodesis status; M43.16 Spondylolisthesis, lumbar region; M51.35 Other intervertebral disc degeneration, thoracolumbar region; I10 Essential (primary) hypertension; K21.9 Gastro-esophageal reflux disease without esophagitis; F17.200 Nicotine dependence, unspecified, uncomplicated; Z79.899 Other long term (current) drug therapy; Z88.2 Allergy status to sulfonamides; Z88.1 Allergy status to other antibiotic agents; Z91.013 Allergy to seafood
CPT/HCPCS: 72110; 72190; 85025; 85049; 85055; 85652; 86140; 96372; 99283; J3360

== ENCOUNTER 2022-10-03 11:18 | Inpatient (IN) | payer MEDICARE, OTHER ==
[~2022-10-03] VITALS: Ht 177.8 cm; Wt 75.0 kg
[~2022-10-03 11:18] MED LIST changes: +FLUTISP; -FLUTISP NARES; +OXYC10TA12 PO
[2022-10-03] MEDS ORDERED: VENL75CA47 (11:41)
[2022-10-03] MEDS ORDERED: MORPHINE 4 MG/ML 1ML VIAL IV ONE (16:00)
[2022-10-03] MEDS ORDERED: NS 500 ML IV ONE (16:00)
[2022-10-03 17:08] LABS: BASO % 0.4 % (0.0-1.0); HEMATOCRIT 31.3 % (42.0-52.0); HEMOGLOBIN 10.7 g/dl (13.5-17.5); LYMPH % 12.9 % (24.0-44.0); MEAN CORPUSCULAR HEMOGLOBIN 29.3 pg (27.0-33.0); MEAN CORPUSCULAR HGB CONC 34.2 g/dl (32.0-36.5); MEAN CORPUSCULAR VOLUME 85.8 fl (80.0-96.0); MONO % 13.2 % (2.0-8.0); NEUTROPHILS # 5.4 10^3/uL (1.5-8.5); NEUTROPHILS % 70.5 % (36.0-66.0); PLATELET COUNT, AUTOMATED 116 10^3/uL (150-450); RED BLOOD COUNT 3.65 10^6/uL (4.30-6.10); WHITE BLOOD COUNT 7.7 10^3/uL (4.0-10.0)
[2022-10-03 17:21] LABS: ALBUMIN 2.5 G/DL (3.2-5.2); ALKALINE PHOSPHATASE 602 U/L (46-116); ALT/SGPT 21 U/L (7.0-40); AST/SGOT 84 U/L (<34); BILIRUBIN,TOTAL 0.7 MG/DL (0.3-1.2); BLOOD UREA NITROGEN 8 MG/DL (9-23); CALCIUM LEVEL 7.4 MG/DL (8.3-10.6); CARBON DIOXIDE LEVEL 21 MMOL/L (20-31); CHLORIDE LEVEL 94 MMOL/L (98-107); CPK CREATINE PHOSPHOKINASE 226 U/L (46-171); GLOMERULAR FILTRATION RATE > 60.0 (>49); GLUCOSE, FASTING 77 MG/DL (74-106); POTASSIUM SERUM 4.8 MMOL/L (3.5-5.1); SODIUM LEVEL 123 MMOL/L (136-145); TOTAL PROTEIN 6.8 G/DL (5.7-8.2)
[2022-10-03 17:24] LABS: RSV AMPLIFICATION NEGATIVE (NEGATIVE)
[2022-10-03] MEDS ORDERED: ACETAMINOPHEN TAB 650MG DOSE (2X325MG) PO PRN (19:05)
[2022-10-03] MEDS ORDERED: MORPHINE 2 MG/ML 1ML VIAL IV PRN (19:05)
[2022-10-03 20:43] LABS: MAGNESIUM LEVEL 2.1 MG/DL (1.8-2.4)
[2022-10-03 20:44] LABS: BLOOD UREA NITROGEN 7 MG/DL (9-23); CALCIUM LEVEL 7.2 MG/DL (8.3-10.6); CARBON DIOXIDE LEVEL 20 MMOL/L (20-31); CHLORIDE LEVEL 98 MMOL/L (98-107); CPK CREATINE PHOSPHOKINASE 197 U/L (46-171); CREATININE FOR GFR 0.37 MG/DL (0.70-1.30); GLOMERULAR FILTRATION RATE > 60.0 (>49); GLUCOSE, FASTING 91 MG/DL (74-106); POTASSIUM SERUM 4.8 MMOL/L (3.5-5.1); SODIUM LEVEL 126 MMOL/L (136-145)
[2022-10-03 20:56] LABS: OSMOLALITY SERUM 264 MOSM/KG (280-301)
[2022-10-03] MEDS ORDERED: LORazepam 2 MG TAB PO PRN (21:45)
[2022-10-03] MEDS ORDERED: carisoprodoL 350 MG TAB PO PRN (22:00)
[2022-10-03] MEDS ORDERED: SYMB16INH INH (22:31)
[2022-10-03] MEDS ORDERED: VENL75CA2 PO (22:31)
[2022-10-03] MEDS ORDERED: EPIP0.3I2 IM (22:31)
[2022-10-03] MEDS ORDERED: OYST500T92 PO (22:31)
[2022-10-03] MEDS ORDERED: FLOM0.4C39 PO (22:31)
[2022-10-03] MEDS ORDERED: HYDR2.5C TOP (22:31)
[2022-10-03] MEDS ORDERED: HOME MED LIST COMPLETE! XX SCH (22:35)
[2022-10-03] MEDS: oxyCODONE 5MG TAB PO PRN (22:48)
[2022-10-04] VITALS (7 sets, daily range): BP systolic 113–129; BP diastolic 70–77; O2SAT 97
[2022-10-04] MEDS: LR 1,000 ML IV SCH ×2 (00:14→23:10)
[2022-10-04] MEDS: MORPHINE 4 MG/ML 1ML VIAL IV PRN ×3 (00:52→23:21)
[2022-10-04 01:26] LABS: BLOOD UREA NITROGEN 7 MG/DL (9-23); CALCIUM LEVEL 7.2 MG/DL (8.3-10.6); CARBON DIOXIDE LEVEL 24 MMOL/L (20-31); CHLORIDE LEVEL 98 MMOL/L (98-107); CREATININE FOR GFR 0.38 MG/DL (0.70-1.30); GLOMERULAR FILTRATION RATE > 60.0 (>49); GLUCOSE, FASTING 91 MG/DL (74-106); POTASSIUM SERUM 4.6 MMOL/L (3.5-5.1); SODIUM LEVEL 126 MMOL/L (136-145)
[2022-10-04] MEDS ORDERED: diphenhydrAMINE 25MG CAP PO PRN (01:35)
[2022-10-04] MEDS ORDERED: ALBUTEROL 90 MCG/ACT 8GM HFA INHALER INH PRN (01:35)
[2022-10-04 05:38] LABS: HEMOGLOBIN 9.6 g/dl (13.5-17.5); MEAN CORPUSCULAR HEMOGLOBIN 29.2 pg (27.0-33.0); MEAN CORPUSCULAR HGB CONC 34.3 g/dl (32.0-36.5); MEAN CORPUSCULAR VOLUME 85.1 fl (80.0-96.0); PLATELET COUNT, AUTOMATED 116 10^3/uL (150-450); RED BLOOD COUNT 3.29 10^6/uL (4.30-6.10); WHITE BLOOD COUNT 7.2 10^3/uL (4.0-10.0)
[2022-10-04 05:46] LABS: INR 1.29; PROTHROMBIN TIME 16.3 SECONDS (12.5-14.5)
[2022-10-04 05:47] LABS: PARTIAL THROMBOPLASTIN TIME 30.9 SECONDS (24.8-34.2)
[2022-10-04 06:02] LABS: ALBUMIN 2.1 G/DL (3.2-5.2); ALKALINE PHOSPHATASE 541 U/L (46-116); ALT/SGPT 19 U/L (7.0-40); AST/SGOT 74 U/L (<34); BILIRUBIN,TOTAL 0.6 MG/DL (0.3-1.2); BLOOD UREA NITROGEN 7 MG/DL (9-23); CALCIUM LEVEL 7.1 MG/DL (8.3-10.6); CARBON DIOXIDE LEVEL 22 MMOL/L (20-31); CHLORIDE LEVEL 99 MMOL/L (98-107); CREATININE FOR GFR 0.32 MG/DL (0.70-1.30); GLOMERULAR FILTRATION RATE > 60.0 (>49); GLUCOSE, FASTING 109 MG/DL (74-106); POTASSIUM SERUM 4.3 MMOL/L (3.5-5.1); SODIUM LEVEL 126 MMOL/L (136-145)
[2022-10-04] MEDS: SYMBICORT 160/4.5MCG INHALER 6GM INH SCH ×2 (07:07→18:21)
[2022-10-04] MEDS: MULTIVITAMINS/MINERALS THERAP 1 TAB PO SCH (09:00)
[2022-10-04 09:14] LABS: BLOOD UREA NITROGEN 6 MG/DL (9-23); CALCIUM LEVEL 6.9 MG/DL (8.3-10.6); CARBON DIOXIDE LEVEL 24 MMOL/L (20-31); CHLORIDE LEVEL 98 MMOL/L (98-107); CREATININE FOR GFR 0.38 MG/DL (0.70-1.30); GLOMERULAR FILTRATION RATE > 60.0 (>49); GLUCOSE, FASTING 109 MG/DL (74-106); POTASSIUM SERUM 4.5 MMOL/L (3.5-5.1); SODIUM LEVEL 127 MMOL/L (136-145)
[2022-10-04] MEDS: FLUTICASONE PROP 0.05% NASAL SPRAY 16 GM (FLONASE) SCH ×2 (10:06→21:00)
[2022-10-04] MEDS: SENNA 8.6 MG TAB (SENOKOT) PO SCH ×2 (10:08→21:13)
[2022-10-04] MEDS: oxyCODONE 5MG TAB PO PRN ×2 (10:08→21:14)
[2022-10-04] MEDS: OMEPRAZOLE 20MG CAP PO SCH (10:09)
[2022-10-04] MEDS: FOLIC ACID 1MG TAB PO SCH (10:09)
[2022-10-04] MEDS: GABAPENTIN 100 MG CAP PO SCH ×3 (10:10→21:13)
[2022-10-04] MEDS: CALCIUM/VITAMIN D 500 MG TAB PO SCH (10:11)
[2022-10-04] MEDS: LOSARTAN 25 MG TAB PO SCH (10:11)
[2022-10-04] MEDS: CETIRIZINE (ZyrTEC) 10 MG TAB PO SCH (10:12)
[2022-10-04] MEDS: TAMSULOSIN 0.4 MG CAP PO SCH (10:12)
[2022-10-04] MEDS: THIAMINE 100 MG TAB PO SCH ×2 (10:13→21:13)
[2022-10-04] MEDS: NICOTINE 14 MG/24 HR TRANSDERMAL TD SCH (10:40)
[2022-10-04 12:08] LABS: BLOOD UREA NITROGEN 6 MG/DL (9-23); CALCIUM LEVEL 6.9 MG/DL (8.3-10.6); CARBON DIOXIDE LEVEL 23 MMOL/L (20-31); CHLORIDE LEVEL 99 MMOL/L (98-107); CREATININE FOR GFR 0.34 MG/DL (0.70-1.30); GLOMERULAR FILTRATION RATE > 60.0 (>49); GLUCOSE, FASTING 106 MG/DL (74-106); POTASSIUM SERUM 4.5 MMOL/L (3.5-5.1); SODIUM LEVEL 127 MMOL/L (136-145)
[2022-10-04] MEDS ORDERED: fentaNYL 250 MCG/5 ML INJECTION As Ordered ONE (13:52)
[2022-10-04] MEDS ORDERED: ONDANSETRON 4MG 2ML VIAL As Ordered ONE (13:52)
[2022-10-04] MEDS ORDERED: MIDAZOLAM INJ 2MG/2ML VIAL (J2250 PER 1MG) As Ordered ONE (13:52)
[2022-10-04] MEDS ORDERED: METOCLOPRAMIDE INJ 10MG/2ML VIAL As Ordered ONE (13:52)
[2022-10-04] MEDS ORDERED: SUGAMMADEX SODIUM 500 MG/5 ML VIAL (BRIDION) As Ordered ONE ×2 (13:52→15:13)
[2022-10-04] MEDS ORDERED: ETOMIDATE INJ 20MG/10ML VIAL As Ordered ONE (13:52)
[2022-10-04] MEDS ORDERED: LIDOCAINE 2% 100MG/5ML SDV (FOR ANES.) As Ordered ONE (13:52)
[2022-10-04] MEDS ORDERED: ROCURONIUM BROMIDE 50MG/5ML VIAL As Ordered ONE (13:52)
[2022-10-04] MEDS ORDERED: propofoL 200 MG/20 ML VIAL As Ordered ONE (13:52)
[2022-10-04] MEDS ORDERED: ceFAZolin 2 GM/D5W 50 ML IV BAG As Ordered ONE (14:06)
[2022-10-04] MEDS ORDERED: PHENYLephrine 500MCG 5ML (100MCG/ML) SYRINGE As Ordered ONE (14:55)
[2022-10-04] MEDS ORDERED: ACETAMINOPHEN 1000MG 100ML IV BAG As Ordered ONE (15:13)
[2022-10-04] MEDS ORDERED: LABETALOL 100MG/20ML VIAL As Ordered ONE (15:21)
[2022-10-04] MEDS ORDERED: oxyCODONE 5MG TAB PO PRN (15:40)
[2022-10-04] MEDS ORDERED: LR 1,000 ML IV SCH (15:40)
[2022-10-04] MEDS ORDERED: fentaNYL 100 MCG/2 ML INJECTION IV PRN (15:40)
[2022-10-04] MEDS ORDERED: ONDANSETRON 4MG 2ML VIAL IV PRN (15:40)
[2022-10-04] MEDS ORDERED: ALBUTEROL SULFATE 2.5MG/0.5ML INH NEB SOLN INH ONE (16:00)
[2022-10-04] MEDS: HYDROMORPHONE HCL 0.5 MG/ 0.5 ML SYRINGE (J1170 PER 1) IV PRN ×4 (16:18→16:40)
[2022-10-04] MEDS ORDERED: HEPARIN SOD (PORCINE) 5000UNITS/ML 1ML VIAL/SYRINGE SQ SCH (18:00)
[2022-10-04 18:06] LABS: APPEARANCE, URINE MANUAL CLEAR (CLEAR); COLOR, URINE MANUAL YELLOW (YELLOW)
[2022-10-04 18:07] LABS: BILIRUBIN, URINE MANUAL NEGATIVE (NEGATIVE); BLOOD URINE MANUAL POSITIVE (NEGATIVE); GLUCOSE, URINE (UA) MANUAL NEGATIVE (NEGATIVE); KETONE, URINE MANUAL 2+ mg/dL (NEGATIVE); LEUKOCYTE ESTERASE, URINE MAN TRACE (NEGATIVE); NITRITE, URINE MANUAL NEGATIVE (NEGATIVE); PROTEIN, URINE MANUAL 1+ mg/dL (NEGATIVE); UROBILINOGEN, URINE MANUAL NORMAL (NORMAL)
[2022-10-04 18:29] LABS: RBC, URINE 15-20 /hpf (0-3); SQUAMOUS EPITHELIAL CELL URINE SMALL AMOUNT /hpf (SMALL AMT)
[2022-10-04 18:30] LABS: BACTERIA, URINE MOD AMOUNT
[2022-10-04] MEDS ORDERED: LACTULOSE 20GM/30ML SYRUP UDC PO SCH (21:00)
[2022-10-04] MEDS: oxyBUTYnin 5 MG TAB PO SCH (21:13)
[2022-10-04 21:36] LABS: MAGNESIUM LEVEL 1.9 MG/DL (1.8-2.4)
[2022-10-04 21:38] LABS: ALBUMIN 2.1 G/DL (3.2-5.2); ALKALINE PHOSPHATASE 529 U/L (46-116); ALT/SGPT 22 U/L (7.0-40); AST/SGOT 78 U/L (<34); BILIRUBIN,TOTAL 0.5 MG/DL (0.3-1.2); BLOOD UREA NITROGEN 9 MG/DL (9-23); CARBON DIOXIDE LEVEL 19 MMOL/L (20-31); CHLORIDE LEVEL 99 MMOL/L (98-107); CREATININE FOR GFR 0.43 MG/DL (0.70-1.30); GLOMERULAR FILTRATION RATE > 60.0 (>49); GLUCOSE, FASTING 363 MG/DL (74-106); POTASSIUM SERUM 4.4 MMOL/L (3.5-5.1); SODIUM LEVEL 124 MMOL/L (136-145); TOTAL PROTEIN 6.1 G/DL (5.7-8.2)
[2022-10-04] MEDS: ceFAZolin SOD 1 GM in D5W MINI-BAG PLUS 50 ML IV SCH (23:09)
[2022-10-04] MEDS: HEPARIN SOD (PORCINE) 5000UNITS/ML 1ML VIAL/SYRINGE SQ SCH (23:11)
[2022-10-05 01:25] VITALS: BP 136/77
[2022-10-05] MEDS ORDERED: MORPHINE 4 MG/ML 1ML VIAL IV ONE (02:00)
[2022-10-05 02:06] LABS: BLOOD UREA NITROGEN 6 MG/DL (9-23); CALCIUM LEVEL 7.3 MG/DL (8.3-10.6); CARBON DIOXIDE LEVEL 22 MMOL/L (20-31); CHLORIDE LEVEL 98 MMOL/L (98-107); CREATININE FOR GFR 0.38 MG/DL (0.70-1.30); GLOMERULAR FILTRATION RATE > 60.0 (>49); GLUCOSE, FASTING 277 MG/DL (74-106); POTASSIUM SERUM 4.1 MMOL/L (3.5-5.1); SODIUM LEVEL 125 MMOL/L (136-145)
[2022-10-05] MEDS: ceFAZolin SOD 1 GM in D5W MINI-BAG PLUS 50 ML IV SCH (05:45)
[2022-10-05] MEDS: HEPARIN SOD (PORCINE) 5000UNITS/ML 1ML VIAL/SYRINGE SQ SCH (05:46)
[2022-10-05] MEDS: oxyCODONE 5MG TAB PO PRN ×3 (05:47→23:18)
[2022-10-05 06:00] VITALS: BP 118/84
[2022-10-05 06:30] LABS: HEMATOCRIT 27.3 % (42.0-52.0); HEMOGLOBIN 9.3 g/dl (13.5-17.5); MEAN CORPUSCULAR HEMOGLOBIN 29.3 pg (27.0-33.0); MEAN CORPUSCULAR HGB CONC 34.1 g/dl (32.0-36.5); MEAN CORPUSCULAR VOLUME 86.1 fl (80.0-96.0); RED BLOOD COUNT 3.17 10^6/uL (4.30-6.10); WHITE BLOOD COUNT 7.2 10^3/uL (4.0-10.0)
[2022-10-05 06:32] LABS: PLATELET COUNT, AUTOMATED 99 10^3/uL (150-450)
[2022-10-05 06:43] LABS: MAGNESIUM LEVEL 1.9 MG/DL (1.8-2.4)
[2022-10-05 06:45] LABS: BLOOD UREA NITROGEN 6 MG/DL (9-23); CALCIUM LEVEL 7.3 MG/DL (8.3-10.6); CARBON DIOXIDE LEVEL 20 MMOL/L (20-31); CHLORIDE LEVEL 102 MMOL/L (98-107); CREATININE FOR GFR 0.31 MG/DL (0.70-1.30); GLOMERULAR FILTRATION RATE > 60.0 (>49); GLUCOSE, FASTING 115 MG/DL (74-106); PHOSPHORUS LEVEL 0.5 MG/DL (2.4-5.1); POTASSIUM SERUM 4.1 MMOL/L (3.5-5.1); SODIUM LEVEL 130 MMOL/L (136-145)
[2022-10-05] MEDS: SYMBICORT 160/4.5MCG INHALER 6GM INH SCH ×2 (08:44→20:21)
[2022-10-05] MEDS: OMEPRAZOLE 20MG CAP PO SCH (09:02)
[2022-10-05] MEDS: MORPHINE 4 MG/ML 1ML VIAL IV PRN ×3 (09:02→21:45)
[2022-10-05] MEDS: FOLIC ACID 1MG TAB PO SCH (09:02)
[2022-10-05] MEDS: SENNA 8.6 MG TAB (SENOKOT) PO SCH ×2 (09:02→21:00)
[2022-10-05] MEDS: CETIRIZINE (ZyrTEC) 10 MG TAB PO SCH (09:02)
[2022-10-05] MEDS: VENLAFAXINE **XR** 75MG CAPSULE PO SCH (09:03)
[2022-10-05] MEDS: TAMSULOSIN 0.4 MG CAP PO SCH (09:03)
[2022-10-05] MEDS: MULTIVITAMINS/MINERALS THERAP 1 TAB PO SCH (09:03)
[2022-10-05] MEDS: GABAPENTIN 100 MG CAP PO SCH ×3 (09:03→21:43)
[2022-10-05] MEDS: oxyBUTYnin 5 MG TAB PO SCH ×2 (09:03→21:43)
[2022-10-05] MEDS: CALCIUM/VITAMIN D 500 MG TAB PO SCH (09:03)
[2022-10-05] MEDS: LOSARTAN 25 MG TAB PO SCH (09:03)
[2022-10-05] MEDS: THIAMINE 100 MG TAB PO SCH ×2 (09:03→21:43)
[2022-10-05] MEDS: NICOTINE 14 MG/24 HR TRANSDERMAL TD SCH (09:04)
[2022-10-05] MEDS: K-PHOS ORIGINAL (POT.ACID PHOSPHATE) 500MG TAB PO SCH ×2 (09:05→21:43)
[2022-10-05] MEDS: LACTULOSE 20GM/30ML SYRUP UDC PO SCH ×3 (09:05→21:43)
[2022-10-05 09:26] LABS: PHOSPHORUS LEVEL 0.5 MG/DL (2.4-5.1)
[2022-10-05 10:00] VITALS: BP 122/81
[2022-10-05] MEDS ORDERED: SODIUM PHOSPHATE INJ 20 MMOL in D5W 250 ML IV ONE ×2 (10:00→20:00)
[2022-10-05] MEDS: FLUTICASONE PROP 0.05% NASAL SPRAY 16 GM (FLONASE) SCH ×2 (10:57→21:43)
[2022-10-05 13:00] LABS: BILIRUBIN,DIRECT 0.2 MG/DL (<0.4)
[2022-10-05 13:02] LABS: ALBUMIN 2.5 G/DL (3.2-5.2); ALKALINE PHOSPHATASE 519 U/L (46-116); ALT/SGPT 27 U/L (7.0-40); AST/SGOT 95 U/L (<34); BILIRUBIN,TOTAL 0.4 MG/DL (0.3-1.2); CHOLESTEROL LEVEL 189 MG/DL (<200); CHOLESTEROL RISK RATIO 5.69 (<5); HDL CHOLESTEROL 33.2 MG/DL (>40); LDL CHOLESTEROL 113.8 MG/DL (<100); NON-HDL-C 156 MG/DL; TOTAL PROTEIN 6.6 G/DL (5.7-8.2); TRIGLYCERIDES LEVEL 210 MG/DL (<150)
[2022-10-05 14:00] VITALS: BP_SYST 100; BP_SYST 131; BP_DIAS 56; BP_DIAS 82
[2022-10-05] MEDS: RIVAROXABAN 10MG TAB (XARELTO) PO SCH (16:51)
[2022-10-05 18:00] VITALS: BP 131/82
[2022-10-05 20:00] VITALS: BP 127/80
[2022-10-06] MEDS: guaiFENesin ER 600 MG TAB PO SCH ×3 (00:54→23:31)
[2022-10-06] MEDS: CYCLOBENZAPRINE 10MG TABLET PO PRN ×2 (00:54→23:31)
[2022-10-06] MEDS: ONDANSETRON 4MG 2ML VIAL IV PRN ×3 (04:25→18:28)
[2022-10-06 04:33] VITALS: BP 146/85
[2022-10-06] MEDS: MORPHINE 4 MG/ML 1ML VIAL IV PRN ×2 (04:37→15:53)
[2022-10-06 05:52] VITALS: BP 148/85
[2022-10-06] MEDS ORDERED: PROMETHAZINE 25MG/ML 1ML VIAL IV ONE ×2 (06:00→12:25)
[2022-10-06] MEDS ORDERED: MORPHINE 2 MG/ML 1ML VIAL IV ONE (06:00)
[2022-10-06] MEDS: SYMBICORT 160/4.5MCG INHALER 6GM INH SCH ×2 (07:41→20:04)
[2022-10-06] MEDS ORDERED: ALBUTEROL SULFATE 2.5MG/0.5ML INH NEB SOLN As Ordered ONE (09:14)
[2022-10-06 10:35] LABS: HEMATOCRIT 29.2 % (42.0-52.0); HEMOGLOBIN 9.8 g/dl (13.5-17.5); MEAN CORPUSCULAR HEMOGLOBIN 28.9 pg (27.0-33.0); MEAN CORPUSCULAR HGB CONC 33.6 g/dl (32.0-36.5); MEAN CORPUSCULAR VOLUME 86.1 fl (80.0-96.0); PLATELET COUNT, AUTOMATED 115 10^3/uL (150-450); RED BLOOD COUNT 3.39 10^6/uL (4.30-6.10); WHITE BLOOD COUNT 6.5 10^3/uL (4.0-10.0)
[2022-10-06] MEDS: TAMSULOSIN 0.4 MG CAP PO SCH (10:45)
[2022-10-06] MEDS: GABAPENTIN 100 MG CAP PO SCH ×3 (10:45→23:31)
[2022-10-06] MEDS: VENLAFAXINE **XR** 75MG CAPSULE PO SCH (10:45)
[2022-10-06] MEDS: FOLIC ACID 1MG TAB PO SCH (10:45)
[2022-10-06] MEDS: THIAMINE 100 MG TAB PO SCH ×2 (10:45→23:31)
[2022-10-06] MEDS: K-PHOS ORIGINAL (POT.ACID PHOSPHATE) 500MG TAB PO SCH ×2 (10:45→23:30)
[2022-10-06] MEDS: CALCIUM/VITAMIN D 500 MG TAB PO SCH (10:46)
[2022-10-06] MEDS: LOSARTAN 25 MG TAB PO SCH (10:46)
[2022-10-06] MEDS: OMEPRAZOLE 20MG CAP PO SCH (10:46)
[2022-10-06] MEDS: SENNA 8.6 MG TAB (SENOKOT) PO SCH ×2 (10:46→23:31)
[2022-10-06] MEDS: oxyBUTYnin 5 MG TAB PO SCH ×2 (10:46→23:30)
[2022-10-06] MEDS: MULTIVITAMINS/MINERALS THERAP 1 TAB PO SCH (10:46)
[2022-10-06] MEDS: CETIRIZINE (ZyrTEC) 10 MG TAB PO SCH (10:46)
[2022-10-06] MEDS: NICOTINE 14 MG/24 HR TRANSDERMAL TD SCH (10:48)
[2022-10-06] MEDS: LACTULOSE 20GM/30ML SYRUP UDC PO SCH (10:48)
[2022-10-06] MEDS: FLUTICASONE PROP 0.05% NASAL SPRAY 16 GM (FLONASE) SCH ×2 (10:48→23:31)
[2022-10-06 10:59] LABS: MAGNESIUM LEVEL 1.6 MG/DL (1.8-2.4)
[2022-10-06] MEDS ORDERED: ISOVUE-370 76% 100ML VIAL As Ordered ONE (11:01)
[2022-10-06 11:02] LABS: ALBUMIN 2.2 G/DL (3.2-5.2); ALKALINE PHOSPHATASE 514 U/L (46-116); ALT/SGPT 44 U/L (7.0-40); AST/SGOT 140 U/L (<34); BILIRUBIN,TOTAL 0.5 MG/DL (0.3-1.2); BLOOD UREA NITROGEN < 5 MG/DL (9-23); CALCIUM LEVEL 6.6 MG/DL (8.3-10.6); CARBON DIOXIDE LEVEL 26 MMOL/L (20-31); CHLORIDE LEVEL 102 MMOL/L (98-107); CREATININE FOR GFR 0.42 MG/DL (0.70-1.30); GLOMERULAR FILTRATION RATE > 60.0 (>49); GLUCOSE, FASTING 120 MG/DL (74-106); PHOSPHORUS LEVEL 2.2 MG/DL (2.4-5.1); POTASSIUM SERUM 3.9 MMOL/L (3.5-5.1); SODIUM LEVEL 131 MMOL/L (136-145)
[2022-10-06] MEDS ORDERED: MAG SULF 1GM/100ML (MAG RUN) 1 GM in IV 1 EA IV ONE ×2 (12:00→17:00)
[2022-10-06] MEDS ORDERED: PROMETHAZINE 25MG/ML 1ML VIAL IM ONE (12:10)
[2022-10-06 12:30] VITALS: BP 142/83
[2022-10-06 13:20] LABS: INR 1.19; PARTIAL THROMBOPLASTIN TIME 29.1 SECONDS (24.8-34.2); PROTHROMBIN TIME 15.4 SECONDS (12.5-14.5)
[2022-10-06 13:45] LABS: HEPATITIS B SURFACE ANTIGEN NEGATIVE (NEGATIVE)
[2022-10-06 14:00] VITALS: BP 146/85
[2022-10-06 14:06] LABS: HEPATITIS B CORE ANTIBODY IGM NEGATIVE (NEGATIVE); HEPATITIS C VIRUS ABY INDEX 0.8 INDEX (<0.8)
[2022-10-06] MEDS: RIVAROXABAN 10MG TAB (XARELTO) PO SCH (18:29)
[2022-10-06] MEDS: oxyCODONE 5MG TAB PO PRN (18:29)
[2022-10-06 20:00] VITALS: BP 115/74
[2022-10-06] MEDS ORDERED: NS 1,000 ML IV SCH (23:00)
[2022-10-06] MEDS: SALIVA SUBSTITUTE(MOUTHKOTE) BTL MT PRN (23:31)
[2022-10-07 05:40] VITALS: BP 128/87
[2022-10-07 06:24] LABS: HEMATOCRIT 26.1 % (42.0-52.0); HEMOGLOBIN 8.6 g/dl (13.5-17.5); MEAN CORPUSCULAR HEMOGLOBIN 28.5 pg (27.0-33.0); MEAN CORPUSCULAR VOLUME 86.4 fl (80.0-96.0); PLATELET COUNT, AUTOMATED 114 10^3/uL (150-450); RED BLOOD COUNT 3.02 10^6/uL (4.30-6.10); WHITE BLOOD COUNT 6.2 10^3/uL (4.0-10.0)
[2022-10-07 06:47] LABS: MAGNESIUM LEVEL 1.9 MG/DL (1.8-2.4)
[2022-10-07 06:50] LABS: BLOOD UREA NITROGEN < 5 MG/DL (9-23); CALCIUM LEVEL 6.4 MG/DL (8.3-10.6); CARBON DIOXIDE LEVEL 23 MMOL/L (20-31); CHLORIDE LEVEL 105 MMOL/L (98-107); CREATININE FOR GFR 0.36 MG/DL (0.70-1.30); GLOMERULAR FILTRATION RATE > 60.0 (>49); GLUCOSE, FASTING 104 MG/DL (74-106); PHOSPHORUS LEVEL 2.2 MG/DL (2.4-5.1); POTASSIUM SERUM 3.8 MMOL/L (3.5-5.1); SODIUM LEVEL 131 MMOL/L (136-145)
[2022-10-07] MEDS: SALIVA SUBSTITUTE(MOUTHKOTE) BTL MT PRN (06:59)
[2022-10-07] MEDS: SYMBICORT 160/4.5MCG INHALER 6GM INH SCH ×2 (07:53→18:39)
[2022-10-07] MEDS: SENNA 8.6 MG TAB (SENOKOT) PO SCH ×2 (09:00→21:48)
[2022-10-07] MEDS: LACTULOSE 20GM/30ML SYRUP UDC PO SCH (09:00)
[2022-10-07 09:03] LABS: BILIRUBIN,DIRECT 0.4 MG/DL (<0.4)
[2022-10-07 09:09] LABS: ALKALINE PHOSPHATASE 512 U/L (46-116); ALT/SGPT 33 U/L (7.0-40); AST/SGOT 121 U/L (<34); BILIRUBIN,TOTAL 0.6 MG/DL (0.3-1.2); TOTAL PROTEIN 5.5 G/DL (5.7-8.2)
[2022-10-07] MEDS: guaiFENesin ER 600 MG TAB PO SCH ×2 (10:21→21:48)
[2022-10-07] MEDS: NICOTINE 14 MG/24 HR TRANSDERMAL TD SCH (10:21)
[2022-10-07] MEDS: CETIRIZINE (ZyrTEC) 10 MG TAB PO SCH (10:21)
[2022-10-07] MEDS: TAMSULOSIN 0.4 MG CAP PO SCH (10:21)
[2022-10-07] MEDS: FOLIC ACID 1MG TAB PO SCH (10:21)
[2022-10-07] MEDS: oxyBUTYnin 5 MG TAB PO SCH ×2 (10:22→21:48)
[2022-10-07] MEDS: OMEPRAZOLE 20MG CAP PO SCH (10:22)
[2022-10-07] MEDS: CALCIUM/VITAMIN D 500 MG TAB PO SCH (10:22)
[2022-10-07] MEDS: GABAPENTIN 100 MG CAP PO SCH ×3 (10:22→21:48)
[2022-10-07] MEDS: FAMOTIDINE 20 MG TAB PO SCH (10:22)
[2022-10-07] MEDS: CYCLOBENZAPRINE 10MG TABLET PO PRN ×2 (10:22→18:43)
[2022-10-07] MEDS: MULTIVITAMINS/MINERALS THERAP 1 TAB PO SCH (10:22)
[2022-10-07] MEDS: VENLAFAXINE **XR** 75MG CAPSULE PO SCH (10:22)
[2022-10-07] MEDS: LOSARTAN 25 MG TAB PO SCH (10:23)
[2022-10-07] MEDS: FLUTICASONE PROP 0.05% NASAL SPRAY 16 GM (FLONASE) SCH ×2 (10:24→21:48)
[2022-10-07] MEDS: oxyCODONE 5MG TAB PO PRN ×2 (10:24→17:47)
[2022-10-07] MEDS: K-PHOS ORIGINAL (POT.ACID PHOSPHATE) 500MG TAB PO SCH ×2 (10:25→21:48)
[2022-10-07] MEDS: MORPHINE 4 MG/ML 1ML VIAL IV PRN ×2 (12:42→18:43)
[2022-10-07 13:31] VITALS: BP 162/89
[2022-10-07] MEDS: RIVAROXABAN 10MG TAB (XARELTO) PO SCH (17:57)
[2022-10-07 20:47] VITALS: BP 127/84
[2022-10-08] MEDS: MORPHINE 4 MG/ML 1ML VIAL IV PRN ×4 (01:44→23:40)
[2022-10-08] MEDS: CYCLOBENZAPRINE 10MG TABLET PO PRN (02:45)
[2022-10-08] MEDS: oxyCODONE 5MG TAB PO PRN ×3 (02:45→20:24)
[2022-10-08 06:00] VITALS: BP 141/89
[2022-10-08 06:21] LABS: HEMATOCRIT 25.7 % (42.0-52.0); HEMOGLOBIN 8.6 g/dl (13.5-17.5); MEAN CORPUSCULAR HEMOGLOBIN 29.2 pg (27.0-33.0); MEAN CORPUSCULAR HGB CONC 33.5 g/dl (32.0-36.5); MEAN CORPUSCULAR VOLUME 87.1 fl (80.0-96.0); PLATELET COUNT, AUTOMATED 111 10^3/uL (150-450); RED BLOOD COUNT 2.95 10^6/uL (4.30-6.10); WHITE BLOOD COUNT 6.7 10^3/uL (4.0-10.0)
[2022-10-08 06:52] LABS: MAGNESIUM LEVEL 1.8 MG/DL (1.8-2.4)
[2022-10-08 06:54] LABS: ALBUMIN 2.1 G/DL (3.2-5.2); ALKALINE PHOSPHATASE 530 U/L (46-116); ALT/SGPT 27 U/L (7.0-40); AST/SGOT 97 U/L (<34); BILIRUBIN,TOTAL 0.6 MG/DL (0.3-1.2); BLOOD UREA NITROGEN 5 MG/DL (9-23); CALCIUM LEVEL 6.2 MG/DL (8.3-10.6); CARBON DIOXIDE LEVEL 21 MMOL/L (20-31); CHLORIDE LEVEL 104 MMOL/L (98-107); CREATININE FOR GFR 0.37 MG/DL (0.70-1.30); GLOMERULAR FILTRATION RATE > 60.0 (>49); GLUCOSE, FASTING 96 MG/DL (74-106); PHOSPHORUS LEVEL 2.2 MG/DL (2.4-5.1); POTASSIUM SERUM 4.2 MMOL/L (3.5-5.1); SODIUM LEVEL 129 MMOL/L (136-145); TOTAL PROTEIN 5.5 G/DL (5.7-8.2)
[2022-10-08 07:44] LABS: ANISOCYTOSIS 1+; LYMPHOCYTES 23 % (16-44); METAMYELOCYTES 4 % (0-0); MONOCYTES 15 % (0-5); MYELOCYTES 5 % (0-0); NEUTROPHILS 51 % (28-66); PLATELET ESTIMATE DECREASED (NORMAL)
[2022-10-08] MEDS: SYMBICORT 160/4.5MCG INHALER 6GM INH SCH ×2 (07:51→19:40)
[2022-10-08] MEDS: MULTIVITAMINS/MINERALS THERAP 1 TAB PO SCH (08:34)
[2022-10-08] MEDS: SENNA 8.6 MG TAB (SENOKOT) PO SCH ×2 (08:34→20:22)
[2022-10-08] MEDS: CALCIUM/VITAMIN D 500 MG TAB PO SCH (08:34)
[2022-10-08] MEDS: CETIRIZINE (ZyrTEC) 10 MG TAB PO SCH (08:34)
[2022-10-08] MEDS: OMEPRAZOLE 20MG CAP PO SCH (08:34)
[2022-10-08] MEDS: GABAPENTIN 100 MG CAP PO SCH ×3 (08:35→20:22)
[2022-10-08] MEDS: TAMSULOSIN 0.4 MG CAP PO SCH (08:35)
[2022-10-08] MEDS: FOLIC ACID 1MG TAB PO SCH (08:35)
[2022-10-08] MEDS: LOSARTAN 25 MG TAB PO SCH (08:35)
[2022-10-08] MEDS: oxyBUTYnin 5 MG TAB PO SCH ×2 (08:35→20:23)
[2022-10-08] MEDS: VENLAFAXINE **XR** 75MG CAPSULE PO SCH (08:35)
[2022-10-08] MEDS: FAMOTIDINE 20 MG TAB PO SCH (08:35)
[2022-10-08] MEDS: guaiFENesin ER 600 MG TAB PO SCH ×2 (08:35→20:23)
[2022-10-08] MEDS: LACTULOSE 20GM/30ML SYRUP UDC PO SCH (08:36)
[2022-10-08] MEDS: NICOTINE 14 MG/24 HR TRANSDERMAL TD SCH (08:36)
[2022-10-08] MEDS: FLUTICASONE PROP 0.05% NASAL SPRAY 16 GM (FLONASE) SCH ×2 (08:36→23:31)
[2022-10-08] MEDS: ONDANSETRON 4MG 2ML VIAL IV PRN (10:46)
[2022-10-08] MEDS: K-PHOS ORIGINAL (POT.ACID PHOSPHATE) 500MG TAB PO SCH ×2 (10:47→20:22)
[2022-10-08] MEDS: MIRALAX *UNIT DOSE* 17GM PACKET PO SCH (11:09)
[2022-10-08 14:00] VITALS: BP 123/86
[2022-10-08] MEDS: RIVAROXABAN 10MG TAB (XARELTO) PO SCH (17:46)
[2022-10-08 21:00] VITALS: BP 120/70
[2022-10-09 06:00] VITALS: BP 156/92
[2022-10-09] MEDS: oxyCODONE 5MG TAB PO PRN ×3 (06:26→20:43)
[2022-10-09 06:28] LABS: HEMATOCRIT 25.8 % (42.0-52.0); HEMOGLOBIN 8.6 g/dl (13.5-17.5); MEAN CORPUSCULAR HEMOGLOBIN 28.9 pg (27.0-33.0); MEAN CORPUSCULAR HGB CONC 33.3 g/dl (32.0-36.5); MEAN CORPUSCULAR VOLUME 86.6 fl (80.0-96.0); PLATELET COUNT, AUTOMATED 116 10^3/uL (150-450); RED BLOOD COUNT 2.98 10^6/uL (4.30-6.10); WHITE BLOOD COUNT 6.1 10^3/uL (4.0-10.0)
[2022-10-09 06:55] LABS: MAGNESIUM LEVEL 1.8 MG/DL (1.8-2.4)
[2022-10-09 06:57] LABS: ALBUMIN 2.1 G/DL (3.2-5.2); ALKALINE PHOSPHATASE 542 U/L (46-116); ALT/SGPT 30 U/L (7.0-40); AST/SGOT 93 U/L (<34); BILIRUBIN,TOTAL 0.5 MG/DL (0.3-1.2); BLOOD UREA NITROGEN 6 MG/DL (9-23); CALCIUM LEVEL 6.5 MG/DL (8.3-10.6); CARBON DIOXIDE LEVEL 19 MMOL/L (20-31); CHLORIDE LEVEL 102 MMOL/L (98-107); CREATININE FOR GFR 0.36 MG/DL (0.70-1.30); GLOMERULAR FILTRATION RATE > 60.0 (>49); GLUCOSE, FASTING 97 MG/DL (74-106); POTASSIUM SERUM 4.5 MMOL/L (3.5-5.1); SODIUM LEVEL 128 MMOL/L (136-145); TOTAL PROTEIN 5.6 G/DL (5.7-8.2)
[2022-10-09] MEDS: SYMBICORT 160/4.5MCG INHALER 6GM INH SCH ×2 (07:26→19:41)
[2022-10-09] MEDS ORDERED: MOM 30ML SUSPENSION UDC PO PRN (08:45)
[2022-10-09] MEDS: LACTULOSE 20GM/30ML SYRUP UDC PO SCH (09:00)
[2022-10-09] MEDS: NICOTINE 14 MG/24 HR TRANSDERMAL TD SCH (09:05)
[2022-10-09] MEDS: MORPHINE 4 MG/ML 1ML VIAL IV PRN ×3 (09:05→21:54)
[2022-10-09] MEDS: MIRALAX *UNIT DOSE* 17GM PACKET PO SCH (09:05)
[2022-10-09] MEDS: FAMOTIDINE 20 MG TAB PO SCH (09:06)
[2022-10-09] MEDS: OMEPRAZOLE 20MG CAP PO SCH (09:06)
[2022-10-09] MEDS: MULTIVITAMINS/MINERALS THERAP 1 TAB PO SCH (09:06)
[2022-10-09] MEDS: FOLIC ACID 1MG TAB PO SCH (09:06)
[2022-10-09] MEDS: VENLAFAXINE **XR** 75MG CAPSULE PO SCH (09:07)
[2022-10-09] MEDS: CETIRIZINE (ZyrTEC) 10 MG TAB PO SCH (09:07)
[2022-10-09] MEDS: SENNA 8.6 MG TAB (SENOKOT) PO SCH ×2 (09:07→20:43)
[2022-10-09] MEDS: TAMSULOSIN 0.4 MG CAP PO SCH (09:08)
[2022-10-09] MEDS: GABAPENTIN 100 MG CAP PO SCH ×3 (09:08→20:43)
[2022-10-09] MEDS: CALCIUM/VITAMIN D 500 MG TAB PO SCH (09:08)
[2022-10-09] MEDS: oxyBUTYnin 5 MG TAB PO SCH ×2 (09:08→20:43)
[2022-10-09] MEDS: guaiFENesin ER 600 MG TAB PO SCH ×2 (09:08→20:43)
[2022-10-09] MEDS: LOSARTAN 25 MG TAB PO SCH (09:12)
[2022-10-09] MEDS: K-PHOS ORIGINAL (POT.ACID PHOSPHATE) 500MG TAB PO SCH ×2 (09:12→20:43)
[2022-10-09] MEDS: FLUTICASONE PROP 0.05% NASAL SPRAY 16 GM (FLONASE) SCH ×2 (09:13→20:45)
[2022-10-09] MEDS: LACTULOSE 20GM/30ML SYRUP UDC PO ONE ×2 (10:25→15:07)
[2022-10-09 14:00] VITALS: BP 162/92
[2022-10-09] MEDS: ONDANSETRON 4MG 2ML VIAL IV PRN ×2 (15:15→21:51)
[2022-10-09] MEDS ORDERED: BISACODYL 10MG SUPP PR ONE (16:25)
[2022-10-09] MEDS: RIVAROXABAN 10MG TAB (XARELTO) PO SCH (17:14)
[2022-10-09 20:16] VITALS: BP 136/69
[2022-10-09 20:45] VITALS: BP 131/87
[2022-10-10] MEDS: oxyCODONE 5MG TAB PO PRN ×2 (03:14→09:54)
[2022-10-10 05:52] VITALS: BP 148/82
[2022-10-10] MEDS: ONDANSETRON 4MG 2ML VIAL IV PRN (05:56)
[2022-10-10] MEDS: MORPHINE 4 MG/ML 1ML VIAL IV PRN (05:57)
[2022-10-10 06:15] LABS: HEMATOCRIT 27.3 % (42.0-52.0); HEMOGLOBIN 9.1 g/dl (13.5-17.5); MEAN CORPUSCULAR HEMOGLOBIN 28.8 pg (27.0-33.0); MEAN CORPUSCULAR HGB CONC 33.3 g/dl (32.0-36.5); MEAN CORPUSCULAR VOLUME 86.4 fl (80.0-96.0); PLATELET COUNT, AUTOMATED 135 10^3/uL (150-450); RED BLOOD COUNT 3.16 10^6/uL (4.30-6.10); WHITE BLOOD COUNT 6.7 10^3/uL (4.0-10.0)
[2022-10-10 06:36] LABS: BLOOD UREA NITROGEN < 5 MG/DL (9-23); CALCIUM LEVEL 7.4 MG/DL (8.3-10.6); CARBON DIOXIDE LEVEL 20 MMOL/L (20-31); CHLORIDE LEVEL 99 MMOL/L (98-107); CREATININE FOR GFR 0.39 MG/DL (0.70-1.30); GLOMERULAR FILTRATION RATE > 60.0 (>49); GLUCOSE, FASTING 95 MG/DL (74-106); PHOSPHORUS LEVEL 2.6 MG/DL (2.4-5.1); POTASSIUM SERUM 4.8 MMOL/L (3.5-5.1); SODIUM LEVEL 126 MMOL/L (136-145)
[2022-10-10] MEDS: SYMBICORT 160/4.5MCG INHALER 6GM INH SCH (07:31)
[2022-10-10] MEDS: TAMSULOSIN 0.4 MG CAP PO SCH (08:37)
[2022-10-10] MEDS: VENLAFAXINE **XR** 75MG CAPSULE PO SCH (08:37)
[2022-10-10] MEDS: K-PHOS ORIGINAL (POT.ACID PHOSPHATE) 500MG TAB PO SCH (08:37)
[2022-10-10] MEDS: MULTIVITAMINS/MINERALS THERAP 1 TAB PO SCH (08:37)
[2022-10-10 08:38] VITALS: BP 148/82
[2022-10-10] MEDS: OMEPRAZOLE 20MG CAP PO SCH (08:38)
[2022-10-10] MEDS: SENNA 8.6 MG TAB (SENOKOT) PO SCH (08:38)
[2022-10-10] MEDS: CETIRIZINE (ZyrTEC) 10 MG TAB PO SCH (08:38)
[2022-10-10] MEDS: FAMOTIDINE 20 MG TAB PO SCH (08:38)
[2022-10-10] MEDS: CALCIUM/VITAMIN D 500 MG TAB PO SCH (08:38)
[2022-10-10] MEDS: LOSARTAN 25 MG TAB PO SCH (08:38)
[2022-10-10] MEDS: oxyBUTYnin 5 MG TAB PO SCH (08:39)
[2022-10-10] MEDS: GABAPENTIN 100 MG CAP PO SCH ×2 (08:39→15:58)
[2022-10-10] MEDS: MIRALAX *UNIT DOSE* 17GM PACKET PO SCH (08:39)
[2022-10-10] MEDS: FOLIC ACID 1MG TAB PO SCH (08:39)
[2022-10-10] MEDS: guaiFENesin ER 600 MG TAB PO SCH (08:39)
[2022-10-10] MEDS: NICOTINE 14 MG/24 HR TRANSDERMAL TD SCH (08:40)
[2022-10-10] MEDS: FLUTICASONE PROP 0.05% NASAL SPRAY 16 GM (FLONASE) SCH (08:42)
[2022-10-10] MEDS ORDERED: FLEET ENEMA PR PRN (08:50)
[2022-10-10] MEDS: CYCLOBENZAPRINE 10MG TABLET PO PRN (08:53)
[2022-10-10] MEDS ORDERED: LACTULOSE 20GM/30ML SYRUP UDC PO ONE (09:00)
[2022-10-10] MEDS ORDERED: SODIUM CHLORIDE 1 GM TAB PO ONE (11:10)
[2022-10-10 12:14] LABS: SODIUM,RANDOM URINE 55 MMOL/L
[2022-10-10 13:29] LABS: OSMOLALITY SERUM 260 MOSM/KG (280-301)
[2022-10-10 13:31] LABS: OSMOLALITY URINE 303 MOSM/KG (50-1400)
[2022-10-10 14:00] VITALS: BP 128/80
[2022-10-10] MEDS ORDERED: LACT20EL PO (14:46)
[2022-10-10] MEDS ORDERED: NORV5TAB PO (14:49)
[2022-10-10] MEDS ORDERED: XARE10TA PO (14:53)
[2022-10-11] MEDS ORDERED: OXYC10TA12 PO (10:45)
== END 2022-10-10 16:31 | disposition home health service (06) | DRG 481 ==
LOC: M ED 11:18 → EDBD 11:18 → M ED INP 19:01 → ENRESERV 10-04 13:38 → M MSPAV 10-04 17:14
PROVIDERS: ADMIT Family Medicine; ATTEND Internal Medicine
PROC: 0QS734Z Reposition Left Upper Femur with Internal Fixation Device, Percutaneous Approach (ICD-10-PCS; principal; 2022-10-04 10:30)
DX: S72.002A Fracture of unspecified part of neck of left femur, initial encounter for closed fracture (principal); C79.51 Secondary malignant neoplasm of bone; E87.1 Hypo-osmolality and hyponatremia; F10.139 Alcohol abuse with withdrawal, unspecified; W18.30XA Fall on same level, unspecified, initial encounter; Y92.009 Unspecified place in unspecified non-institutional (private) residence as the place of occurrence of the external cause; Y93.9 Activity, unspecified; Y99.8 Other external cause status; K21.9 Gastro-esophageal reflux disease without esophagitis; F17.200 Nicotine dependence, unspecified, uncomplicated; K27.9 Peptic ulcer, site unspecified, unspecified as acute or chronic, without hemorrhage or perforation; C61 Malignant neoplasm of prostate; R11.2 Nausea with vomiting, unspecified; R74.01 Elevation of levels of liver transaminase levels; D69.59 Other secondary thrombocytopenia; D64.9 Anemia, unspecified; E86.0 Dehydration; F17.210 Nicotine dependence, cigarettes, uncomplicated; E78.5 Hyperlipidemia, unspecified; E83.39 Other disorders of phosphorus metabolism; R33.9 Retention of urine, unspecified; K70.30 Alcoholic cirrhosis of liver without ascites; R14.0 Abdominal distension (gaseous); R10.9 Unspecified abdominal pain; K59.03 Drug induced constipation; T40.2X5A Adverse effect of other opioids, initial encounter; Z79.899 Other long term (current) drug therapy; Z88.8 Allergy status to other drugs, medicaments and biological substances; Z88.2 Allergy status to sulfonamides; Z91.013 Allergy to seafood

== ENCOUNTER 2022-10-17 10:00 | Outpatient (RCR) | payer MEDICARE, OTHER ==
[~2022-10-17 10:00] MED LIST changes: +FLOM0.4C39 PO; +GABA-282 PO; +HYDR2.5C TOP; +LACT20EL PO; +NORV5TAB PO; +OYST500T92 PO; +SYMB16INH INH; +VENL75CA2 PO; +VENL75CA47; +XARE10TA PO
== END 2022-10-20 ==
LOC: M ONCR 10:00
PROVIDERS: ATTEND General Practice
DX: C79.51 Secondary malignant neoplasm of bone (principal); C61 Malignant neoplasm of prostate

== ENCOUNTER → 2022-10-24 | Outpatient (REF) | payer MEDICARE, OTHER | LOC: M SFHCPLAZ 08:52 | PROVIDERS: ATTEND Family Medicine | DX: Z53.9 Procedure and treatment not carried out, unspecified reason (principal) ==

== ENCOUNTER → 2022-10-27 | Outpatient (REF) | payer OTHER | LOC: M LAB REF 19:23 | PROVIDERS: ATTEND Physician Assistant | DX: L02.211 Cutaneous abscess of abdominal wall (principal) ==

== ENCOUNTER → 2022-11-23 | Outpatient (CLI) | payer MEDICARE, OTHER ==
[~2022-11-23] MED LIST changes: +ONDA4TAB6 PO; +OXYC-517 PO; +PRED5TA PO; +ZYTI250T PO
== END ==
LOC: M PAIN 10:00
PROVIDERS: ATTEND Nurse Practitioner Family
DX: M51.16 Intervertebral disc disorders with radiculopathy, lumbar region (principal); G89.29 Other chronic pain; K21.9 Gastro-esophageal reflux disease without esophagitis; G43.909 Migraine, unspecified, not intractable, without status migrainosus; J43.1 Panlobular emphysema; I10 Essential (primary) hypertension; F17.210 Nicotine dependence, cigarettes, uncomplicated; Z88.2 Allergy status to sulfonamides; Z88.5 Allergy status to narcotic agent; Z88.8 Allergy status to other drugs, medicaments and biological substances; Z91.013 Allergy to seafood; Z91.041 Radiographic dye allergy status; Z79.899 Other long term (current) drug therapy

== ENCOUNTER 2022-11-27 11:24 | Outpatient (CLI) | payer MEDICARE, OTHER ==
[~2022-11-27] VITALS: Ht 177.8 cm; Wt 61.2 kg
[2022-11-27 11:15] VITALS: BP 109/56
[~2022-11-27 11:24] MED LIST changes: -PRED5TA PO; -ZYTI250T PO
[2022-11-27] MEDS ORDERED: diphenhydrAMINE 25MG CAP PO ONE (12:00)
[2022-11-27] MEDS ORDERED: ACETAMINOPHEN TAB 650MG DOSE (2X325MG) PO ONE (12:00)
[2022-11-27 13:06] VITALS: BP 119/75
[2022-11-27 14:00] VITALS: BP 114/59
[2022-11-27 15:08] VITALS: BP 118/67
[2022-11-27 16:00] VITALS: BP 128/80
[2022-11-27] MEDS ORDERED: PRED5TA PO (16:18)
[2022-11-27] MEDS ORDERED: ZYTI250T PO (16:18)
[2022-11-27 16:35] VITALS: BP 134/78
== END 2022-11-27 16:35 | disposition home or self-care (01) ==
LOC: M INFU 11:24
PROVIDERS: ATTEND Nurse Practitioner
DX: C79.82 Secondary malignant neoplasm of genital organs (principal); Z88.2 Allergy status to sulfonamides; Z88.6 Allergy status to analgesic agent; Z91.013 Allergy to seafood
CPT/HCPCS: 36415; 36430; 80053; 84153; 85025; 85049; 85055; 86850; 86900; 86901; 86920; G0463; P9016

== ENCOUNTER → 2022-11-28 | Outpatient (CLI) | payer MEDICARE, OTHER ==
[~2022-11-28] MED LIST changes: +PRED5TA PO; +ZYTI250T PO
== END ==
LOC: M SOG 07:53
PROVIDERS: ATTEND Orthopaedic Surgery Adult Reconstructive Orthopaedic Surgery
DX: M25.552 Pain in left hip (principal); Z53.8 Procedure and treatment not carried out for other reasons

== ENCOUNTER → 2022-12-27 | Outpatient (CLI) | payer MEDICARE, OTHER ==
[~2022-12-27] MED LIST changes: +LIDOCAINE 1% MDV 20ML VIAL As Ordered ONE
[2022-12-27 09:19] LABS: BASO # 0.1 10^3/uL (0.0-0.2); BASO % 1.2 % (0.0-1.0); EOS % 0.6 % (0.0-3.0); HEMATOCRIT 24.2 % (42.0-52.0); HEMOGLOBIN 7.6 g/dl (13.5-17.5); LYMPH # 1.3 10^3/uL (1.5-5.0); LYMPH % 18.9 % (24.0-44.0); MEAN CORPUSCULAR HEMOGLOBIN 31.4 pg (27.0-33.0); MEAN CORPUSCULAR HGB CONC 31.4 g/dl (32.0-36.5); MONO # 1.4 10^3/uL (0.0-0.8); MONO % 21.6 % (2.0-8.0); NEUTROPHILS # 3.1 10^3/uL (1.5-8.5); NEUTROPHILS % 46.4 % (36.0-66.0); RED BLOOD COUNT 2.42 10^6/uL (4.30-6.10); WHITE BLOOD COUNT 6.6 10^3/uL (4.0-10.0)
[2022-12-27 09:20] LABS: PLATELET COUNT, AUTOMATED 45 10^3/uL (150-450)
[2022-12-27 09:56] VITALS: BP 160/85
== END ==
LOC: M IRPRO 08:35
PROVIDERS: ATTEND Nurse Practitioner
DX: C79.51 Secondary malignant neoplasm of bone (principal); C61 Malignant neoplasm of prostate

== ENCOUNTER 2023-01-26 02:22 | Emergency (ER) | payer MEDICARE, OTHER ==
[~2023-01-26] VITALS: Ht 177.8 cm; Wt 83.6 kg
[~2023-01-26 02:22] MED LIST changes: +FLUT50SP17; -FLUTISP; -LIDOCAINE 1% MDV 20ML VIAL As Ordered ONE; +OXYC-673 PO; +SENN-186 PO; -SENN-80 PO
[2023-01-26 03:26] VITALS: BP 140/83
[2023-01-26 03:59] LABS: APPEARANCE, URINE HAZY (CLEAR); BACTERIA, URINE AUTO 3+ (NEGATIVE); BILIRUBIN, URINE AUTO NEGATIVE (NEGATIVE); BLOOD, URINE BLOOD 3+ (NEGATIVE); COLOR, URINE AMBER (YELLOW); GLUCOSE, URINE (UA) AUTO NEGATIVE (NEGATIVE); KETONE, URINE AUTO TRACE mg/dL (NEGATIVE); LEUKOCYTE ESTERASE, URINE AUTO 2+ (NEGATIVE); MUCUS, URINE SMALL (NEGATIVE); NITRITE, URINE AUTO NEGATIVE (NEGATIVE); PROTEIN, URINE AUTO NEGATIVE (NEGATIVE); RBC, URINE AUTO 34 /HPF (0-3); SPECIFIC GRAVITY URINE AUTO 1.013 (1.002-1.035); SQUAMOUS EPITHELIAL CELL UR AU 0 /HPF (0-6); WBC, URINE AUTO 47 /HPF (0-3)
[2023-01-26] MEDS ORDERED: CEFU50TA PO (04:20)
[2023-01-26] MEDS ORDERED: CEFUROXIME 500 MG TAB PO STA (04:21)
[2023-01-29] MEDS ORDERED: XTAM9CAP PO (15:28)
== END 2023-01-26 04:46 | disposition home or self-care (01) ==
LOC: M ED 02:22
DX: N39.0 Urinary tract infection, site not specified (principal); T83.098A Other mechanical complication of other urinary catheter, initial encounter; I10 Essential (primary) hypertension; C61 Malignant neoplasm of prostate; J44.9 Chronic obstructive pulmonary disease, unspecified; F32.A Depression, unspecified; F17.200 Nicotine dependence, unspecified, uncomplicated; H40.9 Unspecified glaucoma; Z85.048 Personal history of other malignant neoplasm of rectum, rectosigmoid junction, and anus; Z88.2 Allergy status to sulfonamides; Z88.8 Allergy status to other drugs, medicaments and biological substances; Z91.013 Allergy to seafood; Z79.899 Other long term (current) drug therapy; Z79.51 Long term (current) use of inhaled steroids

== ENCOUNTER 2023-02-01 22:23 | Inpatient (IN) | payer MEDICARE, OTHER ==
[~2023-02-01] VITALS: Ht 180.3 cm; Wt 61.3 kg
[~2023-02-01 22:23] MED LIST changes: +CEFU50TA PO; +XTAM9CAP PO
[2023-02-01] MEDS ORDERED: NS 1,000 ML IV ONE (22:50)
[2023-02-01] MEDS ORDERED: NS 1,840 ML in IV 1 EA IV ONE (22:50)
[2023-02-01] MEDS ORDERED: cefTRIAXone SOD 2 GM in D5W MINI-BAG PLUS 50 ML IV ONE (22:50)
[2023-02-01 23:34] LABS: VENOUS BASE EXCESS -1.5 (-2.0-2.0); VENOUS HCO3 23.7 MEQ/L (23.0-27.0); VENOUS O2 SATURATION 68.8 % (60.0-80.0); VENOUS PARTIAL PRESSURE O2 40.3 mmHg (30.0-50.0); VENOUS STANDARD HCO3 22.7 MEQ/L
[2023-02-01 23:47] LABS: HEMATOCRIT 22.1 % (42.0-52.0); HEMOGLOBIN 7.3 g/dl (13.5-17.5); MEAN CORPUSCULAR HEMOGLOBIN 33.8 pg (27.0-33.0); MEAN CORPUSCULAR VOLUME 102.3 fl (80.0-96.0); RED BLOOD COUNT 2.16 10^6/uL (4.30-6.10); WHITE BLOOD COUNT 8.5 10^3/uL (4.0-10.0)
[2023-02-01 23:59] LABS: ETHYL ALCOHOL (ETHANOL) 0.003 % (0.000-0.010); PLATELET COUNT, AUTOMATED 21 10^3/uL (150-450)
[2023-02-02] LABS: OSMOLALITY SERUM 270 MOSM/KG (280-301)
[2023-02-02 00:01] LABS: ALBUMIN 1.6 G/DL (3.2-5.2); ALKALINE PHOSPHATASE 975 U/L (46-116); ALT/SGPT 41 U/L (7.0-40); AST/SGOT 109 U/L (<34); BILIRUBIN,DIRECT 3.7 MG/DL (<0.4); BILIRUBIN,TOTAL 4.6 MG/DL (0.3-1.2); BLOOD UREA NITROGEN 17 MG/DL (9-23); CARBON DIOXIDE LEVEL 23 MMOL/L (20-31); CHLORIDE LEVEL 96 MMOL/L (98-107); CPK CREATINE PHOSPHOKINASE 148 U/L (46-171); CREATININE FOR GFR 0.41 MG/DL (0.70-1.30); GLOMERULAR FILTRATION RATE > 60.0 (>49); GLUCOSE, FASTING 50 MG/DL (74-106); MB/CK RELATIVE INDEX 0.67 (< OR =4); SODIUM LEVEL 127 MMOL/L (136-145); TOTAL PROTEIN 5.2 G/DL (5.7-8.2)
[2023-02-02 00:03] LABS: THYROID STIMULATING HORMONE 0.353 uIU/ML (0.55-4.78)
[2023-02-02 00:15] LABS: RSV AMPLIFICATION NEGATIVE (NEGATIVE)
[2023-02-02 00:31] LABS: AMPHETAMINES LEVEL URINE NEGATIVE (NEGATIVE); BARBITURATES URINE NEGATIVE (NEGATIVE); BENZODIAZEPINES URINE NEGATIVE (NEGATIVE); CANNABINOIDS URINE NEGATIVE (NEGATIVE); COCAINE METABOLITE URINE NEGATIVE (NEGATIVE); METHADONE URINE NEGATIVE (NEGATIVE); PHENCYCLIDINE URINE NEGATIVE (NEGATIVE)
[2023-02-02 00:33] LABS: OPIATES URINE POSITIVE (NEGATIVE)
[2023-02-02 01:02] LABS: ANISOCYTOSIS 4+; ATYPICAL LYMPH 4 % (0-5); EOSINOPHILS 1 % (0-3); LYMPHOCYTES 19 % (16-44); METAMYELOCYTES 4 % (0-0); MONOCYTES 9 % (0-5); MYELOCYTES 6 % (0-0); NEUTROPHILS 55 % (28-66); PLATELET ESTIMATE DECREASED (NORMAL)
[2023-02-02] MEDS ORDERED: DEXTROSE 50% 50ML SYRINGE IV STA (01:32)
[2023-02-02] MEDS ORDERED: ISOVUE-370 76% 100ML VIAL As Ordered ONE (01:39)
[2023-02-02] MEDS ORDERED: GLUCOSE 4GM CHEW TABLET PO PRN (05:20)
[2023-02-02] MEDS ORDERED: D5W/0.45% SODIUM CHLORIDE 1,000 ML IV SCH (05:20)
[2023-02-02] MEDS ORDERED: DEXTROSE 50% 50ML SYRINGE IV PRN (05:20)
[2023-02-02] MEDS ORDERED: HEPARIN SOD (PORCINE) 5000UNITS/ML 1ML VIAL/SYRINGE SC SCH (05:20)
[2023-02-02] MEDS ORDERED: GLUCAGON INJ 1MG VIAL SC PRN (05:20)
[2023-02-02 06:56] LABS: INR 1.51; PROTHROMBIN TIME 18.5 SECONDS (12.5-14.5)
[2023-02-02 07:06] LABS: IRON (FE) 129 UG/DL (65-175); PERCENT SATURATION 62.9 % (19.7-50.0); TOTAL IRON BINDING CAPACITY 205 UG/DL (250-425)
[2023-02-02 07:07] LABS: ALBUMIN 1.5 G/DL (3.2-5.2); ALKALINE PHOSPHATASE 904 U/L (46-116); ALT/SGPT 41 U/L (7.0-40); AST/SGOT 102 U/L (<34); BILIRUBIN,TOTAL 4.2 MG/DL (0.3-1.2); BLOOD UREA NITROGEN 16 MG/DL (9-23); CARBON DIOXIDE LEVEL 22 MMOL/L (20-31); CHLORIDE LEVEL 97 MMOL/L (98-107); CREATININE FOR GFR 0.38 MG/DL (0.70-1.30); GLOMERULAR FILTRATION RATE > 60.0 (>49); GLUCOSE, FASTING 80 MG/DL (74-106); POTASSIUM SERUM 3.8 MMOL/L (3.5-5.1); SODIUM LEVEL 129 MMOL/L (136-145)
[2023-02-02 07:09] LABS: HEMATOCRIT 22.8 % (42.0-52.0); HEMOGLOBIN 7.4 g/dl (13.5-17.5); MEAN CORPUSCULAR HEMOGLOBIN 33.5 pg (27.0-33.0); MEAN CORPUSCULAR HGB CONC 32.5 g/dl (32.0-36.5); MEAN CORPUSCULAR VOLUME 103.2 fl (80.0-96.0); RED BLOOD COUNT 2.21 10^6/uL (4.30-6.10); WHITE BLOOD COUNT 7.7 10^3/uL (4.0-10.0)
[2023-02-02 07:10] LABS: FERRITIN 1204.4 NG/ML (10.5-307.3); FOLATE 4.06 NG/ML (>5.4)
[2023-02-02 07:12] LABS: PLATELET COUNT, AUTOMATED 20 10^3/uL (150-450)
[2023-02-02 07:27] LABS: VITAMIN B12 LEVEL > 2000 PG/ML (211-911)
[2023-02-02 08:45] VITALS: BP 124/76
[2023-02-02 09:00] VITALS: BP 119/71
[2023-02-02] MEDS ORDERED: DOXYCYCLINE HYCLATE 100 MG in D5W MINI-BAG PLUS 100 ML IV SCH (09:00)
[2023-02-02 10:00] VITALS: BP 129/72
[2023-02-02 11:00] VITALS: BP 125/72
[2023-02-02] MEDS ORDERED: ONDANSETRON 4MG ORAL DISINTEGRATING TAB PO PRN (11:50)
[2023-02-02] MEDS ORDERED: ONDANSETRON 4MG 2ML VIAL IV PRN (11:50)
[2023-02-02 12:00] VITALS: BP 129/73
[2023-02-02] MEDS: MORPHINE 2 MG/ML 1ML VIAL IV PRN ×2 (17:23→23:03)
[2023-02-02] MEDS ORDERED: cefTRIAXone SOD 2 GM in D5W MINI-BAG PLUS 50 ML IV SCH (20:00)
[2023-02-02] MEDS: MORPHINE 10MG/0.5ML ORAL CONCENTRATE SOLUTION U/D SL PRN (20:24)
[2023-02-02] MEDS: LORazepam 2 MG/ML 1ML VIAL IV PRN (20:25)
[2023-02-03] MEDS: LORazepam 2 MG/ML 1ML VIAL IV PRN ×2 (09:45→19:54)
[2023-02-03] MEDS: MORPHINE 10MG/0.5ML ORAL CONCENTRATE SOLUTION U/D SL PRN ×2 (09:47→12:06)
[2023-02-03] MEDS: MORPHINE 2 MG/ML 1ML VIAL IV PRN ×2 (16:09→19:53)
[2023-02-03] MEDS: SCOPOLAMINE 1MG TRANSDERMAL PATCH TOP PRN (16:13)
[2023-02-04] MEDS: MORPHINE 2 MG/ML 1ML VIAL IV PRN ×3 (03:48→10:41)
[2023-02-04] MEDS: LORazepam 2 MG/ML 1ML VIAL IV PRN ×3 (03:49→10:46)
[2023-02-04] MEDS ORDERED: LORazepam 2 MG TAB PO PRN (11:00)
[2023-02-04] MEDS: MORPHINE 10MG/0.5ML ORAL CONCENTRATE SOLUTION U/D SL PRN ×2 (14:10→17:51)
[2023-02-05] MEDS: MORPHINE 10MG/0.5ML ORAL CONCENTRATE SOLUTION U/D SL PRN ×2 (07:59→22:05)
[2023-02-06] MEDS: SCOPOLAMINE 1MG TRANSDERMAL PATCH TOP PRN (16:33)
== END 2023-02-07 22:50 | disposition expired | DRG 698 ==
LOC: EDBD 22:23 → M ED 22:23 → M ED INP 02-02 05:18 → ENRESERV 02-02 14:53 → M MSPAV 02-02 17:15
PROVIDERS: ADMIT Internal Medicine; ATTEND Family Medicine
PROC: 30233N1 Transfusion of Nonautologous Red Blood Cells into Peripheral Vein, Percutaneous Approach (ICD-10-PCS; principal; 2023-02-02)
DX: T83.511A Infection and inflammatory reaction due to indwelling urethral catheter, initial encounter (principal); G93.41 Metabolic encephalopathy; E43 Unspecified severe protein-calorie malnutrition; K72.00 Acute and subacute hepatic failure without coma; J18.9 Pneumonia, unspecified organism; C79.51 Secondary malignant neoplasm of bone; J44.0 Chronic obstructive pulmonary disease with (acute) lower respiratory infection; R18.8 Other ascites; E87.1 Hypo-osmolality and hyponatremia; D61.818 Other pancytopenia; C77.3 Secondary and unspecified malignant neoplasm of axilla and upper limb lymph nodes; Z51.5 Encounter for palliative care; Z66 Do not resuscitate; C61 Malignant neoplasm of prostate; N39.0 Urinary tract infection, site not specified; R74.01 Elevation of levels of liver transaminase levels; D69.6 Thrombocytopenia, unspecified; E16.2 Hypoglycemia, unspecified; R33.9 Retention of urine, unspecified; I10 Essential (primary) hypertension; E78.5 Hyperlipidemia, unspecified; Z98.1 Arthrodesis status; Z79.899 Other long term (current) drug therapy; Z88.2 Allergy status to sulfonamides; Z88.8 Allergy status to other drugs, medicaments and biological substances; Z91.013 Allergy to seafood; Y84.6 Urinary catheterization as the cause of abnormal reaction of the patient, or of later complication, without mention of misadventure at the time of the procedure